=== PATIENT | female | born 1930 | race Caucasian/White ===

== ENCOUNTER → 2017-03-15 | Outpatient (CLI) | payer BC ==
[~2017-03-15] MED LIST: BIOT300T2 PO; CALC-274; CALCCAP7 PO; CLC100X PO; CLINPOW; COEN1CAP17 PO; CRD200 PO; DOCU-94 PO; DXY100 PO; ELQ25 PO; MAGN1TAB28 PO; MAGN200T3 PO; METO50TA16 PO; MULT-506 PO; OMEP40CA41 PO; POLY335019 PO; POLY335040 PO; SERT50TA PO; SIMV20TA2 PO; TRAM-10 PO; reclast IV
[2017-03-15 17:02] LABS: ALT/SGPT 24 U/L (12-78); AST/SGOT 21 U/L (15-37); BLOOD UREA NITROGEN 28 mg/dl (7-18); BUN/CREATININE RATIO 17.3 (10-20); CALCIUM 9.3 mg/dl (8.5-10.1); CARBON DIOXIDE 28 mmol/L (21-32); CHLORIDE 107 mmol/L (98-107); GLUCOSE 109 mg/dl (70-99); SODIUM 141 mmol/L (136-145)
[2017-03-15 17:13] LABS: ALB/GLOB RATIO 1.3 (0.9-2); ALKALINE PHOSPHATASE 86 U/L (45-117)
[2017-03-15 17:20] LABS: HEMATOCRIT 47.4 % (37-47); MEAN CELL VOLUME 90.5 fL (80-100); MEAN CORPUSCULAR HEMOGLOBIN 29.2 pg (25-34); MEAN CORPUSCULAR HGB CONC 32.3 g/dl (32-36); MEAN PLATELET VOLUME 9.5 fL (7.4-10.4); PLATELET COUNT 176 K/uL (130-400); RED BLOOD COUNT 5.24 M/uL (4.2-5.4)
[2017-03-15 17:21] LABS: BASO ABS # 0.28 K/uL (0-0.2); BASOPHIL % 0.4 %; COMPLETE YES; EOSINOPHIL % 0.9 %; LYMPH ABS # 8.12 K/uL (1.2-3.4); LYMPHOCYTE % 11.7 %; NEUTROPHILS % 8.3 %; SMUDGE CELLS PRESENT; VARIANT LYM ABS # 53.72 K/uL; VARIANT LYMPHOCYTE % 77.4 %
[2017-03-16 07:00] LABS: ESTIMATED AVERAGE GLUCOSE 120 mg/dl; HA1C FLAG Normal (Normal)
== END | disposition home or self-care (01) ==
LOC: C.LAB 14:19
PROVIDERS: ATTEND Internal Medicine Geriatric Medicine
DX: M81.0 Age-related osteoporosis without current pathological fracture (principal); M19.90 Unspecified osteoarthritis, unspecified site; C91.10 Chronic lymphocytic leukemia of B-cell type not having achieved remission; E87.5 Hyperkalemia; I10 Essential (primary) hypertension; R73.9 Hyperglycemia, unspecified

== ENCOUNTER → 2017-03-22 | Outpatient (CLI) | payer BC ==
--- NOTE | 2017-03-22 10:29 | DIAGNOSTIC IMAGING REPORT ---
RENAL ULTRASOUND HISTORY: Renal insufficiency ELEVATED SERUM CREAT NINE COMPARISON: September 03, 2010 FINDINGS: Right kidney: Maximum dimension 8.6 cm. Small 1 cm cyst. No evidence for hydronephrosis. Mild cortical scarring. Mild cortical thinning Left kidney: Maximum dimension 8.6 cm. No evidence for hydronephrosis. Several small subcentimeter cysts. Normal corticomedullary differentiation and cortical thickness. Bladder: No bladder wall thickening. The bilateral ureteral jets were identified. IMPRESSION: Mild cortical scarring bilaterally. No evidence for hydronephrosis. Several very small renal cysts. Electronically signed by: Marcial Escamilla M.D. 03/22/2017 10:28 AM Dictated Date/Time: 03/22/2017 10:26 AM
== END | disposition home or self-care (01) ==
LOC: C.ULTRBC 09:49
PROVIDERS: ATTEND Internal Medicine Geriatric Medicine
DX: R79.89 Other specified abnormal findings of blood chemistry (principal); N28.1 Cyst of kidney, acquired

== ENCOUNTER → 2017-03-29 | Outpatient (CLI) | payer BC ==
[2017-03-29 13:51] LABS: BLOOD UREA NITROGEN 20 mg/dl (7-18); BUN/CREATININE RATIO 18.6 (10-20); CARBON DIOXIDE 28 mmol/L (21-32); CHLORIDE 106 mmol/L (98-107); GLUCOSE 119 mg/dl (70-99); POTASSIUM 4.8 mmol/L (3.5-5.1); SODIUM 142 mmol/L (136-145)
[2017-03-29 14:16] LABS: HEMATOCRIT 45.7 % (37-47); MEAN CORPUSCULAR HEMOGLOBIN 29.5 pg (25-34); MEAN CORPUSCULAR HGB CONC 32.4 g/dl (32-36); MEAN PLATELET VOLUME 9.3 fL (7.4-10.4); PLATELET COUNT 154 K/uL (130-400); RED BLOOD COUNT 5.02 M/uL (4.2-5.4); WHITE BLOOD COUNT 61.99 K/uL (4.8-10.8)
[2017-03-29 15:53] LABS: BASO % 0.3 %; BASO ABS # 0.16 K/uL (0-0.2); COMPLETE YES; EOS % 0.6 %; IG% 0.2 %; LYMPH % 87.4 %; LYMPH ABS # 54.19 K/uL (1.2-3.4); MONO % 2.6 %; NEUT % 8.9 %; SMUDGE CELLS PRESENT
== END | disposition home or self-care (01) ==
LOC: C.LAB 12:12
PROVIDERS: ATTEND Internal Medicine Geriatric Medicine
DX: C91.10 Chronic lymphocytic leukemia of B-cell type not having achieved remission (principal)

== ENCOUNTER → 2017-05-04 | Outpatient (CLI) | payer BC ==
[~2017-05-04] MED LIST changes: -CALCCAP7 PO; -CRD200 PO; -DOCU-94 PO; -DXY100 PO; -ELQ25 PO; -MAGN1TAB28 PO; -POLY335019 PO
--- NOTE | 2017-05-04 13:06 | MAMMOGRAPHY REPORT ---
BILATERAL DIGITAL SCREENING MAMMOGRAM WITH CAD: 05/04/2017 CLINICAL HISTORY: Routine screening. Patient has no complaints. TECHNIQUE: Current study was also evaluated with a Computer Aided Detection (CAD) system. Bilateral CC and MLO views were obtained. COMPARISON: Comparison is made to exams dated: 04/29/2016 mammogram, 04/28/2015 mammogram, 04/25/2014 m ammogram, 04/19/2013 mammogram, 04/17/2012 mammogram, and 04/07/2011 mammogram - [facility] nter. BREAST COMPOSITION: There are scattered areas of fibroglandular density in both breasts. FINDINGS: No suspicious masses, calcifications, or areas of architectural distortion are noted in ei ther breast. There has been no significant interval change compared to prior exams. Scattered bilater al benign-appearing calcifications are not significantly changed. A linear scar marker denotes a sca r on the left upper outer breast. IMPRESSION: ACR BI-RADS CATEGORY 2: BENIGN There is no mammographic evidence of malignancy. A 1 year screening mammogram is recommended. The pa tient will receive written notification of the results. Approximately 10% of breast cancers are not detected with mammography. A negative mammographic report should not delay biopsy if a clinically suggestive mass is present. Nupur Jenkins M.D. /:05/04/2017 12:01:11 Market Research Worker: Mila CASILLAS(Marcos)(Avel[place])([place]), [facility] letter sent: Normal 1/2 BI-RADS Code: ACR BI-RADS Category 2: Benign
== END | disposition home or self-care (01) ==
LOC: C.MAMM 11:33
PROVIDERS: ATTEND Internal Medicine Hematology & Oncology
DX: Z12.31 Encounter for screening mammogram for malignant neoplasm of breast (principal)

== ENCOUNTER → 2017-08-30 | Outpatient (CLI) | payer BC ==
[2017-08-30 15:24] LABS: ESTIMATED AVERAGE GLUCOSE 123 mg/dl; HA1C FLAG Normal (Normal)
[2017-08-30 15:57] LABS: HEMATOCRIT 44.2 % (37-47); MEAN CELL VOLUME 88.2 fL (80-100); MEAN CORPUSCULAR HEMOGLOBIN 28.7 pg (25-34); MEAN CORPUSCULAR HGB CONC 32.6 g/dl (32-36); PLATELET COUNT 151 K/uL (130-400); RED BLOOD COUNT 5.01 M/uL (4.2-5.4); WHITE BLOOD COUNT 57.99 K/uL (4.8-10.8)
[2017-08-30 16:00] LABS: BASO % 0.2 %; BASO ABS # 0.12 K/uL (0-0.2); EOS % 0.5 %; IG% 0.2 %; LYMPH % 86.4 %; LYMPH ABS # 50.12 K/uL (1.2-3.4); NEUT % 10.7 %
[2017-08-30 16:01] LABS: COMPLETE YES; SMUDGE CELLS PRESENT
[2017-08-30 16:14] LABS: ALT/SGPT 22 U/L (12-78); AST/SGOT 15 U/L (15-37); BLOOD UREA NITROGEN 24 mg/dl (7-18); BUN/CREATININE RATIO 19.8 (10-20); CALCIUM 8.8 mg/dl (8.5-10.1); CARBON DIOXIDE 27 mmol/L (21-32); CHLORIDE 106 mmol/L (98-107); CHOLESTEROL 131 mg/dl (0-200); GLUCOSE 107 mg/dl (70-99); POTASSIUM 4.6 mmol/L (3.5-5.1); SODIUM 140 mmol/L (136-145)
[2017-08-30 16:25] LABS: ALB/GLOB RATIO 1.3 (0.9-2); ALKALINE PHOSPHATASE 97 U/L (45-117); CHOLESTEROL/HDL RATIO 4.1; HDL CHOLESTEROL 32 mg/dl; LDL CHOLESTEROL CALCULATED 65 mg/dl; TRIGLYCERIDES 170 mg/dl (0-150); VERY LOW DENSITY LIPOPROT CALC 34 mg/dl
== END | disposition home or self-care (01) ==
LOC: C.LAB 12:32
PROVIDERS: ATTEND Internal Medicine Geriatric Medicine
DX: M81.0 Age-related osteoporosis without current pathological fracture (principal); C91.10 Chronic lymphocytic leukemia of B-cell type not having achieved remission; E78.5 Hyperlipidemia, unspecified; R73.9 Hyperglycemia, unspecified; I10 Essential (primary) hypertension

== ENCOUNTER 2017-09-09 17:06 | Inpatient (IN) | payer BC, OTHER ==
[~2017-09-09] VITALS: Ht 165.1 cm; Wt 74.0 kg
[2017-09-09] MEDS ORDERED: OPTIRAY 320 IV PRN (17:45)
[2017-09-09 18:02] LABS: HEMATOCRIT 44.6 % (37-47); MEAN CELL VOLUME 87.3 fL (80-100); MEAN CORPUSCULAR HGB CONC 32.1 g/dl (32-36); MEAN PLATELET VOLUME 9.2 fL (7.4-10.4); PLATELET COUNT 101 K/uL (130-400); RED BLOOD COUNT 5.11 M/uL (4.2-5.4); WHITE BLOOD COUNT 28.84 K/uL (4.8-10.8)
[2017-09-09 18:13] LABS: INR 1.1 (0.9-1.1); PARTIAL THROMBOPLASTIN RATIO 1.3; PROTHROMBIN TIME (PATIENT) 11.5 SECONDS (9.0-12.0)
[2017-09-09 18:14] LABS: URINE APPEARANCE CLEAR (CLEAR); URINE BILIRUBIN NEG (NEG); URINE COLOR YELLOW; URINE NITRITE NEG (NEG); URINE PH 6.5 (4.5-7.5); URINE SPECIFIC GRAVITY 1.023 (1.000-1.030); UROBILINOGEN NEG (NEG); ZZURINE CULT IF INDIC CATH NO
[2017-09-09 18:18] LABS: MANUAL MICROSCOPIC REQUIRED? NO; REVIEW REQ? NO
--- NOTE | 2017-09-09 18:20 | DIAGNOSTIC IMAGING REPORT ---
SINGLE VIEW CHEST CLINICAL HISTORY: Change in mental status. FINDINGS: An AP, portable, upright chest radiograph is compared to study dated 09/04/2010 and correlated with chest CT dated 06/21/2013. The examination is degraded by portable technique and patient rotation. The heart is mildly enlarged and there is atherosclerotic calcification of the thoracic aorta. The pulmonary vasculature is noncongested. Chronic interstitial thickening is similar to previous. No airspace consolidation, large pleural effusion, or pneumothorax is seen. There is a 1.4 cm nodular density at the right lung base. This was not seen on prior examinations. The skeletal structures are osteopenic. Chronic posttraumatic deformity is seen in the right humerus. IMPRESSION: 1. Cardiomegaly with no acute cardiopulmonary abnormality. 2. There is a 1.4 cm nodular density at the right lung base. Although this could represent superimposition of shadows/artifact, this was not seen on prior examinations. Correlation with a chest CT is recommended for further assessment and to exclude underlying pulmonary lesion. Electronically signed by: Destin Lloyd M.D. 09/09/2017 6:19 PM Dictated Date/Time: 09/09/2017 6:17 PM
[2017-09-09 18:22] LABS: ALT/SGPT 18 U/L (12-78); AST/SGOT 13 U/L (15-37); BLOOD UREA NITROGEN 17 mg/dl (7-18); BUN/CREATININE RATIO 16.9 (10-20); CALCIUM 8.8 mg/dl (8.5-10.1); CARBON DIOXIDE 24 mmol/L (21-32); CHLORIDE 105 mmol/L (98-107); GLUCOSE 116 mg/dl (70-99); POTASSIUM 4.1 mmol/L (3.5-5.1); SODIUM 136 mmol/L (136-145)
[2017-09-09 18:29] LABS: ALKALINE PHOSPHATASE 89 U/L (45-117)
[2017-09-09 18:41] LABS: BASO % 0.3 %; BASO ABS # 0.08 K/uL (0-0.2); COMPLETE YES; EOS % 0.1 %; IG% 0.2 %; LYMPH % 77.6 %; LYMPH ABS # 22.39 K/uL (1.2-3.4); MONO % 1.9 %; NEUT % 19.9 %; SMUDGE CELLS PRESENT
[2017-09-09] MEDS ORDERED: DOCU-94 PO (18:45)
[2017-09-09] MEDS ORDERED: MAGN1TAB28 PO (18:45)
[2017-09-09] MEDS ORDERED: POLY335019 PO (18:45)
--- NOTE | 2017-09-09 18:46 | DIAGNOSTIC IMAGING REPORT ---
CT SCAN OF THE BRAIN WITHOUT IV CONTRAST CLINICAL HISTORY: Change in mental status. COMPARISON STUDY: No priors. TECHNIQUE: Unenhanced axial CT scan of the brain is performed from the vertex to the skull base. CT DOSE: 537.48 mGy.cm FINDINGS: Brain parenchyma: There are age-related involutional changes noting moderate subcortical and periventricular microangiopathic change. There is no hemorrhage, mass effect, or evidence of acute territorial ischemia by CT criteria. [place]-white matter is preserved. No extra-axial fluid collection is seen. Ventricles, sulci, cisterns: Prominent secondary to involutional change. Intracranial vasculature: There is atherosclerotic calcification of the cavernous carotid and vertebral arteries. Calvarium: Unremarkable. Sinuses and mastoids: There is complete opacification of the right maxillary antrum. Thickening and sclerosis of the sinus wall suggests crystal. There is complete opacification of several right-sided ethmoid sinuses, also likely chronic. The remaining Visualized paranasal sinuses are clear. The mastoid air cells are well pneumatized. Orbits: The bony orbits are grossly intact. There are bilateral ocular lens implants. IMPRESSION: 1. Senescent changes as above with no hemorrhage, mass effect, or evidence of acute territorial ischemia by CT criteria. 2. Chronic appearing paranasal sinus disease as above. Electronically signed by: Destin Lloyd M.D. 09/09/2017 6:45 PM Dictated Date/Time: 09/09/2017 6:43 PM
[2017-09-09] MEDS ORDERED: CALCCAP7 PO (18:47)
--- NOTE | 2017-09-09 18:53 | DIAGNOSTIC IMAGING REPORT ---
CT SCAN OF THE ABDOMEN AND PELVIS WITH IV CONTRAST CLINICAL HISTORY: Generalized abdominal pain. COMPARISON STUDY: Abdominal CT dated 06/21/2013. TECHNIQUE: Following the IV administration of 116 cc of Optiray 320, CT scan of the abdomen and pelvis is performed from the lung bases to the proximal femora. Images are reviewed in the axial, sagittal, and coronal planes. IV contrast was administered without complication. A dose lowering technique was utilized adhering to the principles of ALARA. CT DOSE: 663.83 mGy.cm FINDINGS: Lung bases: The heart is top normal in size and without pericardial effusion. The coronary arteries are densely calcified. The lung bases are clear noting dependent atelectasis. Liver: The contrast-enhanced liver is normal in size, contour, and attenuation. A 2.2 cm cyst is noted in the right lobe. There is no intrahepatic biliary ductal dilatation. The hepatic veins and portal veins are patent. Possible granulomas are observed. Gallbladder: Unremarkable. Spleen: The spleen is markedly enlarged measuring 16 cm in length. There are calcified splenic granulomas. Pancreas: Atrophic and grossly unremarkable. Adrenal glands: Unremarkable. Kidneys: The contrast enhanced kidneys are atrophic and without hydronephrosis. The kidneys enhance symmetrically. Scattered subcentimeter cortical hypodensities likely represent cysts but are too small for definitive characterization. Abdominal vasculature: The abdominal aorta is normal in course and caliber noting moderate atherosclerotic calcification. Bowel: There is mild colonic diverticulosis without CT evidence of acute diverticulitis. No bowel obstruction is seen. The appendix is well-visualized and normal. Peritoneum: There is no intraperitoneal free air or abdominal ascites. Lymphadenopathy: A mildly enlarged left pelvic sidewall node seen on image #46 measures 1.1 cm in short axis. This is best seen on image #346. No additional pathologically enlarged lymph nodes are seen in the abdomen or pelvis. Pelvic viscera: Evaluation of the pelvis is degraded by streak artifact from a left hip arthroplasty. The bladder is decompressed and not well evaluated. The uterus is surgically absent. No adnexal lesion is seen. Skeletal structures: The skeletal structures are osteopenic. There is moderate lumbosacral spondylosis. There is a mild compression deformity of T12. Grade 1 anterolisthesis is seen at L4-L5. No lytic or blastic lesions are seen. 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 IMPRESSION: 1. There are no acute infectious or inflammatory findings in the abdomen or pelvis. 2. Marked splenomegaly, similar in appearance to the 2013 examination. 3. There is a mildly enlarged left pelvic sidewall length node, which is of indeterminant etiology and significance. 4. Mild colonic diverticulosis without CT evidence of acute diverticulitis. 5. Additional findings as above. Electronically signed by: Destin Lloyd M.D. 09/09/2017 6:52 PM Dictated Date/Time: 09/09/2017 6:45 PM
[2017-09-09] MEDS ORDERED: METRONIDAZOLE 500MG / 100ML NSS IV STA (18:58)
[2017-09-09] MEDS ORDERED: CEFEPIME IV 1,000 MG in DEXTROSE 5% 100ML 100 ML IV SCH (19:00)
[2017-09-09] MEDS ORDERED: POLYETHYLENE (MIRALAX) 17 GM PACK PO PRN (20:30)
[2017-09-09] MEDS ORDERED: DOCUSATE SODIUM 100 MG CAP PO PRN (20:30)
[2017-09-09] MEDS ORDERED: ONDANSETRON INJ 2 MG/ML 2 ML VIAL IV PRN (20:30)
[2017-09-09] MEDS ORDERED: FAMOTIDINE IV INJ 20 MG in DEXTROSE 5% 100ML 100 ML IV SCH (20:30)
[2017-09-09] MEDS ORDERED: TRAMADOL HCL 50 MG TAB PO SCH (21:00)
[2017-09-09] MEDS ORDERED: IV FLUIDS COMPLETED PRN (21:00)
[2017-09-09] MEDS ORDERED: CEFEPIME IV 1,000 MG in SYRINGE 0 ML IV ONE (22:15)
[2017-09-09 22:30] VITALS: Ht 165.1 cm; Wt 74.0 kg
[2017-09-09 22:37] VITALS: BP 141/73; PULSE 94; TEMP 37.1; O2SAT 95
--- NOTE | 2017-09-09 22:56 | History and Physical ---
History & Physical Date & Time of Service: Sep 09, 2017 at 22:56 Chief Complaint: Altered Mental State, Cll B-Cell Primary Care Physician: Lencho French M.D. History of Present Illness Source: patient, family, hospital records The patient is an 87-year-old female who presents emergency department as noted by her family due to altered mental state. The patient's granddaughter at initially spoken with her early in the morning, and noted that there was some confusion and possible slurred speech. The patient's daughter then spoke with her later in the afternoon and the patient told her daughter that she was on the floor, vomiting and seemed confused. Her family who is with her in the emergency department now reports that the patient is still somewhat confused but closer toward her baseline. They note that the hair ringing and curling that the patient is frequently undergoing in the ED occurred the last time she was in the hospital when she had a hip arthroplasty performed. The patient at this time seems somewhat lucid and reports that she had one vomiting episode, and is unclear about the previous occurrences as noted above Past Medical/Surgical History Medical Problems: (1) Benign hypertension Status: Chronic (2) Cancer - Leukemia Status: Chronic (3) Chronic lymphocytic leukemia (CLL), B-cell Status: Chronic (4) Depression Status: Chronic (5) Hysterectomy Status: Resolved (6) Osteoporosis Status: Chronic (7) Tonsillectomy Status: Resolved (8) Total replacement of hip Status: Resolved (9) Ulcerative colitis Status: Chronic Family History noncontributory Social History Smoking Status: Never Smoker Smokeless Tobacco Use: No Alcohol Use: none Drug Use: none Marital Status: Housing status: lives alone Occupational Status: retired Immunizations History of Influenza Vaccine: Yes History of Tetanus Vaccine?: Yes History of Pneumococcal: Yes History of Hepatitis B Vaccine: No Multi-Drug Resistant Organisms History of MDRO: No Allergies Coded Allergies: Naloxone (Verified Allergy, Severe, TREMORS, DYSKINESIA, 09/09/17) Acetaminophen (Verified Allergy, Unknown, `, 09/09/17) Amoxicillin (Verified Allergy, Unknown, `, 09/09/17) Clarithromycin (Verified Allergy, Unknown, `, 09/09/17) Aspirin (Verified Adverse Reaction, Intermediate, hISTORY OF ULCERS, ) Codeine (Verified Adverse Reaction, Intermediate, VOMITING, 09/09/17) Home Medications Scheduled Biotin (Biotin), 5,000 MCG PO DAILY Calcium Carbonate-Vitamin D (Calcium Plus Vitamin D), 1 CAP PO DAILY Coenzyme Q10 (Ubidecarenone) (Co Q 10), 100 MG PO DAILY Magnesium-Zinc (Magnesium/Chelated Zinc), 1 TAB PO DAILY Metoprolol Tartrate (Lopressor) (Lopressor), 50 MG PO BID Multivitamin (Multivitamin), 1 TABLET PO DAILY Omeprazole (Prilosec), 40 MG PO DAILY Sertraline (Zoloft), 100 MG PO DAILY Simvastatin (Zocor), 20 MG PO HS Tramadol (Ultram), 50-100 MG PO HS Scheduled PRN Docusate Sodium (Colace), 1 CAP PO BID PRN for Constipation Polyethylene Glycol 3350 (Miralax), 17 GM PO DAILY PRN for Constipation Review of Systems The patient denies chest pain, palpitations, shortness of breath, cough, lower extremity swelling, vision change, hearing change, sore throat, fevers, chills, sweats, weight change, fatigue, diarrhea or constipation, abdominal pain, pelvic pain, blood in urine or stool, dysuria, urinary frequency or urgency, loss of consciousness, rash, abnormal bruising or bleeding, imbalance, focal or generalized weakness, numbness or tingling in arms or legs, generalized arthralgias or myalgias, back or neck pain, or night sweats. The review of systems is otherwise negative other than for that already noted above, and at least 10 systems have been reviewed. Physical Exam Vital Signs Date Time Temp Pulse Resp B/P (MAP) Pulse Ox O2 Delivery O2 Flow Rate FiO2 09/09/17 22:37 37.1 94 20 141/73 (95) 95 Nasal Cannula 3.0 09/09/17 21:39 91 18 136/69 94 Room Air 09/09/17 18:52 91 20 130/61 96 Room Air 09/09/17 17:29 90 09/09/17 17:19 Room Air 09/09/17 17:13 37.0 87 16 109/58 95 Room Air The patient is awake, well-developed and adequately nourished, alert and oriented 3 for the most part, but intermittently looks to family for answers, normocephalic and atraumatic, lying in bed and in no acute distress. HEENT--PERRL, EOMI, mucous membranes and oropharynx normal. Neck--supple, no JVD or bruits, thyroid normal, trachea midline, no adenopathy. Heart--normal S1 and S2, no extra beats, no murmurs, rubs or gallops. Lungs--clear bilaterally with good air movement, no respiratory distress, no accessory muscle use. Abdomen--normal bowel sounds and soft, nontender and nondistended, no hernias or masses, no organomegaly. Extremities--no cyanosis, clubbing or edema. There are good distal pulses b/l. Dermatologic--normal skin turgor, normal color, warm and dry, no abnormal lymph nodes, no rash. Neurologic--cranial nerves II through XII grossly intact. Rheumatologic--normal range of motion. Psychiatric--normal affect. Diagnostics Laboratory Results Results Past 24 Hours Test 09/09/17 17:40 09/09/17 17:45 09/09/17 18:00 09/09/17 22:40 Range/Units Urine Color YELLOW Urine Appearance CLEAR CLEAR Urine pH 6.5 4.5-7.5 Urine Specific [place] 1.023 1.000-1.030 Urine Protein 1+ NEG Urine Glucose (UA) NEG NEG Urine Ketones NEG NEG Urine Occult Blood 2+ NEG Urine Nitrite NEG NEG Urine Bilirubin NEG NEG Urine Urobilinogen NEG NEG Urine Leukocyte Esterase NEG NEG Urine WBC (Auto) 1-5 0-5 /hpf Urine RBC (Auto) >30 0-4 /hpf Urine Hyaline Casts (Auto) 1-5 0-5 /lpf Urine Epithelial Cells (Auto) 10-20 0-5 /lpf Urine Bacteria (Auto) NEG NEG White Blood Count 28.84 4.8-10.8 K/uL Red Blood Count 5.11 4.2-5.4 M/uL Hemoglobin 14.3 12.0-16.0 g/dL Hematocrit 44.6 37-47 % Mean Corpuscular Volume 87.3 80-100 fL Mean Corpuscular Hemoglobin 28.0 25-34 pg Mean Corpuscular Hemoglobin Concent 32.1 32-36 g/dl Platelet Count 101 130-400 K/uL Mean Platelet Volume 9.2 7.4-10.4 fL Neutrophils (%) (Auto) 19.9 % Lymphocytes (%) (Auto) 77.6 % Monocytes (%) (Auto) 1.9 % Eosinophils (%) (Auto) 0.1 % Basophils (%) (Auto) 0.3 % Neutrophils # (Auto) 5.71 1.4-6.5 K/uL Lymphocytes # (Auto) 22.39 1.2-3.4 K/uL Monocytes # (Auto) 0.55 0.11-0.59 K/uL Eosinophils # (Auto) 0.04 0-0.5 K/uL Basophils # (Auto) 0.08 0-0.2 K/uL RDW Standard Deviation 46.1 36.4-46.3 fL RDW Coefficient of Variation 14.4 11.5-14.5 % Immature Granulocyte % (Auto) 0.2 % Immature Granulocyte # (Auto) 0.07 0.00-0.02 K/uL Smudge Cells PRESENT Prothrombin Time 11.5 9.0-12.0 SECONDS Prothromb Time International Ratio 1.1 0.9-1.1 Activated Partial Thromboplast Time 34.3 21.0-31.0 SECONDS Partial Thromboplastin Ratio 1.3 Sodium Level 136 136-145 mmol/L Potassium Level 4.1 3.5-5.1 mmol/L Chloride Level 105 98-107 mmol/L Carbon Dioxide Level 24 21-32 mmol/L Anion Gap 7.0 3-11 mmol/L Blood Urea Nitrogen 17 7-18 mg/dl Creatinine 1.00 0.60-1.20 mg/dl Est Creatinine Clear Calc Drug Dose 43.7 ml/min Estimated GFR () 59.5 Estimated GFR (Non- 51.3 BUN/Creatinine Ratio 16.9 10-20 Random Glucose 116 70-99 mg/dl Calcium Level 8.8 8.5-10.1 mg/dl Total Bilirubin 0.7 0.2-1 mg/dl Direct Bilirubin 0.2 0-0.2 mg/dl Aspartate Amino Transf (AST/SGOT) 13 15-37 U/L Alanine Aminotransferase (ALT/SGPT) 18 12-78 U/L Alkaline Phosphatase 89 45-117 U/L Total Creatine Kinase 57 26-192 U/L Troponin I < 0.015 0-0.045 ng/ml Total Protein 7.2 6.4-8.2 gm/dl Albumin 3.8 3.4-5.0 gm/dl Bedside Lactic Acid Venous 1.09 0.90-1.70 mmol/L Diagnostic Radiology Patient Name: LIANNA HIGUERA Unit Number: [id number] Dictated: 09/09/171842 Transcribed: 09/09/171842 EV Printed Date/Time: [~ rep prt dt]/[~ rep prt tm] [~ rep ct labl] - [~ rep ct ivnm] [facility] [place] [address] Dictated: 09/09/171842 Transcribed: 09/09/171842 EV Printed Date/Time: [~ rep prt dt]/[~ rep prt tm] [~ rep ct labl] - [~ rep ct ivnm] [~ rep ct add3]] CT SCAN OF THE BRAIN WITHOUT IV CONTRAST CLINICAL HISTORY: Change in mental status. COMPARISON STUDY: No priors. TECHNIQUE: Unenhanced axial CT scan of the brain is performed from the vertex to the skull base. CT DOSE: 537.48 mGy.cm FINDINGS: Brain parenchyma: There are age-related involutional changes noting moderate subcortical and periventricular microangiopathic change. There is no hemorrhage, mass effect, or evidence of acute territorial ischemia by CT criteria. [place]-white matter is preserved. No extra-axial fluid collection is seen. Ventricles, sulci, cisterns: Prominent secondary to involutional change. Intracranial vasculature: There is atherosclerotic calcification of the cavernous carotid and vertebral arteries. Calvarium: Unremarkable. Sinuses and mastoids: There is complete opacification of the right maxillary antrum. Thickening and sclerosis of the sinus wall suggests crystal. There is complete opacification of several right-sided ethmoid sinuses, also likely chronic. The remaining Visualized paranasal sinuses are clear. The mastoid air cells are well pneumatized. Orbits: The bony orbits are grossly intact. There are bilateral ocular lens implants. IMPRESSION: 1. Senescent changes as above with no hemorrhage, mass effect, or evidence of acute territorial ischemia by CT criteria. 2. Chronic appearing paranasal sinus disease as above. Electronically signed by: Destin Lloyd M.D. 09/09/2017 6:45 PM Dictated Date/Time: 09/09/2017 6:43 PM The status of this report is Signed. Draft = Not yet reviewed or approved by Radiologist. Signed = Reviewed and approved by Radiologist. <AttendingPhy></AttendingPhy> <FamilyPhy>Lencho French M.D.</FamilyPhy> < PrimaryPhy>Lencho French M.D.</PrimaryPhy> <UnitNumber>[id number]</UnitNumber > <VisitNumber>[id number]</VisitNumber> <PatientName>ILANNA HIGUERA</ PatientName> <DateOfBirth>1930</DateOfBirth> <Location>[facility]</Location> < ServiceDate>09/09/17</ServiceDate> <MNE>ESINDI</MNE> <OrderingPhy>Chris Workman DO</OrderingPhy> <OrderingPhyMNE>f rep ord dr flowers</OrderingPhyMNE> < DictatingPhyMNE>f rep dict dr flowers</DictatingPhyMNE> <CCListMNE>f rep ct mne</ CCListMNE> <AdmittingPhyMNE>f pt admit dr flowers</AdmittingPhyMNE> <AttendingPhyMNE >f pt attend dr flowers</AttendingPhyMNE> <ConsultingPhyMNE>f pt consult dr flowers</ConsultingPhyMNE> <FamilyPhyMNE>f pt fam dr flowers</FamilyPhyMNE> <OtherPhyMNE>f pt other dr flowers</OtherPhyMNE> < PrimaryPhyMNE>f pt prim care dr flowers</PrimaryPhyMNE> <ReferringPhyMNE>f pt referring dr flowers</ReferringPhyMNE> Patient Name: LIANNA HIGUERA Unit Number: [id number] Dictated: 09/09/171816 Transcribed: 09/09/171816 EV Printed Date/Time: [~ rep prt dt]/[~ rep prt tm] [~ rep ct labl] - [~ rep ct ivnm] [facility] [place] [address] Dictated: 09/09/171816 Transcribed: 09/09/171816 EV Printed Date/Time: [~ rep prt dt]/[~ rep prt tm] [~ rep ct labl] - [~ rep ct ivnm] [~ rep ct add3]] SINGLE VIEW CHEST CLINICAL HISTORY: Change in mental status. FINDINGS: An AP, portable, upright chest radiograph is compared to study dated 09/04/2010 and correlated with chest CT dated 06/21/2013. The examination is degraded by portable technique and patient rotation. The heart is mildly enlarged and there is atherosclerotic calcification of the thoracic aorta. The pulmonary vasculature is noncongested. Chronic interstitial thickening is similar to previous. No airspace consolidation, large pleural effusion, or pneumothorax is seen. There is a 1.4 cm nodular density at the right lung base. This was not seen on prior examinations. The skeletal structures are osteopenic. Chronic posttraumatic deformity is seen in the right humerus. IMPRESSION: 1. Cardiomegaly with no acute cardiopulmonary abnormality. 2. There is a 1.4 cm nodular density at the right lung base. Although this could represent superimposition of shadows/artifact, this was not seen on prior examinations. Correlation with a chest CT is recommended for further assessment and to exclude underlying pulmonary lesion. Electronically signed by: Destin Lloyd M.D. 09/09/2017 6:19 PM Dictated Date/Time: 09/09/2017 6:17 PM The status of this report is Signed. Draft = Not yet reviewed or approved by Radiologist. Signed = Reviewed and approved by Radiologist. <AttendingPhy></AttendingPhy> <FamilyPhy>Lencho French M.D.</FamilyPhy> < PrimaryPhy>Lencho French M.D.</PrimaryPhy> <UnitNumber>[id number]</UnitNumber > <VisitNumber>[id number]</VisitNumber> <PatientName>LIANNA HIGUERA S</ PatientName> <DateOfBirth>1930</DateOfBirth> <Location>[facility]</Location> < ServiceDate>09/09/17</ServiceDate> <MNE>ESINDI</MNE> <OrderingPhy>Chris Workman DO</OrderingPhy> <OrderingPhyMNE>f rep ord dr flowers</OrderingPhyMNE> < DictatingPhyMNE>f rep dict dr flowers</DictatingPhyMNE> <CCListMNE>f rep ct mne</ CCListMNE> <AdmittingPhyMNE>f pt admit dr flowers</AdmittingPhyMNE> <AttendingPhyMNE >f pt attend dr flowers</AttendingPhyMNE> <ConsultingPhyMNE>f pt consult dr flowers</ConsultingPhyMNE> <FamilyPhyMNE>f pt fam dr flowers</FamilyPhyMNE> <OtherPhyMNE>f pt other dr flowers</OtherPhyMNE> < PrimaryPhyMNE>f pt prim care dr flowers</PrimaryPhyMNE> <ReferringPhyMNE>f pt referring dr flowers</ReferringPhyMNE> Patient Name: LIANNA HIGUERA Unit Number: [id number] Dictated: 09/09/171844 Transcribed: 09/09/171844 EV Printed Date/Time: [~ rep prt dt]/[~ rep prt tm] [~ rep ct labl] - [~ rep ct ivnm] [facility] Radiology Department [place], [place] [id number] Dictated: 09/09/171844 Transcribed: 09/09/171844 EV Printed Date/Time: [~ rep prt dt]/[~ rep prt tm] [~ rep ct labl] - [~ rep ct ivnm] [~ rep ct add3]] CT SCAN OF THE ABDOMEN AND PELVIS WITH IV CONTRAST CLINICAL HISTORY: Generalized abdominal pain. COMPARISON STUDY: Abdominal CT dated 06/21/2013. TECHNIQUE: Following the IV administration of 116 cc of Optiray 320, CT scan of the abdomen and pelvis is performed from the lung bases to the proximal femora. Images are reviewed in the axial, sagittal, and coronal planes. IV contrast was administered without complication. A dose lowering technique was utilized adhering to the principles of ALARA. CT DOSE: 663.83 mGy.cm FINDINGS: Lung bases: The heart is top normal in size and without pericardial effusion. The coronary arteries are densely calcified. The lung bases are clear noting dependent atelectasis. Liver: The contrast-enhanced liver is normal in size, contour, and attenuation. A 2.2 cm cyst is noted in the right lobe. There is no intrahepatic biliary ductal dilatation. The hepatic veins and portal veins are patent. Possible granulomas are observed. Gallbladder: Unremarkable. Spleen: The spleen is markedly enlarged measuring 16 cm in length. There are calcified splenic granulomas. Pancreas: Atrophic and grossly unremarkable. Adrenal glands: Unremarkable. Kidneys: The contrast enhanced kidneys are atrophic and without hydronephrosis. The kidneys enhance symmetrically. Scattered subcentimeter cortical hypodensities likely represent cysts but are too small for definitive characterization. Abdominal vasculature: The abdominal aorta is normal in course and caliber noting moderate atherosclerotic calcification. Bowel: There is mild colonic diverticulosis without CT evidence of acute diverticulitis. No bowel obstruction is seen. The appendix is well-visualized and normal. Peritoneum: There is no intraperitoneal free air or abdominal ascites. Lymphadenopathy: A mildly enlarged left pelvic sidewall node seen on image #46 measures 1.1 cm in short axis. This is best seen on image #346. No additional pathologically enlarged lymph nodes are seen in the abdomen or pelvis. Pelvic viscera: Evaluation of the pelvis is degraded by streak artifact from a left hip arthroplasty. The bladder is decompressed and not well evaluated. The uterus is surgically absent. No adnexal lesion is seen. Skeletal structures: The skeletal structures are osteopenic. There is moderate lumbosacral spondylosis. There is a mild compression deformity of T12. Grade 1 anterolisthesis is seen at L4-L5. No lytic or blastic lesions are seen. 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 IMPRESSION: 1. There are no acute infectious or inflammatory findings in the abdomen or pelvis. 2. Marked splenomegaly, similar in appearance to the 2013 examination. 3. There is a mildly enlarged left pelvic sidewall length node, which is of indeterminant etiology and significance. 4. Mild colonic diverticulosis without CT evidence of acute diverticulitis. 5. Additional findings as above. Electronically signed by: Destin Lloyd M.D. 09/09/2017 6:52 PM Dictated Date/Time: 09/09/2017 6:45 PM The status of this report is Signed. Draft = Not yet reviewed or approved by Radiologist. Signed = Reviewed and approved by Radiologist. <AttendingPhy></AttendingPhy> <FamilyPhy>Lencho French M.D.</FamilyPhy> < PrimaryPhy>Lencho French M.D.</PrimaryPhy> <UnitNumber>[id number]</UnitNumber > <VisitNumber>[id number]</VisitNumber> <PatientName>LIANNA HIGUERA</ PatientName> <DateOfBirth>1930</DateOfBirth> <Location>[facility]</Location> < ServiceDate>09/09/17</ServiceDate> <MNE>ESINDI</MNE> <OrderingPhy>Chris Workman Avelino DO</OrderingPhy> <OrderingPhyMNE>f rep ord dr flowers</OrderingPhyMNE> < DictatingPhyMNE>f rep dict dr flowers</DictatingPhyMNE> <CCListMNE>f rep ct lionel</ CCListMNE> <AdmittingPhyMNE>f pt admit dr flowers</AdmittingPhyMNE> <AttendingPhyMNE >f pt attend dr flowers</AttendingPhyMNE> <ConsultingPhyMNE>f pt consult dr flowers</ConsultingPhyMNE> <FamilyPhyMNE>f pt fam dr flowers</FamilyPhyMNE> <OtherPhyMNE>f pt other dr flowers</OtherPhyMNE> < PrimaryPhyMNE>f pt prim care dr flowers</PrimaryPhyMNE> <ReferringPhyMNE>f pt referring dr flowers</ReferringPhyMNE> EKG EKG shows normal sinus rhythm at 86 bpm, left axis deviation, no change compared to 12/21/2011 Impression Assessment and Plan Altered mental status of unclear etiology at this time, but noted to be improving-- The patient will be admitted to telemetry for serial cardiac enzymes, cardiac rhythm monitoring and a 2-D echocardiogram with Dopplers. CT of the head shows no acute findings. CT of abdomen and pelvis shows no acute findings. EKG shows no acute findings. We'll order an MRI the brain combo. Follow urine cultures, and observe on telemetry overnight. Hypertension--continue metoprolol tartrate 50 mg by mouth twice a day with hold parameters. GERD-- Change omeprazole to pantoprazole Hyperlipidemia-- Continue simvastatin 20 mg by mouth bedtime. Depression-- Continue sertraline 100 mg by mouth daily. Arthritis-- continue tramadol at 50 mg by mouth at bedtime Level of Care Telemetry Advanced Directives Existing Advance Directive: No Existing Living Will: No Existing Power of Brand Leader: No Resuscitation Status FULL RESUSCITATION VTE Prophylaxis VTE Risk Assessment Done? Y/N: Yes Risk Level: Moderate Given or contraindicated: SCD's
--- NOTE | 2017-09-09 23:22 | EMERGENCY ROOM VISIT NOTE ---
History Report prepared by Avinashibrufus: Clau Ro Under the Supervision of: Dr. Chris Workman D.O. First contact with patient: 17:27 Chief Complaint: ALTERED MENTAL STATUS Stated Complaint: CONFUSION, AMS Nursing Triage Summary: Patient lives at home alone, EMS states daughter (from [place]) called this AM around 0930 and patient was OK per daughter but EMS states another family memember stated she was confused around 0900 . Unsure last well time. This evening daughter called patient at 1600 and patient was on the floor vomitting and was confused . EMS states there was a bottle of Tegretol on the kitchen table open with 2 pills sitting out, patient only takes 1/2 pill at bedtime. Patient states they were open because she was getting ready to split the pills then she got sick. On arrival patient patient oriented to person and place but not time. History of Present Illness The patient is an 87 year old female who presents to the Emergency Room with complaints of an altered mental status that started prior to arrival. She was brought to the ED via EMS from home. EMS reports the patients daughter, who lives in [place], spoke to the patient this afternoon at 1630, and the patient told her she was "on the floor, vomiting, and seemed confused". The daughter stated the patient was "fine" earlier today, around 0930, but EMS also heard the patients Granddaughter spoke to her this morning as well, and noted some confusion and possible slurred speech. EMS notes there was an open bottle of Tegretol on the patients kitchen table, with 2 tablets sitting on the table. The patient states she takes 1/2 a tablet at bedtime and was getting ready to split the pills before she got sick. She denies any recent headache, change in vision, fevers, chest pain, shortness of breath, diarrhea, pain with urination, and melena. Daughter notes that patient's niece had called her earlier and noted that she was extremely confused. She called about 45 minutes later and the patient was with it. She called again around 4 PM and the patient was once again extremely confused and did not know what was going on. EMS was called. 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 A total of 10 systems reviewed and were otherwise negative. Past Medical & Surgical Medical Problems: (1) Altered mental state (2) Benign hypertension (3) Cancer - Leukemia (4) Chronic lymphocytic leukemia (CLL), B-cell (5) Depression (6) Hysterectomy (7) Osteoporosis (8) Tonsillectomy (9) Total replacement of hip (10) Ulcerative colitis Social History Smoking Status: Never Smoker Alcohol Use: none Drug Use: none Marital Status: Housing Status: lives alone Occupation Status: retired Current/Historical Medications Scheduled Biotin (Biotin), 5,000 MCG PO DAILY Calcium Carbonate-Vitamin D (Calcium Plus Vitamin D), 1 CAP PO DAILY Coenzyme Q10 (Ubidecarenone) (Co Q 10), 100 MG PO DAILY Magnesium-Zinc (Magnesium/Chelated Zinc), 1 TAB PO DAILY Metoprolol Tartrate (Lopressor) (Lopressor), 50 MG PO BID Multivitamin (Multivitamin), 1 TABLET PO DAILY Omeprazole (Prilosec), 40 MG PO DAILY Sertraline (Zoloft), 100 MG PO DAILY Simvastatin (Zocor), 20 MG PO HS Tramadol (Ultram), 50-100 MG PO HS Scheduled PRN Docusate Sodium (Colace), 1 CAP PO BID PRN for Constipation Polyethylene Glycol 3350 (Miralax), 17 GM PO DAILY PRN for Constipation Allergies Coded Allergies: Naloxone (Verified Allergy, Severe, TREMORS, DYSKINESIA, 09/09/17) Acetaminophen (Verified Allergy, Unknown, `, 09/09/17) Amoxicillin (Verified Allergy, Unknown, `, 09/09/17) Clarithromycin (Verified Allergy, Unknown, `, 09/09/17) Aspirin (Verified Adverse Reaction, Intermediate, hISTORY OF ULCERS, ) Codeine (Verified Adverse Reaction, Intermediate, VOMITING, 09/09/17) Physical Exam Vital Signs Date Time Temp Pulse Resp B/P (MAP) Pulse Ox O2 Delivery O2 Flow Rate FiO2 09/09/17 18:52 91 20 130/61 96 Room Air 09/09/17 17:29 90 09/09/17 17:19 Room Air 09/09/17 17:13 37.0 87 16 109/58 95 Room Air Physical Exam GENERAL: Patient is sitting up in bed, slow to respond, no acute distress, non- toxic. EYE EXAM: normal conjunctiva. PERRL and EOM's intact. OROPHARYNX: no exudate, no erythema, lips, buccal mucosa, and tongue normal and mucous membranes are moist NECK: supple, no nuchal rigidity, no adenopathy, non-tender LUNGS: Clear to auscultation. Normal chest wall mechanics HEART: no murmurs, S1 normal and S2 normal ABDOMEN: abdomen soft, non-tender, normo-active bowel sounds, no masses, no rebound or guarding. BACK: Back is symmetrical on inspection and there is no deformity, no midline tenderness, no CVA tenderness. SKIN: no rashes and no bruising UPPER EXTREMITIES: upper extremities are grossly normal. LOWER EXTREMITIES: No pitting edema. NEURO EXAM: Patient is awake, alert and oriented to person, place but not year. Cranial nerves II through XII intact. No weakness of the upper extremities. No weakness of lower extremities. No drift. Medical Decision & Procedures ER Provider Diagnostic Interpretation: Radiology results as stated below per my review and the radiologist's interpretation: CT SCAN OF THE ABDOMEN AND PELVIS WITH IV CONTRAST CLINICAL HISTORY: Generalized abdominal pain. COMPARISON STUDY: Abdominal CT dated 06/21/2013. TECHNIQUE: Following the IV administration of 116 cc of Optiray 320, CT scan of the abdomen and pelvis is performed from the lung bases to the proximal femora. Images are reviewed in the axial, sagittal, and coronal planes. IV contrast was administered without complication. A dose lowering technique was utilized adhering to the principles of ALARA. CT DOSE: 663.83 mGy.cm FINDINGS: Lung bases: The heart is top normal in size and without pericardial effusion. The coronary arteries are densely calcified. The lung bases are clear noting dependent atelectasis. Liver: The contrast-enhanced liver is normal in size, contour, and attenuation. A 2.2 cm cyst is noted in the right lobe. There is no intrahepatic biliary ductal dilatation. The hepatic veins and portal veins are patent. Possible granulomas are observed. Gallbladder: Unremarkable. Spleen: The spleen is markedly enlarged measuring 16 cm in length. There are calcified splenic granulomas. Pancreas: Atrophic and grossly unremarkable. Adrenal glands: Unremarkable. Kidneys: The contrast enhanced kidneys are atrophic and without hydronephrosis. The kidneys enhance symmetrically. Scattered subcentimeter cortical hypodensities likely represent cysts but are too small for definitive characterization. Abdominal vasculature: The abdominal aorta is normal in course and caliber noting moderate atherosclerotic calcification. Bowel: There is mild colonic diverticulosis without CT evidence of acute diverticulitis. No bowel obstruction is seen. The appendix is well-visualized and normal. Peritoneum: There is no intraperitoneal free air or abdominal ascites. Lymphadenopathy: A mildly enlarged left pelvic sidewall node seen on image #46 measures 1.1 cm in short axis. This is best seen on image #346. No additional pathologically enlarged lymph nodes are seen in the abdomen or pelvis. Pelvic viscera: Evaluation of the pelvis is degraded by streak artifact from a left hip arthroplasty. The bladder is decompressed and not well evaluated. The uterus is surgically absent. No adnexal lesion is seen. Skeletal structures: The skeletal structures are osteopenic. There is moderate lumbosacral spondylosis. There is a mild compression deformity of T12. Grade 1 anterolisthesis is seen at L4-L5. No lytic or blastic lesions are seen. 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 IMPRESSION: 1. There are no acute infectious or inflammatory findings in the abdomen or pelvis. 2. Marked splenomegaly, similar in appearance to the 2013 examination. 3. There is a mildly enlarged left pelvic sidewall length node, which is of indeterminant etiology and significance. 4. Mild colonic diverticulosis without CT evidence of acute diverticulitis. 5. Additional findings as above. Electronically signed by: Destin Lloyd M.D. 09/09/2017 6:52 PM SINGLE VIEW CHEST CLINICAL HISTORY: Change in mental status. FINDINGS: An AP, portable, upright chest radiograph is compared to study dated 09/04/2010 and correlated with chest CT dated 06/21/2013. The examination is degraded by portable technique and patient rotation. The heart is mildly enlarged and there is atherosclerotic calcification of the thoracic aorta. The pulmonary vasculature is noncongested. Chronic interstitial thickening is similar to previous. No airspace consolidation, large pleural effusion, or pneumothorax is seen. There is a 1.4 cm nodular density at the right lung base. This was not seen on prior examinations. The skeletal structures are osteopenic. Chronic posttraumatic deformity is seen in the right humerus. IMPRESSION: 1. Cardiomegaly with no acute cardiopulmonary abnormality. 2. There is a 1.4 cm nodular density at the right lung base. Although this could represent superimposition of shadows/artifact, this was not seen on prior examinations. Correlation with a chest CT is recommended for further assessment and to exclude underlying pulmonary lesion. Electronically signed by: Destin Lloyd M.D. 09/09/2017 6:[address] SCAN OF THE BRAIN WITHOUT IV CONTRAST CLINICAL HISTORY: Change in mental status. COMPARISON STUDY: No priors. TECHNIQUE: Unenhanced axial CT scan of the brain is performed from the vertex to the skull base. CT DOSE: 537.48 mGy.cm FINDINGS: Brain parenchyma: There are age-related involutional changes noting moderate subcortical and periventricular microangiopathic change. There is no hemorrhage, mass effect, or evidence of acute territorial ischemia by CT criteria. [place]-white matter is preserved. No extra-axial fluid collection is seen. Ventricles, sulci, cisterns: Prominent secondary to involutional change. Intracranial vasculature: There is atherosclerotic calcification of the cavernous carotid and vertebral arteries. Calvarium: Unremarkable. Sinuses and mastoids: There is complete opacification of the right maxillary antrum. Thickening and sclerosis of the sinus wall suggests crystal. There is complete opacification of several right-sided ethmoid sinuses, also likely chronic. The remaining Visualized paranasal sinuses are clear. The mastoid air cells are well pneumatized. Orbits: The bony orbits are grossly intact. There are bilateral ocular lens implants. IMPRESSION: 1. Senescent changes as above with no hemorrhage, mass effect, or evidence of acute territorial ischemia by CT criteria. 2. Chronic appearing paranasal sinus disease as above. Electronically signed by: Destin Lloyd M.D. 09/09/2017 6:45 PM Laboratory Results 09/09/17 17:45 Red Blood Count 5.11, Mean Corpuscular Volume 87.3, Mean Corpuscular Hemoglobin 28.0, Mean Corpuscular Hemoglobin Concent 32.1, Mean Platelet Volume 9.2, Neutrophils (%) (Auto) 19.9, Lymphocytes (%) (Auto) 77.6, Monocytes (%) (Auto) 1.9, Eosinophils (%) (Auto) 0.1, Basophils (%) (Auto) 0.3, Neutrophils # (Auto) 5.71, Lymphocytes # (Auto) 22.39, Monocytes # (Auto) 0.55, Eosinophils # (Auto) 0.04, Basophils # (Auto) 0.08 09/09/17 17:45 Test 09/09/17 17:40 09/09/17 17:45 09/09/17 18:00 Urine Color YELLOW Urine Appearance CLEAR (CLEAR) Urine pH 6.5 (4.5-7.5) Urine Specific Luther 1.023 (1.000-1.030) Urine Protein 1+ (NEG) Urine Glucose (UA) NEG (NEG) Urine Ketones NEG (NEG) Urine Occult Blood 2+ (NEG) Urine Nitrite NEG (NEG) Urine Bilirubin NEG (NEG) Urine Urobilinogen NEG (NEG) Urine Leukocyte Esterase NEG (NEG) Urine WBC (Auto) 1-5 /hpf (0-5) Urine RBC (Auto) >30 /hpf (0-4) Urine Hyaline Casts (Auto) 1-5 /lpf (0-5) Urine Epithelial Cells (Auto) 10-20 /lpf (0-5) Urine Bacteria (Auto) NEG (NEG) White Blood Count 28.84 K/uL (4.8-10.8) Red Blood Count 5.11 M/uL (4.2-5.4) Hemoglobin 14.3 g/dL (12.0-16.0) Hematocrit 44.6 % (37-47) Mean Corpuscular Volume 87.3 fL (80-100) Mean Corpuscular Hemoglobin 28.0 pg (25-34) Mean Corpuscular Hemoglobin Concent 32.1 g/dl (32-36) Platelet Count 101 K/uL (130-400) Mean Platelet Volume 9.2 fL (7.4-10.4) Neutrophils (%) (Auto) 19.9 % Lymphocytes (%) (Auto) 77.6 % Monocytes (%) (Auto) 1.9 % Eosinophils (%) (Auto) 0.1 % Basophils (%) (Auto) 0.3 % Neutrophils # (Auto) 5.71 K/uL (1.4-6.5) Lymphocytes # (Auto) 22.39 K/uL (1.2-3.4) Monocytes # (Auto) 0.55 K/uL (0.11-0.59) Eosinophils # (Auto) 0.04 K/uL (0-0.5) Basophils # (Auto) 0.08 K/uL (0-0.2) RDW Standard Deviation 46.1 fL (36.4-46.3) RDW Coefficient of Variation 14.4 % (11.5-14.5) Immature Granulocyte % (Auto) 0.2 % Immature Granulocyte # (Auto) 0.07 K/uL (0.00-0.02) Smudge Cells PRESENT Prothrombin Time 11.5 SECONDS (9.0-12.0) Prothromb Time International Ratio 1.1 (0.9-1.1) Activated Partial Thromboplast Time 34.3 SECONDS (21.0-31.0) Partial Thromboplastin Ratio 1.3 Anion Gap 7.0 mmol/L (3-11) Est Creatinine Clear Calc Drug Dose 43.7 ml/min Estimated GFR () 59.5 Estimated GFR (Non- 51.3 BUN/Creatinine Ratio 16.9 (10-20) Calcium Level 8.8 mg/dl (8.5-10.1) Total Bilirubin 0.7 mg/dl (0.2-1) Direct Bilirubin 0.2 mg/dl (0-0.2) Aspartate Amino Transf (AST/SGOT) 13 U/L (15-37) Alanine Aminotransferase (ALT/SGPT) 18 U/L (12-78) Alkaline Phosphatase 89 U/L (45-117) Troponin I < 0.015 ng/ml (0-0.045) Total Protein 7.2 gm/dl (6.4-8.2) Albumin 3.8 gm/dl (3.4-5.0) Bedside Lactic Acid Venous 1.09 mmol/L (0.90-1.70) Laboratory results per my review. Medications Administered Medications (Trade) Dose Ordered Sig/Lionel Route Start Time Stop Time Status Last Admin Dose Admin Metronidazole (Flagyl / Nss) 500 mg NOW STAT IV 09/09/17 18:58 09/09/17 19:00 DC 09/09/17 19:10 500 MG ECG Indication: altered mental status Rate (beats per minute): 86 Rhythm: sinus rhythm Findings: left axis deviation, no ectopy ED Course ED COURSE: Vital signs were reviewed and showed the patient is hypotensive. The patients medical record was reviewed The above diagnostic studies were performed and reviewed. ED treatments and interventions as stated above. 1732: The patient was evaluated in room C4. A complete history and physical examination was performed. 1858: Flagyl 500 mg IV. 1899: Cefepime HCl 1000 mg/Dextrose 111 ml @ 200 mls/hr IV. 1944: I discussed the patients case with Dr. Jolly [facility] Hospitalist. The patient will be further evaluated. 1999: Upon reevaluation, the patient is resting comfortably. I discussed my findings with the patient and she understands and agrees with the treatment plan. Based on the patients age, coexisting illnesses, exam and lab findings the decision to treat as an inpatient was made. The patient remained stable while under my care. The patient will be evaluated for further management. Medical Decision Differential diagnoses includes but is not limited to toxic, metabolic, infectious, traumatic, cardiac, neurologic, hematologic, psychiatric and inflammatory etiologies. Patient is an 87-year-old female who presents to ER for altered mental status. Upon arrival she is not oriented to the year is otherwise oriented to person place and events. No real complaints. Leukocytosis of 28,000 which is improved from her baseline in the 50s. CBC along with bilirubin, LFTs and troponin were negative. INR was normal. UA was negative. Chest x-ray unremarkable. CT head and abdomen were negative. Discussed with internal medicine as patient has had waxing and waning confusion. Patient was admitted for further workup. There is no signs of stroke on my initial exam. Medication Reconcilliation Current Medication List: was personally reviewed by me Blood Pressure Screening Patient's blood pressure: Normal blood pressure Blood pressure disposition: Did not require urgent referral Consults Time Called: 1939 Consulting Physician: Dr. Jolly [facility] Hospitalist Returned Call: 1944 I discussed the patients case with Dr. Jolly [facility] Hospitalist. The patient will be further evaluated. Impression Primary Impression: Altered mental status Additional Impressions: Chronic lymphocytic leukemia (CLL), B-cell Leukocytosis Vomiting Scribe Attestation The scribe's documentation has been prepared under my direction and personally reviewed by me in its entirety. I confirm that the note above accurately reflects all work, treatment, procedures, and medical decision making performed by me. Departure Information Dispostion Being Evaluated By Hospitalist Referrals Lencho French M.D. (PCP) Patient Instructions My [facility] Problem Qualifiers Primary Impression: Altered mental status Altered mental status type: unspecified Qualified Codes: R41.82 - Altered mental status, unspecified Additional Impressions: Leukocytosis Leukocytosis type: unspecified Qualified Codes: D72.829 - Elevated white blood cell count, unspecified Vomiting Vomiting type: unspecified Vomiting Intractability: unspecified Nausea presence: unspecified Qualified Codes: R11.10 - Vomiting, unspecified
[2017-09-09] MEDS: METOPROLOL TARTRATE 50 MG TAB PO SCH (23:36)
[2017-09-09] MEDS: SIMVASTATIN 20 MG TAB PO SCH (23:36)
[2017-09-09] MEDS: FAMOTIDINE IV INJ 20 MG in SYRINGE 3 ML IV SCH (23:38)
[2017-09-09 23:43] VITALS: BP 155/74; PULSE 100; TEMP 36.5; O2SAT 97
[2017-09-10] VITALS (9 sets, daily range): BP systolic 113–156; BP diastolic 66–87; PULSE 74–100; TEMP 36.6–38.6; O2SAT 92–96
[2017-09-10] MEDS ORDERED: IBUPROFEN 200 MG TAB PO STA ×2 (03:42→23:18)
[2017-09-10 04:40] LABS: MEAN CELL VOLUME 86.3 fL (80-100); MEAN CORPUSCULAR HEMOGLOBIN 28.4 pg (25-34); MEAN CORPUSCULAR HGB CONC 32.9 g/dl (32-36); RED BLOOD COUNT 4.75 M/uL (4.2-5.4); WHITE BLOOD COUNT 28.61 K/uL (4.8-10.8)
[2017-09-10 04:58] LABS: BLOOD UREA NITROGEN 15 mg/dl (7-18); BUN/CREATININE RATIO 16.2 (10-20); CALCIUM 8.4 mg/dl (8.5-10.1); CARBON DIOXIDE 21 mmol/L (21-32); CHLORIDE 104 mmol/L (98-107); CREATININE 0.94 mg/dl (0.60-1.20); GLUCOSE 130 mg/dl (70-99); SODIUM 135 mmol/L (136-145)
[2017-09-10 05:03] LABS: CKMB/CK RATIO 1.2 (0-3.0)
[2017-09-10 06:23] LABS: BASO % 0.2 %; BASO ABS # 0.05 K/uL (0-0.2); COMPLETE YES; IG% 0.1 %; LYMPH % 79.8 %; LYMPH ABS # 22.82 K/uL (1.2-3.4); MEAN PLATELET VOLUME 8.9 fL (7.4-10.4); MONO % 3.2 %; NEUT % 16.7 %; PLATELET COUNT 89 K/uL (130-400); PLT ESTIMATE DECREASED
[2017-09-10] MEDS: METOPROLOL TARTRATE 50 MG TAB PO SCH ×2 (07:59→21:42)
[2017-09-10] MEDS: PANTOprazole SOD 40 MG TAB PO SCH (08:00)
[2017-09-10] MEDS: MULTIVITAMIN TAB PO SCH (08:00)
--- NOTE | 2017-09-10 08:04 | DIAGNOSTIC IMAGING REPORT ---
CHEST ONE VIEW PORTABLE CLINICAL HISTORY: Fever, vomiting. COMPARISON STUDY: 09/09/2017 FINDINGS: The heart is enlarged. There is mild interstitial prominence without evidence of overt failure. There is soft tissue prominence the left infrahilar region. A mass cannot be excluded. CT scanning as was previously recommended for a right lung base abnormality should be considered. There are no pleural effusions. IMPRESSION: 1. Cardiomegaly 2. Interstitial prominence but no evidence of overt failure 3. Soft tissue prominence of the left infrahilar region. CT scanning should be considered in follow-up to exclude an underlying mass Electronically signed by: Miguel Brush M.D. 09/10/2017 8:03 AM Dictated Date/Time: 09/10/2017 7:58 AM
[2017-09-10] MEDS ORDERED: MAGNESIUM ZINC PO SCH (09:00)
[2017-09-10] MEDS ORDERED: NON-FORMULARY MEDICATION (Coenzyme Q10 (Ubidecarenone) (Co Q 10) 100 MG) PO SCH (09:00)
[2017-09-10] MEDS ORDERED: SERTRALINE HCL 100 MG TAB PO SCH (09:00)
[2017-09-10 09:32] LABS: BENZODIAZEPINE, URINE NEG (NEG); COCAINE,URINE NEG (NEG); PHENCYCLIDINE, URINE NEG (NEG)
[2017-09-10] MEDS ORDERED: METOPROLOL TARTRATE 50 MG TAB PO STA (11:08)
[2017-09-10] MEDS ORDERED: LORAZEPAM 2 MG/ML 1 ML VIAL IV STA ×2 (11:20→12:42)
[2017-09-10] MEDS ORDERED: LORAZEPAM 2 MG/ML 1 ML VIAL ONE ×2 (11:23→12:47)
[2017-09-10] MEDS ORDERED: NURSING VERBAL MED ORDER ONE ×4 (12:00→23:15)
[2017-09-10] MEDS ORDERED: PIPERACILL/TAZOBAC IV 3.375 GM in DEXTROSE 5% 100ML IV ONE (13:00)
[2017-09-10] MEDS ORDERED: VANCOMYCIN CONSULT ACTIVE PRN (13:00)
--- NOTE | 2017-09-10 13:14 | Family Medicine Progress Note ---
Progress Note Date of Service Sep 10, 2017. Subjective Pt evaluation today including: conversation w/ patient, physical exam, chart review, lab review, review of studies Pain: No pain reported this morning Voiding: no voiding problems, no incontinence Patient denies having any acute complaints this morning. She is alert and oriented but when talking to her she is having continuous head movements shaking her head back and forth, followed by repetitive upward gaze. She denies any fevers, chills, shortness of breath, chest pain, dysuria, headache, numbness , or tingling. Constitutional: No fever, No chills, No sweats Respiratory: No cough, No wheezing Cardiovascular: No chest pain, No orthopnea Abdomen: No pain, No nausea, No vomiting, No diarrhea, No constipation Female : No dysuria Neurologic: No memory loss, No weakness Psychiatric: No substance abuse Medications Current Inpatient Medications Medications (Trade) Dose Ordered Sig/Lionel Route Start Time Stop Time Status Last Admin Dose Admin Ioversol (Optiray 320) 100 ml UD PRN IV 09/09/17 17:45 09/13/17 17:44 Docusate Sodium (coLACE CAP) 100 mg BID PRN PO 09/09/17 20:30 10/09/17 20:29 Metoprolol Tartrate (Lopressor Tab) 50 mg BID PO 09/09/17 21:00 10/09/17 20:59 09/10/17 07:59 50 MG Multivitamins (Multivitamin Tab) 1 tab DAILY PO 09/10/17 09:00 10/10/17 08:59 09/10/17 08:00 1 TAB Simvastatin (Zocor Tab) 20 mg HS PO 09/09/17 21:00 10/09/17 20:59 09/09/17 23:36 20 MG Pantoprazole Sodium (Protonix Tab) 40 mg QAM PO 09/10/17 09:00 10/10/17 08:59 09/10/17 08:00 40 MG Polyethylene (Miralax Powder Packet) 17 gm DAILY PRN PO 09/09/17 20:30 10/09/17 20:29 Ondansetron HCl (Zofran Inj) 4 mg Q6H PRN IV 09/09/17 20:30 10/09/17 20:29 Miscellaneous (Iv Fluids Completed) 1 ea PRN PRN N/A 09/09/17 21:00 09/09/18 20:59 Famotidine 20 mg/ Syringe 5 ml @ 2.5 mls/min Q12H IV 09/09/17 23:00 10/09/17 22:59 09/09/17 23:38 2.5 MLS/MIN Objective Vital Signs Date Time Temp Pulse Resp B/P (MAP) Pulse Ox O2 Delivery O2 Flow Rate FiO2 09/10/17 12:03 Room Air 09/10/17 11:52 36.6 74 18 120/69 (86) 94 Room Air 09/10/17 08:00 94 Room Air 09/10/17 07:32 36.8 80 18 113/66 (82) 92 Room Air 09/10/17 05:07 37.9 09/10/17 04:00 Nasal Cannula 3.0 09/10/17 03:52 38.6 89 20 154/81 (105) 96 Nasal Cannula 2.0 09/09/17 23:59 Nasal Cannula 3.0 09/09/17 23:43 36.5 100 22 155/74 (101) 97 Nasal Cannula 2.0 09/09/17 22:37 37.1 94 20 141/73 (95) 95 Nasal Cannula 3.0 09/09/17 22:30 Room Air 09/09/17 21:39 91 18 136/69 94 Room Air 09/09/17 18:52 91 20 130/61 96 Room Air 09/09/17 17:29 90 09/09/17 17:19 Room Air 09/09/17 17:13 37.0 87 16 109/58 95 Room Air Physical Exam General Appearance: WD/WN, no apparent distress Eyes: normal inspection, sclerae normal, + pertinent finding (Patient is having persistent superior gaze, with eyes rolling to the back of her head) ENT: pharynx normal Neck: supple, thyroid normal, trachea midline Respiratory/Chest: chest non-tender, lungs clear, normal breath sounds, no respiratory distress, no accessory muscle use Cardiovascular: no gallop, no murmur, + irregularly irregular Abdomen: normal bowel sounds, non tender, soft Neurologic/Psychiatric: alert, oriented x 3, + pertinent finding (Patient having difficulty maintaining eye contact and having continuous movements of her head and arms. Continuously moving head side to side.) Laboratory Results Results Past 24 Hours Test 09/09/17 17:40 09/09/17 17:45 09/09/17 18:00 09/09/17 22:40 Range/Units Urine Color YELLOW Urine Appearance CLEAR CLEAR Urine pH 6.5 4.5-7.5 Urine Specific [place] 1.023 1.000-1.030 Urine Protein 1+ NEG Urine Glucose (UA) NEG NEG Urine Ketones NEG NEG Urine Occult Blood 2+ NEG Urine Nitrite NEG NEG Urine Bilirubin NEG NEG Urine Urobilinogen NEG NEG Urine Leukocyte Esterase NEG NEG Urine WBC (Auto) 1-5 0-5 /hpf Urine RBC (Auto) >30 0-4 /hpf Urine Hyaline Casts (Auto) 1-5 0-5 /lpf Urine Epithelial Cells (Auto) 10-20 0-5 /lpf Urine Bacteria (Auto) NEG NEG White Blood Count 28.84 4.8-10.8 K/uL Red Blood Count 5.11 4.2-5.4 M/uL Hemoglobin 14.3 12.0-16.0 g/dL Hematocrit 44.6 37-47 % Mean Corpuscular Volume 87.3 80-100 fL Mean Corpuscular Hemoglobin 28.0 25-34 pg Mean Corpuscular Hemoglobin Concent 32.1 32-36 g/dl Platelet Count 101 130-400 K/uL Mean Platelet Volume 9.2 7.4-10.4 fL Neutrophils (%) (Auto) 19.9 % Lymphocytes (%) (Auto) 77.6 % Monocytes (%) (Auto) 1.9 % Eosinophils (%) (Auto) 0.1 % Basophils (%) (Auto) 0.3 % Neutrophils # (Auto) 5.71 1.4-6.5 K/uL Lymphocytes # (Auto) 22.39 1.2-3.4 K/uL Monocytes # (Auto) 0.55 0.11-0.59 K/uL Eosinophils # (Auto) 0.04 0-0.5 K/uL Basophils # (Auto) 0.08 0-0.2 K/uL RDW Standard Deviation 46.1 36.4-46.3 fL RDW Coefficient of Variation 14.4 11.5-14.5 % Immature Granulocyte % (Auto) 0.2 % Immature Granulocyte # (Auto) 0.07 0.00-0.02 K/uL Smudge Cells PRESENT Prothrombin Time 11.5 9.0-12.0 SECONDS Prothromb Time International Ratio 1.1 0.9-1.1 Activated Partial Thromboplast Time 34.3 21.0-31.0 SECONDS Partial Thromboplastin Ratio 1.3 Sodium Level 136 136-145 mmol/L Potassium Level 4.1 3.5-5.1 mmol/L Chloride Level 105 98-107 mmol/L Carbon Dioxide Level 24 21-32 mmol/L Anion Gap 7.0 3-11 mmol/L Blood Urea Nitrogen 17 7-18 mg/dl Creatinine 1.00 0.60-1.20 mg/dl Est Creatinine Clear Calc Drug Dose 43.7 ml/min Estimated GFR () 59.5 Estimated GFR (Non- 51.3 BUN/Creatinine Ratio 16.9 10-20 Random Glucose 116 70-99 mg/dl Calcium Level 8.8 8.5-10.1 mg/dl Total Bilirubin 0.7 0.2-1 mg/dl Direct Bilirubin 0.2 0-0.2 mg/dl Aspartate Amino Transf (AST/SGOT) 13 15-37 U/L Alanine Aminotransferase (ALT/SGPT) 18 12-78 U/L Alkaline Phosphatase 89 45-117 U/L Total Creatine Kinase 57 72 26-192 U/L Troponin I < 0.015 0-0.045 ng/ml Total Protein 7.2 6.4-8.2 gm/dl Albumin 3.8 3.4-5.0 gm/dl Bedside Lactic Acid Venous 1.09 0.90-1.70 mmol/L Test 09/10/17 04:00 09/10/17 08:40 09/10/17 11:16 Range/Units White Blood Count 28.61 4.8-10.8 K/uL Red Blood Count 4.75 4.2-5.4 M/uL Hemoglobin 13.5 12.0-16.0 g/dL Hematocrit 41.0 37-47 % Mean Corpuscular Volume 86.3 80-100 fL Mean Corpuscular Hemoglobin 28.4 25-34 pg Mean Corpuscular Hemoglobin Concent 32.9 32-36 g/dl Platelet Count 89 130-400 K/uL Mean Platelet Volume 8.9 7.4-10.4 fL Neutrophils (%) (Auto) 16.7 % Lymphocytes (%) (Auto) 79.8 % Monocytes (%) (Auto) 3.2 % Eosinophils (%) (Auto) 0.0 % Basophils (%) (Auto) 0.2 % Neutrophils # (Auto) 4.79 1.4-6.5 K/uL Lymphocytes # (Auto) 22.82 1.2-3.4 K/uL Monocytes # (Auto) 0.91 0.11-0.59 K/uL Eosinophils # (Auto) 0.01 0-0.5 K/uL Basophils # (Auto) 0.05 0-0.2 K/uL RDW Standard Deviation 45.3 36.4-46.3 fL RDW Coefficient of Variation 14.5 11.5-14.5 % Immature Granulocyte % (Auto) 0.1 % Immature Granulocyte # (Auto) 0.03 0.00-0.02 K/uL Platelet Estimate DECREASED Sodium Level 135 136-145 mmol/L Potassium Level 4.0 3.5-5.1 mmol/L Chloride Level 104 98-107 mmol/L Carbon Dioxide Level 21 21-32 mmol/L Anion Gap 10.0 3-11 mmol/L Blood Urea Nitrogen 15 7-18 mg/dl Creatinine 0.94 0.60-1.20 mg/dl Est Creatinine Clear Calc Drug Dose 45.1 ml/min Estimated GFR () 64.1 Estimated GFR (Non- 55.3 BUN/Creatinine Ratio 16.2 10-20 Random Glucose 130 70-99 mg/dl Calcium Level 8.4 8.5-10.1 mg/dl Magnesium Level 2.0 1.8-2.4 mg/dl Total Creatine Kinase 110 170 26-192 U/L Creatine Kinase MB 1.3 1.7 0.5-3.6 ng/ml Creatine Kinase MB Ratio 1.2 1.0 0-3.0 Troponin I < 0.015 < 0.015 0-0.045 ng/ml Urine Opiates Screen NEG NEG Urine Methadone, Qualitative NEG NEG Urine Barbiturates NEG NEG Urine Phencyclidine (PCP) Level NEG NEG Ur Amphetamine/Methamphetamine NEG NEG MDMA (Ecstasy) Screen NEG NEG Urine Benzodiazepines Screen NEG NEG Urine Cocaine Metabolite NEG NEG Urine Marijuana (THC) NEG NEG Thyroid Stimulating Hormone (TSH) 1.490 0.300-4.500 uIu/ml Free Thyroxine 1.09 0.80-1.60 ng/dl Microbiology Results 09/10/17 Blood Culture, Received Pending 09/10/17 Blood Culture, Received Pending Assessment and Plan Patient is an 87 year old female that presents with Altered mental status 1) Altered mental status - CT head shows no acute intracranial abnormalities - CT Abdomen shows no acute abnormalities (Marked splenomegaly, similar in appearance to the 2013 examination. Mildly enlarged left pelvic sidewall length node. Mild colonic diverticulosis without CT evidence of acute diverticulitis) - MRI head ordered - Fevers overnight but no source of infection at this time --> Blood cultures pending, UA appears normal, Chest X-ray shows no acute finding - Suspect possible Serotonin syndrome considering use of Zoloft and Tramadol -- > Further suspected due to concerning head and eye movements - Holding Tramadol and Zoloft - Serial cardiac enzymes - Troponin < 0.015 - TSH and Free T4 wnl - ruling out Thyroid Storm - Echo pending - Urine tox screen - Consider neurology consult tomorrow if no improvement 2) Fever - Possible related to questionable serotonin syndrome diagnosis - Blood Cultures Pending - UA 2+ blood but otherwise normal - CXR no acute finding - Vancomycin and Zosyn started for empiric coverage - Received 1 dose of Cefepime in the ED 3) Leukocytosis - WBC of 28.84 on admission - Most likely related to underlying CLL - Empiric antibiotic coverage 3) Atrial Flutter - Metoprolol 50mg BID - Additional dose of Metoprolol ordered but converted at 11am to NSR - Telemetry 4) GERD - Protonix 40mg QAM 5) Hyperlipidemia - Simvastatin 20mg qHS 6) Depression - Holding Sertraline 7) Arthritis - Holding Tramadol 8) DVT - SCDs 9) Code Status - Full Resuscitation Resident Physician Supervision Note: I was present with Dr. Lynn during the history and exam. I discussed the case with the resident and agree with the findings and plan as documented in the note. A 87-year-old female with mental status change - neuroimaging has been unremarkable, blood cultures negative, and fever as noted but now resolved. She is on empiric antibiotic coverage. Serotonin syndrome was discussed as a possibility - would need to define just how much tramadol she had taken - will continue to hold both sertraline and tramadol for time being. Documented By: Mitchel Gutierrez
[2017-09-10] MEDS ORDERED: VANCOMYCIN INJ 1,750 MG in SODIUM CHLORIDE 0.9% 500ML 500 ML IV ONE (13:15)
--- NOTE | 2017-09-10 13:22 | DIAGNOSTIC IMAGING REPORT ---
MRI OF THE BRAIN WITHOUT AND WITH IV CONTRAST CLINICAL HISTORY: altered mental status COMPARISON STUDY: Noncontrast head CT dated 09/09/2017 TECHNIQUE: MRI of the brain was performed from the vertex to the skull base utilizing various T1 and T2 weighted sequences. Following the IV administration of 7.4 mL of Gadavist contrast, additional enhanced images were obtained. FINDINGS: The study is compromised secondary to moderate patient motion artifact Sagittal T1, axial diffusion, proton density and T2 weighted axial, coronal FLAIR, and pre and post axial T1-weighted images were acquired. These were supplemented with post gadolinium coronal T1 weighted images. No intra or extra-axial mass lesions are visualized. Axial diffusion-weighted images reveal no evidence of acute or subacute infarction. There is no evidence of ventricular dilatation. Proton density T2-weighted and FLAIR images reveal scattered foci of increased T2 signal within the white matter, likely on a small vessel basis. There are no abnormal flow voids. Postcontrast images are markedly limited due to motion artifact. No pathologically enhancing masses are visualized. Inflammatory changes are present with complete opacification of the right maxillary and ethmoid sinuses. There is apparent expansion of the right maxillary sinus. There is mild bony wall thickening of intrasinus favoring a chronic inflammatory process IMPRESSION: 1. Significantly limited study from a technical standpoint secondary to patient motion 2. No evidence of acute or subacute infarction 3. No intracranial masses identified 4. Opacified right maxillary and ethmoid sinuses.] Right maxillary sinus wall thickening and bony expansion. The findings are likely chronic inflammatory basis Electronically signed by: Miguel Brush M.D. 09/10/2017 1:20 PM Dictated Date/Time: 09/10/2017 1:16 PM
[2017-09-10] MEDS ORDERED: PIPERACILL/TAZOBAC CONSULT ACTIVE PRN (13:30)
[2017-09-10] MEDS: FAMOTIDINE IV INJ 20 MG in SYRINGE 3 ML IV SCH ×2 (14:26→21:44)
--- NOTE | 2017-09-10 15:42 | Pharmacy Progress Note ---
Pharmacy Abx Initial Consult Date of Service Sep 10, 2017. Pharmacy Dosing Scope Date of Consult: 09/10/17 Consultation requested by: Dr. Lynn Pharmacy is consulted to initiate Vancomycin and Zosyn IV dosing therapy, order appropriate labs and adjust drug dose/frequency. Subjective The patient is a 87 year old female admitted on Sep 09, 2017 at 20:33. Objective Height (Feet): 5 Height (Inches): 5.00 Weight (Kilograms): 74.200 Vital Signs (Past 12Hrs) Vital Signs Past 12 Hours Date Time Temp Pulse Resp B/P (MAP) Pulse Ox O2 Delivery O2 Flow Rate FiO2 09/10/17 14:37 87 12 131/78 (95) 94 Room Air 09/10/17 12:03 Room Air 09/10/17 11:52 36.6 74 18 120/69 (86) 94 Room Air 09/10/17 08:00 94 Room Air 09/10/17 07:32 36.8 80 18 113/66 (82) 92 Room Air 09/10/17 05:07 37.9 09/10/17 04:00 Nasal Cannula 3.0 09/10/17 03:52 38.6 89 20 154/81 (105) 96 Nasal Cannula 2.0 Lab Results (24Hrs) Laboratory Tests (24 Hours) Test 09/10/17 04:00 09/10/17 11:16 White Blood Count 28.61 K/uL (4.8-10.8) H Red Blood Count 4.75 M/uL (4.2-5.4) Hemoglobin 13.5 g/dL (12.0-16.0) Hematocrit 41.0 % (37-47) Mean Corpuscular Volume 86.3 fL (80-100) Mean Corpuscular Hemoglobin 28.4 pg (25-34) Mean Corpuscular Hemoglobin Concent 32.9 g/dl (32-36) Platelet Count 89 K/uL (130-400) L Mean Platelet Volume 8.9 fL (7.4-10.4) Neutrophils (%) (Auto) 16.7 % Lymphocytes (%) (Auto) 79.8 % Monocytes (%) (Auto) 3.2 % Eosinophils (%) (Auto) 0.0 % Basophils (%) (Auto) 0.2 % Neutrophils # (Auto) 4.79 K/uL (1.4-6.5) Lymphocytes # (Auto) 22.82 K/uL (1.2-3.4) H Monocytes # (Auto) 0.91 K/uL (0.11-0.59) H Eosinophils # (Auto) 0.01 K/uL (0-0.5) Basophils # (Auto) 0.05 K/uL (0-0.2) Total Creatine Kinase 170 U/L (26-192) Micro Results Date/Time Source Procedure Growth Status 09/10/17 04:24 Blood Blood Culture Pending Received 09/10/17 04:00 Blood Blood Culture Pending Received Risk Factors for Resistance * Immunocompromised - CLL B-cell Assessment & Plan Assessment 87 year old female presenting with mental status changes and fever of unknown origin. 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 Renal function looks good and will empirically begin IV Vancomycin and IV Zosyn ordered for a 48 hours course only. Plan IV Vancomycin and IV Zosyn for treatment of FUO and altered mental status in an immunocompromised patient. Vancomycin IV * Loading dose: 1750 mg (23.6 mg/kg) * Maintenance dose: 1000 mg IV (13.5 mg/kg) every 18 hours * Goal trough level for FUO: 13 to 20 mcg/mL * Levels will be deferred depending on if treatment course will be extended beyond the 48-hour window. Piperacillin/tazobactam * 3.375 g bolus administered over 30 minutes, then 3.375 g IV extended infusion every 8 hours for CrCl greater than 20 mL/min. * Pharmacy will continue to follow and will adjust dose/frequency as necessary. Thank you.
[2017-09-10] MEDS ORDERED: SODIUM CHLORIDE 0.9% 1000ML 1,000 ML IV SCH ×2 (17:00→17:30)
[2017-09-10] MEDS: SIMVASTATIN 20 MG TAB PO SCH (21:43)
[2017-09-10] MEDS: PIPERACILL/TAZOBAC IV 3.375 GM in DEXTROSE 5% 100ML 100 ML IV SCH (21:44)
[2017-09-11] VITALS (11 sets, daily range): BP systolic 91–118; BP diastolic 53–78; PULSE 124–148; TEMP 36.3–37.3; O2SAT 96–98
[2017-09-11] MEDS ORDERED: METOPROLOL TARTRATE 1 MG/ML VIAL IV STA (01:06)
[2017-09-11 01:33] LABS: HEMATOCRIT 40.5 % (37-47); MEAN CELL VOLUME 86.5 fL (80-100); MEAN CORPUSCULAR HEMOGLOBIN 28.2 pg (25-34); RED BLOOD COUNT 4.68 M/uL (4.2-5.4)
[2017-09-11 02:03] LABS: BUN/CREATININE RATIO 15.5 (10-20); CALCIUM 8.2 mg/dl (8.5-10.1); CREATININE 1.15 mg/dl (0.60-1.20); MAGNESIUM 2.1 mg/dl (1.8-2.4); POTASSIUM 3.3 mmol/L (3.5-5.1)
[2017-09-11 02:05] LABS: MEAN CORPUSCULAR HGB CONC 32.6 g/dl (32-36); MEAN PLATELET VOLUME 8.9 fL (7.4-10.4); PLATELET COUNT 85 K/uL (130-400)
[2017-09-11] MEDS ORDERED: NURSING VERBAL MED ORDER ONE ×4 (02:15→06:00)
[2017-09-11] MEDS: POTASSIUM CHLR 10MEQ / WTR IV SCH ×3 (02:25→04:37)
[2017-09-11] MEDS: NSS + 20MEQ KCL 1000ML 1,000 ML IV SCH ×3 (03:29→21:44)
[2017-09-11 03:58] LABS: BASO % 0.1 %; BASO ABS # 0.03 K/uL (0-0.2); COMPLETE YES; EOS % 0.2 %; IG% 0.2 %; LYMPH % 75.9 %; LYMPH ABS # 19.28 K/uL (1.2-3.4); MONO % 1.9 %; NEUT % 21.7 %; SMUDGE CELLS PRESENT
[2017-09-11] MEDS ORDERED: DIGOXIN IV 250 MCG in SYRINGE 9 ML IV STA (04:18)
[2017-09-11] MEDS: PIPERACILL/TAZOBAC IV 3.375 GM in DEXTROSE 5% 100ML 100 ML IV SCH ×2 (04:36→11:51)
[2017-09-11] MEDS ORDERED: SODIUM CHLORIDE 0.9% 500ML 500 ML IV STA (05:53)
[2017-09-11] MEDS: MULTIVITAMIN TAB PO SCH (08:59)
[2017-09-11] MEDS: PANTOprazole SOD 40 MG TAB PO SCH (08:59)
[2017-09-11] MEDS: METOPROLOL TARTRATE 50 MG TAB PO SCH ×2 (08:59→19:57)
[2017-09-11] MEDS ORDERED: VANCOMYCIN INJ 1,000 MG in SODIUM CHLORIDE 0.9% 250ML 250 ML IV SCH (10:00)
[2017-09-11] MEDS ORDERED: ENOXAPARIN 1 MG/KG SQ SCH (10:00)
[2017-09-11] MEDS ORDERED: AMIODARONE IV BOLUS / DRIP IV STA (10:54)
[2017-09-11] MEDS ORDERED: AMIODARONE / D5W 100 ML IV ONE (11:15)
[2017-09-11] MEDS ORDERED: AMIODARONE / D5W 200 ML IV SCH (11:24)
[2017-09-11] MEDS: FAMOTIDINE IV INJ 20 MG in SYRINGE 3 ML IV SCH ×2 (11:26→21:46)
[2017-09-11] MEDS: ENOXAPARIN 80 MG/0.8 ML SYR SQ SCH ×2 (11:27→21:44)
--- NOTE | 2017-09-11 11:44 | CARDIOLOGY CONSULTATION ---
DATE OF CONSULTATION: 09/11/2017 REASON FOR CONSULTATION: New onset atrial flutter and atrial fibrillation. REQUESTING PHYSICIAN: Dr. Deejay Lynn. VOIP TECHNICIAN: Glynn Darby DO, [facility] [address] [facility] Dear Dr. Lynn: I was supposed to see Alisa today in consultation with regards to her asymptomatic atrial fibrillation and atrial flutter with a rapid ventricular response. She was admitted for confusion noted by her family. When her family spoke to her the morning of the admission, they noted, she was confused. She had some possible slurred speech. Later in the afternoon, she was on the floor, vomiting and seemed confused and was brought to the Emergency Room. When she was admitted, she was in sinus rhythm. There was concern that she may have an infection as she was having fevers and chills. At home, there was also concern she may have serotonin syndrome. It sounds like her mental status continues to improve, although today, she knows she is in the hospital. She knows it is September. She did not know the year in order. She knows the president. She denies any chest pain, chest pressure, chest heaviness. She denies any palpitations or fluttering. She is in atrial fibrillation now with the heart rate in the 140s without any symptoms whatsoever. She denies any lightheadedness, dizziness, presyncope, or syncope. She denies any lower extremity edema, symptoms of claudication. She does have a flight of stairs at home and was able to climb those stairs without any difficulty usually. She denies any palpitations at home. She denies any presyncope or syncope. She did have a fall this July. It sounds like she slid on the grass. There was no loss of consciousness. It sounds like it was clearly a mechanical fall. She denies any bleeding, bruising, dark stools or black stools. She does have arthritic discomfort. The rest of review of systems otherwise negative. PAST MEDICAL HISTORY: 1. New onset atrial flutter and atrial fibrillation. 2. Altered mental status of unclear etiology. 3. GERD. 4. Hyperlipidemia. 5. Depression. 6. Osteoarthritis. 7. CLL with a stable white count, followed by Oncology. 8. Depression. 9. Osteoporosis. 10. History of hip replacement. SOCIAL HISTORY: She is a lifetime nonsmoker. She is . She lives alone with help from her family. ALLERGIES: TO NALOXONE, ACETAMINOPHEN, AMOXICILLIN, CLARITHROMYCIN, ASPIRIN, AND CODEINE. OUTPATIENT MEDICATIONS: Reviewed in detail. FAMILY HISTORY: Noncontributory. PHYSICAL EXAMINATION: GENERAL: She is awake, alert, and oriented to place and to the month. She does not know the year in order. She knows the president. VITAL SIGNS: Her heart rate is 129, her blood pressure 94/59, her respirations are 22, and her sats 96% on room air. HEENT: Her carotid upstrokes felt normal, although it is difficult to assess given her tachycardia. There were no carotid bruits. Her jugular venous pressure was normal. LUNGS: Clear to auscultation bilaterally. No rales, rhonchi, or wheezing. HEART: Irregular rate and rhythm. No appreciable murmurs, rubs, or gallops. ABDOMEN: Soft, nontender, nondistended. Positive bowel sounds. EXTREMITIES: No clubbing, cyanosis, or edema. PSYCHIATRIC: Her affect appeared appropriate. Her EKGs were reviewed. Initial EKG, sinus rhythm, left axis deviation, poor R-wave progression. No acute changes. Telemetry was reviewed as well as her EKGs suggesting both atrial flutter and atrial fibrillation with a rapid ventricular response. LABORATORY STUDIES: White count of 25.4, her platelet count is 85,000. Sodium 137, potassium 3.3, BUN 18, creatinine 1.15. Her troponins are negative. Her TSH and free T4 are normal. Her AST was low at 13. Her ALT is normal. Her Lyme titers are pending. IMAGING STUDIES: Chest x-ray, cardiomegaly. No overt heart failure. Head CT, no acute bleed. MRI with no acute evidence of stroke. IMPRESSION: 1. Change in mental status of unclear etiology. 2. Recent tick bite, awaiting Lyme titers. 3. Asymptomatic atrial flutter and atrial fibrillation with a rapid ventricular response. 4. Chronic lymphocytic leukemia. 5. Possible infectious etiology. 6. Thrombocytopenia. Her heart rates are fast. She is asymptomatic. She is already on beta blockers and there is no room to increase her AV leonidas blockers given the fact that she is borderline hypotensive. Options include due to the use of digoxin, although she may not convert or amiodarone which will help slow her heart rate and hopefully, allow her to convert back to sinus rhythm. We will start a bolus of amiodarone drip according to normal protocol. She has been placed on full-dose Lovenox. We will have to closely follow her platelet count, especially in light of her CLL and the potential risk for bleeding. She did have a fall in July, but does not fall on a regular basis. Clinically, she is not in heart failure. There is no evidence of an acute coronary syndrome. Her thyroid studies were normal. Once her heart rate slows or she converts back to sinus rhythm, at that point, I will consider an echocardiogram. There is a discussion from a consult in 2009 that she had a dilated right heart with RV dysfunction and this should be reassessed. Thank you for allowing us to participate in her care.
[2017-09-11 12:02] LABS: LYME DISEASE AB IGG NEG (NEG)
[2017-09-11 12:03] LABS: LYME DISEASE AB IGM EQUIVOCAL (NEG)
--- NOTE | 2017-09-11 13:47 | Family Medicine Progress Note ---
Progress Note Date of Service Sep 11, 2017. Subjective Pt evaluation today including: conversation w/ patient, physical exam, chart review, lab review, review of studies Pain: No pain reported this morning Voiding: no voiding problems, no incontinence Patient is resting comfortably in bed this morning in no acute distress. She states that her heart rate has felt elevated as she has been in aflutter overnight. She appears much more alert and oriented today and is no longer having many of the physical symptoms she was having previously including eye or head movements. She denies any chest pain or shortness of breath today. Constitutional: + fatigue, No fever, No chills, No sweats Eyes: No eye pain, No diplopia Respiratory: No cough, No sputum, No wheezing, No shortness of breath Cardiovascular: No chest pain, No palpitations Abdomen: No pain, No nausea, No vomiting Female : No dysuria Neurologic: No weakness, No vertigo, No balance problems Skin: + problem reported (tick bite over left back) Medications Current Inpatient Medications Medications (Trade) Dose Ordered Sig/Lionel Route Start Time Stop Time Status Last Admin Dose Admin Ioversol (Optiray 320) 100 ml UD PRN IV 09/09/17 17:45 09/13/17 17:44 Docusate Sodium (coLACE CAP) 100 mg BID PRN PO 09/09/17 20:30 10/09/17 20:29 Metoprolol Tartrate (Lopressor Tab) 50 mg BID PO 09/09/17 21:00 10/09/17 20:59 09/11/17 08:59 50 MG Multivitamins (Multivitamin Tab) 1 tab DAILY PO 09/10/17 09:00 10/10/17 08:59 09/11/17 08:59 1 TAB Simvastatin (Zocor Tab) 20 mg HS PO 09/09/17 21:00 10/09/17 20:59 09/10/17 21:43 20 MG Pantoprazole Sodium (Protonix Tab) 40 mg QAM PO 09/10/17 09:00 10/10/17 08:59 09/11/17 08:59 40 MG Polyethylene (Miralax Powder Packet) 17 gm DAILY PRN PO 09/09/17 20:30 10/09/17 20:29 Ondansetron HCl (Zofran Inj) 4 mg Q6H PRN IV 09/09/17 20:30 12/3/17 20:29 Miscellaneous (Iv Fluids Completed) 1 ea PRN PRN N/A 09/09/17 21:00 09/09/18 20:59 Famotidine 20 mg/ Syringe 5 ml @ 2.5 mls/min Q12H IV 09/09/17 23:00 10/09/17 22:59 09/11/17 11:26 2.5 MLS/MIN Vancomycin HCl 1000 mg/Sodium Chloride 270 ml @ 125 mls/hr Q18H IV 09/11/17 10:00 09/12/17 14:49 09/11/17 09:00 125 MLS/HR Piperacillin Sod/ Tazobactam Sod 3.375 gm/Dextrose 115 ml @ 28.75 mls/ hr Q8@0400,1200,2000 IV 09/10/17 20:00 09/12/17 13:59 09/11/17 11:51 28.75 MLS/HR Vancomycin HCl (Consult) 1 ea UD PRN N/A 09/10/17 13:00 10/10/17 12:59 Piperacillin Sod/ Tazobactam Sod (Consult) 1 ea UD PRN N/A 09/10/17 13:30 10/10/17 13:29 Potassium Chloride/Sodium Chloride 1,000 ml @ 100 mls/hr Q10H IV 09/11/17 02:30 10/11/17 02:29 09/11/17 11:52 100 MLS/HR Enoxaparin Sodium (Lovenox Inj) 80 mg Q12@1000,2200 SQ 09/11/17 11:00 10/11/17 10:59 09/11/17 11:27 80 MG Amiodarone HCL/ Dextrose 200 ml @ 33.3 mls/hr Q6H1M IV 09/11/17 11:24 09/11/17 17:24 09/11/17 11:32 33.3 MLS/HR Amiodarone HCL/ Dextrose 200 ml @ 16.7 mls/hr [id number] IV 09/11/17 17:24 10/11/17 17:23 Objective Vital Signs Date Time Temp Pulse Resp B/P (MAP) Pulse Ox O2 Delivery O2 Flow Rate FiO2 09/11/17 12:45 Room Air 09/11/17 11:21 36.3 144 18 102/56 (71) 96 Room Air 09/11/17 10:00 129 94/59 (71) 09/11/17 08:00 Room Air 09/11/17 04:36 140 09/11/17 04:00 Room Air 09/11/17 03:46 118/78 (91) 09/11/17 03:45 36.3 125 22 91/59 (70) 96 Room Air 09/11/17 02:40 124 98/53 (68) 09/11/17 02:10 136 93/60 (71) 09/11/17 02:05 135 102/63 (76) 09/11/17 01:45 135 110/74 (86) 09/11/17 01:28 141 122/80 09/11/17 00:41 37.3 09/10/17 23:59 Room Air 09/10/17 23:50 38.0 98 20 114/66 (82) 92 Room Air 09/10/17 20:00 Room Air 09/10/17 19:07 37.0 100 25 156/87 (110) 93 Room Air 09/10/17 16:00 Room Air 09/10/17 15:49 36.6 92 26 124/76 (92) 94 Room Air 09/10/17 14:37 87 12 131/78 (95) 94 Room Air Physical Exam General Appearance: WD/WN, no apparent distress Eyes: normal inspection, sclerae normal Neck: supple, trachea midline Respiratory/Chest: chest non-tender, lungs clear, normal breath sounds Cardiovascular: no edema, no gallop, no murmur, + irregularly irregular Abdomen: normal bowel sounds, non tender, soft Extremities: normal range of motion, no pedal edema, no calf tenderness Neurologic/Psychiatric: infrastructure manager II-XII nml as tested, alert, normal mood/affect, oriented x 3 Skin: + pertinent finding (Erythematous circular rash with central scab over the left flank region of the back) Laboratory Results Results Past 24 Hours Test 09/11/17 01:18 09/11/17 10:14 Range/Units White Blood Count 25.40 4.8-10.8 K/uL Red Blood Count 4.68 4.2-5.4 M/uL Hemoglobin 13.2 12.0-16.0 g/dL Hematocrit 40.5 37-47 % Mean Corpuscular Volume 86.5 80-100 fL Mean Corpuscular Hemoglobin 28.2 25-34 pg Mean Corpuscular Hemoglobin Concent 32.6 32-36 g/dl Platelet Count 85 130-400 K/uL Mean Platelet Volume 8.9 7.4-10.4 fL Neutrophils (%) (Auto) 21.7 % Lymphocytes (%) (Auto) 75.9 % Monocytes (%) (Auto) 1.9 % Eosinophils (%) (Auto) 0.2 % Basophils (%) (Auto) 0.1 % Neutrophils # (Auto) 5.50 1.4-6.5 K/uL Lymphocytes # (Auto) 19.28 1.2-3.4 K/uL Monocytes # (Auto) 0.48 0.11-0.59 K/uL Eosinophils # (Auto) 0.06 0-0.5 K/uL Basophils # (Auto) 0.03 0-0.2 K/uL RDW Standard Deviation 46.5 36.4-46.3 fL RDW Coefficient of Variation 14.9 11.5-14.5 % Immature Granulocyte % (Auto) 0.2 % Immature Granulocyte # (Auto) 0.05 0.00-0.02 K/uL Smudge Cells PRESENT Sodium Level 137 136-145 mmol/L Potassium Level 3.3 3.5-5.1 mmol/L Chloride Level 107 98-107 mmol/L Carbon Dioxide Level 21 21-32 mmol/L Anion Gap 9.0 3-11 mmol/L Blood Urea Nitrogen 18 7-18 mg/dl Creatinine 1.15 0.60-1.20 mg/dl Est Creatinine Clear Calc Drug Dose 36.1 ml/min Estimated GFR () 50.2 Estimated GFR (Non- 43.4 BUN/Creatinine Ratio 15.5 10-20 Random Glucose 126 70-99 mg/dl Calcium Level 8.2 8.5-10.1 mg/dl Magnesium Level 2.1 1.8-2.4 mg/dl Lyme Disease IgG Antibody NEG NEG Lyme Disease IgM Antibody EQUIVOCAL NEG Assessment and Plan Patient is an 87 year old female that presents with Altered mental status 1) Altered mental status - Patient appears significantly improved this morning and no longer having significant jerky movements - Patient states that she was bit by a tick 2 weeks ago and was able to pull out the tick after prolonged attachment (> 24 hours?) - Ordered Lyme IgM, IgG, with reflex testing - Currently treating with broad spectrum IV antibiotics due to fevers --> Overnight spiked fever of 38 degrees - Fevers overnight but no source of infection at this time --> Blood cultures pending but no preliminary growth, UA appears normal, Chest X-ray shows no acute finding - CT head shows no acute intracranial abnormalities - CT Abdomen shows no acute abnormalities (Marked splenomegaly, similar in appearance to the 2013 examination. Mildly enlarged left pelvic sidewall length node. Mild colonic diverticulosis without CT evidence of acute diverticulitis) - Suspect possible Serotonin syndrome considering use of Zoloft and Tramadol -- > Further suspected due to concerning head and eye movements - Holding Tramadol and Zoloft - Serial cardiac enzymes - Troponin < 0.015 - TSH and Free T4 wnl - ruling out Thyroid Storm - Urine tox screen negative 2) Fever - Fever of 38 degrees overnight once again - Empiric Broad Spectrum Antibiotic coverage (Vancomycin + Zosyn) - Possible related to questionable serotonin syndrome diagnosis - Blood Cultures Pending - Lyme Serology pending - UA 2+ blood but otherwise normal - CXR no acute finding - Received 1 dose of Cefepime in the ED 3) Leukocytosis - WBC of 28.84 on admission - Most likely related to underlying CLL - Empiric antibiotic coverage 4) Atrial Flutter - Spontaneously reverted back to Atrial flutter overnight - Given 2.5mg Metoprolol followed by Digoxin - Seen by Cardiology after above treatment with no response and started on Amiodarone drip due to maximal beta louise therapy - Metoprolol 50mg BID - Telemetry - Lovenox 1mg/kg BID dosing --> MONITOR for bleeding and low platelet due to underlying CLL in addition to anticoagulation 5) GERD - Protonix 40mg QAM 6) Hyperlipidemia - Simvastatin 20mg qHS 7) Depression - Holding Sertraline 8) Arthritis - Holding Tramadol 9) DVT - SCDs 10) Code Status - Full Resuscitation Resident Physician Supervision Note: I was present with Dr. Lynn during the history and exam. Upon examination today, she is markedly improved in terms of her mental status. She is alert and conversational. She does relay a history of a tick bite approximately 2 weeks ago. In fact, upon examination of the left lower flank, there is a small area of erythema consistent with that of a tick bite. Accordingly, screening Lyme test is positive for IgM, and negative for IgG, which could be consistent with acute Lyme. Western blot confirmation is pending. Also of note, patient is now in atrial flutter; cardiology has kindly seen the patient this afternoon and started amiodarone. In terms of her rate, she is asymptomatic - she denies sensing her heart rate, chest pain, or shortness of breath. With her blood cultures being negative, agree with switching her to intravenous Rocephin pending Western blot confirmation of the positive Lyme IgM. Infectious disease has also been consulted to see the patient tomorrow. If confirmation his negative, could consider testing for other tickborne sections. I discussed the case with the resident and agree with the findings and plan as documented in the note. Documented By: Mitchel Gutierrez
[2017-09-11] MEDS ORDERED: CEFTRIAXONE SOD INJ 2,000 MG in DEXTROSE 5% ADD-VANTAGE 50ML 50 ML IV SCH (16:00)
[2017-09-11] MEDS: AMIODARONE / D5W 200 ML IV SCH (17:50)
[2017-09-11] MEDS: SIMVASTATIN 20 MG TAB PO SCH (19:58)
[2017-09-12] VITALS (8 sets, daily range): BP systolic 104–162; BP diastolic 69–92; PULSE 67–87; TEMP 36.4–37.6; O2SAT 93–98
[2017-09-12] MEDS: AMIODARONE / D5W 200 ML IV SCH ×2 (05:26→17:24)
[2017-09-12 06:40] LABS: HEMATOCRIT 35.7 % (37-47); MEAN CELL VOLUME 86.9 fL (80-100); MEAN CORPUSCULAR HEMOGLOBIN 27.7 pg (25-34); MEAN CORPUSCULAR HGB CONC 31.9 g/dl (32-36); RED BLOOD COUNT 4.11 M/uL (4.2-5.4); WHITE BLOOD COUNT 28.16 K/uL (4.8-10.8)
[2017-09-12 06:45] LABS: MEAN PLATELET VOLUME 9.4 fL (7.4-10.4); PLATELET COUNT 94 K/uL (130-400)
[2017-09-12 07:14] LABS: BUN/CREATININE RATIO 13.7 (10-20); CALCIUM 7.6 mg/dl (8.5-10.1); CREATININE 1.02 mg/dl (0.60-1.20)
[2017-09-12 07:57] LABS: BASO % 0.1 %; BASO ABS # 0.04 K/uL (0-0.2); ECHINOCYTES 1+; EOS % 0.7 %; IG% 0.1 %; LYMPH % 87.3 %; LYMPH ABS # 24.57 K/uL (1.2-3.4); MONO % 1.9 %; NEUT % 9.9 %; SMUDGE CELLS PRESENT
--- NOTE | 2017-09-12 08:00 | Family Medicine Progress Note ---
Progress Note Date of Service Sep 12, 2017. Subjective Pt evaluation today including: conversation w/ patient, physical exam, chart review, lab review, conversation w/ field sales consultant, review of inpatient medication list PO Intake: good Voiding: no voiding problems Patient did not have any more fevers or chills overnight She says she is no longer feeling confused and is orientated to person, place and time She denies any new joint pain or rashes She did have a few semi-loose stools overnight Constitutional: No fever, No chills, No sweats Respiratory: No cough, No sputum, No wheezing, No shortness of breath Cardiovascular: No chest pain, No orthopnea, No edema, No claudication Abdomen: + diarrhea, No pain, No nausea, No vomiting Musculoskeletal: + joint pain, No muscle pain, No swelling, No calf pain Neurologic: No weakness, No numbness/tingling Medications Current Inpatient Medications Medications (Trade) Dose Ordered Sig/Lionel Route Start Time Stop Time Status Last Admin Dose Admin Ioversol (Optiray 320) 100 ml UD PRN IV 09/09/17 17:45 09/13/17 17:44 Docusate Sodium (coLACE CAP) 100 mg BID PRN PO 09/09/17 20:30 10/09/17 20:29 Metoprolol Tartrate (Lopressor Tab) 50 mg BID PO 09/09/17 21:00 10/09/17 20:59 09/12/17 08:37 50 MG Multivitamins (Multivitamin Tab) 1 tab DAILY PO 09/10/17 09:00 10/10/17 08:59 09/12/17 08:36 1 TAB Simvastatin (Zocor Tab) 20 mg HS PO 09/09/17 21:00 10/09/17 20:59 09/11/17 19:58 20 MG Pantoprazole Sodium (Protonix Tab) 40 mg QAM PO 09/10/17 09:00 10/10/17 08:59 09/12/17 08:36 40 MG Polyethylene (Miralax Powder Packet) 17 gm DAILY PRN PO 09/09/17 20:30 10/09/17 20:29 Ondansetron HCl (Zofran Inj) 4 mg Q6H PRN IV 09/09/17 20:30 10/09/17 20:29 Miscellaneous (Iv Fluids Completed) 1 ea PRN PRN N/A 09/09/17 21:00 09/09/18 20:59 Famotidine 20 mg/ Syringe 5 ml @ 2.5 mls/min Q12H IV 09/09/17 23:00 10/09/17 22:59 09/12/17 12:19 2.5 MLS/MIN Potassium Chloride/Sodium Chloride 1,000 ml @ 100 mls/hr Q10H IV 09/11/17 02:30 10/11/17 02:29 09/12/17 08:34 100 MLS/HR Enoxaparin Sodium (Lovenox Inj) 80 mg Q12@1000,2200 SQ 09/11/17 11:00 10/11/17 10:59 09/12/17 12:19 80 MG Amiodarone HCL/ Dextrose 200 ml @ 16.7 mls/hr [id number] IV 09/11/17 17:24 09/13/17 10:30 09/12/17 05:26 16.7 MLS/HR Amiodarone HCl (Cordarone Tab) 200 mg BID PO 09/12/17 11:00 10/12/17 10:59 09/12/17 12:18 200 MG Miscellaneous (Stop Order) 1 ea TODAY@1030 N/A 09/13/17 10:30 09/13/17 11:00 Doxycycline Hyclate (Vibramycin Cap) 100 mg BID PO 09/12/17 12:00 09/22/17 11:59 09/12/17 12:18 100 MG Lactobacillus Acidophilus (Lactinex Granules Pack) 1 gm TIDM PO 09/12/17 16:45 10/12/17 16:44 Objective Vital Signs Date Time Temp Pulse Resp B/P (MAP) Pulse Ox O2 Delivery O2 Flow Rate FiO2 09/12/17 16:25 Room Air 09/12/17 15:27 36.5 70 18 123/75 (91) 97 Room Air 09/12/17 12:32 Room Air 09/12/17 11:45 67 97 09/12/17 11:29 36.5 67 18 116/76 (89) 98 Room Air 09/12/17 08:00 36.6 79 18 148/86 (106) 94 Room Air 09/12/17 08:00 Room Air 09/12/17 04:48 37.0 78 16 135/78 (97) 97 09/12/17 04:00 Room Air 09/12/17 00:23 37.6 84 18 131/92 (105) 95 Room Air 09/11/17 23:59 Room Air 09/11/17 20:00 Room Air 09/11/17 19:54 37.0 148 24 115/78 (90) 98 Room Air Physical Exam General Appearance: WD/WN, no apparent distress Neck: no JVD, no carotid bruits Respiratory/Chest: lungs clear, no respiratory distress, no accessory muscle use Cardiovascular: regular rate, rhythm, no edema, no murmur Abdomen: normal bowel sounds, non tender, soft Extremities: non-tender, no pedal edema, no calf tenderness, + pertinent finding (insect bite on left upper buttock) Neurologic/Psychiatric: alert, normal mood/affect, oriented x 3 Laboratory Results Results Past 24 Hours Test 09/12/17 06:09 Range/Units White Blood Count 28.16 4.8-10.8 K/uL Red Blood Count 4.11 4.2-5.4 M/uL Hemoglobin 11.4 12.0-16.0 g/dL Hematocrit 35.7 37-47 % Mean Corpuscular Volume 86.9 80-100 fL Mean Corpuscular Hemoglobin 27.7 25-34 pg Mean Corpuscular Hemoglobin Concent 31.9 32-36 g/dl Platelet Count 94 130-400 K/uL Mean Platelet Volume 9.4 7.4-10.4 fL Neutrophils (%) (Auto) 9.9 % Lymphocytes (%) (Auto) 87.3 % Monocytes (%) (Auto) 1.9 % Eosinophils (%) (Auto) 0.7 % Basophils (%) (Auto) 0.1 % Neutrophils # (Auto) 2.79 1.4-6.5 K/uL Lymphocytes # (Auto) 24.57 1.2-3.4 K/uL Monocytes # (Auto) 0.54 0.11-0.59 K/uL Eosinophils # (Auto) 0.20 0-0.5 K/uL Basophils # (Auto) 0.04 0-0.2 K/uL RDW Standard Deviation 48.1 36.4-46.3 fL RDW Coefficient of Variation 15.2 11.5-14.5 % Immature Granulocyte % (Auto) 0.1 % Immature Granulocyte # (Auto) 0.02 0.00-0.02 K/uL Smudge Cells PRESENT Echinocytes 1+ Peripheral Blood Smear Path Consult Sodium Level 142 136-145 mmol/L Potassium Level 4.0 3.5-5.1 mmol/L Chloride Level 113 98-107 mmol/L Carbon Dioxide Level 21 21-32 mmol/L Anion Gap 8.0 3-11 mmol/L Blood Urea Nitrogen 14 7-18 mg/dl Creatinine 1.02 0.60-1.20 mg/dl Est Creatinine Clear Calc Drug Dose 41.0 ml/min Estimated GFR () 58.1 Estimated GFR (Non- 50.1 BUN/Creatinine Ratio 13.7 10-20 Random Glucose 98 70-99 mg/dl Calcium Level 7.6 8.5-10.1 mg/dl Magnesium Level 2.0 1.8-2.4 mg/dl Total Bilirubin 0.3 0.2-1 mg/dl Direct Bilirubin 0.1 0-0.2 mg/dl Aspartate Amino Transf (AST/SGOT) 34 15-37 U/L Alanine Aminotransferase (ALT/SGPT) 23 12-78 U/L Alkaline Phosphatase 58 45-117 U/L Total Protein 5.7 6.4-8.2 gm/dl Albumin 2.8 3.4-5.0 gm/dl Microbiology Results 09/11/17 C.difficile Toxin B Gene (PCR) - Final, Complete No C. difficile toxin B gene detected Assessment and Plan Assessment: Patient is an 87 year old female that presented with altered mental status. Was put on ceftriaxone for possible lyme disease and patient has improved clinically and has not had any further fevers Plan: Lyme disease lyme IgM positive with bands pending IV ceftriaxone switched to doxycycline PO for 14 days lft's normal therefore unlikely to be anaplasma but will treat anyways peripheral smear without any findings of anaplasmosis or erlichiosis= CLL follows with Dr. Rehman as outpatient Atrial flutter was started on amiodarone drip and converted NSR on metoprolol 50mg bid Dr. Darby on board and switching over to amiodarone PO from IV monitor on tele Diarrhea probiotic ordered recent antibiotic use in hospital low threshold for cdiff toxin, continue to monitor GERD Protonix 40mg QAM Hyperlipidemia Simvastatin 20mg qHS Depression Holding Sertraline Arthritis Holding Tramadol DVT SCDs Dispo Pt/OT recommend inpatient rehab vs 24 hour care patient lives alone in [place] Code Status Full Resuscitation Continued [facility] stay due to: home environment unsafe for pt Discharge planning: uncertain History Resident Physician Supervision Note: I was present with Dr. Reyna during the history and exam. I discussed the case with the resident and agree with the findings and plan as documented in the note. Any exceptions or clarifications are listed here. 87 y/o female h/o HTN, IBD presents with acute mental status changes in the setting of recent tick bite and a-flutter. Presently, she reports considerable improvement in her confusion (AAOx3) as well as her fatigue and SOB. She is resting comfortably in bed. She presents me with a tick in an envelope that appears to be a dog tick which she reports recent exposure to (though she lives in an endemic region, so there's still risk). On examination, S1/S2 nl RRR no MCG, CNII-XII grossly intact. CTAB. Presumptive Lyme disease - transitioned to PO doxy for 3 wks course but will f/ u western blot for confirmation Atrial flutter - NSR - continue metoprolol. Convert to PO amiodarone per cardiology recommendations CLL - follow w/ Dr. Rehman Diarrhea in the setting of IBD - probiotic. Monitor closely for worsening GERD - continue PPI HLD - continue statin therapy PT/OT
[2017-09-12] MEDS: NSS + 20MEQ KCL 1000ML 1,000 ML IV SCH ×2 (08:34→17:53)
[2017-09-12] MEDS: MULTIVITAMIN TAB PO SCH (08:36)
[2017-09-12] MEDS: PANTOprazole SOD 40 MG TAB PO SCH (08:36)
[2017-09-12] MEDS: METOPROLOL TARTRATE 50 MG TAB PO SCH ×2 (08:37→20:02)
--- NOTE | 2017-09-12 09:16 | Cardiology Follow-Up ---
Subjective General Date of Service: Sep 12, 2017. Pt evaluation today including: conversation w/ patient, chart review, lab review, review of studies History of Present Illness The patient is a 87 year old female confusion and asymptomatic atrial flutter and atrial fib Allergies Coded Allergies: Naloxone (Verified Allergy, Severe, TREMORS, DYSKINESIA, 09/09/17) Acetaminophen (Verified Allergy, Unknown, `, 09/09/17) Amoxicillin (Verified Allergy, Unknown, `, 09/09/17) Clarithromycin (Verified Allergy, Unknown, `, 09/09/17) Aspirin (Verified Adverse Reaction, Intermediate, hISTORY OF ULCERS, ) Codeine (Verified Adverse Reaction, Intermediate, VOMITING, 09/09/17) Social History Smoking Status: Never Smoker Hx Alcohol Use - Type And Amou: No Hx Substance Use - Type And Am: No Problem List Medical Problems: (1) Altered mental status Status: Acute (2) Chronic lymphocytic leukemia (CLL), B-cell Status: Chronic (3) Leukocytosis Status: Acute (4) Vomiting Status: Acute Review of Systems Respiratory: No cough, No shortness of breath, No dyspnea at rest Cardiac: No chest pain, No edema, No palpitations Additional ROS Details: still mildly confused Physical Exam Vital Signs Last Vital Signs Documentation Date Time Temp Pulse Resp B/P (MAP) Pulse Ox O2 Delivery O2 Flow Rate FiO2 09/12/17 08:00 36.6 79 18 148/86 (106) 94 Room Air 09/10/17 04:00 3.0 Physical Exam Constitutional: General Apperance: heathly-appearing Level of Distress: NAD Lungs: Respiratory effort: no dyspnea Auscultation: breath sounds normal, no wheezing, no rales/crackles, no rhonchi Cardiovascular: Heart Auscultation: RRR, no murmurs, no rubs, no gallops Abdomen: Bowel Sounds: normal Inspection & Palpation: soft, non-distended, no tenderness, guarding & rebound Extremities: no edema Additional Comments: AAO x 2 not sure of year Assessment and Plan Assessment and Plan IMPRESSION: 1. Change in mental status possibly Lyme. 2. Recent tick bite, IgM Lyme titer equivocal. 3. Asymptomatic atrial flutter and atrial fibrillation with a rapid ventricular response--converted with amio back to NSR, No pauses 4. Chronic lymphocytic leukemia.. 5. Thrombocytopenia. Overlap IV amio with PO amio for 24 hours. No AC for now unless recurrent episodes; IF AC will need to watch for bleeding with PLT count May all be related to Lyme and may be able to just switch her to BB Echo now that she is in NSR Laboratory Results Last 24 Hours Test 09/11/17 10:14 09/12/17 06:09 Lyme Disease IgG Antibody NEG Lyme Disease IgM Antibody EQUIVOCAL White Blood Count 28.16 K/uL Red Blood Count 4.11 M/uL Hemoglobin 11.4 g/dL Hematocrit 35.7 % Mean Corpuscular Volume 86.9 fL Mean Corpuscular Hemoglobin 27.7 pg Mean Corpuscular Hemoglobin Concent 31.9 g/dl Platelet Count 94 K/uL Mean Platelet Volume 9.4 fL Neutrophils (%) (Auto) 9.9 % Lymphocytes (%) (Auto) 87.3 % Monocytes (%) (Auto) 1.9 % Eosinophils (%) (Auto) 0.7 % Basophils (%) (Auto) 0.1 % Neutrophils # (Auto) 2.79 K/uL Lymphocytes # (Auto) 24.57 K/uL Monocytes # (Auto) 0.54 K/uL Eosinophils # (Auto) 0.20 K/uL Basophils # (Auto) 0.04 K/uL RDW Standard Deviation 48.1 fL RDW Coefficient of Variation 15.2 % Immature Granulocyte % (Auto) 0.1 % Immature Granulocyte # (Auto) 0.02 K/uL Smudge Cells PRESENT Echinocytes 1+ Sodium Level 142 mmol/L Potassium Level 4.0 mmol/L Chloride Level 113 mmol/L Carbon Dioxide Level 21 mmol/L Anion Gap 8.0 mmol/L Blood Urea Nitrogen 14 mg/dl Creatinine 1.02 mg/dl Est Creatinine Clear Calc Drug Dose 41.0 ml/min Estimated GFR () 58.1 Estimated GFR (Non- 50.1 BUN/Creatinine Ratio 13.7 Random Glucose 98 mg/dl Calcium Level 7.6 mg/dl Magnesium Level 2.0 mg/dl Total Bilirubin 0.3 mg/dl Direct Bilirubin 0.1 mg/dl Aspartate Amino Transf (AST/SGOT) 34 U/L Alanine Aminotransferase (ALT/SGPT) 23 U/L Alkaline Phosphatase 58 U/L Total Protein 5.7 gm/dl Albumin 2.8 gm/dl
--- NOTE | 2017-09-12 10:25 | Progress Note ---
Progress Note Date of Service Sep 12, 2017. Progress Note ID Consult Dictated #[id number] A/P: 1. Lyme Disease 2. Leukocytosis - likely secondary to underlying malignancy (improved from 08/30 ) 3. Splenic Granuloma -Can change to po doxy 100mg po bid x 14 days, no indication for LP -Can have followup ct as outpt -Blood cultures negative, fevers improved, doubt anaplasma as LFTS nml but doxy will treat -Ok for d/c when otherwise medically stable -Thank you
--- NOTE | 2017-09-12 11:14 | INFECT. DISEASE CONSULTATION ---
DATE OF CONSULTATION: 09/12/2017 HISTORY OF PRESENT ILLNESS: This is an 87-year-old female who was admitted after she had change in mental status. There was some concern for slurred speech. She did undergo an MRI of the head, which was non-ideal secondary to patient's movement; however, was negative for any acute disease. She did report during this admission that she recently removed a tick from the left hip a few weeks ago. Because of this a long titer was done. She had an equivocal IgM and western blot is pending. She was placed on Rocephin. Infectious disease was consulted for additional management. On the 3rd, she did have a fever of 38.6. On the 4th, her T-max was 38. On the 5th, she was afebrile this morning. She did have a temperature of 37.6. She does have a significantly elevated white blood cell count of 28,000. She has had normal LFTs, a normal UA, a normal UDS. Her blood cultures from the 4th so far is negative. Overall, she states she is feeling better. Her only complaint is of some loose bowels with antibiotic. 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 She denies any abdominal pain. She currently denies any fevers or chills. She denies any headache or nuchal rigidity. She denies any chest pain. She was found to be in AFib and is also being followed by cardiology and has been placed on amiodarone. Her remaining review of systems is unremarkable. PAST MEDICAL HISTORY: Significant for hypertension, leukemia, depression, hysterectomy, osteoporosis, tonsillectomy, a hip replacement on the left side and history of ulcerative colitis. FAMILY HISTORY: Noncontributory. SOCIAL HISTORY: Negative for tobacco use, alcohol use or drug use. ALLERGIES: INCLUDE NALOXONE, ACETAMINOPHEN, AMOXICILLIN, CLARITHROMYCIN, ASPIRIN, AND CODEINE. CURRENT MEDICATIONS: Include amiodarone, Rocephin, Lovenox, multivitamins, Protonix, famotidine, Lopressor, Zocor, Colace, MiraLax, and Zofran. PHYSICAL EXAMINATION: VITAL SIGNS: She is afebrile with a T-max of 37.6 at midnight, pulse 79, respiratory rate 18, blood pressure 148/86, oxygen saturation is 94%-97% on room air. GENERAL: She is awake, alert and oriented x3. She is in no acute distress. HEENT: Mucous membranes are moist. Extraocular muscles are intact. HEART: Regular. LUNGS: Clear bilaterally. ABDOMEN: Soft, nontender, and nondistended. There is no lower extremity edema. SKIN: Without rash. There is a small pimple-like area on the left hip. She states that tick was removed, but I do not see any evidence of erythematous rash and central clearing. LABORATORY STUDIES: CBC today reveals a white blood cell count of 28.1, hemoglobin 11.4, platelets are 94. Chemistry panel reveals a sodium of 142, potassium 4.0, chloride 113, bicarbonate 21, BUN 14, creatinine 1.0. LFTs are within normal limits. Urinalysis is negative. Urine drug screen was negative. She had equivocal IgM antibody. Western blot is pending. Blood cultures from the are no growth to date x2 sets. Her last CBC obtained on August 30. At that time, she did have a white blood cell count of 57.9. Chest x-ray was unremarkable. She did have a CT of the abdomen and pelvis as part of her initial workup, which showed hepatic cyst, enlarged spleen with splenic granulomas. There is no evidence of hydronephrosis, diverticulosis without diverticulitis was noted and lymphadenopathy was noted as well. ASSESSMENT AND PLAN: Equivocal IgM for Lyme. At this time, she could be transitioned to oral doxycycline to complete a 14-day course. Her Western blot is pending and likely will be for some time. I do not see any evidence to suggest an anaplasmosis ehrlichiosis as she is now afebrile with normal LFTs. I suspect her elevated white blood cell count is not infectious and is actually significantly improved from an outpatient blood work done in late August. Her blood cultures remain negative. I do not see any indication for lumbar puncture at this time. My recommendation would be transition to doxycycline for 14 days. She would be cleared for discharge and otherwise medically stable. Thank you for this consultation.
--- NOTE | 2017-09-12 12:10 | ECHOCARDIOGRAM REPORT ---
*NOTICE TO RECEIVING CONSTITUTION PARTY AGENCY This information is strictly Confidential and protected under [place] law. [place] law prohibits you from making any further disclosure of this information unless further disclosure is expressly permitted by the written consent of the person to whom it pertains or is authorized by law. A general authorization for the release of medical or other information is not sufficient for this purpose. Hospital accepts no responsibility if the information is made available to any other person, INCLUDING THE PATIENT. Interpretation Summary * Name: LIANNA HIGUERA Study Date: 09/12/2017 11:26 AM BP: 148/86 mmHg * Patient Location: C.2T\S\S234\S\1 HR: 68 * : 1930 (M/d/yyyy) Gender: Female Height: 65 in * Age: 87 yrs Ethnicity: [place] Weight: 166 lb * Ordering Physician: Glynn Darby * Referring Physician: Self, Referred * Performed By: Mila Piña [facility] * * Reason For Study: A-FLUTTER * BSA: 1.8 m2 * -- Conclusions -- * Left ventricular systolic function is normal. * The left atrium is moderately dilated. * The right atrium is mild to moderately dilated. * Mild to moderate aortic regurgitation. * There is moderate mitral regurgitation. * Right ventricular systolic pressure is elevated at 40-50mmHg. * Compared to study from 09/06/2010, the pulmonary pressures are lower in there has been some very mild progression of the valvular regurgitation. Procedure Details * A complete two-dimensional transthoracic echocardiogram was performed (2D, M-mode, Doppler and color flow Doppler). Left Ventricle * The left ventricle is grossly normal size. * There is normal left ventricular wall thickness. * Left ventricular systolic function is normal. * Ejection Fraction = 55-60%. * The left ventricular wall motion is normal. Right Ventricle * The right ventricle is normal in size and function. Atria * The left atrium is moderately dilated. * The right atrium is mild to moderately dilated. Mitral Valve * The mitral valve anatomy is normal. * There is moderate mitral regurgitation. Tricuspid Valve * The tricuspid valve anatomy is normal. * There is mild tricuspid regurgitation. * Right ventricular systolic pressure is elevated at 40-50mmHg. Aortic Valve * The aortic valve is normal in structure and function. * The aortic valve is trileaflet. * No hemodynamically significant valvular aortic stenosis. * Mild to moderate aortic regurgitation. Great Vessels * The aortic root is normal size. Pericardium/Pleural * There is no pericardial effusion. Great Vessels * Normal inferior vena cava diameter and respiratory variation suggests normal central venous pressure. MMode 2D Measurements and Calculations IVSd 1.1 cm IVSs 1.4 cm LVIDd 4.4 cm LVIDs 3.2 cm LVPWd 1.1 cm LVPWs 1.2 cm IVS/LVPW 1.0 FS 26.7 % EDV(Teich) 88.2 ml ESV(Teich) 41.9 ml EF(Teich) 52.5 % EDV(cubed) 85.8 ml ESV(cubed) 33.7 ml EF(cubed) 60.7 % % IVS thick 28.6 % % LVPW thick 7.4 % LV mass(C)d 172.8 grams LV mass(C)dI 94.5 grams/m\S\2 LV mass(C)s 140.2 grams LV mass(C)sI 76.7 grams/m\S\2 SV(Teich) 46.2 ml SI(Teich) 25.3 ml/m\S\2 SV(cubed) 52.1 ml SI(cubed) 28.5 ml/m\S\2 Ao root diam 2.7 cm Ao root area 5.5 cm\S\2 ACS 1.6 cm LA dimension 4.7 cm LA/Ao 1.8 LVOT diam 1.9 cm LVOT area 2.9 cm\S\2 Doppler Measurements and Calculations MV E max addie 81.4 cm/sec MV A max addie 34.5 cm/sec MV E/A 2.4 MV P1/2t max addie 111.3 cm/sec MV P1/2t 86.8 msec MVA(P1/2t) 2.5 cm\S\2 MV dec slope 375.6 cm/sec\S\2 MV dec time 0.26 sec Ao V2 max 124.8 cm/sec Ao max PG 6.2 mmHg Ao max PG (full) 3.1 mmHg JAE(V,A) 2.1 cm\S\2 JAE(V,D) 2.1 cm\S\2 AI max addie 422.6 cm/sec AI max PG 71.4 mmHg AI dec slope 219.5 cm/sec\S\2 AI P1/2t 564.0 msec LV V1 max PG 3.2 mmHg LV V1 max 89.0 cm/sec MR max addie 487.9 cm/sec MR max PG 95.4 mmHg PA V2 max 78.5 cm/sec PA max PG 2.5 mmHg TR max addie 277.4 cm/sec
[2017-09-12] MEDS: DOXYCYCLINE HYCLATE 100 MG CAP PO SCH ×2 (12:18→20:01)
[2017-09-12] MEDS: AMIODARONE 200 MG TAB PO SCH ×2 (12:18→20:02)
[2017-09-12] MEDS: ENOXAPARIN 80 MG/0.8 ML SYR SQ SCH ×2 (12:19→21:30)
[2017-09-12] MEDS: FAMOTIDINE IV INJ 20 MG in SYRINGE 3 ML IV SCH (12:19)
[2017-09-12 14:25] LABS: COMPLETE YES
[2017-09-12] MEDS: LACTOBACILLUS ACIDOPHILUS 1 GM PACK PO SCH (18:58)
[2017-09-12] MEDS: SIMVASTATIN 20 MG TAB PO SCH (20:02)
[2017-09-12] MEDS: FAMOTIDINE 20 MG TAB PO SCH (21:30)
--- NOTE | 2017-09-12 22:13 | DIAGNOSTIC IMAGING REPORT ---
CHEST ONE VIEW PORTABLE CLINICAL HISTORY: increased shortness of breath and crackles ?pulmonary edema soft tissue COMPARISON STUDY: 09/10/2017 FINDINGS: Interval increase in prominence of the pulmonary vasculature and bronchovascular markings throughout both hemithoraces. Diaphragms smooth. Costophrenic angles are sharp. IMPRESSION: Developing pulmonary edema The above report was generated using voice recognition software. It may contain grammatical, syntax or spelling errors. Electronically signed by: Marcial Escamilla M.D. 09/12/2017 10:11 PM Dictated Date/Time: 09/12/2017 10:10 PM
[2017-09-13] VITALS (7 sets, daily range): BP systolic 120–149; BP diastolic 67–88; PULSE 124–139; TEMP 36.7–37; O2SAT 92–98
[2017-09-13] MEDS ORDERED: METOPROLOL TARTRATE 1 MG/ML VIAL IV STA (04:08)
[2017-09-13] MEDS ORDERED: METOPROLOL TARTRATE 1 MG/ML VIAL ONE (04:32)
[2017-09-13] MEDS: AMIODARONE / D5W 200 ML IV SCH ×3 (05:44→19:57)
[2017-09-13] MEDS: AMIODARONE 200 MG TAB PO SCH ×2 (07:41→19:59)
[2017-09-13] MEDS: LACTOBACILLUS ACIDOPHILUS 1 GM PACK PO SCH ×3 (07:41→17:11)
[2017-09-13] MEDS: FAMOTIDINE 20 MG TAB PO SCH ×2 (07:41→19:58)
[2017-09-13] MEDS: PANTOprazole SOD 40 MG TAB PO SCH (07:41)
[2017-09-13] MEDS: MULTIVITAMIN TAB PO SCH (07:42)
[2017-09-13] MEDS: DOXYCYCLINE HYCLATE 100 MG CAP PO SCH ×2 (07:42→19:59)
[2017-09-13] MEDS: METOPROLOL TARTRATE 50 MG TAB PO SCH ×2 (07:42→19:58)
--- NOTE | 2017-09-13 09:14 | Cardiology Follow-Up ---
Subjective General Date of Service: Sep 13, 2017. Pt evaluation today including: conversation w/ patient, chart review, lab review, review of studies History of Present Illness The patient is a 87 year old female Allergies Coded Allergies: Naloxone (Verified Allergy, Severe, TREMORS, DYSKINESIA, 09/09/17) Acetaminophen (Verified Allergy, Unknown, `, 09/09/17) Amoxicillin (Verified Allergy, Unknown, `, 09/09/17) Clarithromycin (Verified Allergy, Unknown, `, 09/09/17) Aspirin (Verified Adverse Reaction, Intermediate, hISTORY OF ULCERS, ) Codeine (Verified Adverse Reaction, Intermediate, VOMITING, 09/09/17) Social History Smoking Status: Never Smoker Hx Alcohol Use - Type And Amou: No Hx Substance Use - Type And Am: No Problem List Medical Problems: (1) Altered mental status Status: Acute (2) Chronic lymphocytic leukemia (CLL), B-cell Status: Chronic (3) Leukocytosis Status: Acute (4) Vomiting Status: Acute Review of Systems Respiratory: No cough, No shortness of breath, No dyspnea at rest Cardiac: No chest pain, No edema Additional ROS Details: Vomited overnight. Looks worse this am. Color more pale. Physical Exam Vital Signs Last Vital Signs Documentation Date Time Temp Pulse Resp B/P (MAP) Pulse Ox O2 Delivery O2 Flow Rate FiO2 09/13/17 08:10 36.8 129 20 139/67 (91) 98 09/13/17 08:00 Room Air 09/10/17 04:00 3.0 Physical Exam Constitutional: General Apperance: heathly-appearing Level of Distress: NAD Lungs: Respiratory effort: no dyspnea Auscultation: breath sounds normal, no wheezing, no rales/crackles, no rhonchi Cardiovascular: Heart Auscultation: RRR, no murmurs, no rubs, no gallops Abdomen: Bowel Sounds: normal Inspection & Palpation: soft, non-distended, no tenderness, guarding & rebound Extremities: no edema Assessment and Plan Assessment and Plan IMPRESSION: 1. Change in mental status possibly Lyme. 2. Recent tick bite, IgM Lyme titer equivocal. 3. Asymptomatic atrial flutter and atrial fibrillation with a rapid ventricular response--converted with amio back to NSR, No pauses 4. Chronic lymphocytic leukemia.. 5. Thrombocytopenia. 6. Moderate MR 7. Mild to moderate AR 8. Normal LV function Mild to moderate Pulm Htn Rebolus with amio and keep drip at 1 mg/min; continue Po Hgb down 2gms from yesterday with her on lovenox--hold lovenox and recheck hgb in 6 hours Probably having asymptomatic aflutter at home- if still difficult to control flutter ablation but would need to be anticoagulated Moderate MR and mild to moderate AR
[2017-09-13] MEDS ORDERED: DEXTROSE 5% IV ONE (09:30)
[2017-09-13] MEDS ORDERED: AMIODARONE IV ONE (09:30)
[2017-09-13] MEDS ORDERED: [UNRECOGNIZED DRUG - REMARK] SCH (10:30)
--- NOTE | 2017-09-13 11:51 | Family Medicine Progress Note ---
Progress Note Date of Service Sep 13, 2017. Subjective Pt evaluation today including: conversation w/ patient, physical exam, chart review, lab review, conversation w/ benefits sales consultant, review of inpatient medication list PO Intake: good Voiding: no voiding problems Patient went back into aflutter overnight She feels very tired She denies any chest pain, palpitations, pre syncope, shortness of breath or dizziness Constitutional: No fever, No chills, No sweats Respiratory: No cough, No sputum, No wheezing, No shortness of breath, No dyspnea on exertion Cardiovascular: No chest pain, No edema, No claudication, No palpitations Abdomen: No pain, No nausea, No vomiting, No diarrhea, No constipation Musculoskeletal: + joint pain (chronic) Medications Current Inpatient Medications Medications (Trade) Dose Ordered Sig/Lionel Route Start Time Stop Time Status Last Admin Dose Admin Ioversol (Optiray 320) 100 ml UD PRN IV 09/09/17 17:45 09/13/17 17:44 Docusate Sodium (coLACE CAP) 100 mg BID PRN PO 09/09/17 20:30 10/09/17 20:29 Metoprolol Tartrate (Lopressor Tab) 50 mg BID PO 09/09/17 21:00 10/09/17 20:59 09/13/17 07:42 50 MG Multivitamins (Multivitamin Tab) 1 tab DAILY PO 09/10/17 09:00 10/10/17 08:59 09/13/17 07:42 1 TAB Simvastatin (Zocor Tab) 20 mg HS PO 09/09/17 21:00 10/09/17 20:59 09/12/17 20:02 20 MG Pantoprazole Sodium (Protonix Tab) 40 mg QAM PO 09/10/17 09:00 10/10/17 08:59 09/13/17 07:41 40 MG Polyethylene (Miralax Powder Packet) 17 gm DAILY PRN PO 09/09/17 20:30 10/09/17 20:29 Ondansetron HCl (Zofran Inj) 4 mg Q6H PRN IV 09/09/17 20:30 10/09/17 20:29 09/13/17 09:22 4 MG Miscellaneous (Iv Fluids Completed) 1 ea PRN PRN N/A 09/09/17 21:00 11/3/18 20:59 Amiodarone HCL/ Dextrose 200 ml @ 33.3 mls/hr Q6H1M IV 09/11/17 17:24 10/13/17 17:23 09/13/17 05:44 16.7 MLS/HR Amiodarone HCl (Cordarone Tab) 200 mg BID PO 09/12/17 11:00 10/12/17 10:59 09/13/17 07:41 200 MG Doxycycline Hyclate (Vibramycin Cap) 100 mg BID PO 09/12/17 12:00 09/22/17 11:59 09/13/17 07:42 100 MG Lactobacillus Acidophilus (Lactinex Granules Pack) 1 gm TIDM PO 09/12/17 16:45 10/12/17 16:44 09/13/17 07:41 1 GM Famotidine (Pepcid Tab) 20 mg BID PO 09/12/17 21:00 10/12/17 20:59 09/13/17 07:41 20 MG Objective Vital Signs General Appearance: WD/WN, no apparent distress Neck: no JVD, no carotid bruits Respiratory/Chest: lungs clear, no respiratory distress, no accessory muscle use Cardiovascular: abnormal rate, regular rhythm, no edema, no murmur Abdomen: normal bowel sounds, non tender, soft Extremities: non-tender, no pedal edema, no calf tenderness, + pertinent finding (insect bite on left upper buttock) Neurologic/Psychiatric: alert, normal mood/affect, oriented x 3 Assessment and Plan Assessment: Patient is an 87 year old female that presented with altered mental status. Was put on ceftriaxone for possible lyme disease and patient has improved clinically and has not had any further fevers. She was switched to Po doxy yesterday and was planned to be transitioned to PO amiodarone but she went back into aflutter yesterday evening and therefore will remain on the amiodarone drip at the moment. Plan: Lyme disease lyme IgM positive with bands pending IV ceftriaxone switched to doxycycline PO for 14 days lft's normal therefore unlikely to be anaplasma but will treat anyways peripheral smear without any findings of anaplasmosis or erlichiosis CLL follows with Dr. Rehman as outpatient Atrial flutter was started on amiodarone drip and converted NSR but reconverted to aflutter overnight on metoprolol 50mg bid Dr. Darby on board and plan to keep on IV amiodarone and PO at the moment monitor on tele echo showed LA moderate dilation and RA moderate dilation w/moderate mitral regurg CXR with developing pulm edema Anemia hold lovenox and order FOBT recheck hgb in 6 hours likely anemia of chronic disease with normal MCV Diarrhea probiotic ordered recent antibiotic use in hospital low threshold for cdiff toxin, continue to monitor GERD Protonix 40mg QAM Hyperlipidemia Simvastatin 20mg qHS Depression Restart Sertraline Arthritis Holding Tramadol DVT SCDs Dispo Pt/OT recommend inpatient rehab vs 24 hour care patient lives alone [place] Code Status Full Resuscitation Continued [facility] stay due to: home environment unsafe for pt Assessment/Plan Resident Physician Supervision Note: I was present with Dr. Reyna during the history and exam. I discussed the case with the resident and agree with the findings and plan as documented in the note. Any exceptions or clarifications are listed here. 87 y/o female h/o HTN, IBD presents with acute mental status changes in the setting of recent tick bite and a-flutter. Return of flutter this morning after transition to PO amiodarone yesterday. Presently, feeling fatigued and with difficulty in focus but reports no fever, chills, n/v, headache, n/t/w. On examination, S1/S2 nl w/ IRR tachycardia on auscultation w/o MCG, CNII-XII grossly intact. CTAB. Atrial flutter - NSR - continue metoprolol. Restart IV amiodarone, continue amiodarone. Cardiology recommendations appreciated Presumptive Lyme disease - transitioned to PO doxy for 3 wks course but will f/ u western blot for confirmation CLL - follow w/ Dr. Rehman Diarrhea in the setting of IBD - probiotic. Monitor closely for worsening GERD - continue PPI HLD - continue statin therapy PT/OT
[2017-09-13] MEDS ORDERED: SERTRALINE HCL 100 MG TAB PO ONE (13:00)
[2017-09-13] MEDS: SIMVASTATIN 20 MG TAB PO SCH (19:59)
[2017-09-14] VITALS (8 sets, daily range): BP systolic 113–141; BP diastolic 60–79; PULSE 68–127; TEMP 36.5–37.3; O2SAT 92–96
[2017-09-14] MEDS: AMIODARONE / D5W 200 ML IV SCH ×4 (01:37→20:01)
[2017-09-14 07:04] LABS: CALCIUM 8.6 mg/dl (8.5-10.1); CREATININE 0.83 mg/dl (0.60-1.20); POTASSIUM 3.5 mmol/L (3.5-5.1)
[2017-09-14 07:11] LABS: HEMATOCRIT 40.4 % (37-47); MEAN CELL VOLUME 86.3 fL (80-100); MEAN CORPUSCULAR HEMOGLOBIN 27.8 pg (25-34); MEAN CORPUSCULAR HGB CONC 32.2 g/dl (32-36); MEAN PLATELET VOLUME 9.5 fL (7.4-10.4); PLATELET COUNT 126 K/uL (130-400); RED BLOOD COUNT 4.68 M/uL (4.2-5.4); WHITE BLOOD COUNT 36.78 K/uL (4.8-10.8)
[2017-09-14] MEDS: LACTOBACILLUS ACIDOPHILUS 1 GM PACK PO SCH ×3 (08:00→16:50)
[2017-09-14] MEDS: SERTRALINE HCL 100 MG TAB PO SCH (08:01)
[2017-09-14] MEDS: MULTIVITAMIN TAB PO SCH (08:01)
[2017-09-14] MEDS: METOPROLOL TARTRATE 50 MG TAB PO SCH ×2 (08:01→20:05)
[2017-09-14] MEDS: FAMOTIDINE 20 MG TAB PO SCH ×2 (08:01→20:05)
[2017-09-14] MEDS: AMIODARONE 200 MG TAB PO SCH ×2 (08:01→20:06)
[2017-09-14] MEDS: PANTOprazole SOD 40 MG TAB PO SCH (08:01)
[2017-09-14] MEDS: DOXYCYCLINE HYCLATE 100 MG CAP PO SCH ×2 (08:02→20:06)
--- NOTE | 2017-09-14 09:35 | Cardiology Follow-Up ---
Subjective General Date of Service: Sep 14, 2017. Pt evaluation today including: conversation w/ patient, chart review, lab review, review of studies History of Present Illness The patient is a 87 year old female Allergies Coded Allergies: Naloxone (Verified Allergy, Severe, TREMORS, DYSKINESIA, 09/09/17) Acetaminophen (Verified Allergy, Unknown, `, 09/09/17) Amoxicillin (Verified Allergy, Unknown, `, 09/09/17) Clarithromycin (Verified Allergy, Unknown, `, 09/09/17) Aspirin (Verified Adverse Reaction, Intermediate, hISTORY OF ULCERS, ) Codeine (Verified Adverse Reaction, Intermediate, VOMITING, 09/09/17) Social History Smoking Status: Never Smoker Hx Alcohol Use - Type And Amou: No Hx Substance Use - Type And Am: No Problem List Medical Problems: (1) Altered mental status Status: Acute (2) Chronic lymphocytic leukemia (CLL), B-cell Status: Chronic (3) Leukocytosis Status: Acute (4) Vomiting Status: Acute Review of Systems Respiratory: No cough, No shortness of breath, No dyspnea at rest Cardiac: No chest pain, No edema, No palpitations Additional ROS Details: No Nausea this am, feels less confused Physical Exam Vital Signs Last Vital Signs Documentation Date Time Temp Pulse Resp B/P (MAP) Pulse Ox O2 Delivery O2 Flow Rate FiO2 09/14/17 08:26 36.8 92 18 138/63 (88) 96 09/14/17 08:00 Room Air 09/10/17 04:00 3.0 Physical Exam Constitutional: General Apperance: heathly-appearing Level of Distress: NAD Lungs: Respiratory effort: no dyspnea Auscultation: breath sounds normal, no wheezing, no rales/crackles, no rhonchi Cardiovascular: Heart Auscultation: RRR, no murmurs, no rubs, no gallops Abdomen: Bowel Sounds: normal Inspection & Palpation: soft, non-distended, no tenderness, guarding & rebound Extremities: no edema Assessment and Plan Assessment and Plan IMPRESSION: 1. Change in mental status possibly Lyme. 2. Recent tick bite, IgM Lyme titer equivocal. 3. Asymptomatic atrial flutter and atrial fibrillation with a rapid ventricular response--converted with amio back to NSR, No pauses 4. Chronic lymphocytic leukemia.. 5. Thrombocytopenia. 6. Moderate MR 7. Mild to moderate AR 8. Normal LV function 9. Mild to moderate Pulm Htn Probably having asymptomatic aflutter at home- ?? Nausea related to PO amio Difficult to control flutter even with amio drip and PO BB and not converting this time-- will ask Dr Wick to see RE: ablation Will need to be anticoagulated if we proceed with ablation for at least a month Laboratory Results Last 24 Hours Test 09/13/17 16:47 09/14/17 06:16 Hemoglobin 12.4 g/dL 13.0 g/dL Hematocrit 37.0 % 40.4 % White Blood Count 36.78 K/uL Red Blood Count 4.68 M/uL Mean Corpuscular Volume 86.3 fL Mean Corpuscular Hemoglobin 27.8 pg Mean Corpuscular Hemoglobin Concent 32.2 g/dl RDW Standard Deviation 49.1 fL RDW Coefficient of Variation 15.5 % Platelet Count 126 K/uL Mean Platelet Volume 9.5 fL Sodium Level 142 mmol/L Potassium Level 3.5 mmol/L Chloride Level 110 mmol/L Carbon Dioxide Level 23 mmol/L Anion Gap 9.0 mmol/L Blood Urea Nitrogen 9 mg/dl Creatinine 0.83 mg/dl Est Creatinine Clear Calc Drug Dose 50.4 ml/min Estimated GFR () 74.5 Estimated GFR (Non- 64.3 BUN/Creatinine Ratio 11.0 Random Glucose 115 mg/dl Calcium Level 8.6 mg/dl
--- NOTE | 2017-09-14 14:21 | Cardiology Consultation ---
Cardiology Consultation Date of Consultation: Sep 14, 2017. Requesting Physician: Mehnaz Reason for Consultation: Atrial flutter History of Present Illness The patient is an 87-year-old woman without a known history of cardiac disease who was admitted to [facility] for confusion and gastrointestinal symptoms. It seems that the patient's family had spoken with her over the phone and felt that she was confused. She was later found on the floor in her residence and according to the patient had had some vomiting as well. An evaluation at [facility] suggested active Lyme disease in the patient did endorse removing a tick from her left posterior thigh recently. During her admission she developed a rapid heart rate and was felt to have atrial flutter. She was started on therapy with amiodarone and briefly converted to a sinus rhythm before returning to atrial flutter last evening. Patient is unaware of any arrhythmia. She does not endorse any history of rapid heartbeats or palpitations. She has been ambulatory around the room and denies dizziness or lightheadedness. She does not endorse dyspnea or shortness of breath. She has no symptoms of chest discomfort. At home she claims to be independent in her residence. She denies symptoms with at ascending stairs or routine activity. She has not report exertional dyspnea or chest discomfort. She has not suffered a syncopal episode. 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 She has not report a rash at the site of her presumed tick bite. She has not noticed any lower extremity edema. She denies any orthopnea or paroxysmal nocturnal dyspnea All Other Systems: Reviewed and Negative Allergies Coded Allergies: Naloxone (Verified Allergy, Severe, TREMORS, DYSKINESIA, 09/09/17) Acetaminophen (Verified Allergy, Unknown, `, 09/09/17) Amoxicillin (Verified Allergy, Unknown, `, 09/09/17) Clarithromycin (Verified Allergy, Unknown, `, 09/09/17) Aspirin (Verified Adverse Reaction, Intermediate, hISTORY OF ULCERS, ) Codeine (Verified Adverse Reaction, Intermediate, VOMITING, 09/09/17) Medications Current Inpatient Medications Medications (Trade) Dose Ordered Sig/Lionel Route Start Time Stop Time Status Last Admin Dose Admin Docusate Sodium (coLACE CAP) 100 mg BID PRN PO 09/09/17 20:30 10/09/17 20:29 Metoprolol Tartrate (Lopressor Tab) 50 mg BID PO 09/09/17 21:00 10/09/17 20:59 09/14/17 08:01 50 MG Multivitamins (Multivitamin Tab) 1 tab DAILY PO 09/10/17 09:00 10/10/17 08:59 09/14/17 08:01 1 TAB Simvastatin (Zocor Tab) 20 mg HS PO 09/09/17 21:00 10/09/17 20:59 09/13/17 19:59 20 MG Pantoprazole Sodium (Protonix Tab) 40 mg QAM PO 09/10/17 09:00 10/10/17 08:59 09/14/17 08:01 40 MG Polyethylene (Miralax Powder Packet) 17 gm DAILY PRN PO 09/09/17 20:30 10/09/17 20:29 Ondansetron HCl (Zofran Inj) 4 mg Q6H PRN IV 09/09/17 20:30 10/09/17 20:29 09/13/17 09:22 4 MG Miscellaneous (Iv Fluids Completed) 1 ea PRN PRN N/A 09/09/17 21:00 09/09/18 20:59 Amiodarone HCL/ Dextrose 200 ml @ 33.3 mls/hr Q6H1M IV 09/11/17 17:24 10/13/17 17:23 09/14/17 13:33 33.3 MLS/HR Amiodarone HCl (Cordarone Tab) 200 mg BID PO 09/12/17 11:00 10/12/17 10:59 09/14/17 08:01 200 MG Doxycycline Hyclate (Vibramycin Cap) 100 mg BID PO 09/12/17 12:00 09/22/17 11:59 09/14/17 08:02 100 MG Lactobacillus Acidophilus (Lactinex Granules Pack) 1 gm TIDM PO 09/12/17 16:45 10/12/17 16:44 09/14/17 12:09 1 GM Famotidine (Pepcid Tab) 20 mg BID PO 09/12/17 21:00 10/12/17 20:59 09/14/17 08:01 20 MG Sertraline HCl (Zoloft Tab) 100 mg QAM PO 09/14/17 09:00 10/14/17 08:59 09/14/17 08:01 100 MG Physical Exam Vital Signs Past 12 Hours Date Time Temp Pulse Resp B/P (MAP) Pulse Ox O2 Delivery O2 Flow Rate FiO2 09/14/17 12:00 92 Room Air 09/14/17 11:59 36.9 88 16 141/60 (87) 94 09/14/17 08:26 36.8 92 18 138/63 (88) 96 09/14/17 08:00 92 Room Air 09/14/17 04:32 36.5 115 17 113/79 (90) 94 Room Air 09/14/17 04:00 Room Air Constitutional: General Apperance: heathly-appearing Level of Distress: NAD Lungs: Respiratory effort: no dyspnea Auscultation: breath sounds normal, no wheezing, no rales/crackles, no rhonchi Cardiovascular: Heart Auscultation: no murmurs, no rubs, no gallops, tachycardia Abdomen: Bowel Sounds: normal Inspection & Palpation: soft, non-distended, no tenderness, guarding & rebound Extremities: no edema The patient knew that it was September but incorrectly felt that it was 2011. She refused to name the current president. Data Laboratory Results: Last 24 Hours Test 09/13/17 16:47 09/14/17 06:16 Hemoglobin 12.4 g/dL 13.0 g/dL Hematocrit 37.0 % 40.4 % White Blood Count 36.78 K/uL Red Blood Count 4.68 M/uL Mean Corpuscular Volume 86.3 fL Mean Corpuscular Hemoglobin 27.8 pg Mean Corpuscular Hemoglobin Concent 32.2 g/dl RDW Standard Deviation 49.1 fL RDW Coefficient of Variation 15.5 % Platelet Count 126 K/uL Mean Platelet Volume 9.5 fL Sodium Level 142 mmol/L Potassium Level 3.5 mmol/L Chloride Level 110 mmol/L Carbon Dioxide Level 23 mmol/L Anion Gap 9.0 mmol/L Blood Urea Nitrogen 9 mg/dl Creatinine 0.83 mg/dl Est Creatinine Clear Calc Drug Dose 50.4 ml/min Estimated GFR () 74.5 Estimated GFR (Non- 64.3 BUN/Creatinine Ratio 11.0 Random Glucose 115 mg/dl Calcium Level 8.6 mg/dl Imaging: I reviewed the reports of her head CT, brain MRI and chest x-ray. EKG: I reviewed the source images of her recent EKGs. Some clearly demonstrated atrial flutter, others are more consistent with atrial fibrillation. Telemetry reviewed: Currently in tachycardia Echocardiogram demonstrated preserved LV systolic function with left atrial dilation. There was mitral and aortic regurgitation and some mildly elevated pulmonary systolic pressures. Assessment & Plan 1. Tachycardia: Patient's presenting rhythm was sinus but she did develop atrial flutter. The EKG demonstrating atrial flutter is not characteristic of a typical right atrial flutter. However, she has not had any heart surgery and this is still likely isthmus dependent right atrial flutter. There are other EKGs which are more consistent with atrial fibrillation. In either event, her heart rate has been difficult to control. She has been started on amiodarone and beta blockade with little effect on her heart rate. She did have a brief period of sinus rhythm and there is a reasonable chance that she will again convert to sinus rhythm. While she has no symptoms, the absence of adequate rate control would predispose her to development of a tachycardia induced cardiomyopathy over time. At this point would seem reasonable to explore options for rhythm control or even elimination of atrial flutter. In patients with atrial flutter and fibrillation elimination of atrial flutter generally leads to recurrent episodes of atrial fibrillation. However, in that setting rate control may be easier to achieve. I discussed options for treatment with the patient today. She is reluctant to undergo an invasive procedure given her absence of symptoms and advanced age. However, I think if this represents an atrial flutter and can be reliably ablated his may obviate the need for long- term anticoagulation and rate control. She is also entertaining the possibility of a cardioversion if she maintains this rhythm. In that setting we could continue her on amiodarone and systemic anticoagulation. I agreed to provide her with some literature and discuss the options with her daughter who has some medical expertise. I will re-engage the patient later today to determine if procedure can be scheduled for tomorrow. 2. Valvular heart disease: No current symptoms. Preserved LV systolic function. Can be monitored over time.
--- NOTE | 2017-09-14 15:14 | Family Medicine Progress Note ---
Progress Note Date of Service Sep 14, 2017. Subjective Pt evaluation today including: conversation w/ patient, physical exam, chart review, lab review, conversation w/ client relationship consultant, review of inpatient medication list Pain: none PO Intake: good Voiding: no voiding problems Patient is no longer feeling tired She remains in atrial flutter this morning with a rate in the 120's She denies any palpitations, light headedness, pre syncope or chest pain Constitutional: No fever, No chills, No sweats Respiratory: No cough, No sputum, No shortness of breath Cardiovascular: No chest pain, No edema, No claudication, No palpitations Abdomen: No pain, No nausea, No vomiting Female : No dysuria Heme: No abnormal bleeding/bruising Endo: No fatigue Medications Current Inpatient Medications Medications (Trade) Dose Ordered Sig/Lionel Route Start Time Stop Time Status Last Admin Dose Admin Docusate Sodium (coLACE CAP) 100 mg BID PRN PO 09/09/17 20:30 10/09/17 20:29 Metoprolol Tartrate (Lopressor Tab) 50 mg BID PO 09/09/17 21:00 10/09/17 20:59 09/14/17 08:01 50 MG Multivitamins (Multivitamin Tab) 1 tab DAILY PO 09/10/17 09:00 10/10/17 08:59 09/14/17 08:01 1 TAB Simvastatin (Zocor Tab) 20 mg HS PO 09/09/17 21:00 10/09/17 20:59 09/13/17 19:59 20 MG Pantoprazole Sodium (Protonix Tab) 40 mg QAM PO 09/10/17 09:00 10/10/17 08:59 09/14/17 08:01 40 MG Polyethylene (Miralax Powder Packet) 17 gm DAILY PRN PO 09/09/17 20:30 10/09/17 20:29 Ondansetron HCl (Zofran Inj) 4 mg Q6H PRN IV 09/09/17 20:30 10/09/17 20:29 09/13/17 09:22 4 MG Miscellaneous (Iv Fluids Completed) 1 ea PRN PRN N/A 09/09/17 21:00 09/09/18 20:59 Amiodarone HCL/ Dextrose 200 ml @ 33.3 mls/hr Q6H1M IV 09/11/17 17:24 10/13/17 17:23 09/14/17 13:33 33.3 MLS/HR Amiodarone HCl (Cordarone Tab) 200 mg BID PO 09/12/17 11:00 10/12/17 10:59 09/14/17 08:01 200 MG Doxycycline Hyclate (Vibramycin Cap) 100 mg BID PO 09/12/17 12:00 09/22/17 11:59 09/14/17 08:02 100 MG Lactobacillus Acidophilus (Lactinex Granules Pack) 1 gm TIDM PO 09/12/17 16:45 10/12/17 16:44 09/14/17 12:09 1 GM Famotidine (Pepcid Tab) 20 mg BID PO 09/12/17 21:00 10/12/17 20:59 09/14/17 08:01 20 MG Sertraline HCl (Zoloft Tab) 100 mg QAM PO 09/14/17 09:00 10/14/17 08:59 09/14/17 08:01 100 MG Objective Vital Signs Date Time Temp Pulse Resp B/P (MAP) Pulse Ox O2 Delivery O2 Flow Rate FiO2 09/14/17 12:00 92 Room Air 09/14/17 11:59 36.9 88 16 141/60 (87) 94 09/14/17 08:26 36.8 92 18 138/63 (88) 96 09/14/17 08:00 92 Room Air 09/14/17 04:32 36.5 115 17 113/79 (90) 94 Room Air 09/14/17 04:00 Room Air 09/13/17 23:59 Room Air 09/13/17 23:15 37.0 124 20 141/88 (105) 95 Room Air 09/13/17 20:00 Room Air 09/13/17 19:49 36.8 134 18 132/87 (102) 95 Room Air 09/13/17 15:39 37.0 131 22 130/84 (99) 97 Room Air 09/13/17 15:30 Room Air Physical Exam Notes: General Appearance: WD/WN, no apparent distress Neck: no JVD, no carotid bruits Respiratory/Chest: lungs clear, no respiratory distress, no accessory muscle use Cardiovascular: abnormal rate, regular rhythm, no edema, no murmur Abdomen: normal bowel sounds, non tender, soft Extremities: non-tender, no pedal edema, no calf tenderness, + pertinent finding (insect bite on left upper buttock) Neurologic/Psychiatric: alert, normal mood/affect, oriented x 3 Laboratory Results Results Past 24 Hours Test 09/13/17 16:47 09/14/17 06:16 Range/Units Hemoglobin 12.4 13.0 12.0-16.0 g/dL Hematocrit 37.0 40.4 37-47 % White Blood Count 36.78 4.8-10.8 K/uL Red Blood Count 4.68 4.2-5.4 M/uL Mean Corpuscular Volume 86.3 80-100 fL Mean Corpuscular Hemoglobin 27.8 25-34 pg Mean Corpuscular Hemoglobin Concent 32.2 32-36 g/dl RDW Standard Deviation 49.1 36.4-46.3 fL RDW Coefficient of Variation 15.5 11.5-14.5 % Platelet Count 126 130-400 K/uL Mean Platelet Volume 9.5 7.4-10.4 fL Sodium Level 142 136-145 mmol/L Potassium Level 3.5 3.5-5.1 mmol/L Chloride Level 110 98-107 mmol/L Carbon Dioxide Level 23 21-32 mmol/L Anion Gap 9.0 3-11 mmol/L Blood Urea Nitrogen 9 7-18 mg/dl Creatinine 0.83 0.60-1.20 mg/dl Est Creatinine Clear Calc Drug Dose 50.4 ml/min Estimated GFR () 74.5 Estimated GFR (Non- 64.3 BUN/Creatinine Ratio 11.0 10-20 Random Glucose 115 70-99 mg/dl Calcium Level 8.6 8.5-10.1 mg/dl Assessment and Plan Assessment: Patient is an 87 year old female that presented with altered mental status. Was put on ceftriaxone for possible lyme disease and patient has improved clinically and has not had any further fevers. She was switched to Po doxy and was planned to be transitioned to PO amiodarone but she went back into aflutter yesterday evening and therefore will remained on the amiodarone drip. She has continued to be in atrial flutter and Dr. Wick was consulted to discuss atrial ablation vs cardioversion. The patient is still unsure as to whether or not she wants to undergo these procedures. She will be talking to her daughter and getting back to Dr. Wick. Plan: Lyme disease lyme IgM positive with bands pending IV ceftriaxone switched to doxycycline PO for 14 days lft's normal therefore unlikely to be anaplasma but will treat anyways peripheral smear without any findings of anaplasmosis or erlichiosis CLL follows with Dr. Rehman as outpatient had an elevation of wcc to 36 spoke to oncology and was advised that in CLL wcc can vary greatly day to day advised to continue monitoring for further increased in WCC Atrial flutter was started on amiodarone drip and converted NSR but reconverted to aflutter overnight on metoprolol 50mg bid Dr. Darby on board and plan to keep on IV amiodarone and PO at the moment monitor on tele echo showed LA moderate dilation and RA moderate dilation w/moderate mitral regurg CXR with developing pulm edema Anemia stable continue to hold lovenox in prep for possible ablation tomorow Diarrhea (resolved) probiotic ordered recent antibiotic use in hospital low threshold for cdiff toxin, continue to monitor GERD Protonix 40mg QAM Hyperlipidemia Simvastatin 20mg qHS Depression Restart Sertraline Arthritis Holding Tramadol DVT SCDs Dispo Pt/OT plan for [facility] either tomorrow or Tuesday patient lives alone in [place] Code Status Full Resuscitation Continued [facility] stay due to: multiple IV medications needed Assessment/Plan Resident Physician Supervision Note: I was present with Dr. Reyna during the history and exam. I discussed the case with the resident and agree with the findings and plan as documented in the note. Any exceptions or clarifications are listed here. 87 y/o female h/o HTN, IBD presents with acute mental status changes in the setting of recent tick bite and a-flutter. Pt appears more comfortable today with less agitation and fatigue. Reports no JUÁREZ, fever, chills, n/v. On examination, S1/S2 nl w/ IRR tachycardia on auscultation w/o MCG, CNII-XII grossly intact. CTAB. Atrial flutter - rate controlled - continue metoprolol, IV amiodarone, PO amiodarone. Cardiology recommendations appreciated - rec'd ablation while inpatient Presumptive Lyme disease - transitioned to PO doxy for 3 wks course but will f/ u western blot for confirmation CLL - follow w/ [facility] as outpatient Diarrhea in the setting of IBD - Improved. Probiotic. Monitor closely for worsening GERD - continue PPI HLD - continue statin therapy PT/OT
[2017-09-14] MEDS ORDERED: ENOXAPARIN 80 MG/0.8 ML SYR SQ ONE (15:15)
[2017-09-14] MEDS: SIMVASTATIN 20 MG TAB PO SCH (20:06)
[2017-09-15] VITALS (9 sets, daily range): BP systolic 106–157; BP diastolic 50–79; PULSE 63–76; TEMP 36.3–36.9; O2SAT 93–96
[2017-09-15] MEDS: AMIODARONE / D5W 200 ML IV SCH ×2 (02:18→10:05)
[2017-09-15 06:41] LABS: HEMATOCRIT 36.8 % (37-47); MEAN CELL VOLUME 86.2 fL (80-100); MEAN CORPUSCULAR HEMOGLOBIN 27.4 pg (25-34); MEAN CORPUSCULAR HGB CONC 31.8 g/dl (32-36); MEAN PLATELET VOLUME 9.5 fL (7.4-10.4); PLATELET COUNT 162 K/uL (130-400); RED BLOOD COUNT 4.27 M/uL (4.2-5.4); WHITE BLOOD COUNT 45.66 K/uL (4.8-10.8)
[2017-09-15 06:49] LABS: BUN/CREATININE RATIO 14.3 (10-20); CALCIUM 8.6 mg/dl (8.5-10.1); CREATININE 0.81 mg/dl (0.60-1.20); POTASSIUM 3.3 mmol/L (3.5-5.1)
[2017-09-15] MEDS ORDERED: POTASSIUM CHLORIDE 20 MEQ TABCR PO STA ×2 (08:48→17:18)
[2017-09-15] MEDS: AMIODARONE 200 MG TAB PO SCH ×2 (10:03→20:51)
[2017-09-15] MEDS: MULTIVITAMIN TAB PO SCH (10:03)
[2017-09-15] MEDS: DOXYCYCLINE HYCLATE 100 MG CAP PO SCH ×2 (10:03→20:50)
[2017-09-15] MEDS: FAMOTIDINE 20 MG TAB PO SCH ×2 (10:03→20:50)
[2017-09-15] MEDS: SERTRALINE HCL 100 MG TAB PO SCH (10:03)
[2017-09-15] MEDS: PANTOprazole SOD 40 MG TAB PO SCH (10:03)
[2017-09-15] MEDS: METOPROLOL TARTRATE 50 MG TAB PO SCH ×2 (10:04→20:52)
[2017-09-15] MEDS: LACTOBACILLUS ACIDOPHILUS 1 GM PACK PO SCH ×3 (10:04→17:02)
--- NOTE | 2017-09-15 10:14 | Cardiology Follow-Up ---
Subjective General Date of Service: Sep 15, 2017. Pt evaluation today including: conversation w/ patient, chart review, lab review, review of studies, conversation w/ edi consultant History of Present Illness The patient is a 87 year old female Allergies Coded Allergies: Naloxone (Verified Allergy, Severe, TREMORS, DYSKINESIA, 09/09/17) Acetaminophen (Verified Allergy, Unknown, `, 09/09/17) Amoxicillin (Verified Allergy, Unknown, `, 09/09/17) Clarithromycin (Verified Allergy, Unknown, `, 09/09/17) Aspirin (Verified Adverse Reaction, Intermediate, hISTORY OF ULCERS, ) Codeine (Verified Adverse Reaction, Intermediate, VOMITING, 09/09/17) Social History Smoking Status: Never Smoker Hx Alcohol Use - Type And Amou: No Hx Substance Use - Type And Am: No Problem List Medical Problems: (1) Altered mental status Status: Acute (2) Chronic lymphocytic leukemia (CLL), B-cell Status: Chronic (3) Leukocytosis Status: Acute (4) Vomiting Status: Acute Review of Systems Respiratory: No shortness of breath, No dyspnea at rest Cardiac: No chest pain, No edema, No palpitations Physical Exam Vital Signs Last Vital Signs Documentation Date Time Temp Pulse Resp B/P (MAP) Pulse Ox O2 Delivery O2 Flow Rate FiO2 09/15/17 08:27 36.5 68 16 106/50 (68) 96 Room Air 09/10/17 04:00 3.0 Physical Exam Constitutional: General Apperance: heathly-appearing Level of Distress: NAD Lungs: Respiratory effort: no dyspnea Auscultation: breath sounds normal, no wheezing, no rales/crackles, no rhonchi Cardiovascular: Heart Auscultation: RRR, no murmurs, no rubs, no gallops Abdomen: Bowel Sounds: normal Inspection & Palpation: soft, non-distended, no tenderness, guarding & rebound Extremities: no edema Assessment and Plan Assessment and Plan IMPRESSION: 1. Change in mental status possibly Lyme. 2. Recent tick bite, IgM Lyme titer equivocal. 3. Asymptomatic atrial flutter and atrial fibrillation with a rapid ventricular response--converted with amio back to NSR, No pauses 4. Chronic lymphocytic leukemia.. 5. Thrombocytopenia. 6. Moderate MR 7. Mild to moderate AR 8. Normal LV function 9. Mild to moderate Pulm Htn Back in NSR with amio drip D/c amio drip Amio 200mg BID x 1 month then 200mg daily Apixaban 5 mg PO BID Metoprolol 50mg BID will arrange follow up in office in two weeks Laboratory Results Last 24 Hours Test 09/15/17 05:47 White Blood Count 45.66 K/uL Red Blood Count 4.27 M/uL Hemoglobin 11.7 g/dL Hematocrit 36.8 % Mean Corpuscular Volume 86.2 fL Mean Corpuscular Hemoglobin 27.4 pg Mean Corpuscular Hemoglobin Concent 31.8 g/dl RDW Standard Deviation 48.8 fL RDW Coefficient of Variation 15.5 % Platelet Count 162 K/uL Mean Platelet Volume 9.5 fL Sodium Level 142 mmol/L Potassium Level 3.3 mmol/L Chloride Level 110 mmol/L Carbon Dioxide Level 25 mmol/L Anion Gap 7.0 mmol/L Blood Urea Nitrogen 12 mg/dl Creatinine 0.81 mg/dl Est Creatinine Clear Calc Drug Dose 51.6 ml/min Estimated GFR () 76.8 Estimated GFR (Non- 66.2 BUN/Creatinine Ratio 14.3 Random Glucose 108 mg/dl Calcium Level 8.6 mg/dl
[2017-09-15 10:18] LABS: 18KDIGG BAND NONREACTIVE (NONREACTIVE); 23KDIGG BAND NONREACTIVE (NONREACTIVE); 23KDIGM BAND NONREACTIVE (NONREACTIVE); 28KDIGG BAND NONREACTIVE (NONREACTIVE); 30KDIGG BAND NONREACTIVE (NONREACTIVE); 39KDIGG BAND NONREACTIVE (NONREACTIVE); 39KDIGM BAND NONREACTIVE (NONREACTIVE); 41KDIGG BAND NONREACTIVE (NONREACTIVE); 41KDIGM BAND NONREACTIVE (NONREACTIVE); 45KDIGG BAND NONREACTIVE (NONREACTIVE); 58KDIGG BAND NONREACTIVE (NONREACTIVE); 66KDIGG BAND NONREACTIVE (NONREACTIVE); 93KDIGG BAND NONREACTIVE (NONREACTIVE)
[2017-09-15] MEDS: APIXABAN 2.5 MG TAB PO SCH ×2 (10:59→20:51)
--- NOTE | 2017-09-15 12:58 | Family Medicine Progress Note ---
Progress Note Date of Service Sep 15, 2017. Subjective Pt evaluation today including: conversation w/ patient, physical exam, chart review, lab review, conversation w/ bank consultant, review of inpatient medication list Pain: none PO Intake: good Voiding: no voiding problems Patient has been feeling well overnight She converted to NSR overnight and has been transitioned to PO amiodarone We are still awaiting insurance authorization for [email or web address] Constitutional: No fever, No chills, No sweats Respiratory: No cough, No sputum, No shortness of breath Cardiovascular: No chest pain, No edema, No palpitations Abdomen: No pain, No vomiting, No diarrhea Musculoskeletal: + joint pain (chronic) Skin: No rash, No itch Medications Current Inpatient Medications Medications (Trade) Dose Ordered Sig/Lionel Route Start Time Stop Time Status Last Admin Dose Admin Docusate Sodium (coLACE CAP) 100 mg BID PRN PO 09/09/17 20:30 10/09/17 20:29 Metoprolol Tartrate (Lopressor Tab) 50 mg BID PO 09/09/17 21:00 10/09/17 20:59 09/15/17 10:04 50 MG Multivitamins (Multivitamin Tab) 1 tab DAILY PO 09/10/17 09:00 10/10/17 08:59 09/15/17 10:03 1 TAB Simvastatin (Zocor Tab) 20 mg HS PO 09/09/17 21:00 10/09/17 20:59 09/14/17 20:06 20 MG Pantoprazole Sodium (Protonix Tab) 40 mg QAM PO 09/10/17 09:00 10/10/17 08:59 09/15/17 10:03 40 MG Polyethylene (Miralax Powder Packet) 17 gm DAILY PRN PO 09/09/17 20:30 10/09/17 20:29 Ondansetron HCl (Zofran Inj) 4 mg Q6H PRN IV 09/09/17 20:30 10/09/17 20:29 09/13/17 09:22 4 MG Miscellaneous (Iv Fluids Completed) 1 ea PRN PRN N/A 09/09/17 21:00 09/09/18 20:59 Amiodarone HCl (Cordarone Tab) 200 mg BID PO 09/12/17 11:00 10/12/17 10:59 09/15/17 10:03 200 MG Doxycycline Hyclate (Vibramycin Cap) 100 mg BID PO 09/12/17 12:00 09/22/17 11:59 09/15/17 10:03 100 MG Lactobacillus Acidophilus (Lactinex Granules Pack) 1 gm TIDM PO 09/12/17 16:45 10/12/17 16:44 09/15/17 10:04 1 GM Famotidine (Pepcid Tab) 20 mg BID PO 09/12/17 21:00 10/12/17 20:59 09/15/17 10:03 20 MG Sertraline HCl (Zoloft Tab) 100 mg QAM PO 09/14/17 09:00 10/14/17 08:59 09/15/17 10:03 100 MG Apixaban (Eliquis Tab) 5 mg BID PO 09/15/17 10:15 10/15/17 10:14 09/15/17 10:59 5 MG Objective Vital Signs Date Time Temp Pulse Resp B/P (MAP) Pulse Ox O2 Delivery O2 Flow Rate FiO2 09/15/17 16:07 36.4 64 14 127/77 (94) 95 09/15/17 16:00 93 Room Air 09/15/17 12:00 93 Room Air 09/15/17 11:41 36.3 76 16 157/79 (105) 95 Room Air 09/15/17 11:05 Room Air 09/15/17 08:27 36.5 68 16 106/50 (68) 96 Room Air 09/15/17 08:00 93 Room Air 09/15/17 04:00 Room Air 09/15/17 03:40 36.6 63 18 130/67 (88) 96 Room Air 09/14/17 23:59 Room Air 09/14/17 23:27 37.3 68 18 129/79 (96) 95 Room Air 09/14/17 22:40 36.6 68 16 128/78 (95) 95 Room Air 09/14/17 20:00 Room Air Physical Exam Notes: General Appearance: WD/WN, no apparent distress Neck: no JVD, no carotid bruits, no lymphadenopathy Respiratory/Chest: lungs clear, no respiratory distress, no accessory muscle use Cardiovascular: regular, regular rhythm, no edema, no murmur Abdomen: normal bowel sounds, non tender, soft Extremities: non-tender, no pedal edema, no calf tenderness, + pertinent finding (insect bite on left upper buttock) Neurologic/Psychiatric: alert, normal mood/affect, oriented x 3 Laboratory Results Results Past 24 Hours Test 09/15/17 05:47 Range/Units White Blood Count 45.66 4.8-10.8 K/uL Red Blood Count 4.27 4.2-5.4 M/uL Hemoglobin 11.7 12.0-16.0 g/dL Hematocrit 36.8 37-47 % Mean Corpuscular Volume 86.2 80-100 fL Mean Corpuscular Hemoglobin 27.4 25-34 pg Mean Corpuscular Hemoglobin Concent 31.8 32-36 g/dl RDW Standard Deviation 48.8 36.4-46.3 fL RDW Coefficient of Variation 15.5 11.5-14.5 % Platelet Count 162 130-400 K/uL Mean Platelet Volume 9.5 7.4-10.4 fL Sodium Level 142 136-145 mmol/L Potassium Level 3.3 3.5-5.1 mmol/L Chloride Level 110 98-107 mmol/L Carbon Dioxide Level 25 21-32 mmol/L Anion Gap 7.0 3-11 mmol/L Blood Urea Nitrogen 12 7-18 mg/dl Creatinine 0.81 0.60-1.20 mg/dl Est Creatinine Clear Calc Drug Dose 51.6 ml/min Estimated GFR () 76.8 Estimated GFR (Non- 66.2 BUN/Creatinine Ratio 14.3 10-20 Random Glucose 108 70-99 mg/dl Calcium Level 8.6 8.5-10.1 mg/dl Assessment and Plan Assessment: Patient is an 87 year old female that presented with altered mental status. Was put on ceftriaxone for possible lyme disease and patient has improved clinically and has not had any further fevers. Patient on PO doxy. Plan was for patient to go for cardioversion today with Dr. Wick however she spontaneously converted to NSR. She is planning to be discharged to [facility] for further rehab. Her insurance company has not got back to us yet. 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 had an elevation of wcc to 46 spoke to oncology and was advised that in CLL wcc can vary greatly day to day patient informed me that she has had a weight count of 61 before she denies any b symptoms such as weight loss, night sweats or chills advised to continue monitoring for further increased in WCC Atrial flutter was started on amiodarone drip and converted NSR last night, on PO amiodarone on metoprolol 50mg bid monitor on tele echo showed LA moderate dilation and RA moderate dilation w/moderate mitral regurg eliquis started for anticoagulation Diarrhea (resolved) probiotic ordered recent antibiotic use in hospital low threshold for cdiff toxin, continue to monitor GERD Protonix 40mg QAM Hyperlipidemia Simvastatin 20mg qHS Depression Restart Sertraline Arthritis Holding Tramadol DVT SCDs Dispo Pt/OT plan for [facility] tomorrow, still awaiting authorization from insurance patient lives alone in [place] Code Status Full Resuscitation Continued [facility] stay due to: home environment unsafe for pt Discharge planning: rehab hospital Assessment/Plan Resident Physician Supervision Note: I was present with Dr. Reyna during the history and exam. I discussed the case with the resident and agree with the findings and plan as documented in the note. Any exceptions or clarifications are listed here. 87 y/o female h/o HTN, IBD presents with acute mental status changes in the setting of recent tick bite and a-flutter. Pt resting comfortably and reports feeling at baseline. Reports no JUÁREZ, fever, chills, n/v. S1/S2 nl RRR no MCG, CNII-XII grossly intact. CTAB. Atrial flutter - NSR - continue metoprolol and amiodarone. Presumptive Lyme disease - transitioned to PO doxy for 3 wks course but will f/ u western blot for confirmation CLL - follow w/ Balaban as outpatient Diarrhea in the setting of IBD - Improved. Probiotic. Monitor closely for worsening GERD - continue PPI HLD - continue statin therapy Deconditioning - for placement at [facility] when insurance approves.
[2017-09-15] MEDS: SIMVASTATIN 20 MG TAB PO SCH (20:51)
[2017-09-16] VITALS (8 sets, daily range): BP systolic 98–165; BP diastolic 57–77; PULSE 61–76; TEMP 36.5–37; O2SAT 93–99
[2017-09-16 07:13] LABS: HEMATOCRIT 38.2 % (37-47); MEAN CELL VOLUME 87.6 fL (80-100); MEAN CORPUSCULAR HEMOGLOBIN 27.5 pg (25-34); MEAN CORPUSCULAR HGB CONC 31.4 g/dl (32-36); PLATELET COUNT 215 K/uL (130-400); RED BLOOD COUNT 4.36 M/uL (4.2-5.4); WHITE BLOOD COUNT 50.28 K/uL (4.8-10.8)
[2017-09-16 07:28] LABS: BUN/CREATININE RATIO 12.7 (10-20); CALCIUM 8.6 mg/dl (8.5-10.1); CREATININE 0.95 mg/dl (0.60-1.20); POTASSIUM 4.4 mmol/L (3.5-5.1)
[2017-09-16] MEDS: LACTOBACILLUS ACIDOPHILUS 1 GM PACK PO SCH ×3 (07:33→17:30)
[2017-09-16] MEDS: AMIODARONE 200 MG TAB PO SCH ×2 (07:33→20:17)
[2017-09-16] MEDS: METOPROLOL TARTRATE 50 MG TAB PO SCH ×2 (07:33→20:16)
[2017-09-16] MEDS: MULTIVITAMIN TAB PO SCH (07:33)
[2017-09-16] MEDS: DOXYCYCLINE HYCLATE 100 MG CAP PO SCH ×2 (07:34→20:15)
[2017-09-16] MEDS: PANTOprazole SOD 40 MG TAB PO SCH (07:34)
[2017-09-16] MEDS: SERTRALINE HCL 100 MG TAB PO SCH (07:34)
[2017-09-16] MEDS: FAMOTIDINE 20 MG TAB PO SCH ×2 (07:34→20:17)
[2017-09-16] MEDS: APIXABAN 2.5 MG TAB PO SCH ×2 (07:34→20:16)
[2017-09-16] MEDS ORDERED: ELQ25 PO (17:09)
[2017-09-16] MEDS ORDERED: DXY100 PO (17:09)
[2017-09-16] MEDS ORDERED: CRD200 PO (17:09)
--- NOTE | 2017-09-16 17:17 | Discharge Instructions ---
Discharge Instructions Date of Service Sep 16, 2017. Admission Reason for Admission: Altered Mental State, Cll B-Cell Discharge Discharge Diagnosis / Problem: Atrial flutter Discharge Goals Goal(s): Increase independence, Improve disease control, Therapeutic intervention Activity Recommendations Activity Limitations: per Instructions/Follow-up section . Instructions / Follow-Up Instructions / Follow-Up You were admitted to the hospital due to altered mental status You were also found to have an abnormal heart rhythm therefore we started you on IV amiodarone to help control this abnormal rhythm. You will be discharged with oral amiodarone. Please take this as prescribed. Due to your high risk for stroke with your abnormal heart rhythm we will be sending you home with a blood thinner called Kivun Hadash. You were also found to have a fever while in the hospital and we treated you with antibiotics. Your final lyme disease returned as negative but we would like you to finish 8 more days of antibiotics in case there was another tick borne disease that caused you to have a fever. You have been in the hospital for a week therefore our physical therapist suggest that you go to [facility] for a few days in order to participate in rehab. If you have any further fevers, chills, palpitations or chest pain then please come back to the emergency department Please get blood work done at your oncologists office next week and phone there office to confirm an appointment you will be having with them on the 04 of October Current Hospital Diet Patient's current hospital diet: Regular Diet Discharge Diet Recommended Diet: Regular Diet Pending Studies Studies pending at discharge: no Laboratory Results Hemoglobin A1c Test 08/30/17 13:00 Range/Units Estimated Average Glucose 123 mg/dl Hemoglobin A1c 5.9 H 4.5-5.6 % Lipid Panel Test 08/30/17 13:00 Range/Units Triglycerides Level 170 H 0-150 mg/dl Cholesterol Level 131 0-200 mg/dl HDL Cholesterol 32 mg/dl Cholesterol/HDL Ratio 4.1 LDL Cholesterol, Calculated 65 mg/dl Medical Emergencies . Who to Call and When: Medical Emergencies: If at any time you feel your situation is an emergency, please call 911 immediately. . Non-Emergent Contact Non-Emergency issues call your: Primary Care Provider . . "Provider Documentation" section prepared by Lucho Reyna. . VTE Core Measure Inpt VTE Proph given/why not?: Other Anticoagulation, SCD's
--- NOTE | 2017-09-16 17:22 | Family Medicine Progress Note ---
Progress Note Date of Service Sep 16, 2017. Subjective Pt evaluation today including: conversation w/ patient, physical exam, chart review, lab review, conversation w/ loans consultant, review of inpatient medication list Pain: none PO Intake: good Voiding: no voiding problems patient has remained asymptomatic overnight she is eager to go to [facility] for rehab Constitutional: No fever, No chills, No sweats Respiratory: No cough, No sputum, No shortness of breath Cardiovascular: No chest pain, No edema, No palpitations Abdomen: No pain, No nausea, No vomiting, No diarrhea, No constipation Medications Current Inpatient Medications Medications (Trade) Dose Ordered Sig/Lionel Route Start Time Stop Time Status Last Admin Dose Admin Docusate Sodium (coLACE CAP) 100 mg BID PRN PO 09/09/17 20:30 10/09/17 20:29 Metoprolol Tartrate (Lopressor Tab) 50 mg BID PO 09/09/17 21:00 10/09/17 20:59 09/16/17 07:33 50 MG Multivitamins (Multivitamin Tab) 1 tab DAILY PO 09/10/17 09:00 10/10/17 08:59 09/16/17 07:33 1 TAB Simvastatin (Zocor Tab) 20 mg HS PO 09/09/17 21:00 10/09/17 20:59 09/15/17 20:51 20 MG Pantoprazole Sodium (Protonix Tab) 40 mg QAM PO 09/10/17 09:00 10/10/17 08:59 09/16/17 07:34 40 MG Polyethylene (Miralax Powder Packet) 17 gm DAILY PRN PO 09/09/17 20:30 10/09/17 20:29 Ondansetron HCl (Zofran Inj) 4 mg Q6H PRN IV 09/09/17 20:30 10/09/17 20:29 09/13/17 09:22 4 MG Miscellaneous (Iv Fluids Completed) 1 ea PRN PRN N/A 09/09/17 21:00 09/09/18 20:59 Amiodarone HCl (Cordarone Tab) 200 mg BID PO 09/12/17 11:00 10/12/17 10:59 09/16/17 07:33 200 MG Doxycycline Hyclate (Vibramycin Cap) 100 mg BID PO 09/12/17 12:00 09/22/17 11:59 09/16/17 07:34 100 MG Lactobacillus Acidophilus (Lactinex Granules Pack) 1 gm TIDM PO 09/12/17 16:45 10/12/17 16:44 09/16/17 11:34 1 GM Famotidine (Pepcid Tab) 20 mg BID PO 09/12/17 21:00 10/12/17 20:59 09/16/17 07:34 20 MG Sertraline HCl (Zoloft Tab) 100 mg QAM PO 09/14/17 09:00 10/14/17 08:59 09/16/17 07:34 100 MG Apixaban (Eliquis Tab) 5 mg BID PO 09/15/17 10:15 10/15/17 10:14 09/16/17 07:34 5 MG Objective Vital Signs Date Time Temp Pulse Resp B/P (MAP) Pulse Ox O2 Delivery O2 Flow Rate FiO2 09/16/17 16:13 36.9 63 16 98/65 (76) 99 09/16/17 16:00 99 Room Air 3.0 09/16/17 12:52 37.0 69 16 120/57 (78) 99 09/16/17 12:00 93 Room Air 09/16/17 08:00 93 Room Air 09/16/17 07:58 36.6 68 18 165/77 (106) 97 Room Air 09/16/17 04:00 Room Air 09/16/17 04:00 36.5 61 18 151/74 (99) 96 Room Air 09/15/17 23:59 Room Air 09/15/17 23:15 36.9 68 18 148/74 (98) 96 Room Air 09/15/17 20:00 36.7 68 20 142/73 (96) 93 Room Air 09/15/17 19:54 Room Air Physical Exam General Appearance: WD/WN, no apparent distress Neck: supple, no JVD, no carotid bruits Respiratory/Chest: lungs clear, normal breath sounds, no respiratory distress, no accessory muscle use Cardiovascular: regular rate, rhythm, no JVD, no murmur Abdomen: normal bowel sounds, non tender, soft Extremities: non-tender, normal inspection, no calf tenderness Neurologic/Psychiatric: alert, normal mood/affect, oriented x 3 Laboratory Results Results Past 24 Hours Test 09/16/17 01:36 09/16/17 06:17 Range/Units Stool Occult Blood NEGATIVE NEGATIVE White Blood Count 50.28 4.8-10.8 K/uL Red Blood Count 4.36 4.2-5.4 M/uL Hemoglobin 12.0 12.0-16.0 g/dL Hematocrit 38.2 37-47 % Mean Corpuscular Volume 87.6 80-100 fL Mean Corpuscular Hemoglobin 27.5 25-34 pg Mean Corpuscular Hemoglobin Concent 31.4 32-36 g/dl Platelet Count 215 130-400 K/uL Sodium Level 142 136-145 mmol/L Potassium Level 4.4 3.5-5.1 mmol/L Chloride Level 112 98-107 mmol/L Carbon Dioxide Level 25 21-32 mmol/L Anion Gap 5.0 3-11 mmol/L Blood Urea Nitrogen 12 7-18 mg/dl Creatinine 0.95 0.60-1.20 mg/dl Est Creatinine Clear Calc Drug Dose 43.6 ml/min Estimated GFR () 63.3 Estimated GFR (Non- 54.6 BUN/Creatinine Ratio 12.7 10-20 Random Glucose 96 70-99 mg/dl Calcium Level 8.6 8.5-10.1 mg/dl Assessment and Plan Assessment: Patient is an 87 year old female that presented with altered mental status. Was put on ceftriaxone for possible lyme disease and patient has improved clinically and has not had any further fevers. Patient on PO doxy. Patient was also found to be in atrial flutter. She was put on IV amiodarone and has converted to NSR. She has been transitioned to PO amiodarone. She has had approved authorization to go to [facility]. Her son will be driving her there in the morning. Plan: Lyme disease lyme IgM positive with negative bands IV ceftriaxone switched to doxycycline PO for 14 days lft's normal therefore unlikely to be anaplasma but will treat anyways peripheral smear without any findings of anaplasmosis or erlichiosis CLL follows with Dr. Rehman as outpatient had an elevation of wcc to 50 spoke to oncology and was advised that in CLL wcc can vary greatly day to day patient informed me that she has had a weight count of 61 before she denies any b symptoms such as weight loss, night sweats or chills advised to continue monitoring for further increased in WCC will follow with Radna Jason on the --> patient to get blood work next week Atrial flutter was started on amiodarone drip and converted NSR, on PO amiodarone on metoprolol 50mg bid monitor on tele echo showed LA moderate dilation and RA moderate dilation w/moderate mitral regurg eliquis started for anticoagulation Diarrhea (resolved) probiotic ordered recent antibiotic use in hospital low threshold for cdiff toxin, continue to monitor GERD Protonix 40mg QAM Hyperlipidemia Simvastatin 20mg qHS Depression Restart Sertraline Arthritis Holding Tramadol DVT SCDs Dispo Pt/OT plan for [facility] tomorrow, authorization approved by insurance patient lives alone in [place] Code Status Full Resuscitation Continued [facility] stay due to: other Discharge planning: rehab hospital Assessment/Plan Resident Physician Supervision Note: I was present with Dr. Reyna during the history and exam. I discussed the case with the resident and agree with the findings and plan as documented in the note. Any exceptions or clarifications are listed here. 87 y/o female h/o HTN, IBD presents with acute mental status changes in the setting of recent tick bite and a-flutter. Pt resting comfortably and reports feeling at baseline. Reports no JUÁREZ, fever, chills, n/v. S1/S2 nl RRR no MCG, CNII-XII grossly intact. CTAB. Atrial flutter - NSR - continue metoprolol and amiodarone. Presumptive tick borne disease w/ neg Western for Lyme - will complete course of doxycycline 3 wks CLL - follow w/ Balaban as outpatient Diarrhea in the setting of IBD - Improved. Probiotic. Monitor closely for worsening GERD - continue PPI HLD - continue statin therapy Deconditioning - for placement at [facility] when insurance approves.
[2017-09-16] MEDS: SIMVASTATIN 20 MG TAB PO SCH (20:17)
[2017-09-17 00:18] VITALS: BP 138/75; PULSE 81; TEMP 36.3; O2SAT 95
[2017-09-17 07:39] VITALS: BP 149/74; PULSE 67; TEMP 36.5; O2SAT 95
[2017-09-17 08:00] VITALS: O2SAT 95
[2017-09-17] MEDS: APIXABAN 2.5 MG TAB PO SCH (08:29)
[2017-09-17] MEDS: DOXYCYCLINE HYCLATE 100 MG CAP PO SCH (08:29)
[2017-09-17] MEDS: FAMOTIDINE 20 MG TAB PO SCH (08:29)
[2017-09-17] MEDS: LACTOBACILLUS ACIDOPHILUS 1 GM PACK PO SCH ×2 (08:29→12:35)
[2017-09-17] MEDS: SERTRALINE HCL 100 MG TAB PO SCH (08:30)
[2017-09-17] MEDS: MULTIVITAMIN TAB PO SCH (08:30)
[2017-09-17] MEDS: AMIODARONE 200 MG TAB PO SCH (08:30)
[2017-09-17] MEDS: PANTOprazole SOD 40 MG TAB PO SCH (08:30)
[2017-09-17] MEDS: METOPROLOL TARTRATE 50 MG TAB PO SCH (08:31)
[2017-09-17] MEDS ORDERED: DXY100 PO (09:56)
--- NOTE | 2017-09-17 10:01 | Discharge Summary ---
Discharge Summary Date of Service Sep 17, 2017. (Marcial Katz M.D.) Discharge Summary Admission Date: Sep 13, 2017 at 11:52 Discharge Date: Sep 17, 2017 Discharge Disposition: Acute care facility ([facility]) Principal Diagnosis: Lyme Disease Problems/Secondary Diagnoses: (1) Chronic lymphocytic leukemia (CLL), B-cell Status: Chronic Immunizations: Have You Had Influenza Vaccine: Yes History of Tetanus Vaccine?: Yes History of Pneumococcal: Yes History of Hepatitis B Vaccine: No Procedures: MRI OF THE BRAIN WITHOUT AND WITH IV CONTRAST CLINICAL HISTORY: altered mental status COMPARISON STUDY: Noncontrast head CT dated 09/09/2017 TECHNIQUE: MRI of the brain was performed from the vertex to the skull base utilizing various T1 and T2 weighted sequences. Following the IV administration of 7.4 mL of Gadavist contrast, additional enhanced images were obtained. FINDINGS: The study is compromised secondary to moderate patient motion artifact Sagittal T1, axial diffusion, proton density and T2 weighted axial, coronal FLAIR, and pre and post axial T1-weighted images were acquired. These were supplemented with post gadolinium coronal T1 weighted images. No intra or extra-axial mass lesions are visualized. Axial diffusion-weighted images reveal no evidence of acute or subacute infarction. There is no evidence of ventricular dilatation. Proton density T2-weighted and FLAIR images reveal scattered foci of increased T2 signal within the white matter, likely on a small vessel basis. There are no abnormal flow voids. Postcontrast images are markedly limited due to motion artifact. No pathologically enhancing masses are visualized. Inflammatory changes are present with complete opacification of the right maxillary and ethmoid sinuses. There is apparent expansion of the right maxillary sinus. There is mild bony wall thickening of intrasinus favoring a chronic inflammatory process IMPRESSION: 1. Significantly limited study from a technical standpoint secondary to patient motion 2. No evidence of acute or subacute infarction 3. No intracranial masses identified 4. Opacified right maxillary and ethmoid sinuses.] Right maxillary sinus wall thickening and bony expansion. The findings are likely chronic inflammatory basis CT SCAN OF THE ABDOMEN AND PELVIS WITH IV CONTRAST CLINICAL HISTORY: Generalized abdominal pain. COMPARISON STUDY: Abdominal CT dated 06/21/2013. TECHNIQUE: Following the IV administration of 116 cc of Optiray 320, CT scan of the abdomen and pelvis is performed from the lung bases to the proximal femora. Images are reviewed in the axial, sagittal, and coronal planes. IV contrast was administered without complication. A dose lowering technique was utilized adhering to the principles of ALARA. CT DOSE: 663.83 mGy.cm FINDINGS: Lung bases: The heart is top normal in size and without pericardial effusion. The coronary arteries are densely calcified. The lung bases are clear noting dependent atelectasis. Liver: The contrast-enhanced liver is normal in size, contour, and attenuation. A 2.2 cm cyst is noted in the right lobe. There is no intrahepatic biliary ductal dilatation. The hepatic veins and portal veins are patent. Possible granulomas are observed. Gallbladder: Unremarkable. Spleen: The spleen is markedly enlarged measuring 16 cm in length. There are calcified splenic granulomas. Pancreas: Atrophic and grossly unremarkable. Adrenal glands: Unremarkable. Kidneys: The contrast enhanced kidneys are atrophic and without hydronephrosis. The kidneys enhance symmetrically. Scattered subcentimeter cortical hypodensities likely represent cysts but are too small for definitive characterization. Abdominal vasculature: The abdominal aorta is normal in course and caliber noting moderate atherosclerotic calcification. Bowel: There is mild colonic diverticulosis without CT evidence of acute diverticulitis. No bowel obstruction is seen. The appendix is well-visualized and normal. Peritoneum: There is no intraperitoneal free air or abdominal ascites. Lymphadenopathy: A mildly enlarged left pelvic sidewall node seen on image #46 measures 1.1 cm in short axis. This is best seen on image #346. No additional pathologically enlarged lymph nodes are seen in the abdomen or pelvis. Pelvic viscera: Evaluation of the pelvis is degraded by streak artifact from a left hip arthroplasty. The bladder is decompressed and not well evaluated. The uterus is surgically absent. No adnexal lesion is seen. Skeletal structures: The skeletal structures are osteopenic. There is moderate lumbosacral spondylosis. There is a mild compression deformity of T12. Grade 1 anterolisthesis is seen at L4-L5. No lytic or blastic lesions are seen. 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 IMPRESSION: 1. There are no acute infectious or inflammatory findings in the abdomen or pelvis. 2. Marked splenomegaly, similar in appearance to the 2013 examination. 3. There is a mildly enlarged left pelvic sidewall length node, which is of indeterminant etiology and significance. 4. Mild colonic diverticulosis without CT evidence of acute diverticulitis. 5. Additional findings as above. CHEST ONE VIEW PORTABLE CLINICAL HISTORY: increased shortness of breath and crackles ?pulmonary edema soft tissue COMPARISON STUDY: 09/10/2017 FINDINGS: Interval increase in prominence of the pulmonary vasculature and bronchovascular markings throughout both hemithoraces. Diaphragms smooth. Costophrenic angles are sharp. IMPRESSION: Developing pulmonary edema (Marcial Katz M.D.) Medication Reconciliation New Medications: Amiodarone HCl (Amiodarone HCl) 200 Mg Tab 200 MG PO BID for 30 Days, #60 TAB Apixaban (Eliquis) 2.5 Mg Tab 5 MG PO BID for 30 Days, #120 TAB Doxycycline Hyclate (Doxycycline Hyclate) 100 Mg Cap 100 MG PO BID for 16 Days, #32 CAP Continued Medications: Biotin (Biotin) 300 Mcg Tab 5000 MCG PO DAILY Calcium Carbonate-Vitamin D (Calcium Plus Vitamin D) 1 Cap Cap 1 CAP PO DAILY Coenzyme Q10 (Ubidecarenone) (Co Q 10) 100 Mg Cap 100 MG PO DAILY Docusate Sodium (Colace) 100 Mg Cap 1 CAP PO BID PRN for Constipation, CAP Magnesium-Zinc (Magnesium/Chelated Zinc) 1 Tab Tab 1 TAB PO DAILY Metoprolol Tartrate (Lopressor) (Lopressor) 50 Mg Tab 50 MG PO BID Multivitamin (Multivitamin) Tab 1 TABLET PO DAILY Omeprazole (Prilosec) 40 Mg Cap 40 MG PO DAILY, CAP Polyethylene Glycol 3350 (Miralax) 1 Pow Pow 17 GM PO DAILY PRN for Constipation Sertraline (Zoloft) 50 Mg Tab 100 MG PO DAILY Simvastatin (Zocor) 20 Mg Tab 20 MG PO HS Tramadol (Ultram) 50 Mg Tab 50-100 MG PO HS FOR ARTHRITIS PAIN Discharge Exam The patient was seen and examined at bedside. No acute overnight events. Patient is resting comfortably in bed. Denies having any pain. Eating and urinating well. Pt understands that her son should come to take her to [facility]. Plan of care was described to the patient and all questions were answered. Review of Systems: Constitutional: No fever, No chills Respiratory: No cough, No sputum, No wheezing, No shortness of breath, No dyspnea on exertion Cardiovascular: No chest pain Abdomen: No pain, No nausea, No vomiting, No diarrhea Musculoskeletal: No joint pain Genitourinary - Female: No dysuria, No urinary frequency Physical Exam: General Appearance: WD/WN, no apparent distress Respiratory/Chest: chest non-tender, lungs clear, normal breath sounds, no respiratory distress, no accessory muscle use Cardiovascular: regular rate, rhythm, no edema, no gallop, no JVD, no murmur , normal peripheral pulses Abdomen / GI: normal bowel sounds, non tender, soft, no organomegaly, no pulsatile mass, normal rectal exam Extremities: normal inspection, no calf tenderness, no pedal edema Neurologic/Psychiatric: no motor/sensory deficits, alert, normal mood/affect , normal reflexes, oriented x 3 Skin: no rash (Marcial Katz M.D.) Hospital Course 87 year old female that presented with altered mental status. Was put on ceftriaxone for possible lyme disease and patient has improved clinically and has not had any further fevers. Patient had equivocal Lyme titers (IgM positive with negative bands) and was put on Doxycycline. LFTs were normal as was the peripheral smear ergo low suspicion for Anaplasmosis. Patient was discharged on 100mg BID of Doxycycline 16 days to complete a 21 day course. Patient was also found to be in atrial flutter. She was put on IV amiodarone and has converted to NSR. She has been transitioned to PO amiodarone and discharged on Amiodarone and Eliquis for Anticoagulation. She was discharged to [facility] in good condition. We recommend re-checking her Lyme Titers in 3-4 weeks. Patient should have regular follow up of her CLL. Patient has an appointment with Randa Jason on the . While in the hospital the patient's regular medications for GERD, HLD and Depression were continued. Total Time Spent: Greater than 30 minutes (55min) This includes examination of the patient, discharge planning, medication reconciliation, and communication with other providers. (Marcial Katz M.D.) Discharge Instructions Please refer to the electronic Patient Visit Report (Discharge Instructions) for additional information. (Marcial Katz M.D.) Additional Copies To Lencho French M.D.; [facility] Resident Involvement: Resident Care Provided Care Provided: Adult [facility] (Marcial Katz M.D.) Assessment/Plan Resident Physician Supervision Note: I was present with Dr. Reyna during the history and exam. I discussed the case with the resident and agree with the findings and plan as documented in the note. Any exceptions or clarifications are listed here. 87 y/o female h/o HTN, IBD presents with acute mental status changes in the setting of recent tick bite and a-flutter. Pt resting comfortably and reports feeling at baseline. Reports no JUÁREZ, fever, chills, n/v. S1/S2 nl RRR no MCG, CNII-XII grossly intact. CTAB. Atrial flutter - NSR - continue metoprolol and amiodarone. Follow up with cardiology Presumptive tick borne disease w/ neg [facility] for Lyme in early phase - will complete course of doxycycline 3 wks, repeat Lyme in 4 wks CLL - follow w/ [facility] as outpatient Diarrhea in the setting of IBD - Improved. Probiotic. GERD - continue PPI HLD - continue statin therapy (Rio Cm MD)
[2017-09-17 10:53] VITALS: BP 149/74; PULSE 67; TEMP 36.5; O2SAT 95
== END 2017-09-17 12:55 | DRG 868 ==
LOC: EDBD 17:06 → C.EDC 17:08 → C.2T 20:33 → ENRESERV 20:47 → OBSVTOIN 09-13 11:52 → CANRESERV 09-16 17:22 → ENRESERV 09-16 17:22 → C.4E 09-16 19:13
PROVIDERS: ADMIT Hospitalist; ATTEND Family Medicine
DX: A69.20 Lyme disease, unspecified (principal); C91.10 Chronic lymphocytic leukemia of B-cell type not having achieved remission; K51.90 Ulcerative colitis, unspecified, without complications; I48.92 Unspecified atrial flutter; I10 Essential (primary) hypertension; M81.0 Age-related osteoporosis without current pathological fracture; F32.9 Major depressive disorder, single episode, unspecified; Z96.649 Presence of unspecified artificial hip joint; K21.9 Gastro-esophageal reflux disease without esophagitis; E78.5 Hyperlipidemia, unspecified; M19.90 Unspecified osteoarthritis, unspecified site; I48.91 Unspecified atrial fibrillation

== ENCOUNTER → 2017-10-17 | Outpatient (CLI) | payer BC ==
[~2017-10-17] MED LIST changes: -CALC-274; +CALCCAP7 PO; -CLC100X PO; -CLINPOW; +CRD200 PO; +DOCU-94 PO; +DXY100 PO; +ELQ25 PO; +MAGN1TAB28 PO; -MAGN200T3 PO; +POLY335019 PO; -POLY335040 PO; -reclast IV
--- NOTE | 2017-10-17 12:07 | DIAGNOSTIC IMAGING REPORT ---
ULTRASOUND EXAM AAA SCREEN CLINICAL HISTORY: R93.8 Abnormal finding on [id number] COMPARISON STUDY: CT scan dated 09/09/2017 FINDINGS: There is no evidence of abdominal aortic aneurysmal dilatation. The proximal aorta measures 21 x 19 mm, the mid aorta 16 x 13 mm, and the distal aorta 14 x 14 mm. The right iliac measures 10 mm. The left iliac measures 11 mm. IMPRESSION: No evidence of abdominal aortic aneurysm. Electronically signed by: Miguel Brush M.D. 10/17/2017 12:06 PM Dictated Date/Time: 10/17/2017 12:05 PM
== END | disposition home or self-care (01) ==
LOC: C.ULTR 11:34
PROVIDERS: ATTEND Physician Assistant Medical
DX: R93.8 Abnormal findings on diagnostic imaging of other specified body structures (principal)

== ENCOUNTER 2017-11-24 10:46 | Inpatient (IN) | payer BC, OTHER ==
[~2017-11-24] VITALS: Ht 162.6 cm; Wt 72.1 kg
--- NOTE | 2017-11-24 11:54 | DIAGNOSTIC IMAGING REPORT ---
CHEST ONE VIEW PORTABLE CLINICAL HISTORY: Atypical chest pain COMPARISON STUDY: 09/12/2017 FINDINGS: The heart is borderline enlarged. There is radiographic evidence of congestive failure with interstitial edema. There are more focal airspace opacities within the right upper lobe. While likely representing asymmetric edema, a superimposed pneumonia could appear similar.[ IMPRESSION: 1. Radiographic evidence of worsening congestive failure and interstitial pulmonary edema 2. New right upper lobe airspace opacities likely representing focal edema although a superimposed pneumonia could appear similar Electronically signed by: Miguel Brush M.D. 11/24/2017 11:53 AM Dictated Date/Time: 11/24/2017 11:52 AM
[2017-11-24] MEDS ORDERED: SODIUM CHLORIDE 0.9% 1000ML 1,000 ML IV STA (12:00)
[2017-11-24] MEDS ORDERED: METOPROLOL TARTRATE 1 MG/ML VIAL IV STA ×2 (12:00→12:56)
[2017-11-24] MEDS ORDERED: FUROSEMIDE 40 MG/4 ML VIAL IV STA (12:03)
--- NOTE | 2017-11-24 12:04 | EMERGENCY ROOM VISIT NOTE ---
History Report prepared by Yousuf: Karly Brian Under the Supervision of: Dr. Petra Chicas M.D. First contact with patient: 11:52 Chief Complaint: CARDIAC ASSESSMENT Stated Complaint: SOB Nursing Triage Summary: Pt arrives via ALS litter from home for eval of "feeling shaky and trembly". Per medic, pt has not "felt well" for a month. Pt states she has not "felt well" since Nov. Pt denies cold/cough. SOB with exertion. Medic gave albuterol neb en route. Pt has redness noted to b/l medial thighs, [facility] Pt reports hx of CLL, Lymes, a.fib. History of Present Illness The patient is a 87 year old female who presents to the Emergency Room with complaints of shakiness beginning 1 week ago. The patient states that her heart has been beating fast, and that she feels nauseous and tremulous. Pt admits to some SOB. The patient denies having a fever. She states that she has a history of atrial fibrillation. The patient states that she has also been treated for Lyme Disease before. Source of History: patient Onset: 1 week ago Position: other (global) Quality: other (shakiness) Associated Symptoms: + nausea, No fevers Note: additional symptoms: heart beating fast, feels tremulous Review of Systems See HPI for pertinent positives & negatives. A total of 10 systems reviewed and were otherwise negative. 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 Social History Smoking Status: Never Smoker Alcohol Use: none Drug Use: none Marital Status: Housing Status: lives alone Occupation Status: retired Current/Historical Medications Scheduled Biotin (Biotin), 5,000 MCG PO DAILY Calcium Carbonate-Vitamin D (Calcium Plus Vitamin D), 1 CAP PO DAILY Coenzyme Q10 (Ubidecarenone) (Co Q 10), 100 MG PO DAILY Magnesium-Zinc (Magnesium/Chelated Zinc), 1 TAB PO DAILY Metoprolol Tartrate (Lopressor) (Lopressor), 50 MG PO BID Multivitamin (Multivitamin), 1 TABLET PO DAILY Omeprazole (Prilosec), 40 MG PO DAILY Sertraline (Zoloft), 100 MG PO DAILY Simvastatin (Zocor), 20 MG PO HS Tramadol (Ultram), 50-100 MG PO HS Scheduled PRN Docusate Sodium (Colace), 1 CAP PO BID PRN for Constipation Polyethylene Glycol 3350 (Miralax), 17 GM PO DAILY PRN for Constipation Allergies Coded Allergies: Naloxone (Verified Allergy, Severe, TREMORS, DYSKINESIA, 11/24/17) Apixaban (Unverified Allergy, Mild, RASH, 11/24/17) Acetaminophen (Verified Allergy, Unknown, `, 11/24/17) Amoxicillin (Verified Allergy, Unknown, `, 11/24/17) Clarithromycin (Verified Allergy, Unknown, `, 11/24/17) Aspirin (Verified Adverse Reaction, Intermediate, hISTORY OF ULCERS, ) Codeine (Verified Adverse Reaction, Intermediate, VOMITING, 11/24/17) Physical Exam Vital Signs Date Time Temp Pulse Resp B/P (MAP) Pulse Ox O2 Delivery O2 Flow Rate FiO2 11/24/17 14:34 108 18 132/100 94 Nasal Cannula 2.0 11/24/17 14:10 94 Nasal Cannula 2.0 11/24/17 14:05 127 18 146/108 96 Room Air 2.0 11/24/17 13:15 128 11/24/17 13:11 128 159/97 11/24/17 12:30 138 142/109 11/24/17 12:16 136 18 137/91 96 Nasal Cannula 2.0 11/24/17 12:16 136 137/91 11/24/17 11:42 141 18 151/108 96 Nasal Cannula 2.0 11/24/17 10:58 150 11/24/17 10:55 92 Room Air 11/24/17 10:55 36.4 148 18 144/115 92 Room Air Physical Exam Vital signs reviewed. General: Elderly, somewhat ill-appearing female, in no significant distress. HEENT: No scleral icterus, PERRLA, neck supple. Atraumatic. Cardiovascular: Tachycardic and irregular rhythm, no extra sounds. Pulmonary: Crackles to bases bilaterally. Minimal peripheral edema. Abdomen: Soft, nontender, nondistended, positive bowel sounds. Musculoskeletal: Atraumatic, no peripheral edema. Neurologic: Patient awake alert and oriented x 3, full strength in all 4 extremities. Cranial nerves 2 through 12 grossly intact. Skin: Warm, dry, mild erythema to bilateral medical knees, no lymphangitic streaking. Medical Decision & Procedures ER Provider Diagnostic Interpretation: Radiology results as stated below per my review and radiologist interpretation: CHEST ONE VIEW PORTABLE CLINICAL HISTORY: Atypical chest pain COMPARISON STUDY: 09/12/2017 FINDINGS: The heart is borderline enlarged. There is radiographic evidence of congestive failure with interstitial edema. There are more focal airspace opacities within the right upper lobe. While likely representing asymmetric edema, a superimposed pneumonia could appear similar.[ IMPRESSION: 1. Radiographic evidence of worsening congestive failure and interstitial pulmonary edema 2. New right upper lobe airspace opacities likely representing focal edema although a superimposed pneumonia could appear similar Electronically signed by: Miguel Brush M.D. 11/24/2017 11:53 AM Dictated Date/Time: 11/24/2017 11:52 AM Laboratory Results Test 11/24/17 11:00 11/24/17 11:10 11/24/17 11:32 Prothrombin Time 13.9 SECONDS (9.0-12.0) Prothromb Time International Ratio 1.3 (0.9-1.1) Activated Partial Thromboplast Time 28.3 SECONDS (21.0-31.0) Partial Thromboplastin Ratio 1.1 Total Bilirubin 1.9 mg/dl (0.2-1) Aspartate Amino Transf (AST/SGOT) 63 U/L (15-37) Alanine Aminotransferase (ALT/SGPT) 64 U/L (12-78) Alkaline Phosphatase 86 U/L (45-117) Total Creatine Kinase 74 U/L (26-192) Creatine Kinase MB 2.2 ng/ml (0.5-3.6) Creatine Kinase MB Ratio 3.0 (0-3.0) Total Protein 7.0 gm/dl (6.4-8.2) Albumin 3.6 gm/dl (3.4-5.0) Globulin 3.4 gm/dl (2.5-4.0) Albumin/Globulin Ratio 1.1 (0.9-2) Bedside Troponin I < 0.030 ng/ml (0-0.045) Laboratory results per my review. Medications Administered Medications (Trade) Dose Ordered Sig/Lionel Route Start Time Stop Time Status Last Admin Dose Admin Metoprolol Tartrate (Lopressor Iv) 5 mg NOW STAT IV 11/24/17 12:00 11/24/17 12:02 DC 11/24/17 12:16 5 MG Furosemide (Lasix Inj) 40 mg NOW STAT IV 11/24/17 12:03 11/24/17 12:04 DC 11/24/17 12:16 40 MG Metoprolol Tartrate (Lopressor Iv) 5 mg NOW STAT IV 11/24/17 12:56 11/24/17 12:57 DC 11/24/17 13:11 5 MG Diltiazem HCl (Cardizem Inj) 10 mg NOW STAT IV 11/24/17 13:49 11/24/17 13:50 DC 11/24/17 14:04 10 MG ECG Indication: palpitations Rate (beats per minute): 139 Rhythm: atrial fibrillation (with RVR) Findings: other (poor baseline quality for interpretation ) Change: Patient's Electrocardiogram interpreted by mt ED Course 1159: Past medical records reviewed. The patient was evaluated in room A3. A complete history and physical examination was performed. 1200: Lopressor Iv 5 mg IV. 1203: Ordered Lasix Inj 40 mg IV. 1213: Ordered Lopressor Iv 5 mg. 1305: Ordered Lopressor Iv 5 mg. 1349: Ordered Diltiazem HCl 10 mg IV 1407: I reviewed the patient's case with Dr. Seals. He will evaluate the patient for further management. 1410: Upon reevaluation, the patient is resting comfortably. I discussed laboratory and radiographic results with her. She verbalized agreement of the treatment plan. The patient will be evaluated for further management and care. Medical Decision Differential diagnosis: Etiologies such as premature contractions, electrolyte abnormality, cardiac dysrhythmia, thyroid dysfunction, pulmonary embolism, infection, gastrointestinal, as well as others were entertained. This pt was evaluated and appeared to be in no distress. Pt was placed on the associate material handler and is found to be in a rapid a fib. She was ordered IV NSS BUT THIS WAS CANCELLED. Pt was given IV Lasix for CHF changes on CXR. Pt was given metoprolol 5 mg IV x 2 without effect. She was then given 10 mg IV cardizem. Lab work reveals an elevated WBC c/w her CLL. Cardiac enzymes are normal. Case was d/w the hospitalist service for further management. Medication Reconcilliation Current Medication List: was personally reviewed by me Blood Pressure Screening Patient's blood pressure: Elevated blood pressure will be monitored by hospitalist Consults Time Called: 1400 Consulting Physician: Dr. Seals- [facility] Returned Call: 1407 I reviewed the patient's case with Dr. Seals. He will evaluate the patient for further management. Impression Primary Impression: Atrial fibrillation with rapid ventricular response Scribe Attestation The scribe's documentation has been prepared under my direction and personally reviewed by me in its entirety. I confirm that the note above accurately reflects all work, treatment, procedures, and medical decision making performed by me. Departure Information Dispostion Being Evaluated By Hospitalist Referrals Lencho French M.D. (PCP) Patient Instructions My [facility]
[2017-11-24] MEDS ORDERED: METOPROLOL TARTRATE 1 MG/ML VIAL ONE ×2 (12:13→13:05)
[2017-11-24] MEDS ORDERED: APIX1TAB3 PO (12:16)
[2017-11-24 12:45] LABS: INR 1.3 (0.9-1.1); PTT PATIENT 28.3 SECONDS (21.0-31.0)
[2017-11-24 12:56] LABS: ALBUMIN 3.6 gm/dl (3.4-5.0); CALCIUM 8.6 mg/dl (8.5-10.1); CREATININE 1.04 mg/dl (0.60-1.20); POTASSIUM 3.5 mmol/L (3.5-5.1)
[2017-11-24 13:01] LABS: CKMB 2.2 ng/ml (0.5-3.6)
[2017-11-24 13:22] LABS: HEMATOCRIT 41.5 % (37-47); HEMOGLOBIN 13.2 g/dL (12.0-16.0); MEAN CELL VOLUME 89.1 fL (80-100); MEAN CORPUSCULAR HEMOGLOBIN 28.3 pg (25-34); MEAN CORPUSCULAR HGB CONC 31.8 g/dl (32-36); MEAN PLATELET VOLUME 10.2 fL (7.4-10.4); PLATELET COUNT 198 K/uL (130-400); RED CELL DISTRIBUTION WIDTH CV 16.2 % (11.5-14.5); RED CELL DISTRIBUTION WIDTH SD 51.6 fL (36.4-46.3); WHITE BLOOD COUNT 60.64 K/uL (4.8-10.8)
[2017-11-24] MEDS ORDERED: DILTIAZEM HCL 5 MG/ML 5 ML VIAL IV STA (13:49)
[2017-11-24 14:10] VITALS: O2SAT 94; Ht 162.6 cm; Wt 72.1 kg
[2017-11-24] MEDS ORDERED: DILTIAZEM BOLUS / DRIP IV STA (14:38)
[2017-11-24] MEDS ORDERED: ONDANSETRON INJ 2 MG/ML 2 ML VIAL IV PRN (14:45)
[2017-11-24] MEDS: DILTIAZEM HCL INJ 125 MG in DEXTROSE 5% 100ML IV PRN (15:05)
--- NOTE | 2017-11-24 15:23 | History and Physical ---
History & Physical Date & Time of Service: Nov 24, 2017 at 14:56 Chief Complaint: SOB Primary Care Physician: Lencho French M.D. History of Present Illness Source: patient, hospital records 87 yo female who presents with palpitations, dyspnea on exertion, found to be in atrial fibrillation with RVR. The patient has a recent history of being hospitalized in September 2017 for suspected tick born illness. Her Lyme was equivocal initially but subsequent titers for IgG and IgM were negative. None the less, she was treated initially with Rocephin and then completed 16 more days of Doxycycline for a 21 day course. During her admission, she was found to be in atrial flutter, this was new onset. Amiodarone IV was started and she converted to NSR. She was changed to Amiodarone 200mg BID and started on Eliquis for stroke prevention. She was seen by Dr. Wick during that admission. She was eventually discharged to [facility] and then to home. She says that she has felt normal for maybe 1 or 2 weeks total since her discharge two months ago. She constantly gets palpitations and she notices dyspnea on exertion. She developed a rash on the medial aspect of her legs after starting Eliquis so she took two weeks total and then stopped on her own. Her last visit to her PCP on 10/12 she reported feeling well, did not complain of palpitations or dyspnea on exertion. Her symptoms of palpitations and dyspnea became more and more frequent and she talked with her son who recommended that she get checked out at the hospital. She denies fever/chills, cough. She has a normal appetite, no nausea, no constipation, no diarrhea. She denies chest pain or pressure. In the ED, she presented with atrial flutter with RVR, rates 120-130's. She was given Lopressor 5mg IV x 2 with no improvement in rates and Cardizem 10mg IV ordered. CXR showed acute heart failure and she required 2L nasal canula. Lasix 40mg IV given x 1, no diuresis yet. Past Medical/Surgical History Atrial flutter Possible Lyme disease Chronic diastolic heart failure Medical Problems: (1) Benign hypertension Status: Chronic (2) Cancer - Leukemia Status: Chronic (3) Chronic lymphocytic leukemia (CLL), B-cell Status: Chronic (4) Depression Status: Chronic (5) Hysterectomy Status: Resolved (6) Osteoporosis Status: Chronic (7) Tonsillectomy Status: Resolved (8) Total replacement of hip Status: Resolved (9) Ulcerative colitis Status: Chronic Family History CAD in mother and father Social History Smoking Status: Never Smoker Drug Use: none Marital Status: Housing status: lives alone Occupational Status: retired Immunizations History of Influenza Vaccine: Yes History of Tetanus Vaccine?: Yes History of Pneumococcal: Yes History of Hepatitis B Vaccine: No Multi-Drug Resistant Organisms History of MDRO: No Allergies Coded Allergies: Naloxone (Verified Allergy, Severe, TREMORS, DYSKINESIA, 11/24/17) Acetaminophen (Verified Allergy, Unknown, `, 11/24/17) Amoxicillin (Verified Allergy, Unknown, `, 11/24/17) Clarithromycin (Verified Allergy, Unknown, `, 11/24/17) Aspirin (Verified Adverse Reaction, Intermediate, hISTORY OF ULCERS, ) Codeine (Verified Adverse Reaction, Intermediate, VOMITING, 11/24/17) Home Medications Scheduled Biotin (Biotin), 5,000 MCG PO DAILY Calcium Carbonate-Vitamin D (Calcium Plus Vitamin D), 1 CAP PO DAILY Coenzyme Q10 (Ubidecarenone) (Co Q 10), 100 MG PO DAILY Magnesium-Zinc (Magnesium/Chelated Zinc), 1 TAB PO DAILY Metoprolol Tartrate (Lopressor) (Lopressor), 50 MG PO BID Multivitamin (Multivitamin), 1 TABLET PO DAILY Omeprazole (Prilosec), 40 MG PO DAILY Sertraline (Zoloft), 100 MG PO DAILY Simvastatin (Zocor), 20 MG PO HS Tramadol (Ultram), 50-100 MG PO HS Scheduled PRN Docusate Sodium (Colace), 1 CAP PO BID PRN for Constipation Polyethylene Glycol 3350 (Miralax), 17 GM PO DAILY PRN for Constipation Review of Systems Constitutional: No fever, No chills, No sweats, No weight loss, No weakness, No fatigue, No problem reported Eyes: No worsening of vision, No eye pain, No redness, No discharge, No diplopia, No problem reported ENT: No hearing loss, No unusual epistaxis, No nasal symptoms, No sore throat, No tinnitus, No dental problems, No trouble swallowing, No problem reported Respiratory: + shortness of breath, + dyspnea on exertion, No cough, No sputum , No wheezing, No dyspnea at rest, No hemoptysis, No problem reported Cardiovascular: + orthopnea, + palpitations, No chest pain, No PND, No edema, No claudication, No problem reported Abdomen: No pain, No nausea, No vomiting, No diarrhea, No constipation, No GI bleeding, No problem reported Musculoskeletal: No joint pain, No muscle pain, No swelling, No calf pain, No problem reported Genitourinary - Female: No dysuria, No urinary frequency, No urinary urgency, No urinary incontinence, No urinary retention, No hematuria Neurologic: No memory loss, No paralysis, No weakness, No numbness/tingling, No vertigo, No balance problems, No problem reported Psychiatric: No depression symptoms, No anhedonism, No anxiety, No insomnia, No substance abuse, No problem reported Endocrine: No fatigue, No excessive thirst, No excessive urination, No problem reported Hematologic / Lymphatic: No abnormal bleeding/bruising, No clotting problems, No swollen lymph nodes, No night sweats, No problem reported Integumentary: No rash, No itch, No new/changing skin lesions, No color change , No bleeding, No problem reported Allergic / Immunologic: No environmental allergies, No seasonal allergies, No pet sensitivities, No food allergies, No hives, No frequent infections, No poor healing, No prolonged convalescence, No problem reported Physical Exam Vital Signs Date Time Temp Pulse Resp B/P (MAP) Pulse Ox O2 Delivery O2 Flow Rate FiO2 11/24/17 14:05 127 18 146/108 96 Room Air 2.0 11/24/17 13:15 128 11/24/17 13:11 128 159/97 11/24/17 12:30 138 142/109 11/24/17 12:16 136 18 137/91 96 Nasal Cannula 2.0 11/24/17 12:16 136 137/91 11/24/17 11:42 141 18 151/108 96 Nasal Cannula 2.0 11/24/17 10:58 150 11/24/17 10:55 92 Room Air 11/24/17 10:55 36.4 148 18 144/115 92 Room Air General Appearance: WD/WN, no apparent distress Head: normocephalic, atraumatic Eyes: normal inspection, EOMI, sclerae normal ENT: normal ENT inspection, hearing grossly normal, pharynx normal Neck: supple, no adenopathy, no JVD, trachea midline Respiratory/Chest: chest non-tender, lungs clear, normal breath sounds, no respiratory distress, no accessory muscle use Cardiovascular: no edema, no gallop, no JVD, no murmur, normal peripheral pulses, + tachycardia, + irregularly irregular Abdomen/GI: normal bowel sounds, non tender, soft, no organomegaly Back: normal inspection, no CVA tenderness, no muscle spasm, normal range of motion Extremities/Musculoskelatal: normal inspection, no calf tenderness, normal capillary refill, no pedal edema, normal range of motion, pelvis stable Neurologic/Psych: site technician II-XII nml as tested, no motor/sensory deficits, alert, normal mood/affect, normal reflexes, oriented x 3 Skin: normal color, warm/dry, no rash Diagnostics Laboratory Results Results Past 24 Hours Test 11/24/17 11:00 11/24/17 11:10 11/24/17 11:32 Range/Units Prothrombin Time 13.9 9.0-12.0 SECONDS Prothromb Time International Ratio 1.3 0.9-1.1 Activated Partial Thromboplast Time 28.3 21.0-31.0 SECONDS Partial Thromboplastin Ratio 1.1 White Blood Count 60.64 4.8-10.8 K/uL Red Blood Count 4.66 4.2-5.4 M/uL Hemoglobin 13.2 12.0-16.0 g/dL Hematocrit 41.5 37-47 % Mean Corpuscular Volume 89.1 80-100 fL Mean Corpuscular Hemoglobin 28.3 25-34 pg Mean Corpuscular Hemoglobin Concent 31.8 32-36 g/dl RDW Standard Deviation 51.6 36.4-46.3 fL RDW Coefficient of Variation 16.2 11.5-14.5 % Platelet Count 198 130-400 K/uL Mean Platelet Volume 10.2 7.4-10.4 fL Sodium Level 139 136-145 mmol/L Potassium Level 3.5 3.5-5.1 mmol/L Chloride Level 109 98-107 mmol/L Carbon Dioxide Level 20 21-32 mmol/L Anion Gap 10.0 3-11 mmol/L Blood Urea Nitrogen 19 7-18 mg/dl Creatinine 1.04 0.60-1.20 mg/dl Est Creatinine Clear Calc Drug Dose 39.7 ml/min Estimated GFR () 56.7 Estimated GFR (Non- 49.0 BUN/Creatinine Ratio 17.9 10-20 Random Glucose 168 70-99 mg/dl Calcium Level 8.6 8.5-10.1 mg/dl Total Bilirubin 1.9 0.2-1 mg/dl Aspartate Amino Transf (AST/SGOT) 63 15-37 U/L Alanine Aminotransferase (ALT/SGPT) 64 12-78 U/L Alkaline Phosphatase 86 45-117 U/L Total Creatine Kinase 74 26-192 U/L Creatine Kinase MB 2.2 0.5-3.6 ng/ml Creatine Kinase MB Ratio 3.0 0-3.0 Total Protein 7.0 6.4-8.2 gm/dl Albumin 3.6 3.4-5.0 gm/dl Globulin 3.4 2.5-4.0 gm/dl Albumin/Globulin Ratio 1.1 0.9-2 Bedside Troponin I < 0.030 0-0.045 ng/ml Diagnostic Radiology CXR: pulmonary edema bilaterally EKG atrial fibrillation, rate 138 Impression Assessment and Plan 87 yo female with recent history of atrial flutter and RVR, presents today with atrial fibrillation with RVR and acute diastolic heart failure - Atrial fibrillation with RVR: would classify as paroxysmal, but based on her describing frequent palpitations and dyspnea, may be more permanent HR still elevated despite Lopressor will order Diltiazem 10mg bolus with drip at 5mg/hr and titrate HR < 100 patient no longer taking Eliquis due to reported rash, will anticoagulate with Lovenox 1.5mg/kg daily need to determine alternate PO anticoagulation consult Dr. Wick who saw her on previous admission - Acute diastolic heart failure: due to RVR and poor preload received Lasix 40mg IV once in the ED will give an additional dose tomorrow AM 1500cc fluid restriction last admission her EF was preserved, will hold on repeating echo at this time unless cardiology requests it - Acute hypoxic respiratory failure: due to pulmonary edema and CHF should resolve with diuresis - CLL: follows with Dr. Rehman - DVT prophylaxis: Lovenox Level of Care Telemetry Resuscitation Status FULL RESUSCITATION VTE Prophylaxis VTE Risk Assessment Done? Y/N: Yes Risk Level: Low Given or contraindicated: Enoxaparin (Lovenox)SQ Additional Copies To Lencho French M.D.
[2017-11-24 15:45] VITALS: BP 145/112; PULSE 123; TEMP 36.8; O2SAT 98
[2017-11-24 16:00] VITALS: O2SAT 98
[2017-11-24] MEDS ORDERED: ENOXAPARIN 120 MG/0.8 ML SYR SQ SCH (16:15)
--- NOTE | 2017-11-24 17:24 | Cardiology Consultation ---
Cardiology Consultation Date of Consultation: Nov 24, 2017. Requesting Physician: Arnel Reason for Consultation: Atrial fibrillation Pt evaluation today including: conversation w/ patient, physical exam, chart review, lab review, review of studies, review of inpatient medication list, conversation w/ attending History of Present Illness Patient is an 87-year-old woman with a history of atrial flutter and fibrillation who was originally admitted in September of 2017. At that time she was noted to have an arrhythmia and rapid ventricular response. She was treated at that time with amiodarone and anticoagulation and sent home. It seems she discontinued her medication at some point by her request. Over the past few weeks the patient has felt poorly. He states that in general she has not felt well and did noticed some sense of palpitation in her abdomen. She has some difficulty characterizing her symptoms, but she definitely recalls a sense of intermittent palpitations in the epigastric area. She did not have overt dizziness or lightheadedness. She did not report symptoms of chest discomfort or pain. She did not report significant breathing difficulty but on further questioning was somewhat dyspneic recently. She has not had any swelling in her lower extremities. She did not report orthopnea or paroxysmal nocturnal dyspnea but sleeps poorly overall. Since admission he claims feeling better. She was not aware of significant breathing trouble but knows that her breathing is improved. She seems less aware palpitations currently. Past Medical/Surgical History Atrial fibrillation and flutter Hypertension Gastroesophageal reflux disease Hyperlipidemia CLL Chronic renal insufficiency Past surgical history Breast biopsy Hip surgery Tonsillectomy Total abdominal hysterectomy Family History Noncontributory given her advanced age Social History Smoking Status: Never Smoker History of Alcohol Use: No Currently lives independently Review of Systems She reported not feeling well on amiodarone but cannot be more specific regarding symptoms. She also reports a rash around her in her knees. She cannot recall this is improving since stopping Eliquis several weeks ago. She denies having the flu recently or having any fevers or chills. All Other Systems: Reviewed and Negative Allergies Coded Allergies: Naloxone (Verified Allergy, Severe, TREMORS, DYSKINESIA, 11/24/17) Apixaban (Unverified Allergy, Mild, RASH, 11/24/17) Acetaminophen (Verified Allergy, Unknown, `, 11/24/17) Amoxicillin (Verified Allergy, Unknown, `, 11/24/17) Clarithromycin (Verified Allergy, Unknown, `, 11/24/17) Aspirin (Verified Adverse Reaction, Intermediate, hISTORY OF ULCERS, ) Codeine (Verified Adverse Reaction, Intermediate, VOMITING, 11/24/17) Medications Current Inpatient Medications Medications (Trade) Dose Ordered Sig/Lionel Route Start Time Stop Time Status Last Admin Dose Admin Ondansetron HCl (Zofran Inj) 4 mg Q6H PRN IV 11/24/17 14:45 12/24/17 14:44 Sertraline HCl (Zoloft Tab) 100 mg DAILY PO 11/25/17 09:00 12/25/17 08:59 Simvastatin (Zocor Tab) 20 mg HS PO 11/24/17 21:00 12/24/17 20:59 Pantoprazole Sodium (Protonix Tab) 40 mg QAM PO 11/25/17 09:00 12/25/17 08:59 Diltiazem HCl 125 mg/Dextrose 125 ml @ 0 mls/hr Q0M PRN IV 11/24/17 15:00 12/24/17 14:59 11/24/17 15:05 5 MLS/HR Enoxaparin Sodium (Lovenox Inj) 120 mg DAILY@1600 SQ 11/24/17 16:15 12/24/17 16:14 11/24/17 16:55 120 MG Furosemide 40 mg/ Syringe 4 ml @ 4 mls/min QAM IV 11/25/17 09:00 12/25/17 08:59 Physical Exam Vital Signs Past 12 Hours Date Time Temp Pulse Resp B/P (MAP) Pulse Ox O2 Delivery O2 Flow Rate FiO2 11/24/17 16:00 98 Nasal Cannula 2.0 11/24/17 15:45 36.8 123 18 145/112 (123) 98 Nasal Cannula 2.0 11/24/17 14:34 108 18 132/100 94 Nasal Cannula 2.0 11/24/17 14:10 94 Nasal Cannula 2.0 11/24/17 14:05 127 18 146/108 96 Room Air 2.0 11/24/17 13:15 128 11/24/17 13:11 128 159/97 11/24/17 12:30 138 142/109 11/24/17 12:16 136 18 137/91 96 Nasal Cannula 2.0 11/24/17 12:16 136 137/91 11/24/17 11:42 141 18 151/108 96 Nasal Cannula 2.0 11/24/17 10:58 150 11/24/17 10:55 92 Room Air 11/24/17 10:55 36.4 148 18 144/115 92 Room Air She is alert and oriented x3. Mood affect appear normal. She answered all questions appropriately. HEENT: Sclerae are anicteric. Pupils are equal and reactive to light and accommodation. Extraocular movements were intact. Neuro: Cranial nerves intact Neck: Examination of the submandibular region did not reveal any significant lymphadenopathy. Carotids are palpable bilaterally and free of bruits on auscultation. There was no evidence of jugular venous distention. The thyroid was not enlarged. Lungs: Lungs are clear to auscultation bilaterally. There are no rales wheezes or rhonchi. She has normal respiratory effort without use of accessory muscles. There is normal pulmonary excursion. Cardiac: The rhythm was irregular. S1 and S2 were normal. There are no murmurs on examination. The PMI was not markedly displaced on palpation. Abdomen: The abdomen was soft and nontender. Extremities: Patient has bilateral radial pulses that are equal in intensity. There is no evidence cyanosis or clubbing. There was no evidence of significant peripheral edema bilaterally. Skin: She has some mild, nonblanching erythema on the inner aspect of both knees. Not tender. Data Laboratory Results: Last 24 Hours Test 11/24/17 11:00 11/24/17 11:10 11/24/17 11:32 Prothrombin Time 13.9 SECONDS Prothromb Time International Ratio 1.3 Activated Partial Thromboplast Time 28.3 SECONDS Partial Thromboplastin Ratio 1.1 White Blood Count 60.64 K/uL Red Blood Count 4.66 M/uL Hemoglobin 13.2 g/dL Hematocrit 41.5 % Mean Corpuscular Volume 89.1 fL Mean Corpuscular Hemoglobin 28.3 pg Mean Corpuscular Hemoglobin Concent 31.8 g/dl RDW Standard Deviation 51.6 fL RDW Coefficient of Variation 16.2 % Platelet Count 198 K/uL Mean Platelet Volume 10.2 fL Sodium Level 139 mmol/L Potassium Level 3.5 mmol/L Chloride Level 109 mmol/L Carbon Dioxide Level 20 mmol/L Anion Gap 10.0 mmol/L Blood Urea Nitrogen 19 mg/dl Creatinine 1.04 mg/dl Est Creatinine Clear Calc Drug Dose 39.7 ml/min Estimated GFR () 56.7 Estimated GFR (Non- 49.0 BUN/Creatinine Ratio 17.9 Random Glucose 168 mg/dl Calcium Level 8.6 mg/dl Total Bilirubin 1.9 mg/dl Aspartate Amino Transf (AST/SGOT) 63 U/L Alanine Aminotransferase (ALT/SGPT) 64 U/L Alkaline Phosphatase 86 U/L Total Creatine Kinase 74 U/L Creatine Kinase MB 2.2 ng/ml Creatine Kinase MB Ratio 3.0 Total Protein 7.0 gm/dl Albumin 3.6 gm/dl Globulin 3.4 gm/dl Albumin/Globulin Ratio 1.1 Bedside Troponin I < 0.030 ng/ml Imaging: Chest x-ray demonstrated pulmonary edema EKG: Atrial fibrillation with rapid ventricular response. Nonspecific ST and T -wave changes Telemetry reviewed: Atrial fibrillation with rapid ventricular response Echocardiogram performed 09/12/2017: Preserved LV systolic function. Moderate left atrial dilation. Mild to moderate right atrial dilation. Mild to moderate aortic regurgitation. Moderate mitral regurgitation. Mild pulmonary hypertension Assessment & Plan 1. Atrial fibrillation with rapid ventricular response: I think this is the best characterization of her current rhythm. In the past she appeared to have more regular atrial arrhythmia suggestive of atrial flutter. The EKG appearance was not consistent with typical isthmus dependent right atrial flutter previously. Three likely she has returned to this rhythm a few weeks ago. Unclear whether she cycles between normal sinus rhythm in atrial fibrillation. Unfortunately she stopped her amiodarone which likely resulted in this return to atrial fibrillation. Her symptoms are likely related to return to the arrhythmia. She did seem to have an element of pulmonary vascular congestion as well. During her last hospitalization we had some difficulty controlling her rates. I think however for the time being will continue diltiazem infusion. Ideally we will be able to affect adequate rate control and she could be discharged with rate control and anticoagulation. She did have some left atrial enlargement her echocardiogram at the last admission. This was suggest a keeping her in sinus rhythm long-term will be difficult. Also, since she stopped her anticoagulation a few weeks ago we must be cautious with respect to use of antiarrhythmics at this could cause conversion. It is unclear whether she would consent to using amiodarone again. With her mild renal dysfunction use of sotalol or dofetilide would be difficult. Dronedarone might be an option if needed. In the past we did discuss the option of catheter based therapy but I am less enthusiastic given her presentation in atrial fibrillation. 2. Anticoagulation: She is unlikely to consent to Re starting Eliquis. Her she has an element of renal dysfunction which would require reduced dosing of Xarelto. As such she would seem reasonable consider dabigatran as an alternative. I discussed this with her and hopefully she will have some input on to ongoing anticoagulation. 3. Valvular heart disease: Patient does have an element of both mitral and aortic regurgitation. Neither of these is severe. At this point no additional evaluation or therapy is required.
[2017-11-24 20:01] VITALS: BP 142/91; PULSE 119; TEMP 36.9; O2SAT 95
[2017-11-24] MEDS: SIMVASTATIN 20 MG TAB PO SCH (20:21)
[2017-11-24] MEDS ORDERED: APIXABAN 2.5 MG TAB PO SCH (21:00)
[2017-11-24 23:37] VITALS: BP 132/79; PULSE 115; TEMP 36.5; O2SAT 94
[2017-11-25] MEDS: DILTIAZEM HCL INJ 125 MG in DEXTROSE 5% 100ML IV PRN ×3 (03:12→19:16)
[2017-11-25 03:54] VITALS: BP 113/65; PULSE 121; TEMP 36.5; O2SAT 94
[2017-11-25] MEDS: SERTRALINE HCL 50 MG TAB PO SCH (07:22)
[2017-11-25] MEDS: PANTOprazole SOD 40 MG TAB PO SCH (07:22)
[2017-11-25 08:00] VITALS: BP 150/79; PULSE 118; TEMP 36.9; O2SAT 93
[2017-11-25] MEDS: FUROSEMIDE INJ 40 MG in SYRINGE 0 ML IV SCH (09:07)
[2017-11-25 09:14] LABS: HEMATOCRIT 39.8 % (37-47); HEMOGLOBIN 12.9 g/dL (12.0-16.0); MEAN CELL VOLUME 88.1 fL (80-100); MEAN CORPUSCULAR HEMOGLOBIN 28.5 pg (25-34); MEAN CORPUSCULAR HGB CONC 32.4 g/dl (32-36); MEAN PLATELET VOLUME 9.7 fL (7.4-10.4); PLATELET COUNT 160 K/uL (130-400); RED CELL DISTRIBUTION WIDTH CV 16.2 % (11.5-14.5); RED CELL DISTRIBUTION WIDTH SD 51.3 fL (36.4-46.3); WHITE BLOOD COUNT 54.59 K/uL (4.8-10.8)
--- NOTE | 2017-11-25 09:19 | Cardiology Follow-Up ---
Subjective General Date of Service: Nov 25, 2017. Pt evaluation today including: conversation w/ patient, chart review, lab review, review of studies, conversation w/ cycle consultant History of Present Illness The patient is a 87 year old female Allergies Coded Allergies: Naloxone (Verified Allergy, Severe, TREMORS, DYSKINESIA, 11/24/17) Apixaban (Unverified Allergy, Mild, RASH, 11/24/17) Acetaminophen (Verified Allergy, Unknown, `, 11/24/17) Amoxicillin (Verified Allergy, Unknown, `, 11/24/17) Clarithromycin (Verified Allergy, Unknown, `, 11/24/17) Aspirin (Verified Adverse Reaction, Intermediate, hISTORY OF ULCERS, ) Codeine (Verified Adverse Reaction, Intermediate, VOMITING, 11/24/17) Social History Smoking Status: Never Smoker Hx Tobacco Use In Past Year?: No Hx Alcohol Use - Type And Amou: No Hx Substance Use - Type And Am: No Problem List Medical Problems: (1) Altered mental status Status: Acute (2) Atrial fibrillation with rapid ventricular response Status: Acute (3) Leukocytosis Status: Acute (4) Vomiting Status: Acute Review of Systems Respiratory: No cough, No shortness of breath, No dyspnea at rest Cardiac: No chest pain, No edema, No palpitations Additional ROS Details: Rash on right knee Physical Exam Vital Signs Last Vital Signs Documentation Date Time Temp Pulse Resp B/P (MAP) Pulse Ox O2 Delivery O2 Flow Rate FiO2 11/25/17 08:00 Nasal Cannula 2.0 11/25/17 08:00 36.9 118 18 150/79 (102) 93 Physical Exam Constitutional: General Apperance: heathly-appearing Level of Distress: NAD Lungs: Respiratory effort: no dyspnea Auscultation: breath sounds normal, no wheezing, no rales/crackles, no rhonchi Cardiovascular: Heart Auscultation: no murmurs, tachycardia, irregular rate rhythm Abdomen: Bowel Sounds: normal Inspection & Palpation: soft, non-distended, no tenderness, guarding & rebound Extremities: no edema Additional Comments: AAO x3 Assessment and Plan Assessment and Plan IMPRESSION: 1. Afib with RVR--symptomatic at higher heart rates but not this morning at 120 BPM Rate control Add BB metoprolol 25 Q6 to IV cardizem; more than enough BP room Needs AC but concern over compliance; on lovenox currently; Apixaban is acceptable 5mg BID; real worries with coumadin compliance D/W DR Humphreys and plan to discuss compliance with family 2. Acute diastolic CHF secondary to #1--avoid over diuresis 3. Oriented today; ?? cause for non compliance 4. Chronic lymphocytic leukemia.. 5. Thrombocytopenia. 6. Moderate MR 7. Mild to moderate AR 8. Normal LV function 9. Mild to moderate Pulm Htn Laboratory Results Last 24 Hours Test 11/24/17 11:00 11/24/17 11:10 11/24/17 11:32 11/25/17 08:07 Prothrombin Time 13.9 SECONDS Prothromb Time International Ratio 1.3 Activated Partial Thromboplast Time 28.3 SECONDS Partial Thromboplastin Ratio 1.1 White Blood Count 60.64 K/uL Red Blood Count 4.66 M/uL Hemoglobin 13.2 g/dL Hematocrit 41.5 % Mean Corpuscular Volume 89.1 fL Mean Corpuscular Hemoglobin 28.3 pg Mean Corpuscular Hemoglobin Concent 31.8 g/dl RDW Standard Deviation 51.6 fL RDW Coefficient of Variation 16.2 % Platelet Count 198 K/uL Mean Platelet Volume 10.2 fL Sodium Level 139 mmol/L Potassium Level 3.5 mmol/L Chloride Level 109 mmol/L Carbon Dioxide Level 20 mmol/L Anion Gap 10.0 mmol/L Blood Urea Nitrogen 19 mg/dl Creatinine 1.04 mg/dl Est Creatinine Clear Calc Drug Dose 39.7 ml/min Estimated GFR () 56.7 Estimated GFR (Non- 49.0 BUN/Creatinine Ratio 17.9 Random Glucose 168 mg/dl Calcium Level 8.6 mg/dl Total Bilirubin 1.9 mg/dl Aspartate Amino Transf (AST/SGOT) 63 U/L Alanine Aminotransferase (ALT/SGPT) 64 U/L Alkaline Phosphatase 86 U/L Total Creatine Kinase 74 U/L Creatine Kinase MB 2.2 ng/ml Creatine Kinase MB Ratio 3.0 Total Protein 7.0 gm/dl Albumin 3.6 gm/dl Globulin 3.4 gm/dl Albumin/Globulin Ratio 1.1 Bedside Troponin I < 0.030 ng/ml
[2017-11-25 09:20] LABS: CALCIUM 8.7 mg/dl (8.5-10.1); CREATININE 0.79 mg/dl (0.60-1.20); POTASSIUM 3.1 mmol/L (3.5-5.1)
--- NOTE | 2017-11-25 09:50 | Clinical Documentation Query ---
CLINICAL DOCUMENTATION QUERY Dr. NAPOLES, In your clinical opinion is this patient being managed for: ( x) possible Chronic kidney disease, stage 2-3 ( ) Not Agree ( ) Other explanation of clinical findings (Please Explain) ( ) Unable to determine (Please Define) ( ) Need to Discuss The medical record reflects the following clinical findings, treatment, and risk factors. Clinical Indicators: 87 yo female presenting with acute diastolic CHF. Cardiology consult noted pt with chronic renal insufficiency. Review of historical GFR showed range of 43-68 over the past 6 months Treatment:monitor PRP's, treat comorbid conditions Risk Factors: age, CLL, HTN, A fib, chronic diastolic CHF Please clarify and document your clinical opinion in the progress notes and discharge summary. Terms such as "probable", "suspected", "likely", "questionable", "possible", or "still to be ruled out" are acceptable. IF IN AGREEMENT, YOU MUST DOCUMENT ABOVE DIAGNOSTIC STATEMENT IN DAILY PROGRESS NOTES AND DISCHARGE SUMMARY. This document is not part of the patient's record. Thank You, Oliva Concepcion, RN [phone]
--- NOTE | 2017-11-25 10:18 | Progress Note ---
Subjective Date of Service: Nov 25, 2017. Subjective Pt evaluation today including: conversation w/ patient, physical exam, chart review, lab review, review of studies, conversation w/ analysis consultant, review of inpatient medication list Pleasant, conversational, feeling better, however, report some palpitations, the heart rate overnight still around 110 to 125, Is on oxygen now, and report does not need oxygen at home, When asking why stop adequate, she showed me some erythema in right medial thigh, no bluish, she did report her veins in lower extremity is getting bigger Problem List Medical Problems: (1) Altered mental status Status: Acute (2) Atrial fibrillation with rapid ventricular response Status: Acute (3) Leukocytosis Status: Acute (4) Vomiting Status: Acute Review of Systems Constitutional: + weakness, + fatigue, No fever, No chills, No sweats, No weight loss, No problem reported Eyes: No worsening of vision, No eye pain, No redness, No discharge, No diplopia ENT: No hearing loss, No unusual epistaxis, No nasal symptoms, No sore throat, No tinnitus, No dental problems, No trouble swallowing Respiratory: + shortness of breath, No cough, No sputum, No wheezing, No dyspnea on exertion, No dyspnea at rest, No hemoptysis Cardiac: No chest pain, No orthopnea, No PND, No edema, No claudication, No palpitations Abdomen: No pain, No nausea, No vomiting, No diarrhea, No constipation Musculoskeletal: No joint pain, No muscle pain, No swelling, No calf pain Female : No dysuria, No urinary frequency, No hematuria, No incontinence, No abnormal vaginal bleeding, No vaginal discharge Neurologic: No memory loss, No paralysis, No weakness, No numbness/tingling, No vertigo, No balance problems Psychiatric: No depression symptoms, No anhedonism, No anxiety, No insomnia, No substance abuse Heme: No abnormal bleeding/bruising, No clotting problems, No swollen lymph nodes, No night sweats Endo: No fatigue, No excessive thirst, No excessive urination Skin: No rash, No itch, No new/changing skin lesions, No color change, No bleeding Objective Vital Signs Date Time Temp Pulse Resp B/P (MAP) Pulse Ox O2 Delivery O2 Flow Rate FiO2 11/25/17 08:00 Nasal Cannula 2.0 11/25/17 08:00 36.9 118 18 150/79 (102) 93 Nasal Cannula 2.0 11/25/17 04:00 Nasal Cannula 2.0 11/25/17 03:54 36.5 121 18 113/65 (81) 94 11/25/17 00:01 Nasal Cannula 2.0 11/24/17 23:37 36.5 115 17 132/79 (96) 94 Room Air 11/24/17 20:01 36.9 119 20 142/91 (108) 95 Nasal Cannula 2.0 11/24/17 20:00 Nasal Cannula 2.0 11/24/17 16:00 98 Nasal Cannula 2.0 11/24/17 15:45 36.8 123 18 145/112 (123) 98 Nasal Cannula 2.0 11/24/17 14:34 108 18 132/100 94 Nasal Cannula 2.0 11/24/17 14:10 94 Nasal Cannula 2.0 11/24/17 14:05 127 18 146/108 96 Room Air 2.0 11/24/17 13:15 128 11/24/17 13:11 128 159/97 11/24/17 12:30 138 142/109 11/24/17 12:16 136 18 137/91 96 Nasal Cannula 2.0 11/24/17 12:16 136 137/91 11/24/17 11:42 141 18 151/108 96 Nasal Cannula 2.0 11/24/17 10:58 150 11/24/17 10:55 92 Room Air 11/24/17 10:55 36.4 148 18 144/115 92 Room Air Physical Exam General Appearance: WD/WN, no apparent distress, + thin, + pertinent finding ( frail, but conversational awake and alert and orientated 3) Eyes: normal inspection, PERRL, EOMI, sclerae normal ENT: normal ENT inspection, hearing grossly normal, pharynx normal Neck: supple, no adenopathy, thyroid normal, no JVD, no carotid bruits, trachea midline Respiratory/Chest: chest non-tender, normal breath sounds, no respiratory distress, no accessory muscle use, + decreased breath sounds Cardiovascular: regular rate, rhythm, no edema, no gallop, no JVD, no murmur, + irregularly irregular Abdomen: normal bowel sounds, non tender, soft, no organomegaly, no pulsatile mass Extremities: normal range of motion, non-tender, normal inspection, no pedal edema, no calf tenderness, normal capillary refill, pelvis stable, + pertinent finding (minimal erythema in right medial thigh, no bluish, no open wound) Neurologic/Psychiatric: trial judge II-XII nml as tested, no motor/sensory deficits, alert, normal mood/affect, oriented x 3 Skin: normal color, warm/dry, no rash Lymphatic: no adenopathy Laboratory Results Last 24 Hours Test 11/24/17 11:00 11/24/17 11:10 11/24/17 11:32 11/25/17 08:07 Prothrombin Time 13.9 SECONDS Prothromb Time International Ratio 1.3 Activated Partial Thromboplast Time 28.3 SECONDS Partial Thromboplastin Ratio 1.1 White Blood Count 60.64 K/uL 54.59 K/uL Red Blood Count 4.66 M/uL 4.52 M/uL Hemoglobin 13.2 g/dL 12.9 g/dL Hematocrit 41.5 % 39.8 % Mean Corpuscular Volume 89.1 fL 88.1 fL Mean Corpuscular Hemoglobin 28.3 pg 28.5 pg Mean Corpuscular Hemoglobin Concent 31.8 g/dl 32.4 g/dl RDW Standard Deviation 51.6 fL 51.3 fL RDW Coefficient of Variation 16.2 % 16.2 % Platelet Count 198 K/uL 160 K/uL Mean Platelet Volume 10.2 fL 9.7 fL Sodium Level 139 mmol/L 139 mmol/L Potassium Level 3.5 mmol/L 3.1 mmol/L Chloride Level 109 mmol/L 106 mmol/L Carbon Dioxide Level 20 mmol/L 26 mmol/L Anion Gap 10.0 mmol/L 7.0 mmol/L Blood Urea Nitrogen 19 mg/dl 18 mg/dl Creatinine 1.04 mg/dl 0.79 mg/dl Est Creatinine Clear Calc Drug Dose 39.7 ml/min 51.2 ml/min Estimated GFR () 56.7 79.1 Estimated GFR (Non- 49.0 68.3 BUN/Creatinine Ratio 17.9 22.8 Random Glucose 168 mg/dl 116 mg/dl Calcium Level 8.6 mg/dl 8.7 mg/dl Total Bilirubin 1.9 mg/dl Aspartate Amino Transf (AST/SGOT) 63 U/L Alanine Aminotransferase (ALT/SGPT) 64 U/L Alkaline Phosphatase 86 U/L Total Creatine Kinase 74 U/L Creatine Kinase MB 2.2 ng/ml Creatine Kinase MB Ratio 3.0 Total Protein 7.0 gm/dl Albumin 3.6 gm/dl Globulin 3.4 gm/dl Albumin/Globulin Ratio 1.1 Bedside Troponin I < 0.030 ng/ml Neutrophils % (Manual) 23.9 % Lymphocytes % (Manual) 70.9 % Monocytes % (Manual) 4.3 % Eosinophils % (Manual) 0.9 % Neutrophils # (Manual) 13.05 K/uL Total Absolute Neutrophils 13.05 K/uL Lymphocytes # (Manual) 38.70 K/uL Total Absolute Lymphocytes 38.70 K/uL Monocytes # (Manual) 2.35 K/uL Eosinophils # (Manual) 0.49 K/uL Smudge Cells PRESENT Ovalocytes 1+ Acanthocytes 1+ Magnesium Level 2.0 mg/dl Test 11/25/17 09:34 Assessment and Plan 87 yo female with recent history of atrial flutter and RVR, admitted on 2017 with atrial fibrillation with RVR and acute diastolic heart failure Atrial fibrillation with RVR: Likely because of medicine noncompliant, still not controlled Cardizem drip 15mg mg/h, agreed with cardiology to add a beta louise Was on Eliquis , but she discontinued by herself, like I mentioned in the above , because of erythema in lower extremity and lower extremity vein getting bigger, is on anticoagulate with Lovenox 1.5mg/kg daily now Discussed with lens maker patient is to benefit to be on blood thinner for stroke prevention, when talking about risk and benefits patient, she is awake and alert and orientated, I feel is competent to make decision, she said "of cause I don't want STROKE", because of her medicine noncompliant and possible sometimes forget about medicine, I called to patient's son Dago at [phone], no answer was dyspnea for him to call me back, will start adequate if he also agreed to take the risks of the side effects from the blood thinner Acute diastolic heart failure: due to RVR and poor preload, received Lasix 40mg IV once in the ED, continue 1500cc fluid restriction, echo in last admission LVEF was normal Acute hypoxic respiratory failure: due to pulmonary edema and CHF, improved with diuretic, she does not need oxygen at home usually, can taper [place] O2 off, we'll continue follow-up in and out, renal functions, CLL: follows with Dr. Rehman DVT prophylaxis: Lovenox Discussed with cardiology Continued [facility] stay due to: multiple IV medications needed Discharge planning: home
[2017-11-25] MEDS: METOPROLOL TARTRATE 25 MG TAB PO SCH ×3 (10:31→18:30)
[2017-11-25 10:56] VITALS: BP 115/71; PULSE 102; TEMP 36.7; O2SAT 94
[2017-11-25 15:08] VITALS: BP 103/63; PULSE 109; TEMP 36.8; O2SAT 94
[2017-11-25 19:27] VITALS: BP 124/74; PULSE 76; TEMP 36.6; O2SAT 95
[2017-11-25] MEDS: SIMVASTATIN 20 MG TAB PO SCH (21:27)
[2017-11-25] MEDS: APIXABAN 2.5 MG TAB PO SCH (21:27)
[2017-11-25 23:35] VITALS: BP 132/81; PULSE 106; TEMP 36.7; O2SAT 94
[2017-11-26] VITALS (7 sets, daily range): BP systolic 99–125; BP diastolic 62–86; PULSE 77–111; TEMP 36.4–36.8; O2SAT 92–96
[2017-11-26] MEDS: METOPROLOL TARTRATE 25 MG TAB PO SCH ×5 (00:05→23:08)
[2017-11-26] MEDS: DILTIAZEM HCL INJ 125 MG in DEXTROSE 5% 100ML IV PRN ×2 (03:51→13:39)
[2017-11-26 07:33] LABS: HEMATOCRIT 38.8 % (37-47); HEMOGLOBIN 12.4 g/dL (12.0-16.0); MEAN CELL VOLUME 88.6 fL (80-100); MEAN CORPUSCULAR HEMOGLOBIN 28.3 pg (25-34); MEAN PLATELET VOLUME 9.2 fL (7.4-10.4); PLATELET COUNT 159 K/uL (130-400); RED CELL DISTRIBUTION WIDTH CV 16.2 % (11.5-14.5); RED CELL DISTRIBUTION WIDTH SD 51.4 fL (36.4-46.3); WHITE BLOOD COUNT 55.49 K/uL (4.8-10.8)
[2017-11-26 07:47] LABS: CALCIUM 8.2 mg/dl (8.5-10.1); CREATININE 0.97 mg/dl (0.60-1.20); PHOSPHORUS 2.4 mg/dl (2.5-4.9); POTASSIUM 2.7 mmol/L (3.5-5.1)
[2017-11-26] MEDS: APIXABAN 2.5 MG TAB PO SCH ×2 (08:43→20:33)
[2017-11-26] MEDS: SERTRALINE HCL 50 MG TAB PO SCH (08:43)
[2017-11-26] MEDS: PANTOprazole SOD 40 MG TAB PO SCH (08:43)
[2017-11-26] MEDS: FUROSEMIDE INJ 40 MG in SYRINGE 0 ML IV SCH (08:44)
[2017-11-26] MEDS ORDERED: POTASSIUM PHOS 3 MMOL/1 ML INFUSION IV STA (09:10)
[2017-11-26] MEDS ORDERED: POTASSIUM CHLORIDE 10 MEQ TABCR PO STA (09:10)
[2017-11-26] MEDS ORDERED: POTASSIUM CHLR 20 MEQ / WTR 20 MEQ in PREMIXED WATER 100 ML IV STA (09:10)
[2017-11-26] MEDS ORDERED: MAGNESIUM SULFATE 1GM / D5W 1 GM in PREMIXED IN D5W 100 ML IV STA (09:25)
[2017-11-26] MEDS ORDERED: POTASSIUM PHOSPHATE INJ 15 MMOL in SODIUM CHLORIDE 0.9% 250ML 250 ML IV ONE (09:30)
[2017-11-26] MEDS ORDERED: POTASSIUM CHLR 10MEQ / WTR IV SCH (10:00)
--- NOTE | 2017-11-26 11:04 | CARDIOLOGY PROGRESS NOTE ---
DATE: 11/26/2017 TIME: 10:41 a.m. SUBJECTIVE: Ms. Schulz states that she has some mild dyspnea with exertion if she does not have supplemental oxygen on. She does not typically wear oxygen at home. She denies orthopnea, shortness of breath at rest, chest pain, syncope, near syncope, palpitations or edema. She denies bleeding such as melena, hematochezia or hematuria. OBJECTIVE: VITAL SIGNS: Temperature 36.8 degrees, heart rate currently in the 80s on telemetry, respiratory rate 18, blood pressure 121/86 mmHg, and oxygen saturation is 96% on 2 liters per nasal cannula. I's and O's negative 321 mL yesterday. Weight is 72.5 kg. GENERAL: No acute distress. She is alert. NECK: Mild JVD. CARDIAC EXAM: No ventricular heave, irregularly irregular, normal S1 and S2. There were no audible murmurs, rubs or gallops. LUNGS: Clear to auscultation bilaterally without wheezes, rales or rhonchi. ABDOMEN: Soft, nontender, and nondistended. Normoactive bowel sounds. EXTREMITIES: No cyanosis. Trace bilateral pitting edema. PSYCHIATRIC: Affect appears appropriate. MEDICATIONS: Include Eliquis 5 mg p.o. b.i.d., diltiazem drip at 15 mg per hour, Lasix 40 mg IV daily, magnesium oxide 400 mg p.o. b.i.d., magnesium sulfate 1 gram IV x1, metoprolol tartrate 25 mg p.o. q. 6 hours, Protonix 40 mg daily, potassium chloride 20 mEq x1 p.o. followed by a potassium chloride 10 mEq IV q. 1 hour x2, and simvastatin 20 mg at bedtime. Telemetry personally reviewed. Heart rate appears to be reasonably well controlled while in atrial fibrillation on current regimen. LABORATORY DATA: White blood cell count is 55.49, hemoglobin 12.4, and platelets 139. Sodium 141, potassium 2.7, BUN 18, creatinine 0.97, magnesium is 1.7, and phosphorus 2.4. ASSESSMENT AND PLAN: 1. Atrial fibrillation with rapid ventricular response: She apparently was noncompliant with anticoagulation and amiodarone therapy. Rate control strategy has since been recommended by her primary industrial relations director, Dr. Darby. Continue beta louise at current dose for now at 25 mg p.o. q. 6 hours. We will add diltiazem 30 mg p.o. q. 6 hours with hopes of weaning her diltiazem drip. She is currently adequately controlled on IV diltiazem and oral metoprolol. Continue anticoagulation for stroke risk reduction. 2. Acute diastolic congestive heart failure: Likely secondary to her atrial fibrillation. She is mildly hypervolemic on exam. Can continue current diuretic. No evidence of azotemia on today's labs. Monitor electrolytes carefully. She does have mild dyspnea with exertion without supplemental oxygen. Strict I's and O's and daily weights recommended. Low sodium diet. 3. Mitral and aortic regurgitation: Non-severe. These can be followed by Dr. Darby, her primary industrial relations director, as an outpatient. 4. Hypokalemia and hypomagnesemia: Electrolytes are being repleted by primary hospitalist service, Dr. Humphreys. Monitor closely while diuresing. 5. Disposition: Cardiology will continue to follow. Plan of care has been discussed with nursing staff regarding the diltiazem drip and oral diltiazem.
[2017-11-26] MEDS: DILTIAZEM HCL 30 MG TAB PO SCH ×3 (11:12→23:08)
[2017-11-26] MEDS ORDERED: NURSING VERBAL MED ORDER ONE (11:30)
[2017-11-26] MEDS ORDERED: POTASSIUM CHLORIDE 10 MEQ TABCR PO ONE (11:45)
[2017-11-26] MEDS ORDERED: POTASSIUM CHLR 10MEQ / WTR IV ONE (12:00)
--- NOTE | 2017-11-26 12:20 | Progress Note ---
Subjective Date of Service: Nov 26, 2017. Subjective Pt evaluation today including: conversation w/ patient, conversation w/ family , physical exam, chart review, lab review, review of studies, conversation w/ crop consultant, review of inpatient medication list feeling okay, generally feeling better, heart rate is better controlled, pleasant and awake and alert and orientated, and conversational Problem List Medical Problems: (1) Altered mental status Status: Acute (2) Atrial fibrillation with rapid ventricular response Status: Acute (3) Leukocytosis Status: Acute (4) Vomiting Status: Acute Review of Systems Constitutional: + weakness, No fever, No chills, No sweats, No weight loss, No fatigue, No problem reported Eyes: No worsening of vision, No eye pain, No redness, No discharge, No diplopia ENT: No hearing loss, No unusual epistaxis, No nasal symptoms, No sore throat, No tinnitus, No dental problems, No trouble swallowing Respiratory: No cough, No sputum, No wheezing, No shortness of breath, No dyspnea on exertion, No dyspnea at rest, No hemoptysis Cardiac: No chest pain, No orthopnea, No PND, No edema, No claudication, No palpitations Abdomen: No pain, No nausea, No vomiting, No diarrhea, No constipation Musculoskeletal: No joint pain, No muscle pain, No swelling, No calf pain Female : No dysuria, No urinary frequency, No hematuria, No incontinence, No abnormal vaginal bleeding, No vaginal discharge Neurologic: No memory loss, No paralysis, No weakness, No numbness/tingling, No vertigo, No balance problems Psychiatric: No depression symptoms, No anhedonism, No anxiety, No insomnia, No substance abuse Heme: No abnormal bleeding/bruising, No clotting problems, No swollen lymph nodes, No night sweats Endo: No fatigue, No excessive thirst, No excessive urination Skin: No rash, No itch, No new/changing skin lesions, No color change, No bleeding Objective Vital Signs Date Time Temp Pulse Resp B/P (MAP) Pulse Ox O2 Delivery O2 Flow Rate FiO2 11/26/17 08:41 36.8 111 18 121/86 (98) 96 Nasal Cannula 2.0 11/26/17 04:15 36.8 87 18 125/83 (97) 94 Nasal Cannula 1.0 11/26/17 04:00 Nasal Cannula 2.0 11/25/17 23:59 Nasal Cannula 2.0 11/25/17 23:35 36.7 106 20 132/81 (98) 94 Nasal Cannula 1.0 11/25/17 20:00 Nasal Cannula 2.0 11/25/17 19:27 36.6 76 18 124/74 (91) 95 Nasal Cannula 1.0 11/25/17 16:00 Nasal Cannula 2.0 11/25/17 15:08 36.8 109 18 103/63 (76) 94 Nasal Cannula 1.0 11/25/17 12:12 Nasal Cannula 2.0 Physical Exam General Appearance: WD/WN, no apparent distress, + thin Eyes: normal inspection, PERRL, EOMI, sclerae normal ENT: normal ENT inspection, hearing grossly normal, pharynx normal Neck: supple, no adenopathy, thyroid normal, no JVD, no carotid bruits, trachea midline Respiratory/Chest: chest non-tender, normal breath sounds, no respiratory distress, no accessory muscle use, + decreased breath sounds, + pertinent finding (no wheezing or crackles) Cardiovascular: no edema, no gallop, no JVD, no murmur, + irregularly irregular (around 106 in heart rate) Abdomen: normal bowel sounds, non tender, soft, no organomegaly, no pulsatile mass Extremities: normal range of motion, non-tender, normal inspection, no pedal edema, no calf tenderness, normal capillary refill, pelvis stable Neurologic/Psychiatric: felt carbonizer II-XII nml as tested, no motor/sensory deficits, alert, normal mood/affect, oriented x 3 Skin: normal color, warm/dry, no rash Lymphatic: no adenopathy Laboratory Results Last 24 Hours Test 11/26/17 06:50 White Blood Count 55.49 K/uL Red Blood Count 4.38 M/uL Hemoglobin 12.4 g/dL Hematocrit 38.8 % Mean Corpuscular Volume 88.6 fL Mean Corpuscular Hemoglobin 28.3 pg Mean Corpuscular Hemoglobin Concent 32.0 g/dl Platelet Count 159 K/uL Mean Platelet Volume 9.2 fL RDW Standard Deviation 51.4 fL RDW Coefficient of Variation 16.2 % Neutrophils % (Manual) 7.5 % Lymphocytes % (Manual) 90.9 % Monocytes % (Manual) 0.8 % Eosinophils % (Manual) 0.8 % Neutrophils # (Manual) 4.16 K/uL Total Absolute Neutrophils 4.16 K/uL Lymphocytes # (Manual) 50.44 K/uL Total Absolute Lymphocytes 50.44 K/uL Monocytes # (Manual) 0.44 K/uL Eosinophils # (Manual) 0.44 K/uL Smudge Cells PRESENT Sodium Level 141 mmol/L Potassium Level 2.7 mmol/L Chloride Level 105 mmol/L Carbon Dioxide Level 28 mmol/L Anion Gap 8.0 mmol/L Blood Urea Nitrogen 18 mg/dl Creatinine 0.97 mg/dl Est Creatinine Clear Calc Drug Dose 41.4 ml/min Estimated GFR () 61.7 Estimated GFR (Non- 53.3 BUN/Creatinine Ratio 18.1 Random Glucose 109 mg/dl Calcium Level 8.2 mg/dl Phosphorus Level 2.4 mg/dl Magnesium Level 1.7 mg/dl Thyroid Stimulating Hormone (TSH) 2.620 uIu/ml Assessment and Plan 87 yo female with recent history of atrial flutter and RVR, admitted on 2017 with atrial fibrillation with RVR and acute diastolic heart failure Atrial fibrillation with RVR: Likely because of medicine noncompliant, not controlled Cardizem drip 15mg mg/h yesterday , studio associate is adjusting beta louise and Cardizem, Was on Eliquis for stroke prevention , but discontinued by herself, was on anticoagulate with Lovenox 1.5mg/kg daily , she was changed to eliquis 5 mg by mouth twice a day per recommendation of cardiology, I called to patient 's son, Dago at [phone], he understand the risk and benefit, and agree no changes Acute diastolic heart failure: due to RVR and poor preload, received Lasix 40mg IV once in the ED, continue 1500cc fluid restriction, echo in last admission LVEF was normal , continue oral Lasix Acute hypoxic respiratory failure: due to pulmonary edema and CHF, improved with diuretic, she does not need oxygen at home usually, can taper [place] O2 off, we'll continue follow-up in and out, renal functions, Will follow-up lytes and replace according CLL: follows with Dr. Rehman DVT prophylaxis: Lovenox Discussed with cardiology [place] out of bed PT OT after heart rate better controlled, discharge planning will be in 1-2 days Continued [facility] stay due to: multiple IV medications needed Discharge planning: home
[2017-11-26] MEDS: SIMVASTATIN 20 MG TAB PO SCH (20:33)
[2017-11-26] MEDS: MAGNESIUM OXIDE 400 MG TAB PO SCH (20:33)
[2017-11-27] VITALS (7 sets, daily range): BP systolic 110–128; BP diastolic 61–80; PULSE 85–97; TEMP 36.5–36.9; O2SAT 92–96
[2017-11-27] MEDS: METOPROLOL TARTRATE 25 MG TAB PO SCH ×3 (06:16→20:30)
[2017-11-27] MEDS: DILTIAZEM HCL 30 MG TAB PO SCH (06:17)
--- NOTE | 2017-11-27 07:14 | CARDIOLOGY PROGRESS NOTE ---
DATE: 11/27/2017 TIME: 6:43 a.m. SUBJECTIVE: She is no longer on supplemental oxygen. She is lying completely flat and denies orthopnea. She denies shortness of breath, dyspnea with exertion, chest pain, syncope, near syncope, or palpitations. She has noted some intermittent lightheadedness when changing positions quickly. She is currently off of diltiazem drip and her heart rate is in the 90s on oral medications. OBJECTIVE: VITAL SIGNS: Temperature 36.5 degrees, heart rate 96 beats per minute, respiration rate 18, blood pressure 110/77 mmHg, and oxygen saturation is 95% on room air. Weight is pending. I's and O's from yesterday -610 mL. GENERAL: In no acute distress. She is alert. NECK: No JVD. CARDIAC EXAM: No ventricular heave, irregularly irregular. Normal S1 and S2. No murmurs, rubs, or gallops auscultated. LUNGS: Clear to auscultation bilaterally without wheezing, rales, or rhonchi. ABDOMEN: Soft, nontender, nondistended. Normoactive bowel sounds. EXTREMITIES: No cyanosis or edema. PSYCHIATRIC: Affect appears appropriate. MEDICATIONS: Include Apixaban 5 mg p.o. b.i.d., diltiazem 60 mg p.o. q. 6 hours, Lasix 20 mg daily, magnesium oxide 400 mg p.o. b.i.d., metoprolol 25 mg p.o. q. 6 hours, Protonix 40 mg daily, and simvastatin 20 mg at bedtime. LABORATORY DATA: Currently pending. TSH 2.62. IMAGING STUDIES: Telemetry personally reviewed. Remains in atrial fibrillation, but heart rate overall has improved. ASSESSMENT AND PLAN: 1. Atrial fibrillation with rapid ventricular response: She was noncompliant with the amiodarone and anticoagulation from prior hospitalization. Rate control strategy has since been recommended by her primary human machine interface engineer, Dr. Darby. Her heart rate is better controlled. We will change diltiazem 60 mg p.o. q.6 hours to 120 mg p.o. twice daily. We will also change metoprolol from 25 mg q.6 hours to 75 mg twice daily. Diltiazem drip currently on hold, but can be restarted if necessary. Continue anticoagulation for stroke risk reduction. 2. Acute diastolic congestive heart failure: Likely secondary to her atrial fibrillation with rapid ventricular response. She appears euvolemic today. Labs are pending. We will discontinue intravenous Lasix and start Lasix 20 mg p.o. daily. She may or may not need regularly scheduled Lasix. This will have to be followed over time. 3. Hypokalemia and hypomagnesemia: Labs are currently pending and had been addressed by Dr. Humphreys of the hospitalist service. 4. Mitral and aortic regurgitation: Not severe. They can be followed by her primary human machine interface engineer, Dr. Darby, as an outpatient. 5. Disposition: Dr. Darby will resume her cardiology care tomorrow when he returns to the hospital.
[2017-11-27] MEDS ORDERED: NURSING VERBAL MED ORDER ONE (07:30)
[2017-11-27 08:02] LABS: CALCIUM 8.7 mg/dl (8.5-10.1); CREATININE 0.88 mg/dl (0.60-1.20); POTASSIUM 3.5 mmol/L (3.5-5.1)
[2017-11-27] MEDS: APIXABAN 2.5 MG TAB PO SCH ×2 (08:03→20:31)
[2017-11-27] MEDS: PANTOprazole SOD 40 MG TAB PO SCH (08:03)
[2017-11-27] MEDS: SERTRALINE HCL 50 MG TAB PO SCH (08:03)
[2017-11-27] MEDS: MAGNESIUM OXIDE 400 MG TAB PO SCH ×2 (08:03→20:30)
[2017-11-27] MEDS: FUROSEMIDE 20 MG TAB PO SCH (08:04)
[2017-11-27] MEDS: DILTIAZEM HCL 120 MG EXT REL CAP PO SCH ×2 (08:04→20:31)
--- NOTE | 2017-11-27 11:33 | Progress Note ---
Subjective Date of Service: Nov 27, 2017. Subjective Pt evaluation today including: conversation w/ patient, conversation w/ family , physical exam, chart review, lab review, review of studies, conversation w/ party plan sales consultant, review of inpatient medication list Generally doing okay, heart rate is better controlled, no complaining, denied dizziness palpitation or the lower extremity swelling, Problem List Medical Problems: (1) Altered mental status Status: Acute (2) Atrial fibrillation with rapid ventricular response Status: Acute (3) Leukocytosis Status: Acute (4) Vomiting Status: Acute Review of Systems Constitutional: + weakness, + fatigue, No fever, No chills, No sweats, No weight loss, No problem reported Eyes: No worsening of vision, No eye pain, No redness, No discharge, No diplopia ENT: No hearing loss, No unusual epistaxis, No nasal symptoms, No sore throat, No tinnitus, No dental problems, No trouble swallowing Respiratory: No cough, No sputum, No wheezing, No shortness of breath, No dyspnea on exertion, No dyspnea at rest, No hemoptysis Cardiac: No chest pain, No orthopnea, No PND, No edema, No claudication, No palpitations Abdomen: No pain, No nausea, No vomiting, No diarrhea, No constipation Musculoskeletal: No joint pain, No muscle pain, No swelling, No calf pain Female : No dysuria, No urinary frequency, No hematuria, No incontinence, No abnormal vaginal bleeding, No vaginal discharge Neurologic: No memory loss, No paralysis, No weakness, No numbness/tingling, No vertigo, No balance problems Psychiatric: No depression symptoms, No anhedonism, No anxiety, No insomnia, No substance abuse Heme: No abnormal bleeding/bruising, No clotting problems, No swollen lymph nodes, No night sweats Endo: No fatigue, No excessive thirst, No excessive urination Skin: No rash, No itch, No new/changing skin lesions, No color change, No bleeding Objective Vital Signs Date Time Temp Pulse Resp B/P (MAP) Pulse Ox O2 Delivery O2 Flow Rate FiO2 11/27/17 08:47 36.9 95 16 128/80 (96) 92 Room Air 11/27/17 08:00 Room Air 11/27/17 04:00 Room Air 11/27/17 03:48 36.5 96 18 110/77 (88) 95 Room Air 11/26/17 23:59 36.7 91 16 113/74 (87) 93 Room Air 11/26/17 23:59 Room Air 11/26/17 20:00 Room Air 11/26/17 19:18 36.8 98 16 121/74 (90) 93 Room Air 11/26/17 16:00 Room Air 11/26/17 15:32 36.4 85 18 105/67 (80) 92 Room Air 11/26/17 15:09 78 95 11/26/17 12:33 36.7 77 16 99/62 (74) 94 Nasal Cannula 1.0 11/26/17 12:00 Nasal Cannula 1.0 Physical Exam General Appearance: WD/WN, no apparent distress, + pertinent finding (frail and conversational) Eyes: normal inspection, PERRL, EOMI, sclerae normal ENT: normal ENT inspection, hearing grossly normal, pharynx normal Neck: supple, no adenopathy, thyroid normal, no JVD, no carotid bruits, trachea midline Respiratory/Chest: chest non-tender, normal breath sounds, no respiratory distress, no accessory muscle use, + decreased breath sounds, + rales Cardiovascular: no edema, no gallop, no JVD, no murmur, + irregularly irregular Abdomen: normal bowel sounds, non tender, soft, no organomegaly, no pulsatile mass Extremities: normal range of motion, non-tender, normal inspection, no pedal edema, no calf tenderness, normal capillary refill, pelvis stable 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, no motor/sensory deficits, alert, normal mood/affect, oriented x 3 Skin: normal color, warm/dry, no rash Lymphatic: no adenopathy Laboratory Results Last 24 Hours Test 11/27/17 06:44 Sodium Level 142 mmol/L Potassium Level 3.5 mmol/L Chloride Level 106 mmol/L Carbon Dioxide Level 27 mmol/L Anion Gap 10.0 mmol/L Blood Urea Nitrogen 21 mg/dl Creatinine 0.88 mg/dl Est Creatinine Clear Calc Drug Dose 45.6 ml/min Estimated GFR () 69.4 Estimated GFR (Non- 59.9 BUN/Creatinine Ratio 24.0 Random Glucose 112 mg/dl Calcium Level 8.7 mg/dl Phosphorus Level 3.0 mg/dl Magnesium Level 2.2 mg/dl Assessment and Plan 87 yo female with recent history of atrial flutter and RVR, admitted on 2017 with atrial fibrillation with RVR and acute diastolic heart failure Atrial fibrillation with RVR: Likely because of medicine noncompliant, Was in Cardizem kennel staff member is adjusting beta louise and Cardizem, will change diltiazem 60 mg p.o. q.6 hours to 120 mg p.o. twice daily, will change metoprolol from 25 mg q.6 hours to 75 mg twice daily, Diltiazem drip currently on hold, but can be restarted if necessary. Was on Eliquis for stroke prevention , but discontinued by herself, after admission she was on anticoagulate with Lovenox 1.5mg/kg daily , she was changed to eliquis 5 mg by mouth twice a day per recommendation of cardiology after my detail discussion with her about the risk and benefit I called to patient's son, Dago at [phone], he understand the risk and benefit, and agree no changes Acute diastolic heart failure: due to RVR and poor preload, received Lasix 40mg IV once in the ED, continue 1500cc fluid restriction, echo in last admission LVEF was normal , continue oral Lasix 20 mg p.o. daily. Per Facility Environmental Technician , she may or may not need regularly scheduled Lasix. It watch potassium, magnesium and phosphate level Acute hypoxic respiratory failure: due to pulmonary edema and CHF, improved with diuretic, she does not need oxygen at home usually, can taper NC O2 off, we'll continue follow-up in and out, renal functions, CLL: follows with Dr. Rehman DVT prophylaxis: Lovenox Discussed with cardiology taper off NC O2, OOB, PT OT discharge planning may be tomorrow Continued [facility] stay due to: home environment unsafe for pt Discharge planning: home
[2017-11-27] MEDS: SIMVASTATIN 20 MG TAB PO SCH (20:30)
[2017-11-28 04:40] VITALS: BP 121/78; PULSE 88; TEMP 36.7; O2SAT 94
[2017-11-28 07:14] LABS: CALCIUM 8.8 mg/dl (8.5-10.1); CREATININE 1.14 mg/dl (0.60-1.20); PHOSPHORUS 2.7 mg/dl (2.5-4.9)
[2017-11-28 07:33] VITALS: BP 120/81; PULSE 96; TEMP 36.7; O2SAT 94
[2017-11-28] MEDS: DILTIAZEM HCL 120 MG EXT REL CAP PO SCH ×2 (08:03→20:43)
[2017-11-28] MEDS: PANTOprazole SOD 40 MG TAB PO SCH (08:03)
[2017-11-28] MEDS: APIXABAN 2.5 MG TAB PO SCH ×2 (08:03→20:43)
[2017-11-28] MEDS: FUROSEMIDE 20 MG TAB PO SCH (08:04)
[2017-11-28] MEDS: MAGNESIUM OXIDE 400 MG TAB PO SCH ×2 (08:04→20:42)
[2017-11-28] MEDS: METOPROLOL TARTRATE 25 MG TAB PO SCH (08:04)
[2017-11-28] MEDS: POTASSIUM CHLORIDE 10 MEQ TABCR PO SCH (08:05)
[2017-11-28] MEDS: SERTRALINE HCL 50 MG TAB PO SCH (08:05)
--- NOTE | 2017-11-28 09:02 | Cardiology Follow-Up ---
Subjective General Date of Service: Nov 28, 2017. Pt evaluation today including: conversation w/ patient, chart review, lab review, review of studies History of Present Illness The patient is a 87 year old female Allergies Coded Allergies: Naloxone (Verified Allergy, Severe, TREMORS, DYSKINESIA, 11/24/17) Apixaban (Unverified Allergy, Mild, RASH, 11/24/17) Acetaminophen (Verified Allergy, Unknown, `, 11/24/17) Amoxicillin (Verified Allergy, Unknown, `, 11/24/17) Clarithromycin (Verified Allergy, Unknown, `, 11/24/17) Aspirin (Verified Adverse Reaction, Intermediate, hISTORY OF ULCERS, ) Codeine (Verified Adverse Reaction, Intermediate, VOMITING, 11/24/17) Social History Smoking Status: Never Smoker Hx Tobacco Use In Past Year?: No Hx Alcohol Use - Type And Amou: No Hx Substance Use - Type And Am: No Problem List Medical Problems: (1) Altered mental status Status: Acute (2) Atrial fibrillation with rapid ventricular response Status: Acute (3) Leukocytosis Status: Acute (4) Vomiting Status: Acute Review of Systems Respiratory: + dyspnea on exertion (mild), No cough, No dyspnea at rest Cardiac: No chest pain, No edema, No palpitations (mildly vibration in just that comes and goes) Physical Exam Vital Signs Last Vital Signs Documentation Date Time Temp Pulse Resp B/P (MAP) Pulse Ox O2 Delivery O2 Flow Rate FiO2 11/28/17 08:00 Room Air 11/28/17 07:33 36.7 96 18 120/81 (94) 94 11/26/17 12:33 1.0 Physical Exam Constitutional: General Apperance: heathly-appearing Level of Distress: NAD Lungs: Respiratory effort: no dyspnea Auscultation: breath sounds normal, no wheezing, no rales/crackles, no rhonchi Cardiovascular: Heart Auscultation: no murmurs, irregular rate rhythm Abdomen: Bowel Sounds: normal Inspection & Palpation: soft, non-distended, no tenderness, guarding & rebound Extremities: no edema Assessment and Plan Assessment and Plan IMPRESSION: 1. Afib with RVR--symptomatic at higher heart rates Rate control strategy Increase metoprolol to 100mg BID with Cardizem CD 120mg BID Apixaban 5mg BID Follow up 10 days in the office 2. Acute diastolic CHF --lasix 20mg daily 3. Oriented today 4. Chronic lymphocytic leukemia.. 5. Thrombocytopenia. 6. Moderate MR 7. Mild to moderate AR 8. Normal LV function 9. Mild to moderate Pulm Htn Laboratory Results Last 24 Hours Test 11/28/17 06:12 Sodium Level 140 mmol/L Potassium Level 4.0 mmol/L Chloride Level 106 mmol/L Carbon Dioxide Level 31 mmol/L Anion Gap 3.0 mmol/L Blood Urea Nitrogen 24 mg/dl Creatinine 1.14 mg/dl Est Creatinine Clear Calc Drug Dose 35.2 ml/min Estimated GFR () 50.8 Estimated GFR (Non- 43.8 BUN/Creatinine Ratio 21.4 Random Glucose 104 mg/dl Calcium Level 8.8 mg/dl Phosphorus Level 2.7 mg/dl Magnesium Level 2.1 mg/dl
[2017-11-28] MEDS ORDERED: METOPROLOL TARTRATE 25 MG TAB PO ONE (10:15)
[2017-11-28 11:26] VITALS: BP 103/65; PULSE 79; TEMP 36.6; O2SAT 96
--- NOTE | 2017-11-28 15:37 | Hospitalist Progress Note ---
Hospitalist Progress Note Date of Service Nov 28, 2017. Subjective Pt evaluation today including: conversation w/ patient, physical exam, chart review, lab review, review of inpatient medication list Voiding: no voiding problems Ms. Schulz is able to ambulate around PCU deering once but then becomes dyspneic. She also feels that she is still having palpitations. No chest pain. Her heart rate on telemetry is better controlled in the 80s and 90s. ROS Constitutional: no chills, aches, sweats or fever Respiratory: no sob,cough, sputum, or wheezing Cardiac: see HPI GI: no abdominal pain, nausea, vomiting, diarrhea or constipation : no dysuria or hesitancy Extremities: no joint pain or weakness Skin: bilateral knees, no pruritis All other systems reviewed and negative Medications Medications Administered Medications (Trade) Dose Ordered Sig/Lionel Route Start Time Stop Time Status Last Admin Dose Admin Metoprolol Tartrate (Lopressor Iv) 5 mg NOW STAT IV 11/24/17 12:00 11/24/17 12:02 DC 11/24/17 12:16 5 MG Furosemide (Lasix Inj) 40 mg NOW STAT IV 11/24/17 12:03 11/24/17 12:04 DC 11/24/17 12:16 40 MG Metoprolol Tartrate (Lopressor Iv) 5 mg NOW STAT IV 11/24/17 12:56 11/24/17 12:57 DC 11/24/17 13:11 5 MG Diltiazem HCl (Cardizem Inj) 10 mg NOW STAT IV 11/24/17 13:49 11/24/17 13:50 DC 11/24/17 14:04 10 MG Sertraline HCl (Zoloft Tab) 100 mg DAILY PO 11/25/17 09:00 12/25/17 08:59 11/28/17 08:05 100 MG Simvastatin (Zocor Tab) 20 mg HS PO 11/24/17 21:00 12/24/17 20:59 11/27/17 20:30 20 MG Pantoprazole Sodium (Protonix Tab) 40 mg QAM PO 11/25/17 09:00 12/25/17 08:59 11/28/17 08:03 40 MG Diltiazem HCl 125 mg/Dextrose 125 ml @ 0 mls/hr Q0M PRN IV 11/24/17 15:00 12/24/17 14:59 Future Hold 11/26/17 13:39 10 MLS/HR Enoxaparin Sodium (Lovenox Inj) 120 mg DAILY@1600 SQ 11/24/17 16:15 11/25/17 15:42 DC 11/24/17 16:55 120 MG Furosemide 40 mg/ Syringe 4 ml @ 4 mls/min QAM IV 11/25/17 09:00 11/27/17 06:41 DC 11/26/17 08:44 4 MLS/MIN Metoprolol Tartrate (Lopressor Tab) 25 mg Q6 PO 11/25/17 09:30 11/27/17 06:41 DC 11/27/17 06:16 25 MG Apixaban (Eliquis Tab) 5 mg BID PO 11/25/17 21:00 12/25/17 20:59 11/28/17 08:03 5 MG Magnesium Oxide (Mag-Ox Tab) 400 mg BID PO 11/26/17 21:00 12/26/17 20:59 11/28/17 08:04 400 MG Magnesium Sulfate 1 gm/Prmx 100 ml @ 100 mls/hr NOW STAT IV 11/26/17 09:25 11/26/17 10:24 DC 11/26/17 09:46 100 MLS/HR Potassium Chloride (Klor-Con M10) 20 meq NOW STAT PO 11/26/17 09:10 11/26/17 09:25 DC 11/26/17 10:00 20 MEQ Potassium Phosphate 15 mmol/ Sodium Chloride 255 ml @ 102 mls/hr ONE ONCE IV 11/26/17 09:30 11/26/17 11:59 DC 11/26/17 11:07 102 MLS/HR Diltiazem HCl (Cardizem Tab) 30 mg Q6 PO 11/26/17 10:45 11/26/17 21:48 DC 11/26/17 17:44 30 MG Potassium Chloride (Klor-Con M10) 10 meq NOW ONCE PO 11/26/17 11:45 11/26/17 11:46 DC 11/26/17 12:02 10 MEQ Potassium Chloride 10 meq/ Prmx 100 ml @ 100 mls/hr ONE ONCE IV 11/26/17 12:00 11/26/17 12:59 DC 11/26/17 13:53 100 MLS/HR Diltiazem HCl (Cardizem Tab) 60 mg Q6 PO 11/27/17 00:00 11/27/17 06:41 DC 11/27/17 06:17 60 MG Metoprolol Tartrate (Lopressor Tab) 75 mg BID PO 11/27/17 09:00 11/28/17 10:15 DC 11/28/17 08:04 75 MG Furosemide (Lasix Tab) 20 mg QAM PO 11/27/17 09:00 12/27/17 08:59 11/28/17 08:04 20 MG Diltiazem HCl (TIAzac CAP) 120 mg BID PO 11/27/17 09:00 12/27/17 08:59 11/28/17 08:03 120 MG Potassium Chloride (Klor-Con M10) 10 meq DAILY PO 11/28/17 09:00 12/28/17 08:59 11/28/17 08:05 10 MEQ Metoprolol Tartrate (Lopressor Tab) 25 mg NOW ONCE PO 11/28/17 10:15 11/28/17 10:29 DC 11/28/17 11:07 25 MG Objective Vital Signs Date Time Temp Pulse Resp B/P (MAP) Pulse Ox O2 Delivery O2 Flow Rate FiO2 11/28/17 12:07 Room Air 11/28/17 11:26 36.6 79 20 103/65 (78) 96 Room Air 11/28/17 08:00 Room Air 11/28/17 07:33 36.7 96 18 120/81 (94) 94 11/28/17 04:40 36.7 88 16 121/78 (92) 94 Room Air 11/28/17 04:00 Room Air 11/27/17 23:59 36.9 97 18 111/61 (78) 93 Room Air 11/27/17 23:59 Room Air 11/27/17 20:00 Room Air 11/27/17 19:25 36.5 86 18 122/80 (94) 94 Room Air 11/27/17 16:00 Room Air Physical Exam Notes: General: no distress Eyes: normal inspection, PERLL Respiratory: chest non tender, clear to auscultation, normal breath sounds, no respiratory distress, no accessory muscle use Cardiac: irregular rate and rhythm, no rub or gallop, no murmur, no edema, no jvd GI/: active bowel sounds, no abd pain or tenderness, soft, non distended Extremities: normal range of motion, normal strength, non tender Neuro/Psych: alert and oriented x 3, normal mood and affect Skin: normal color, dry, erythematous rash bilateral medial knees Laboratory Results Last 24 Hours Test 11/28/17 06:12 Sodium Level 140 mmol/L Potassium Level 4.0 mmol/L Chloride Level 106 mmol/L Carbon Dioxide Level 31 mmol/L Anion Gap 3.0 mmol/L Blood Urea Nitrogen 24 mg/dl Creatinine 1.14 mg/dl Est Creatinine Clear Calc Drug Dose 35.2 ml/min Estimated GFR () 50.8 Estimated GFR (Non- 43.8 BUN/Creatinine Ratio 21.4 Random Glucose 104 mg/dl Calcium Level 8.8 mg/dl Phosphorus Level 2.7 mg/dl Magnesium Level 2.1 mg/dl Assessment and Plan Ms. Schulz is an 87 yo female with recent history of atrial flutter and RVR, admitted on 11/24/2017 with atrial fibrillation with RVR and acute diastolic heart failure Atrial fibrillation with RVR: - continue was on cardizem po and increased metoprolol to 100 mg bid per cardiology recommendation - restarted Eliquis - patient had discontinued this at home after developing bilateral itchy rash on inner knee - cardiology consulted Acute diastolic heart failure - due to RVR and poor preload, received Lasix 40mg IV once in the ED, continue 1500cc fluid restriction, echo in last admission LVEF was normal , continue oral Lasix 20 mg p.o. daily. - Per Medication Reconciliation Technician , she may or may not need regularly scheduled Lasix. CLL: follows with Dr. Rehman DVT prophylaxis: Lovenox Dispo - likely can dc tomorrow.
[2017-11-28 16:05] VITALS: BP 118/70; PULSE 91; TEMP 37; O2SAT 93
[2017-11-28 19:14] VITALS: BP 112/73; PULSE 87; TEMP 36.7; O2SAT 95
[2017-11-28] MEDS: METOPROLOL TARTRATE 100 MG TAB PO SCH (20:42)
[2017-11-28] MEDS: SIMVASTATIN 20 MG TAB PO SCH (20:42)
[2017-11-28 23:40] VITALS: BP 126/82; PULSE 92; TEMP 36.7; O2SAT 94
[2017-11-29 03:45] VITALS: BP 141/81; PULSE 93; TEMP 36.3; O2SAT 94
[2017-11-29 08:27] VITALS: BP 128/75; PULSE 96; TEMP 36.4; O2SAT 92
[2017-11-29] MEDS: SERTRALINE HCL 50 MG TAB PO SCH (09:44)
[2017-11-29] MEDS: DILTIAZEM HCL 120 MG EXT REL CAP PO SCH (09:45)
[2017-11-29] MEDS: APIXABAN 2.5 MG TAB PO SCH (09:45)
[2017-11-29] MEDS: POTASSIUM CHLORIDE 10 MEQ TABCR PO SCH (09:45)
[2017-11-29] MEDS: FUROSEMIDE 20 MG TAB PO SCH (09:45)
[2017-11-29] MEDS: METOPROLOL TARTRATE 100 MG TAB PO SCH (09:45)
[2017-11-29] MEDS: MAGNESIUM OXIDE 400 MG TAB PO SCH (09:45)
[2017-11-29] MEDS: PANTOprazole SOD 40 MG TAB PO SCH (09:46)
[2017-11-29] MEDS ORDERED: TZCSR120 PO (10:39)
[2017-11-29] MEDS ORDERED: APIX1TAB3 PO (10:39)
[2017-11-29] MEDS ORDERED: LPR100 PO (10:39)
[2017-11-29] MEDS ORDERED: LSX20 PO (10:40)
--- NOTE | 2017-11-29 10:46 | Discharge Instructions ---
Discharge Instructions Date of Service Nov 29, 2017. Admission Reason for Admission: Acute Diastolic Heart Failure, A Fib W/ Rvr Discharge Discharge Diagnosis / Problem: Atrial fibrillation with RVR, acute diastolic HF Discharge Goals Goal(s): Improve function, Improve disease control Activity Recommendations Activity Limitations: resume your previous activity . Instructions / Follow-Up Instructions / Follow-Up Medications: - LOPRESSOR: 100mg twice a day for heart rate control - DILTIAZEM: 120mg twice a day for heart rate control - LASIX: 20mg daily for volume control with heart failure - ELIQUIS: 5mg twice a day for stroke prevention Atrial fibrillation with rapid heart rate: rates now controlled on Lopressor and Diltiazem you NEED to take the Eliquis for stroke prevention please follow up closely with Dr. Darby in 2 weeks, call for appointment Acute diastolic heart failure resolved with Lasix, will continue on Lasix 20mg daily, follow low sodium diet Recent Lyme disease: repeat titers are positive for recent infection please follow up with Dr. Pro in 2 weeks, call for appointment FOLLOW UP - Dr. French in one week, call for appointment - Dr. Darby in 2 weeks, - Dr. Pro, infectious disease, in 2 weeks, Current Hospital Diet Patient's current hospital diet: AHA Diet (Heart Healthy) Discharge Diet Recommended Diet: AHA Diet (Heart Healthy) Pending Studies Studies pending at discharge: no Laboratory Results Hemoglobin A1c Test 08/30/17 13:00 Range/Units Estimated Average Glucose 123 mg/dl Hemoglobin A1c 5.9 H 4.5-5.6 % Lipid Panel Test 08/30/17 13:00 Range/Units Triglycerides Level 170 H 0-150 mg/dl Cholesterol Level 131 0-200 mg/dl HDL Cholesterol 32 mg/dl Cholesterol/HDL Ratio 4.1 LDL Cholesterol, Calculated 65 mg/dl Medical Emergencies . Who to Call and When: Medical Emergencies: If at any time you feel your situation is an emergency, please call 911 immediately. . Non-Emergent Contact Non-Emergency issues call your: Primary Care Provider, Counter Attendant Call Non-Emergent contact if: you have any medication questions . . "Provider Documentation" section prepared by Morris Seals. . VTE Core Measure Inpt VTE Proph given/why not?: Enoxaparin (Lovenox)SQ [place] Drug Monitoring Program Search Results: no issues identified
[2017-11-29 11:06] VITALS: BP 128/75; PULSE 96; TEMP 36.4; O2SAT 92
--- NOTE | 2017-11-30 07:35 | Discharge Summary ---
Discharge Summary Date of Service Nov 29, 2017. Discharge Summary Admission Date: Nov 24, 2017 at 14:38 Discharge Date: Nov 29, 2017 Discharge Disposition: Home Principal Diagnosis: Atrial fibrillation with RVR Problems/Secondary Diagnoses: Acute diastolic heart failure Recent Lyme disease, + Lyme titers CLL Immunizations: Have You Had Influenza Vaccine: Yes History of Tetanus Vaccine?: Yes History of Pneumococcal: Yes History of Hepatitis B Vaccine: No Procedures: none Consultations: Cardiology Medication Reconciliation New Medications: Apixaban (Eliquis) 5 Mg Tab 5 MG PO BID for 30 Days, #60 TAB 2 Refills Diltiazem HCl (Taztia Xt) 120 Mg Capcr 120 MG PO BID, #60 CAP 3 Refills Furosemide (Furosemide) 20 Mg Tab 20 MG PO QAM, #30 TAB 2 Refills Metoprolol Tartrate (Metoprolol Tartrate) 100 Mg Tab 100 MG PO BID, #60 TAB 3 Refills Continued Medications: Biotin (Biotin) 300 Mcg Tab 5000 MCG PO DAILY Calcium Carbonate-Vitamin D (Calcium Plus Vitamin D) 1 Cap Cap 1 CAP PO DAILY Coenzyme Q10 (Ubidecarenone) (Co Q 10) 100 Mg Cap 100 MG PO DAILY Docusate Sodium (Colace) 100 Mg Cap 1 CAP PO BID PRN for Constipation, CAP Magnesium-Zinc (Magnesium/Chelated Zinc) 1 Tab Tab 1 TAB PO DAILY Multivitamin (Multivitamin) Tab 1 TABLET PO DAILY Omeprazole (Prilosec) 40 Mg Cap 40 MG PO DAILY, CAP Polyethylene Glycol 3350 (Miralax) 1 Pow Pow 17 GM PO DAILY PRN for Constipation Sertraline (Zoloft) 50 Mg Tab 100 MG PO DAILY Simvastatin (Zocor) 20 Mg Tab 20 MG PO HS Tramadol (Ultram) 50 Mg Tab 50-100 MG PO HS FOR ARTHRITIS PAIN Discontinued Medications: Metoprolol Tartrate (Lopressor) (Lopressor) 50 Mg Tab 50 MG PO BID Discharge Exam Patient feeling well, ambulated several laps in the morning, no palpitations, no chest pain or pressure, very mild dyspnea at the end of her walk. Discussed plans for discharge, she agreed with all that we discussed. Planned to follow up with PCP and cardiology. Review of Systems: Constitutional: No fever, No chills, No sweats, No weight loss, No weakness , No fatigue, No problem reported Eyes: No worsening of vision, No eye pain, No redness, No discharge, No diplopia, No problem reported ENT: No hearing loss, No unusual epistaxis, No nasal symptoms, No sore throat, No tinnitus, No dental problems, No trouble swallowing, No problem reported Respiratory: No cough, No sputum, No wheezing, No shortness of breath, No dyspnea on exertion, No dyspnea at rest, No hemoptysis, No problem reported Cardiovascular: No chest pain, No orthopnea, No PND, No edema, No claudication, No palpitations, No problem reported Abdomen: No pain, No nausea, No vomiting, No diarrhea, No constipation, No GI bleeding, No problem reported Musculoskeletal: No joint pain, No muscle pain, No swelling, No calf pain, No problem reported Genitourinary - Female: No dysuria, No urinary frequency, No urinary urgency , No urinary incontinence, No urinary retention, No hematuria Neurologic: No memory loss, No paralysis, No weakness, No numbness/tingling , No vertigo, No balance problems, No problem reported Psychiatric: No depression symptoms, No anhedonism, No anxiety, No insomnia , No substance abuse, No problem reported Endocrine: No fatigue, No excessive thirst, No excessive urination, No problem reported Hematologic / Lymphatic: No abnormal bleeding/bruising, No clotting problems , No swollen lymph nodes, No night sweats, No problem reported Integumentary: No rash, No itch, No new/changing skin lesions, No color change, No bleeding, No problem reported Physical Exam: General Appearance: WD/WN, no apparent distress Eyes: normal inspection, EOMI, sclerae normal ENT: normal ENT inspection, hearing grossly normal, pharynx normal Neck: supple, no adenopathy, no JVD, trachea midline Respiratory/Chest: chest non-tender, lungs clear, normal breath sounds, no respiratory distress, no accessory muscle use Cardiovascular: no edema, no gallop, no JVD, no murmur, normal peripheral pulses, + irregularly irregular Abdomen / GI: normal bowel sounds, non tender, soft, no organomegaly Extremities: normal inspection, no calf tenderness, normal capillary refill , no pedal edema, normal range of motion, pelvis stable 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 Walker is an 87 yo female with recent history of atrial flutter and RVR, admitted on 11/24/2017 with atrial fibrillation with RVR and acute diastolic heart failure Atrial fibrillation with RVR: rates now controlled, even with exertion - will d/c on Diltiazem 120mg BID and Lopressor 100mg BID - restarted Eliquis - patient had discontinued this at home after developing bilateral itchy rash on inner knee she is fine with continuing the Eliquis at this time, she knows that she should not stop on her own - cardiology consulted, should follow up with Dr. Darby Acute diastolic heart failure, resolved quickly, was due to RVR - received Lasix 40mg IV once in the ED, echo in last admission LVEF was normal , continue Lasix 20mg PO daily Recent Lyme disease: IgG and IgM titers now positive, they were negative initially - already completed 21 days of Doxycycline in October - will discuss results with Dr. French, she does not want to follow up with ID unless Dr. French refers her CLL: follows with Dr. Rehman d/c to home with PCP and cardiology follow up Total Time Spent: Greater than 30 minutes This includes examination of the patient, discharge planning, medication reconciliation, and communication with other providers. Discharge Instructions Please refer to the electronic Patient Visit Report (Discharge Instructions) for additional information. Follow-Up Dr. French in one week Dr. Darby in 2-3 weeks Additional Copies To Glynn Darby, DO; Lencho French M.D.
== END 2017-11-29 13:24 | disposition home or self-care (01) | DRG 291 ==
LOC: EDBD 10:46 → C.EDA 10:47 → C.2T 14:38 → EDBEDREQ 14:45 → ENRESERV 14:53
PROVIDERS: ADMIT Internal Medicine; ATTEND Internal Medicine
DX: I13.0 Hypertensive heart and chronic kidney disease with heart failure and stage 1 through stage 4 chronic kidney disease, or unspecified chronic kidney disease (principal); I50.31 Acute diastolic (congestive) heart failure; J96.01 Acute respiratory failure with hypoxia; I48.92 Unspecified atrial flutter; A69.20 Lyme disease, unspecified; I48.91 Unspecified atrial fibrillation; Z82.49 Family history of ischemic heart disease and other diseases of the circulatory system; K21.9 Gastro-esophageal reflux disease without esophagitis; E78.5 Hyperlipidemia, unspecified; N18.3 Chronic kidney disease, stage 3 (moderate); Z79.82 Long term (current) use of aspirin

== ENCOUNTER → 2017-12-19 | Outpatient (CLI) | payer BC, OTHER ==
[~2017-12-19] MED LIST changes: +APIX1TAB3 PO; -CRD200 PO; -DXY100 PO; -ELQ25 PO; +LPR100 PO; +LSX20 PO; -METO50TA16 PO; +TZCSR120 PO
[2017-12-19 14:52] LABS: HEMATOCRIT 44.2 % (37-47); HEMOGLOBIN 14.5 g/dL (12.0-16.0); MEAN CORPUSCULAR HEMOGLOBIN 28.9 pg (25-34); MEAN CORPUSCULAR HGB CONC 32.8 g/dl (32-36); MEAN PLATELET VOLUME 9.9 fL (7.4-10.4); PLATELET COUNT 175 K/uL (130-400); RED CELL DISTRIBUTION WIDTH CV 14.8 % (11.5-14.5); RED CELL DISTRIBUTION WIDTH SD 47.4 fL (36.4-46.3); WHITE BLOOD COUNT 48.74 K/uL (4.8-10.8)
[2017-12-19 15:03] LABS: BLOOD UREA NITROGEN 19 mg/dl (7-18); CARBON DIOXIDE 25 mmol/L (21-32); CREATININE 1.13 mg/dl (0.60-1.20); GLUCOSE 107 mg/dl (70-99); POTASSIUM 4.1 mmol/L (3.5-5.1); SODIUM 141 mmol/L (136-145)
== END | disposition home or self-care (01) ==
LOC: C.LAB 12:21
PROVIDERS: ATTEND Physician Assistant Medical
DX: C91.10 Chronic lymphocytic leukemia of B-cell type not having achieved remission (principal)

== ENCOUNTER → 2018-03-22 | Outpatient (CLI) | payer BC ==
[2018-03-22 17:42] LABS: ALKALINE PHOSPHATASE 91 U/L (45-117); ALT/SGPT 22 U/L (12-78); AST/SGOT 21 U/L (15-37); BLOOD UREA NITROGEN 22 mg/dl (7-18); CALCIUM 8.9 mg/dl (8.5-10.1); CARBON DIOXIDE 26 mmol/L (21-32); CREATININE 1.08 mg/dl (0.60-1.20); GLUCOSE 100 mg/dl (70-99); POTASSIUM 4.6 mmol/L (3.5-5.1); SODIUM 138 mmol/L (136-145); TOTAL PROTEIN 7.3 gm/dl (6.4-8.2)
[2018-03-22 19:34] LABS: HEMATOCRIT 45.1 % (37-47); HEMOGLOBIN 14.7 g/dL (12.0-16.0); MEAN CELL VOLUME 83.4 fL (80-100); MEAN CORPUSCULAR HEMOGLOBIN 27.2 pg (25-34); MEAN CORPUSCULAR HGB CONC 32.6 g/dl (32-36); MEAN PLATELET VOLUME 9.9 fL (7.4-10.4); PLATELET COUNT 185 K/uL (130-400); RED CELL DISTRIBUTION WIDTH SD 48.4 fL (36.4-46.3)
== END | disposition home or self-care (01) ==
LOC: C.LAB 16:07
PROVIDERS: ATTEND Internal Medicine Geriatric Medicine
DX: M81.0 Age-related osteoporosis without current pathological fracture (principal); E78.5 Hyperlipidemia, unspecified; R73.9 Hyperglycemia, unspecified; I12.9 Hypertensive chronic kidney disease with stage 1 through stage 4 chronic kidney disease, or unspecified chronic kidney disease; N18.3 Chronic kidney disease, stage 3 (moderate); I48.91 Unspecified atrial fibrillation; F32.9 Major depressive disorder, single episode, unspecified

== ENCOUNTER 2019-04-09 19:12 | Inpatient (IN) ==
[2019-04-09] MEDS ORDERED: SODIUM CHLORIDE 0.9% 500 ML IV ONE ×2 (19:51→22:13)
[2019-04-09 19:54] LABS: INR 1.1 (0.9-1.1); Partial Thromboplastin Ratio 1.2; Partial Thromboplastin Time 32.9 Seconds (21.0-31.0); Prothrombin Time 11.2 Seconds (9.0-12.0)
[2019-04-09 20:09] LABS: Hematocrit (blood only) 46.6 % (37-47); Hemoglobin 15.7 g/dL (12.0-16.0); Mean Corpuscular Hgb Conc 33.7 g/dL (32-36); Mean Platelet Volume 9.2 fL (7.4-10.4); Platelet Count 164 K/uL (130-400); RDW Coefficient of Variation 15.3 % (11.5-14.5); RDW Standard Deviation 47.7 fL (36.4-46.3); Red Blood Count 5.42 M/uL (4.2-5.4); White Blood Count 52.55 K/uL (4.8-10.8)
[2019-04-09 20:10] LABS: Albumin Level 4.3 gm/dl (3.4-5.0); BUN Creatinine Ratio 17.4 (10-20); Calcium 9.5 mg/dl (8.5-10.1); Creatinine Clr Calc Pharmacy 43.2 ml/min; Est GFR (African American) 62.9; Est GFR (Non-African American) 54.2
[2019-04-09 20:13] LABS: Albumin Globulin Ratio 1.4 (0.9-2); Bilirubin,Total 1.4 mg/dl (0.2-1); Globulin 3.1 gm/dl (2.5-4.0); Total Protein 7.4 gm/dl (6.4-8.2)
[2019-04-09 20:30] LABS: Phosphorus 3.2 mg/dl (2.5-4.9); Troponin I 0.03 ng/ml (0-0.045)
--- NOTE | 2019-04-09 20:55 | CT Scan Report ---
HEAD CT NONCONTRAST CT DOSE: 614.27 mGy.cm HISTORY: syncope, fall, on Eliquis TECHNIQUE: Multiaxial CT images of the head were performed without the use of intravenous contrast. A utomated exposure control was utilized for this study. A dose lowering technique was utilized adheri ng to the principles of ALARA. Comparison: Head CT 10/12/2018. Findings: Complete opacification and expansion of the right maxillary sinus and right anterior ethmoi d air cells. This remains unchanged and could represent a polyp/mass. The calvarium and skull base ar e intact. There is no mass, hematoma, midline shift, acute infarct. White matter hypodensity is nonsp ecific but suggestive of microvascular ischemic change. The ventricles and sulci demonstrate mild age -related involutional changes. Impression: No significant change compared to the prior study. No acute intracranial abnormality. 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 Direct visualization recommended for further evaluation. Electronically signed by: Kamran Rehman M.D. 04/09/2019 8:54 PM
[2019-04-09 20:56] LABS: Ovalocytes 1+; Smudge Cells Present
[2019-04-09 20:58] LABS: ALC (manual) 41.72 K/uL (1.2-3.4); Blast # (manual) 0.21 K/uL (0-0); Blast Cells % (manual) 0.4 %; Eosinophils # (manual) 0.21 K/uL (0-0.5); Eosinophils % (manual) 0.4 %; Lymphocytes # (manual) 41.72 K/uL (1.2-3.4); Lymphocytes % (manual) 79.4 %; Monocytes # (manual) 1.05 K/uL (0.11-0.59); Neutrophils % (manual) 17.8 %
--- NOTE | 2019-04-09 22:40 | XRay Report ---
XR chest 1V portable HISTORY: syncope COMPARISON: Chest 10/12/2018. FINDINGS: The lungs are clear. Cardiac silhouette is normal in size. No pleural effusions. No pneumot horax. Old posttraumatic changes within the right shoulder. This remains unchanged. IMPRESSION: No significant change compared to the prior study. No acute process. Electronically signed by: Kamran Rehman M.D. 04/09/2019 10:38 PM
[2019-04-09 23:27] LABS: Appearance Urine Cloudy (Clear); Bacteria Urine Automated 2+ (Negative); Bilirubin Urine Negative (Negative); Blood Urine 3+ (Negative); Color Urine Yellow; Glucose Urine UA Negative (Negative); Ketones Urine 2+ (Negative); Leukocyte Esterase Urine 3+ (Negative); Nitrite Urine Positive (Negative); Protein Urine 1+ (Negative); Specific Gravity Urine 1.017 (1.000-1.030); Urobilinogen Urine Negative (Negative); WBC Urine Automated >30 /hpf (0-5)
[2019-04-09] MEDS ORDERED: cefTRIAXone SODIUM 1,000 MG/50 ML BAG IV STA (23:49)
--- NOTE | 2019-04-10 02:12 | History & Physical Report ---
Date of Service April 10, 2019 Assessment & Plan (1) Altered mental state: 88 yo F PMH CLL, Aflutter, HTN, Depression admitted 04/10/19 with acute confusional state/?syncope with UTI. Altered Mental State/UTI -Likely AMS related to UTI. Possibility of being related to med mismanagement as described in HPI, however UTI seems more likely -Ideally admitted to med/surg with tele but made aware no tele beds available. -Daily EKGs to ensure no med mismanagement -Rocephin for UTI, cultures pending -Gentle IVF NSS at 80 -Recheck CK in AM Atrial flutter -Continue with amiodarone 200 daily, apixaban CLL -Numbers appear at baseline WBC (40-70). Follows with heme onc. HTN -Cont with metoprolol 100 BID OA -Patient takes tramadol 50 BID prn Depression -Cont Sertraline 100 daily CKDIII -noted in outpatient chart -Appears at baseline/normal Code: DNR/DNI DVTP: apixaban 5 BID Dispo: med surg, daily EKGs. PT/OT ordered. Consider rehab/assess home living situation (2) UTI (urinary tract infection): (3) Atrial flutter: (4) Chronic kidney disease, stage III (moderate): (5) Chronic lymphocytic leukemia (CLL), B-cell: (6) Depression: (7) Hypertension: History of Present Illness Chief Complaint: Confusion, syncope, UTI Primary Care Provider: Henrry Hinojosa MD Patient is a pleasant 88yo F PMH Aflutter, CKDIII, CLL, depression, HTN, HLD, OA who presents via EMS after being found by son on the floor at her home, confused. Pt lives alone, and son is not present to corroborate story at this time. 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 She states she usually uses a walker but tried going to the bathroom without it as it wasn't that far and she needed to build up strength, and states she just "sandra went limp" and woke up to her son finding her. She denies lightheadedness, chest pain, vertigo, tripping, hitting head, etc surrounding the fall. She denies UTI symptoms. She is unsure of how long she was there before being found by family, stating she thinks it was 24 hours. Her daughter calls her daily, and when she did not pickle pumper on several tries, got in touch with son in [place] who came to check on her. Patient notes that a few days ago she had been organizing her pi lls in her weekly organizer but they all spilled. She states she did not take any and was going to have her pharmacist help organize them. Per report, son was worried she was either taking things that were incorrect or possibly not taking some meds due to this mishap. She also notes she hasn't been eating or drinking well lately. In the ER, labs were significant for WBC of 52 (baseline 40-70 in setting of CLL), normal BMP, CK of 483, and UA showing ketones, blood, nitrites, and leuk esterase. Head CT and CXR negative. She was started on rocephin and given IVF. Patient was resting on assessment, but was disoriented to time, thinking she had already been in the hospital for 2 days. She was otherwise oriented but her thoughts were very tangential. Allergies Allergy/AdvReac Type Severity Reaction Status Date / Time naloxone Allergy Severe TREMORS, Verified 04/09/19 23:58 DYSKINESIA acetaminophen Allergy Unknown ` Verified 04/09/19 23:58 amoxicillin Allergy Unknown ` Verified 04/09/19 23:58 clarithromycin Allergy Unknown ` Verified 04/09/19 23:58 alprazolam [From Xanax] Allergy Unknown Verified 04/10/19 02:23 doxycycline Allergy Unknown Verified 04/10/19 02:22 NSAIDS (Non-Steroidal Allergy Unknown Verified 04/10/19 02:23 Anti-Inflamma aspirin AdvReac Intermediate hISTORY OF Verified 04/09/19 23:58 ULCERS codeine AdvReac Intermediate VOMITING Verified 04/09/19 23:58 Home Medications Home Medications Medication Instructions Recorded Confirmed Type Eliquis 5 mg PO BID 10/12/18 04/10/19 History Magnesium-Chelated Zinc 1 tab PO QDL 10/12/18 04/10/19 History biotin 300 mcg PO QAM 10/12/18 04/10/19 History calcium carbonate-vitamin D3 1 tab PO QAM 10/12/18 04/10/19 History [Calcium 500 + D (D3)] coenzyme Q10 [CoQ-10] 100 mg PO QDL 10/12/18 04/10/19 History metoprolol tartrate 100 mg PO BID 10/12/18 04/10/19 History multivitamin 1 tab PO QDL 10/12/18 04/10/19 History omeprazole 40 mg PO QAM PRN 10/12/18 04/10/19 History polyethylene glycol 3350 [Miralax] 17 g PO DAILY PRN 10/12/18 04/10/19 History sertraline [Zoloft] 100 mg PO QAM 10/12/18 04/10/19 History tramadol 50 mg PO BID PRN 10/12/18 04/10/19 History amiodarone 200 mg PO DAILY 04/10/19 04/10/19 History Past Med/Surg History Medical History Acute diastolic (congestive) heart failure Chronic lymphocytic leukemia (CLL), B-cell (Chronic ~11/1999) A-fib Atrial flutter CKD (chronic kidney disease) HTN (hypertension) History of hysterectomy Surgical History History of hip replacement History of shoulder surgery History of tonsillectomy Social History Preferred Language: Kyrgyz Communication Ability: Effective Special Events Driver Required: No Beliefs That Will Affect Care: None Current Living Situation: Alone Other Information That Helps Us Care for You: No Feels Safe at Home: Yes Safety Concerns: Feels Safe At This Time Smoking Status: Never smoker Second Hand Exposure: No Hx Alcohol Use: No Hx Substance Use: No Review of Systems Review of Systems: All systems reviewed & are unremarkable except as noted in HPI & below Constitutional: + chills, + weakness, + anorexia and + daytime sleepiness; no fever Respiratory: no cough and no dyspnea Cardiovascular: + syncope; no chest pain, no dyspnea and no lightheadedness Gastrointestinal: no abdominal pain, no nausea and no vomiting Genitourinary: + urinary urgency; no dysuria, no urinary frequency and no flank pain Musculoskeletal: + joint pain Integumentary: + unusual bruising Neurologic: + unsteadiness, + falls, + generalized weakness, + syncope and + confusion; no dizziness Physical Exam Constitutional: WD/WN, vitals as above + frail appearing, cooperative and comfortable; no acute distress Eyes: PERRL, conjunctivae normal, anicteric sclerae ENMT: external ear and nose normal, oropharynx normal Nose: + dry nasal mu cous membranes Neck: normal visual inspection Respiratory: normal respiratory effort, lungs clear to auscultation Cardiovascular: RRR, no murmur, no edema Gastrointestinal (Abdomen): normal bowel sounds, soft, nontender, no hepatosplenomegaly Percussion/Palpation: + abdomen tender (suprapubic tenderness) Musculoskeletal: no cyanosis or clubbing, extremities motor strength 5/5 Skin: Bruising on arms and legs, varying degrees of healing Neurologic: PERRL, EOMI, accommodation nl, no face palsy, no dysarthria Psychiatric: Orientation: alert, oriented to person, oriented to place, oriented to time and cooperative Thought Process: + tangential thought proce ss and + looseness of associations; + thought process not goal directed Results & Data Vital Signs (Past 12 Hours) Vital Signs Temp Pulse Pulse Resp BP BP BP 04/10/19 01:12 101 H 20 144/70 H 04/10/19 00:01 100 H 22 152/64 H 04/09/19 23:15 04/09/19 23:13 96 H 22 186/91 H 04/09/19 22:00 100 H 18 133/70 04/09/19 20:42 96 H 18 150/101 H 04/09/19 19:18 36.6 C 77 18 170/102 H Pulse Ox 04/10/19 01:12 92 04/10/19 00:01 94 04/09/19 23:15 98 04/09/19 23:13 98 04/09/19 22:00 93 04/09/19 20:42 96 04/09/19 19:18 94 Laboratory Results 04/09/19 04/09/19 04/09/19 Range/Units 23:10 19:00 19:00 WBC (4.8-10.8) K/uL RBC (4.2-5.4) M/uL Hgb (12.0-16.0) g/dL Hct (37-47) % MCV (80-100) fL MCH (25-34) pg MCHC (32-36) g/dL RDW Std Deviation (36.4-46.3) fL RDW Coeff of Tiffany (11.5-14.5) % Plt Count (130-400) K/uL MPV (7.4-10.4) fL Neutrophils % (Manual) % Lymphocytes % (Manual) % Monocytes % (Manual) % Eosinophils % (Manual) % Blast Cells % (Manual) % Neutrophils # (Manual) (1.4-6.5) K/uL Total Absolute Neuts (1.4-6.5) K/uL Lymphocytes # (Manual) (1.2-3.4) K/uL Total Abs Lymphocytes (1.2-3.4) K/uL Monocytes # (Manual) (0.11-0.59) K/uL Eosinophils # (Manual) (0-0.5) K/uL Blast Cells # (Man) (0-0) K/uL Smudge Cells Blood Smear Review Ovalocytes PT (9.0-12.0) Seconds INR (0.9-1.1) APTT (21.0-31.0) Seconds PTT Ratio Sodium (136-145) mmol/L Potassium (3.5-5.1) mmol/L Chloride (98-107) mmol/L Carbon Dioxide (21-32) mmol/L Anion Gap (3-11) BUN (7-18) mg/dl Creatinine (0.6-1.2) mg/dl Est Cr Clr Drug Dosing ml/min Est GFR ( Amer) Est GFR (Non-Af Amer) BUN/Creatinine Ratio (10-20) Glucose (70-99) mg/dl Calcium (8.5-10.1) mg/dl Phosphorus 3.2 (2.5-4.9) mg/dl Magnesium 2.0 (1.8-2.4) mg/dl Total Bilirubin (0.2-1) mg/dl AST (15-37) U/L ALT (12-78) U/L Alkaline Phosphatase (45-117) U/L Total Creatine Kinase 483 H (26-192) U/L Troponin I 0.030 (0-0.045) ng/ml Total Protein (6.4-8.2) gm/dl Albumin (3.4-5.0) gm/dl Globulin (2.5-4.0) gm/dl Albumin/Globulin Ratio (0.9-2) TSH 2.410 (0.300-4.500) uIu/ml Urine Color Yellow Urine Appearance Cloudy A (Clear) Urine pH 5.0 (4.5-7.5) Ur Specific [place] 1.017 (1.000-1.030) Urine Protein 1+ H (Negative) Urine Glucose (UA) Negative (Negative) Urine Ketones 2+ H (Negative) Urine Blood 3+ H (Negative) Urine Nitrite Positive A (Negative) Urine Bilirubin Negative (Negative) Urine Urobilinogen Negative (Negative) Ur Leukocyte Esterase 3+ H (Negative) Urine WBC (Auto) >30 H (0-5) /hpf Urine RBC (Auto) 10-30 H (0-4) /hpf U Hyaline Cast (Auto) 1-5 (0-5) /lpf U Epithel Cells (Auto) 10-20 H (0-5) /lpf Urine Bacteria (Auto) 2+ H (Negative) Urine Yeast Not Reportable 04/09/19 04/09/19 04/09/19 Range/Units 19:00 19:00 19:00 WBC 52.55 H* (4.8-10.8) K/uL RBC 5.42 H (4.2-5.4) M/uL Hgb 15.7 (12.0-16.0) g/dL Hct 46.6 (37-47) % MCV 86.0 (80-100) fL MCH 29.0 (25-34) pg MCHC 33.7 (32-36) g/dL RDW Std Deviation 47.7 H (36.4-46.3) fL RDW Coeff of Tiffany 15.3 H (11.5-14.5) % Plt Count 164 (130-400) K/uL MPV 9.2 (7.4-10.4) fL Neutrophils % (Manual) 17.8 % Lymphocytes % (Manual) 79.4 % Monocytes % (Manual) 2.0 % Eosinophils % (Manual) 0.4 % Blast Cells % (Manual) 0.4 % Neutrophils # (Manual) 9.35 H (1.4-6.5) K/uL Total Absolute Neuts 9.35 H (1.4-6.5) K/uL Lymphocytes # (Manual) 41.72 H (1.2-3.4) K/uL Total Abs Lymphocytes 41.72 H (1.2-3.4) K/uL Monocytes # (Manual) 1.05 H (0.11-0.59) K/uL Eosinophils # (Manual) 0.21 (0-0.5) K/uL Blast Cells # (Man) 0.21 H (0-0) K/uL Smudge Cells Present Blood Smear Review Pending Ovalocytes 1+ PT 11.2 (9.0-12.0) Seconds INR 1.1 (0.9-1.1) APTT 32.9 H (21.0-31.0) Seconds PTT Ratio 1.2 Sodium 137 (136-145) mmol/L Potassium 4.0 (3.5-5.1) mmol/L Chloride 101 (98-107) mmol/L Carbon Dioxide 25 (21-32) mmol/L Anion Gap 11.0 (3-11) BUN 16 (7-18) mg/dl Creatinine 0.95 (0.6-1.2) mg/dl Est Cr Clr Drug Dosing 43.2 ml/min Est GFR ( Amer) 62.9 Est GFR (Non-Af Amer) 54.2 BUN/Creatinine Ratio 17.4 (10-20) Glucose 100 H (70-99) mg/dl Calcium 9.5 (8.5-10.1) mg/dl Phosphorus (2.5-4.9) mg/dl Magnesium (1.8-2.4) mg/dl Total Bilirubin 1.4 H (0.2-1) mg/dl AST 45 H (15-37) U/L ALT 35 (12-78) U/L Alkaline Phosphatase 116 (45-117) U/L Total Creatine Kinase (26-192) U/L Troponin I (0-0.045) ng/ml Total Protein 7.4 (6.4-8.2) gm/dl Albumin 4.3 (3.4-5.0) gm/dl Globulin 3.1 (2.5-4.0) gm/dl Albumin/Globulin Ratio 1.4 (0.9-2) TSH (0.300-4.500) uIu/ml Urine Color Urine Appearance (Clear) Urine pH (4.5-7.5) Ur Specific [place] (1.000-1.030) Urine Protein (Negative) Urine Glucose (UA) (Negative) Urine Ketones (Negative) Urine Blood (Negative) Urine Nitrite (Negative) Urine Bilirubin (Negative) Urine Urobilinogen (Negative) Ur Leukocyte Esterase (Negative) Urine WBC (Auto) (0-5) /hpf Urine RBC (Auto) (0-4) /hpf U Hyaline Cast (Auto) (0-5) /lpf U Epithel Cells (Auto) (0-5) /lpf Urine Bacteria (Auto) (Negative) Urine Yeast Diagnostic Findings HEAD CT NONCONTRAST CT DOSE: 614.27 mGy.cm HISTORY: syncope, fall, on Eliquis TECHNIQUE: Multiaxial CT images of the head were performed without the use of intravenous contrast. Automated exposure control was utilized for this study. A dose lowering technique was utilized adhering to the principles of ALARA. Comparison: Head CT 10/12/2018. Findings: Complete opacification and expansion of the right maxillary sinus and right anterior ethmoid air cells. This remains unchanged and could represent a polyp/mass. The calvarium and skull base are intact. There is no mass, hematoma, midline shift, acute infarct. White matter hypodensity is nonspecific but suggestive of microvascular ischemic change. The ventricles and sulci demonstrate mild age-related involutional changes. Impression: No significant change compared to the prior study. No acute intracranial abnormality. 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 Direct visualization recommended for further evaluation. Electronically signed by: Kamran Rehman M.D. 04/09/2019 8:54 PM Medications Administered Current Inpatient Medications Amiodarone HCl (Cordarone) 200 mg PO DAILY DIANA Stop: 05/10/19 08:59 Apixaban (Eliquis) 5 mg PO BID DIANA Stop: 05/10/19 08:59 Metoprolol Tartrate (Lopressor) 100 mg PO BID DIANA Stop: 05/10/19 08:59 Multivitamins (Multivitamin Tab) 1 tab PO QDL DIANA Stop: 05/10/19 11:29 Sertraline HCl (Zoloft) 100 mg PO QAM DIANA Stop: 05/10/19 08:59 Tramadol HCl (Ultram) 50 mg PO BID PRN PRN Reason: Pain Stop: 05/10/19 01:55 Code Status & VTE Plan Code Status DNR Supervising Physician Co-Signing Physician Notes Patient seen and examined, chart reviewed, case discussed with Dr. Hernández and I agree with her assessment and plan as above. Briefly, patient is an 88yo female presenting with increased confusion, fall at home with prolonged down time, details unknown On exam she is afebrile, tachycardic at 101, NAD, frail elderly female Skin - scattered bruising, large bruise on posterior right arm HEENT - NC/AT, PERRL, dry mucus membranes Heart = +S1/S2, regular with ectopy Lungs - CTA Abd - +BS, soft, NT/ND Ext - no edema Neuro - nonfocal 88 yo female presenting with AMS, increased confusion. Most likely secondary to UTI -Ceftriaxone -Gentle IVF -Remainder of plan as above Resident Activity Tracking Resident Involvement: Resident Care Provided Care Provided: Adult Hospital Medicine
[2019-04-10] MEDS ORDERED: ONDANSETRON INJ 2 MG/ML 2 ML VIAL IV PRN (03:00)
[2019-04-10] MEDS ORDERED: POLYETHYLENE (MIRALAX) 17 GM PACK PO PRN (03:00)
[2019-04-10] MEDS ORDERED: SODIUM CHLORIDE 0.9% 1000ML 1,000 ML IV SCH (03:00)
[2019-04-10] MEDS ORDERED: ALUMINUM/MAGNESIUM SUSP 30 ML UDC PO PRN (03:00)
[2019-04-10] MEDS ORDERED: MAGNESIUM HYDROXIDE SUSP 30 ML UDC PO PRN (03:00)
--- NOTE | 2019-04-10 03:31 | Emergency Department Note ---
Entered by [employer]kys Sales acting as a scribe for History of Present Illness General Chief complaint: Syncope Time Seen by Provider: 04/09/19 19:50 Source: patient Limitations: no limitations History of Present Illness Onset (ago): day(s) (last night) Location: head Severity: similar to prior episodes Pain Consistency: + other (episode) Quality: + other (syncope) Associated symptoms: + denies other symptoms (congestion and dysuria) and + other ("spells of feeling cold" for the past week); no shortness of breath The patient is an 88 year old female who presents to the ED complaining of a syncopal episode that occurred last night. Her granddaughter, at bedside, reports that they found the patient on the ground in her bathroom. She states that she believes the patient was on the ground for almost 24 hours. The patient states that she felt cold and diaphoretic prior to the syncope. The patient complains of "spells of feeling cold" for the past week. She denies any cough, congestion, SOB, and dysuria. The patient reports that this is similar to her previous 2 episodes of syncope. She notes that she takes Eliquis. The patient reports a history of A-fib. Home Medications Home Medications Medication Instructions Recorded Confirmed Type Eliquis 5 mg PO BID 10/12/18 04/10/19 History Magnesium-Chelated Zinc 1 tab PO QDL 10/12/18 04/10/19 History biotin 300 mcg PO QAM 10/12/18 04/10/19 History calcium carbonate-vitamin D3 1 tab PO QAM 10/12/18 04/10/19 History [Calcium 500 + D (D3)] coenzyme Q10 [CoQ-10] 100 mg PO QDL 10/12/18 04/10/19 History metoprolol tartrate 100 mg PO BID 10/12/18 04/10/19 History multivitamin 1 tab PO QDL 10/12/18 04/10/19 History omeprazole 40 mg PO QAM PRN 10/12/18 04/10/19 History polyethylene glycol 3350 [Miralax] 17 g PO DAILY PRN 10/12/18 04/10/19 History sertraline [Zoloft] 100 mg PO QAM 10/12/18 04/10/19 History tramadol 50 mg PO BID PRN 10/12/18 04/10/19 History amiodarone 200 mg PO DAILY 04/10/19 04/10/19 History Allergies Allergy/AdvReac Type Severity Reaction Status Date / Time naloxone Allergy Severe TREMORS, Verified 04/09/19 23:58 DYSKINESIA acetaminophen Allergy Unknown ` Verified 04/09/19 23:58 amoxicillin Allergy Unknown ` Verified 04/09/19 23:58 clarithromycin Allergy Unknown ` Verified 04/09/19 23:58 alprazolam [From Xanax] Allergy Unknown Verified 04/10/19 02:23 doxycycline Allergy Unknown Verified 04/10/19 02:22 NSAIDS (Non-Steroidal Allergy Unknown Verified 04/10/19 02:23 Anti-Inflamma aspirin AdvReac Intermediate hISTORY OF Verified 04/09/19 23:58 ULCERS codeine AdvReac Intermediate VOMITING Verified 04/09/19 23:58 Past Med/Surg History Medical History Acute diastolic (congestive) heart failure Chronic lymphocytic leukemia (CLL), B-cell (Chronic ~11/1999) A-fib Atrial flutter CKD (chronic kidney disease) HTN (hypertension) History of hysterectomy Surgical History History of hip replacement History of shoulder surgery History of tonsillectomy Social History Preferred Language: Setswana Communication Ability: Effective 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 and A total of 10 systems reviewed and were otherwise negative Physical Exam Vital Signs Vital Signs - 24 hr 04/10/19 00:01 04/10/19 01:12 Pulse Rate [Right Finger] 100 H 101 H Respiratory Rate 22 20 Blood Pressure [Left Arm] 152/64 H 144/70 H Blood Pressure Mean [Left Arm] 93 94 Blood Pressure Position [Left Arm] Lying Lying Pulse Oximetry 94 92 Oxygen Delivery Method Room Air Room Air GENERAL: Awake, alert, fatigued-appearing, in no distress HENT: Normocephalic, atraumatic. Oropharynx with dry mucous membranes and otherwise unremarkable. EYES: Normal conjunctiva. Sclera non-icteric. NECK: Supple. No nuchal rigidity. FROM. No JVD. RESPIRATORY: CTAB. CARDIAC: Regular rate, normal rhythm. Extremities warm and well perfused. Pulses equal. ABDOMEN: Soft, non-distended. No tenderness to palpation. No rebound or guardin g. No masses. RECTAL: Deferred. MUSCULOSKELETAL: Chest examination reveals no tenderness. The back is symmetrical on inspection without obvious abnormality. There is no CVA tenderness to palpation. No joint edema. LOWER EXTREMITIES: Calves are equal size bilaterally and non-tender. No edema. No discoloration. NEURO: Normal sensorium. No sensory or motor deficits noted. 5/5 strength and SILT x4 extremities. Intact finger to nose. SKIN: No rash or jaundice noted. Course 195: The patient was evaluated in room B04B. A complete history and physical exam was performed. 2358: I spoke with Dr. Yanet Pedraza, [facility] hospitalist, about the patient�s case. She will further evaluate the patient. Consultations Consultation #1: I spoke with Dr. Yanet Pedraza, [facility] hospitalist, about the patient�s case. She will further evaluate the patient. Time: 23:58 Administered Medications Amiodarone HCl (Cordarone) 200 mg PO DAILY [facility] Stop: 05/10/19 08:59 Last Admin: 04/10/19 08:58 Dose: 200 mg Documented by: [id number] Apixaban (Eliquis) 5 mg PO BID [facility] Stop: 05/10/19 08:59 Last Admin: 04/10/19 21:45 Dose: 5 mg Documented by: [id number] Admin: 04/10/19 08:58 Dose: 5 mg Documented by: [id number] Ceftriaxone Sodium 1,000 mg/ (Dextrose) 60 mls @ 100 mls/hr IV DAILY [facility]; Protocol Stop: 04/15/19 08:59 Last Infusion: 04/10/19 09:35 Dose: 0 mls/hr Documented by: [id number] Admin: 04/10/19 08:59 Dose: 100 mls/hr Documented by: [id number] Metoprolol Tartrate (Lopressor) 100 mg PO BID [facility] Stop: 05/10/19 08:59 Last Admin: 04/10/19 21:45 Dose: 100 mg Documented by: [id number] Admin: 04/10/19 08:58 Dose: 100 mg Documented by: [id number] Multivitamins (Multivitamin Tab) 1 tab PO QDL [facility] Stop: 05/10/19 11:29 Last Admin: 04/10/19 12:54 Dose: 1 tab Documented by: [id number] Sertraline HCl (Zoloft) 100 mg PO QAM [facility] Stop: 05/10/19 08:59 Last Admin: 04/10/19 08:59 Dose: 100 mg Documented by: [id number] Tramadol HCl (Ultram) 50 mg PO BID PRN PRN Reason: Pain Stop: 05/10/19 01:55 Last Admin: 04/10/19 21:44 Dose: 50 mg Documented by: [id number] Discontinued Medications Sodium Chloride (Nss) 500 mls @ 999 mls/hr IV .Q31M ONE Stop: 04/09/19 20:21 Last Infusion: 04/09/19 21:16 Dose: 0 mls/hr Documented by: [id number] Admin: 04/09/19 20:28 Dose: 999 mls/hr Documented by: [id number] Sodium Chloride (Nss) 500 mls @ 999 mls/hr IV .Q31M ONE Stop: 04/09/19 22:43 Last Infusion: 04/09/19 23:13 Dose: 0 mls/hr Documented by: [id number] Admin: 04/09/19 22:18 Dose: 999 mls/hr Documented by: [id number] Ceftriaxone Sodium (Rocephin) 1,000 mg in 50 mls @ 100 mls/hr IV NOW STA Stop: 04/10/19 00:18 Last Infusion: 04/10/19 00:35 Dose: 0 mls/hr Documented by: [id number] Admin: 04/10/19 00:01 Dose: 100 mls/hr Documented by: [id number] Sodium Chloride (Nss 1000ml) 1,000 mls @ 80 mls/hr IV .[id number] [facility] Stop: 05/10/19 02:59 Last Infusion: 04/10/19 15:07 Dose: 0 mls/hr Documented by: [id number] Admin: 04/10/19 03:46 Dose: 80 mls/hr Documented by: [id number] Medical Decision Making Differential Diagnosis Etiologies such as vasovagal event, infection, anemia, hypoglycemia, hypovolemia, electrolyte abnormalities, dysrhythmias, cardiac ischemia, cardiac tamponade, valvular heart disease, structural heart disease, seizure, vascular stenosis/dissection, pulmonary embolism, intracerebral event, toxicological process, neurologic event, as well as others were entertained. Medical Records Attestation: I reviewed the patient's medical records. Home Medications Current Medication List: was personally reviewed by me Laboratory Data Attestation: I reviewed the patient's lab results. Result diagrams: 04/10/19 06:12 04/10/19 07:22 Lab Results 04/09/19 04/09/19 04/09/19 Range/Units 19:00 19:00 19:00 WBC 52.55 H* (4.8-10.8) K/uL RBC 5.42 H (4.2-5.4) M/uL Hgb 15.7 (12.0-16.0) g/dL Hct 46.6 (37-47) % MCV 86.0 (80-100) fL MCH 29.0 (25-34) pg MCHC 33.7 (32-36) g/dL RDW Std Deviation 47.7 H (36.4-46.3) fL RDW Coeff of Tiffany 15.3 H (11.5-14.5) % Plt Count 164 (130-400) K/uL MPV 9.2 (7.4-10.4) fL Neutrophils % (Manual) 17.8 % Lymphocytes % (Manual) 79.4 % Monocytes % (Manual) 2.0 % Eosinophils % (Manual) 0.4 % Blast Cells % (Manual) 0.4 % Neutrophils # (Manual) 9.35 H (1.4-6.5) K/uL Total Absolute Neuts 9.35 H (1.4-6.5) K/uL Lymphocytes # (Manual) 41.72 H (1.2-3.4) K/uL Total Abs Lymphocytes 41.72 H (1.2-3.4) K/uL Monocytes # (Manual) 1.05 H (0.11-0.59) K/uL Eosinophils # (Manual) 0.21 (0-0.5) K/uL Blast Cells # (Man) 0.21 H (0-0) K/uL Smudge Cells Present Blood Smear Review Ovalocytes 1+ PT 11.2 (9.0-12.0) Seconds INR 1.1 (0.9-1.1) APTT 32.9 H (21.0-31.0) Seconds PTT Ratio 1.2 Sodium 137 (136-145) mmol/L Potassium 4.0 (3.5-5.1) mmol/L Chloride 101 (98-107) mmol/L Carbon Dioxide 25 (21-32) mmol/L Anion Gap 11.0 (3-11) BUN 16 (7-18) mg/dl Creatinine 0.95 (0.6-1.2) mg/dl Est Cr Clr Drug Dosing 43.2 ml/min Est GFR ( Amer) 62.9 Est GFR (Non-Af Amer) 54.2 BUN/Creatinine Ratio 17.4 (10-20) Glucose 100 H (70-99) mg/dl Calcium 9.5 (8.5-10.1) mg/dl Phosphorus (2.5-4.9) mg/dl Magnesium (1.8-2.4) mg/dl Total Bilirubin 1.4 H (0.2-1) mg/dl AST 45 H (15-37) U/L ALT 35 (12-78) U/L Alkaline Phosphatase 116 (45-117) U/L Total Creatine Kinase (26-192) U/L Troponin I (0-0.045) ng/ml Total Protein 7.4 (6.4-8.2) gm/dl Albumin 4.3 (3.4-5.0) gm/dl Globulin 3.1 (2.5-4.0) gm/dl Albumin/Globulin Ratio 1.4 (0.9-2) TSH (0.300-4.500) uIu/ml Urine Color Urine Appearance (Clear) Urine pH (4.5-7.5) Ur Specific [place] (1.000-1.030) Urine Protein (Negative) Urine Glucose (UA) (Negative) Urine Ketones (Negative) Urine Blood (Negative) Urine Nitrite (Negative) Urine Bilirubin (Negative) Urine Urobilinogen (Negative) Ur Leukocyte Esterase (Negative) Urine WBC (Auto) (0-5) /hpf Urine RBC (Auto) (0-4) /hpf U Hyaline Cast (Auto) (0-5) /lpf U Epithel Cells (Auto) (0-5) /lpf Urine Bacteria (Auto) (Negative) Urine Yeast 04/09/19 04/09/19 04/09/19 Range/Units 19:00 19:00 23:10 WBC (4.8-10.8) K/uL RBC (4.2-5.4) M/uL Hgb (12.0-16.0) g/dL Hct (37-47) % MCV (80-100) fL MCH (25-34) pg MCHC (32-36) g/dL RDW Std Deviation (36.4-46.3) fL RDW Coeff of Tiffany (11.5-14.5) % Plt Count (130-400) K/uL MPV (7.4-10.4) fL Neutrophils % (Manual) % Lymphocytes % (Manual) % Monocytes % (Manual) % Eosinophils % (Manual) % Blast Cells % (Manual) % Neutrophils # (Manual) (1.4-6.5) K/uL Total Absolute Neuts (1.4-6.5) K/uL Lymphocytes # (Manual) (1.2-3.4) K/uL Total Abs Lymphocytes (1.2-3.4) K/uL Monocytes # (Manual) (0.11-0.59) K/uL Eosinophils # (Manual) (0-0.5) K/uL Blast Cells # (Man) (0-0) K/uL Smudge Cells Blood Smear Review Ovalocytes PT (9.0-12.0) Seconds INR (0.9-1.1) APTT (21.0-31.0) Seconds PTT Ratio Sodium (136-145) mmol/L Potassium (3.5-5.1) mmol/L Chloride (98-107) mmol/L Carbon Dioxide (21-32) mmol/L Anion Gap (3-11) BUN (7-18) mg/dl Creatinine (0.6-1.2) mg/dl Est Cr Clr Drug Dosing ml/min Est GFR ( Amer) Est GFR (Non-Af Amer) BUN/Creatinine Ratio (10-20) Glucose (70-99) mg/dl Calcium (8.5-10.1) mg/dl Phosphorus 3.2 (2.5-4.9) mg/dl Magnesium 2.0 (1.8-2.4) mg/dl Total Bilirubin (0.2-1) mg/dl AST (15-37) U/L ALT (12-78) U/L Alkaline Phosphatase (45-117) U/L Total Creatine Kinase 483 H (26-192) U/L Troponin I 0.030 (0-0.045) ng/ml Total Protein (6.4-8.2) gm/dl Albumin (3.4-5.0) gm/dl Globulin (2.5-4.0) gm/dl Albumin/Globulin Ratio (0.9-2) TSH 2.410 (0.300-4.500) uIu/ml Urine Color Yellow Urine Appearance Cloudy A (Clear) Urine pH 5.0 (4.5-7.5) Ur Specific [place] 1.017 (1.000-1.030) Urine Protein 1+ H (Negative) Urine Glucose (UA) Negative (Negative) Urine Ketones 2+ H (Negative) Urine Blood 3+ H (Negative) Urine Nitrite Positive A (Negative) Urine Bilirubin Negative (Negative) Urine Urobilinogen Negative (Negative) Ur Leukocyte Esterase 3+ H (Negative) Urine WBC (Auto) >30 H (0-5) /hpf Urine RBC (Auto) 10-30 H (0-4) /hpf U Hyaline Cast (Auto) 1-5 (0-5) /lpf U Epithel Cells (Auto) 10-20 H (0-5) /lpf Urine Bacteria (Auto) 2+ H (Negative) Urine Yeast Not Reportable Imaging Data Radiologist's Impression: Radiology results as stated below per my review and the radiologist's interpretation: HEAD CT NONCONTRAST CT DOSE: 614.27 mGy.cm HISTORY: syncope, fall, on Eliquis TECHNIQUE: Multiaxial CT images of the head were performed without the use of intravenous contrast. Automated exposure control was utilized for this study. A dose lowering technique was utilized adhering to the principles of ALARA. Comparison: Head CT 10/12/2018. Findings: Complete opacification and expansion of the right maxillary sinus and right anterior ethmoid air cells. This remains unchanged and could represent a polyp/mass. The calvarium and skull base are intact. There is no mass, hematoma, midline shift, acute infarct. White matter hypodensity is nonspecific but suggestive of microvascular ischemic change. The ventricles and sulci demonstr ate mild age-related involutional changes. Impression: No significant change compared to the prior study. No acute intracranial abnormality. 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 Direct visualization recommended for further evaluation. Electronically signed by: Kamran Rehman M.D. 04/09/2019 8:54 PM ECG Data Attestation: I personally reviewed and interpreted this ECG as follows: Indication: syncope Rate (beats per minute): 96 Rhythm: sinus rhythm Findings: + other (left anterior fascicular block, LVH, non specfic ST and T wave abnormalities, no overt ischemia) Blood Pressure Blood Pressure Findings: Elevated blood pressure Blood Pressure Disposition: further management by hospitalist [facility] Narrative The patient is a pleasant 88 y/o woman with a pmhx of afib, CKD, HTN, CLL who presents to the emergency department with syncopal episode with possibility of prolonged down time of >20 hours per HPI. On arrival the patient is fatigued appearing but in NAD, AFVSS. Patient appears clinically dry. Head is atraumatic. She is neuro intact. EKG without evidence of acute ischemia. CXR negative. CT head negative for acute process. WBC 52K within prior range of values in the setting of patient's CLL. H/H and platelets wnl. Chemistry without acidosis. Total bilirubin 1.4 and AST 45, nonspecific. CPK 483. Troponin 0.03 wnl. UA c/w UTI with Nitrite positive and LE 3+ with 2+bacteria. Given syncope in the UTI in this elderly patient with CLL, reasonable to admit the patient for further management. Case was discussed with Dr. Pedraza, [facility] [place], who will evaluate the patient for admission. Impression & Plan UTI (urinary tract infection), Syncope Discharge Plan Visit Data *Final* Discharge Date/Time: 04/10/19 02:36 Chief Complaint: Syncope ED Provider: Chacorta Mitchell Discharge Problem: UTI (urinary tract infection), Syncope Patient Disposition: Admitted As Inpatient Discharge Instructions Interventions: ED Discharge Assessment Last Done: 04/10/19 02:36 The scribe's documentation has been prepared under my direction and personally reviewed by me in its entirety. I confirm that the note above accurately reflects all work, treatment, procedures, and medical decision making performed by me.
[2019-04-10 07:19] LABS: BUN Creatinine Ratio 17.6 (10-20); Calcium 8.2 mg/dl (8.5-10.1); Creatinine Clr Calc Pharmacy 38.4 ml/min; Est GFR (African American) 59.1
[2019-04-10 07:48] LABS: Hematocrit (blood only) 39.8 % (37-47); Hemoglobin 13.2 g/dL (12.0-16.0); Mean Corpuscular Hgb Conc 33.2 g/dL (32-36); Mean Corpuscular Volume 85.4 fL (80-100); Mean Platelet Volume 9.1 fL (7.4-10.4); Platelet Count 149 K/uL (130-400); RDW Coefficient of Variation 15.6 % (11.5-14.5); RDW Standard Deviation 47.8 fL (36.4-46.3); Red Blood Count 4.66 M/uL (4.2-5.4); White Blood Count 57.04 K/uL (4.8-10.8)
[2019-04-10 07:51] LABS: Potassium 3.9 mmol/L (3.5-5.1)
[2019-04-10 07:53] LABS: ALC (manual) 48.08 K/uL (1.2-3.4); Echinocytes 1+; Lymphocytes # (manual) 48.08 K/uL (1.2-3.4); Lymphocytes % (manual) 84.3 %; Monocytes # (manual) 2.34 K/uL (0.11-0.59); Monocytes % (manual) 4.1 %; Neutrophils % (manual) 11.6 %; Smudge Cells Present
[2019-04-10] MEDS: AMIODARONE 200 MG TAB PO SCH (08:58)
[2019-04-10] MEDS: METOPROLOL TARTRATE 100 MG TAB PO SCH ×2 (08:58→21:45)
[2019-04-10] MEDS: APIXABAN 5 MG TABLET PO SCH ×2 (08:58→21:45)
[2019-04-10] MEDS: cefTRIAXone SODIUM 1,000 MG in DEXTROSE 5% 50 ML IV SCH (08:59)
[2019-04-10] MEDS: SERTRALINE HCL 100 MG TABLET PO SCH (08:59)
[2019-04-10] MEDS: MULTIVITAMIN TAB PO SCH (12:54)
--- NOTE | 2019-04-10 13:36 | Family Medicine Progress Note ---
Date of Service April 10, 2019 Assessment & Plan (1) Altered mental state: 88 yo F PMH CLL, Aflutter, HTN, Depression presents with acute confusional state found to have UTI. Altered Mental State/UTI -Mentation clear today. -Likely AMS related to UTI. Unlikely to be related to med mismanagement. Labs unremarkable -Rocephin for UTI, cultures pending -IVF NSS dc'd, tolerating PO intake -Repeat CK trending down Atrial flutter -Continue with amiodarone 200 daily, apixaban. Pt follows with Dr. Darby CLL -Numbers appear at baseline WBC (40-70). Follows with heme onc. HTN -Cont with metoprolol 100 BID OA -Cont home tramadol 50 BID prn Depression -Cont Sertraline 100 daily CKDIII -Appears at baseline/normal -IVF dc as above FEN/GI: Heart Healthy Diet Code: DNR/DNI DVT Prophylaxis: Apixaban 5 BID Dispo: Cont on med surg. Pt lives alone at home, single floor. PT/OT: pt does not appear safe to return home, would benefit from inpt rehab. Will work with CM to arrange. Supervising Physician Co-Signing Physician Notes Resident Physician Supervision Note: I independently interviewed and examined the patient and verified the valadez history and physical, reviewed labs and image studies, discussed the case with the resident Dr. Lozano and agree with the findings and care plan. Subjective 88 y/o F found in bed this AM in NAD. No reported overnight events. Pt states feels better, less confused. Pt is A&Ox3. Denies SOB, CP, JUÁREZ. Only complaint of feeling weak/fatigued. Tolerating PO intake. No issues voiding. No other acute concerns or complaints. Review of Systems Review of Systems: All systems reviewed & are unremarkable except as noted in HPI & below Physical Exam Constitutional: + thin Eyes: PERRL, conjunctivae normal, anicteric sclerae ENMT: external ear and nose normal, oropharynx normal Respiratory: normal respiratory effort, lungs clear to auscultation Cardiovascular: RRR, no murmur, no edema Gastrointestinal (Abdomen): normal bowel sounds, soft, nontender, no hepatosplenomegaly no suprapubic tenderness Skin: scattered bruising arms/legs Psychiatric: A+Ox3, euthymic affect Results & Data Vital Signs (Past 12 Hours) Vital Signs Temp Pulse Resp BP Pulse Ox 04/10/19 12:34 94 04/10/19 07:29 36.9 C 93 H 17 94 04/10/19 02:45 36.9 C 101 H 16 136/71 96 04/10/19 02:28 100 H 22 136/70 95 Laboratory Results Laboratory Results - last 24 hr 04/09/19 04/09/19 04/09/19 19:00 19:00 19:00 WBC 52.55 H* RBC 5.42 H Hgb 15.7 Hct 46.6 MCV 86.0 MCH 29.0 MCHC 33.7 RDW Std Deviation 47.7 H RDW Coeff of Tiffany 15.3 H Plt Count 164 MPV 9.2 Neutrophils % (Manual) 17.8 Lymphocytes % (Manual) 79.4 Monocytes % (Manual) 2.0 Eosinophils % (Manual) 0.4 Blast Cells % (Manual) 0.4 Neutrophils # (Manual) 9.35 H Total Absolute Neuts 9.35 H Lymphocytes # (Manual) 41.72 H Total Abs Lymphocytes 41.72 H Monocytes # (Manual) 1.05 H Eosinophils # (Manual) 0.21 Blast Cells # (Man) 0.21 H Smudge Cells Present Blood Smear Review Ovalocytes 1+ Echinocytes PT 11.2 INR 1.1 APTT 32.9 H PTT Ratio 1.2 Sodium 137 Potassium 4.0 Chloride 101 Carbon Dioxide 25 Anion Gap 11.0 BUN 16 Creatinine 0.95 Est Cr Clr Drug Dosing 43.2 Est GFR ( Amer) 62.9 Est GFR (Non-Af Amer) 54.2 BUN/Creatinine Ratio 17.4 Glucose 100 H Calcium 9.5 Phosphorus Magnesium Total Bilirubin 1.4 H AST 45 H ALT 35 Alkaline Phosphatase 116 Total Creatine Kinase Troponin I Total Protein 7.4 Albumin 4.3 Globulin 3.1 Albumin/Globulin Ratio 1.4 TSH Urine Color Urine Appearance Urine pH Ur Specific [place] Urine Protein Urine Glucose (UA) Urine Ketones Urine Blood Urine Nitrite Urine Bilirubin Urine Urobilinogen Ur Leukocyte Esterase Urine WBC (Auto) Urine RBC (Auto) U Hyaline Cast (Auto) U Epithel Cells (Auto) Urine Bacteria (Auto) Urine Yeast 04/09/19 04/09/19 04/09/19 19:00 19:00 23:10 WBC RBC Hgb Hct MCV MCH MCHC RDW Std Deviation RDW Coeff of Tiffany Plt Count MPV Neutrophils % (Manual) Lymphocytes % (Manual) Monocytes % (Manual) Eosinophils % (Manual) Blast Cells % (Manual) Neutrophils # (Manual) Total Absolute Neuts Lymphocytes # (Manual) Total Abs Lymphocytes Monocytes # (Manual) Eosinophils # (Manual) Blast Cells # (Man) Smudge Cells Blood Smear Review Ovalocytes Echinocytes PT INR APTT PTT Ratio Sodium Potassium Chloride Carbon Dioxide Anion Gap BUN Creatinine Est Cr Clr Drug Dosing Est GFR ( Amer) Est GFR (Non-Af Amer) BUN/Creatinine Ratio Glucose Calcium Phosphorus 3.2 Magnesium 2.0 Total Bilirubin AST ALT Alkaline Phosphatase Total Creatine Kinase 483 H Troponin I 0.030 Total Protein Albumin Globulin Albumin/Globulin Ratio TSH 2.410 Urine Color Yellow Urine Appearance Cloudy A Urine pH 5.0 Ur Specific [place] 1.017 Urine Protein 1+ H Urine Glucose (UA) Negative Urine Ketones 2+ H Urine Blood 3+ H Urine Nitrite Positive A Urine Bilirubin Negative Urine Urobilinogen Negative Ur Leukocyte Esterase 3+ H Urine WBC (Auto) >30 H Urine RBC (Auto) 10-30 H U Hyaline Cast (Auto) 1-5 U Epithel Cells (Auto) 10-20 H Urine Bacteria (Auto) 2+ H Urine Yeast Not Reportable 04/10/19 04/10/19 04/10/19 06:12 06:12 07:22 WBC 57.04 H* RBC 4.66 Hgb 13.2 Hct 39.8 MCV 85.4 MCH 28.3 MCHC 33.2 RDW Std Deviation 47.8 H RDW Coeff of Tiffany 15.6 H Plt Count 149 MPV 9.1 Neutrophils % (Manual) 11.6 Lymphocytes % (Manual) 84.3 Monocytes % (Manual) 4.1 Eosinophils % (Manual) Blast Cells % (Manual) Neutrophils # (Manual) 6.62 H Total Absolute Neuts 6.62 H Lymphocytes # (Manual) 48.08 H Total Abs Lymphocytes 48.08 H Monocytes # (Manual) 2.34 H Eosinophils # (Manual) Blast Cells # (Man) Smudge Cells Present Blood Smear Review Ovalocytes Echinocytes 1+ PT INR APTT PTT Ratio Sodium 139 Potassium 3.9 Chloride 107 Carbon Dioxide 24 Anion Gap 8.0 BUN 18 Creatinine 1.00 Est Cr Clr Drug Dosing 38.4 Est GFR ( Amer) 59.1 Est GFR (Non-Af Amer) 51.0 BUN/Creatinine Ratio 17.6 Glucose 100 H Calcium 8.2 L Phosphorus Magnesium Total Bilirubin AST ALT Alkaline Phosphatase Total Creatine Kinase 237 H Troponin I Total Protein Albumin Globulin Albumin/Globulin Ratio TSH Urine Color Urine Appearance Urine pH Ur Specific [place] Urine Protein Urine Glucose (UA) Urine Ketones Urine Blood Urine Nitrite Urine Bilirubin Urine Urobilinogen Ur Leukocyte Esterase Urine WBC (Auto) Urine RBC (Auto) U Hyaline Cast (Auto) U Epithel Cells (Auto) Urine Bacteria (Auto) Urine Yeast Medications Administered Current Inpatient Medications Al Hydrox/Mg Hydrox/Simethicone (Maalox) 30 ml PO Q6H PRN PRN Reason: Dyspepsia Stop: 05/10/19 02:59 Amiodarone HCl (Cordarone) 200 mg PO DAILY [facility] Stop: 05/10/19 08:59 Last Admin: 04/10/19 08:58 Dose: 200 mg Documented by: Apixaban (Eliquis) 5 mg PO BID [facility] Stop: 05/10/19 08:59 Last Admin: 04/10/19 08:58 Dose: 5 mg Documented by: Sodium Chloride (Nss 1000ml) 1,000 mls @ 80 mls/hr IV .[id number] [facility] Stop: 05/10/19 02:59 Last Admin: 04/10/19 03:46 Dose: 80 mls/hr Documented by: Ceftriaxone Sodium 1,000 mg/ (Dextrose) 60 mls @ 100 mls/hr IV DAILY [facility]; Protocol Stop: 04/15/19 08:59 Last Infusion: 04/10/19 09:35 Dose: Infused Documented by: Magnesium Hydroxide (Milk Of Magnesia) 30 ml PO Q6H PRN PRN Reason: Constipation Stop: 05/10/19 02:59 Metoprolol Tartrate (Lopressor) 100 mg PO BID [facility] Stop: 05/10/19 08:59 Last Admin: 04/10/19 08:58 Dose: 100 mg Documented by: Multivitamins (Multivitamin Tab) 1 tab PO QDL [facility] Stop: 05/10/19 11:29 Last Admin: 04/10/19 12:54 Dose: 1 tab Documented by: Ondansetron HCl (Zofran) 4 mg IV Q6H PRN PRN Reason: Nausea Stop: 05/10/19 02:59 Polyethylene Glycol (Miralax Powder Packet) 17 gm PO DAILY PRN PRN Reason: Constipation Stop: 05/10/19 02:59 Sertraline HCl (Zoloft) 100 mg PO QAM [facility] Stop: 05/10/19 08:59 Last Admin: 04/10/19 08:59 Dose: 100 mg Documented by: Tramadol HCl (Ultram) 50 mg PO BID PRN PRN Reason: Pain Stop: 05/10/19 01:55 Resident Activity Tracking Resident Involvement: Resident Care Provided Care Provided: Adult [facility] Medicine
[2019-04-10] MEDS: TRAMADOL HCL 50 MG TABLET PO PRN (21:44)
[2019-04-11 08:46] LABS: Albumin Level 3.3 gm/dl (3.4-5.0); BUN Creatinine Ratio 24.4 (10-20); Calcium 8.9 mg/dl (8.5-10.1); Creatinine Clr Calc Pharmacy 36.9 ml/min; Est GFR (African American) 56.3; Est GFR (Non-African American) 48.6; Potassium 4.3 mmol/L (3.5-5.1)
[2019-04-11] MEDS: METOPROLOL TARTRATE 100 MG TAB PO SCH ×2 (08:50→21:29)
[2019-04-11] MEDS: APIXABAN 5 MG TABLET PO SCH ×2 (08:50→21:30)
[2019-04-11] MEDS: SERTRALINE HCL 100 MG TABLET PO SCH (08:50)
[2019-04-11] MEDS: AMIODARONE 200 MG TAB PO SCH (08:51)
[2019-04-11] MEDS: cefTRIAXone SODIUM 1,000 MG in DEXTROSE 5% 50 ML IV SCH (08:51)
[2019-04-11 08:53] LABS: Bilirubin,Total 0.6 mg/dl (0.2-1); Globulin 3.2 gm/dl (2.5-4.0); Total Protein 6.5 gm/dl (6.4-8.2)
[2019-04-11 09:47] LABS: Hemoglobin 13.7 g/dL (12.0-16.0); Mean Corpuscular Hgb Conc 31.9 g/dL (32-36); Mean Platelet Volume 9.3 fL (7.4-10.4); Platelet Count 151 K/uL (130-400); RDW Coefficient of Variation 15.8 % (11.5-14.5); RDW Standard Deviation 50.4 fL (36.4-46.3); Red Blood Count 4.94 M/uL (4.2-5.4); White Blood Count 64.86 K/uL (4.8-10.8)
[2019-04-11 09:50] LABS: ALC (manual) 60.13 K/uL (1.2-3.4); Lymphocytes # (manual) 60.13 K/uL (1.2-3.4); Lymphocytes % (manual) 92.7 %; Monocytes # (manual) 0.52 K/uL (0.11-0.59); Monocytes % (manual) 0.8 %; Neutrophils % (manual) 6.5 %; Smudge Cells Present
[2019-04-11] MEDS: DICLOFENAC SOD 1% GEL 100 GM TUBE EXT SCH ×2 (11:48→21:30)
[2019-04-11] MEDS: MULTIVITAMIN TAB PO SCH (11:48)
--- NOTE | 2019-04-11 18:56 | Family Medicine Progress Note ---
Date of Service April 11, 2019 Assessment & Plan (1) UTI (urinary tract infection): 88 yo F PMH CLL, Aflutter, HTN, Depression presents with acute confusional state found to have UTI. Altered Mental State/UTI/Fatigue -Mentation clear today. -Likely AMS related to UTI. Unlikely to be related to med mismanagement. Labs unremarkable -Rocephin for UTI. Urine cx: E. Coli. Sensitivities to follow. Will transition to PO on d/c -IVF NSS dc'd, tolerating PO intake -cont PT/OT Atrial flutter -Continue with amiodarone 200 daily, apixaban. Pt follows with Dr. Darby CLL -Numbers appear at baseline WBC (40-70). Follows with heme onc. HTN -Cont with metoprolol 100 BID OA -Cont home tramadol 50 BID prn Depression -Cont Sertraline 100 daily CKDIII -Appears at baseline/normal -IVF dc as above B/L Posterior Knee Pain -likely from fall [employer] -Improved with heat pad, but machine broke and no spares in hospital -Voltaren gel today -no concern for DVT's FEN/GI: Heart Healthy Diet Code: DNR/DNI DVT Prophylaxis: Apixaban 5 BID Dispo: Cont on med surg. Pt lives alone at home, single floor. PT/OT: pt does not appear safe to return home, would benefit from inpt rehab. CM working on [employer] insurance auth. Likely d/c tomorrow (2) Syncope: (3) Hypertension: (4) Dyslipidemia: (5) Atrial flutter: (6) Weakness: Supervising Physician Co-Signing Physician Notes Resident Physician Supervision Note: I independently interviewed and examined the patient and verified the valadez history and physical, reviewed labs and image studies, discussed the case with the resident Dr. Lozano and agree with the findings and care plan. Subjective 88 y/o F found in bed this AM in NAD. No reported overnight events. Pt states feels better, less confused. Pt is A&Ox3. Denies SOB, CP, JUÁREZ. Only complaint of feeling weak/fatigued. Still issue of behind knee pain that was helped with heating pad before it broke. Tolerating PO intake. No issues voiding. No other acute concerns or complaints. Review of Systems Review of Systems: All systems reviewed & are unremarkable except as noted in HPI & below Physical Exam Constitutional: + thin Eyes: PERRL, conjunctivae normal, anicteric sclerae ENMT: external ear and nose normal, oropharynx normal Respiratory: normal respiratory effort, lungs clear to auscultation Cardiovascular: RRR, no murmur, no edema Gastrointestinal (Abdomen): normal bowel sounds, soft, nontender, no hepatosplenomegaly Musculoskeletal: tenderness behind b/l knees Skin: no rashes, warm and dry Psychiatric: A+Ox3, euthymic affect Results & Data Vital Signs (Past 12 Hours) Vital Signs Temp Pulse Pulse Resp BP Pulse Ox 04/11/19 15:15 36.8 C 59 L 19 145/68 H 92 04/11/19 07:30 37.0 C 60 15 127/64 94 Laboratory Results Laboratory Results - last 24 hr 04/11/19 04/11/19 07:49 07:49 WBC 64.86 H* RBC 4.94 Hgb 13.7 Hct 43.0 MCV 87.0 MCH 27.7 MCHC 31.9 L RDW Std Deviation 50.4 H RDW Coeff of Tiffany 15.8 H Plt Count 151 MPV 9.3 Neutrophils % (Manual) 6.5 Lymphocytes % (Manual) 92.7 Monocytes % (Manual) 0.8 Neutrophils # (Manual) 4.22 Total Absolute Neuts 4.22 Lymphocytes # (Manual) 60.13 H Total Abs Lymphocytes 60.13 H Monocytes # (Manual) 0.52 Smudge Cells Present Sodium 143 Potassium 4.3 Chloride 112 H Carbon Dioxide 23 Anion Gap 8.0 BUN 25 H Creatinine 1.04 Est Cr Clr Drug Dosing 36.9 Est GFR ( Amer) 56.3 Est GFR (Non-Af Amer) 48.6 BUN/Creatinine Ratio 24.4 H Glucose 102 H Calcium 8.9 Total Bilirubin 0.6 D AST 25 ALT 25 Alkaline Phosphatase 84 Total Protein 6.5 Albumin 3.3 L Globulin 3.2 Albumin/Globulin Ratio 1.0 Medications Administered Current Inpatient Medications Al Hydrox/Mg Hydrox/Simethicone (Maalox) 30 ml PO Q6H PRN PRN Reason: Dyspepsia Stop: 05/10/19 02:59 Amiodarone HCl (Cordarone) 200 mg PO DAILY [facility] Stop: 05/10/19 08:59 Last Admin: 04/11/19 08:51 Dose: 200 mg Documented by: Apixaban (Eliquis) 5 mg PO BID [facility] Stop: 05/10/19 08:59 Last Admin: 04/11/19 08:50 Dose: 5 mg Documented by: Diclofenac Sodium (Voltaren 1% Top) 1 appln EXT BID [facility] Stop: 05/11/19 08:59 Last Admin: 04/11/19 11:48 Dose: 1 appln Documented by: Ceftriaxone Sodium 1,000 mg/ (Dextrose) 60 mls @ 100 mls/hr IV DAILY [facility]; Protocol Stop: 04/15/19 08:59 Last Infusion: 04/11/19 10:30 Dose: Infused Documented by: Magnesium Hydroxide (Milk Of Magnesia) 30 ml PO Q6H PRN PRN Reason: Constipation Stop: 05/10/19 02:59 Metoprolol Tartrate (Lopressor) 100 mg PO BID [facility] Stop: 05/10/19 08:59 Last Admin: 04/11/19 08:50 Dose: 100 mg Documented by: Multivitamins (Multivitamin Tab) 1 tab PO QDL [facility] Stop: 05/10/19 11:29 Last Admin: 04/11/19 11:48 Dose: 1 tab Documented by: Ondansetron HCl (Zofran) 4 mg IV Q6H PRN PRN Reason: Nausea Stop: 05/10/19 02:59 Polyethylene Glycol (Miralax Powder Packet) 17 gm PO DAILY PRN PRN Reason: Constipation Stop: 05/10/19 02:59 Sertraline HCl (Zoloft) 100 mg PO QAM [facility] Stop: 05/10/19 08:59 Last Admin: 04/11/19 08:50 Dose: 100 mg Documented by: Tramadol HCl (Ultram) 50 mg PO BID PRN PRN Reason: Pain Stop: 05/10/19 01:55 Last Admin: 04/10/19 21:44 Dose: 50 mg Documented by: Resident Activity Tracking Resident Involvement: Resident Care Provided Care Provided: Adult Hospital Medicine (1) UTI (urinary tract infection) Hematuria presence: without hematuria Urinary tract infection type: site unspecified Qualified Code(s): N39.0 - Urinary tract infection, site not specified (2) Syncope Syncope type: unspecified Qualified Code(s): R55 - Syncope and collapse
[2019-04-12 07:04] LABS: Hematocrit (blood only) 43.3 % (37-47); Hemoglobin 13.9 g/dL (12.0-16.0); Mean Corpuscular Hgb Conc 32.1 g/dL (32-36); Mean Corpuscular Volume 86.6 fL (80-100); Mean Platelet Volume 9.1 fL (7.4-10.4); Platelet Count 146 K/uL (130-400); RDW Coefficient of Variation 15.7 % (11.5-14.5); RDW Standard Deviation 49.4 fL (36.4-46.3); White Blood Count 60.69 K/uL (4.8-10.8)
[2019-04-12 07:17] LABS: Albumin Level 3.4 gm/dl (3.4-5.0); BUN Creatinine Ratio 21.2 (10-20); Calcium 8.5 mg/dl (8.5-10.1); Creatinine Clr Calc Pharmacy 33.4 ml/min; Est GFR (African American) 49.9
[2019-04-12 07:23] LABS: Bilirubin,Total 0.4 mg/dl (0.2-1); Globulin 3.3 gm/dl (2.5-4.0); Total Protein 6.7 gm/dl (6.4-8.2)
[2019-04-12 07:53] LABS: ALC (manual) 55.47 K/uL (1.2-3.4); Eosinophils # (manual) 0.55 K/uL (0-0.5); Eosinophils % (manual) 0.9 %; Lymphocytes # (manual) 55.47 K/uL (1.2-3.4); Lymphocytes % (manual) 91.4 %; Monocytes # (manual) 2.06 K/uL (0.11-0.59); Monocytes % (manual) 3.4 %; Neutrophils % (manual) 4.3 %; Smudge Cells Present
[2019-04-12] MEDS: DICLOFENAC SOD 1% GEL 100 GM TUBE EXT SCH ×2 (09:07→21:00)
[2019-04-12] MEDS: METOPROLOL TARTRATE 100 MG TAB PO SCH ×2 (09:08→21:00)
[2019-04-12] MEDS: SERTRALINE HCL 100 MG TABLET PO SCH (09:08)
[2019-04-12] MEDS: APIXABAN 5 MG TABLET PO SCH ×2 (09:08→21:00)
[2019-04-12] MEDS: AMIODARONE 200 MG TAB PO SCH (09:08)
[2019-04-12] MEDS: cefTRIAXone SODIUM 1,000 MG in DEXTROSE 5% 50 ML IV SCH (09:09)
[2019-04-12] MEDS: MULTIVITAMIN TAB PO SCH (12:44)
[2019-04-12] MEDS: LACTOBACILLUS ACIDOPHILUS (FLORANEX) TAB PO SCH ×3 (12:45→20:59)
--- NOTE | 2019-04-12 15:03 | Family Medicine Progress Note ---
Date of Service April 12, 2019 Assessment & Plan (1) UTI (urinary tract infection): 88 yo F PMH CLL, Aflutter, HTN, Depression presents with acute confusional state found to have UTI. Metabolic Encephalopathy secondary to UTI -Mentation clear today -Likely AMS related to UTI. Unlikely to be related to med mismanagement. Labs unremarkable -Rocephin for UTI. Urine cx: E. Coli- pansensitive. Will transition to PO on d/c -IVF NSS dc'd, tolerating PO intake -cont PT/OT Diarrhea -likely 2/2 antibiotic. Probiotic ordered Atrial flutter -Continue with amiodarone 200 daily, apixaban. Pt follows with Dr. Darby CLL -Numbers appear at baseline WBC (40-70). Follows with heme onc. HTN -Cont with metoprolol 100 BID OA -Cont home tramadol 50 BID prn Depression -Cont Sertraline 100 daily CKDIII -Appears at baseline/normal -IVF dc as above B/L Posterior Knee Pain -Improved. Likely from fall [employer] -Improved with heat pad, but machine broke and no spares in hospital -Voltaren gel -no concern for DVT's FEN/GI: Heart Healthy Diet Code: DNR/DNI DVT Prophylaxis: Apixaban 5 BID Dispo: Cont on med surg. Pt lives alone at home, single floor. PT/OT: pt does not appear safe to return home, would benefit from inpt rehab. CM working on [employer] insurance auth. Other options presented to pt but she does not want to go to snf, would rather go home with home health. Likely d/c tomorrow (2) Syncope: (3) Hypertension: (4) Dyslipidemia: (5) Atrial flutter: (6) Weakness: Supervising Physician Co-Signing Physician Notes Resident Physician Supervision Note: I independently interviewed and examined the patient and verified the valadez history and physical, reviewed labs and image studies, discussed the case with the resident Dr. Lozano and agree with the findings and care plan. Subjective 88 y/o F found in bed this AM in NAD. No reported overnight events. Mentation normal. Pt is A&Ox3. Denies SOB, CP, JUÁREZ. Improved issue of behind knee pain. Tolerating PO intake. No issues voiding. No other acute concerns or complaints. Review of Systems Review of Systems: All systems reviewed & are unremarkable except as noted in HPI & below Physical Exam Constitutional: + thin Eyes: PERRL, conjunctivae normal, anicteric sclerae ENMT: external ear and nose normal, oropharynx normal Respiratory: normal respiratory effort, lungs clear to auscultation Cardiovascular: RRR, no murmur, no edema Gastrointestinal (Abdomen): normal bowel sounds, soft, nontender, no hepatospl enomegaly Skin: no rashes, warm and dry Psychiatric: A+Ox3, euthymic affect Results & Data Vital Signs (Past 12 Hours) Vital Signs Temp Pulse Resp BP Pulse Ox 04/12/19 06:58 37 C 64 17 158/66 H 95 Laboratory Results Laboratory Results - last 24 hr 04/12/19 04/12/19 06:25 06:25 WBC 60.69 H* RBC 5.00 Hgb 13.9 Hct 43.3 MCV 86.6 MCH 27.8 MCHC 32.1 RDW Std Deviation 49.4 H RDW Coeff of Tiffany 15.7 H Plt Count 146 MPV 9.1 Neutrophils % (Manual) 4.3 Lymphocytes % (Manual) 91.4 Monocytes % (Manual) 3.4 Eosinophils % (Manual) 0.9 Neutrophils # (Manual) 2.61 Total Absolute Neuts 2.61 Lymphocytes # (Manual) 55.47 H Total Abs Lymphocytes 55.47 H Monocytes # (Manual) 2.06 H Eosinophils # (Manual) 0.55 H Smudge Cells Present Sodium 142 Potassium 4.0 Chloride 111 H Carbon Dioxide 26 Anion Gap 5.0 BUN 24 H Creatinine 1.15 Est Cr Clr Drug Dosing 33.4 Est GFR ( Amer) 49.9 Est GFR (Non-Af Amer) 43.0 BUN/Creatinine Ratio 21.2 H Glucose 97 Calcium 8.5 Total Bilirubin 0.4 AST 22 ALT 25 Alkaline Phosphatase 81 Total Protein 6.7 Albumin 3.4 Globulin 3.3 Albumin/Globulin Ratio 1.0 Medications Administered Current Inpatient Medications Al Hydrox/Mg Hydrox/Simethicone (Maalox) 30 ml PO Q6H PRN PRN Reason: Dyspepsia Stop: 05/10/19 02:59 Amiodarone HCl (Cordarone) 200 mg PO DAILY [facility] Stop: 05/10/19 08:59 Last Admin: 04/12/19 09:08 Dose: 200 mg Documented by: Apixaban (Eliquis) 5 mg PO BID [facility] Stop: 05/10/19 08:59 Last Admin: 04/12/19 09:08 Dose: 5 mg Documented by: Diclofenac Sodium (Voltaren 1% Top) 1 appln EXT BID [facility] Stop: 05/11/19 08:59 Last Admin: 04/12/19 09:07 Dose: 1 appln Documented by: Ceftriaxone Sodium 1,000 mg/ (Dextrose) 60 mls @ 100 mls/hr IV DAILY [facility]; Protocol Stop: 04/15/19 08:59 Last Infusion: 04/12/19 09:45 Dose: Infused Documented by: Lactobacillus Acidophilus (Floranex) 4 tab PO QIDM [facility] Stop: 05/12/19 11:59 Last Admin: 04/12/19 12:45 Dose: 4 tab Documented by: Magnesium Hydroxide (Milk Of Magnesia) 30 ml PO Q6H PRN PRN Reason: Constipation Stop: 05/10/19 02:59 Metoprolol Tartrate (Lopressor) 100 mg PO BID [facility] Stop: 05/10/19 08:59 Last Admin: 04/12/19 09:08 Dose: 100 mg Documented by: Multivitamins (Multivitamin Tab) 1 tab PO QDL [facility] Stop: 05/10/19 11:29 Last Admin: 04/12/19 12:44 Dose: 1 tab Documented by: Ondansetron HCl (Zofran) 4 mg IV Q6H PRN PRN Reason: Nausea Stop: 05/10/19 02:59 Polyethylene Glycol (Miralax Powder Packet) 17 gm PO DAILY PRN PRN Reason: Constipation Stop: 05/10/19 02:59 Sertraline HCl (Zoloft) 100 mg PO QAM [facility] Stop: 05/10/19 08:59 Last Admin: 04/12/19 09:08 Dose: 100 mg Documented by: Tramadol HCl (Ultram) 50 mg PO BID PRN PRN Reason: Pain Stop: 05/10/19 01:55 Last Admin: 04/10/19 21:44 Dose: 50 mg Documented by: Resident Activity Tracking Resident Involvement: Resident Care Provided Care Provided: Adult Hospital Medicine (1) UTI (urinary tract infection) Hematuria presence: without hematuria Urinary tract infection type: site unspecified Qualified Code(s): N39.0 - Urinary tract infection, site not specified (2) Syncope Syncope type: unspecified Qualified Code(s): R55 - Syncope and collapse
--- NOTE | 2019-04-13 07:08 | Family Medicine Progress Note ---
Date of Service April 13, 2019 Assessment & Plan (1) Altered mental state: 88 yo F PMH CLL, Aflutter, HTN, Depression presents with acute confusional state found to have UTI. Metabolic Encephalopathy secondary to UTI -Pt conversant and AAOx2 this morning, unsure of the year and date. Improved from admission. -Likely AMS related to UTI. Unlikely to be related to med mismanagement. Labs unremarkable -CT Head with no acute changes. However, persistent "Expansile right maxillary polyp/mass" noted. Will advise f/u on discharge. -Currently on Rocephin for UTI. For discharge will transition to PO with least diarrheal side effect potential. -Pt with pansensitivity after E. coli culture. Based on c. diff results (see below) might need to transition to less diarrhea causing abx for treatment. -cont PT/OT Diarrhea -New onset in hospital after abx treatment. -will rule out c.diff -currently on probiotics which seem to be helping -will continue to monitor. Atrial flutter -Continue with amiodarone 200 daily, apixaban. -Pt follows with Dr. Darby- will need to make new appt on discharge as pt states she missed one with him while hospitalized. CLL -Numbers appear at baseline WBC (40-70). Follows with heme onc. HTN -Pt with consistently elevated BPs while hospitalized -On Lopressor 100mg BID -Elevation likely to acute hospital stressor -Will continue to monitor before working up further or starting another med. -Cont with metoprolol 100 BID presently. OA -Cont home tramadol 50 BID prn Depression -Cont Sertraline 100 daily CKDIII -Appears at baseline/normal B/L Posterior Knee Pain -Improved. Likely from fall [employer] -Improved with heat pad, but machine broke and no spares in hospital -Voltaren gel -no concern for DVT's FEN/GI: Heart Healthy Diet Code: DNR/DNI DVT Prophylaxis: Apixaban 5 BID Dispo: Home with home health services. Supervising Physician Co-Signing Physician Notes Resident Physician Supervision Note: I independently interviewed and examined the patient and verified the valadez history and physical, reviewed labs and image studies, discussed the case with t resident Dr. Reilly and agree with the findings and care plan. Subjective Ms. Schulz stated that she felt a bit tired this morning. Also complains of diarrhea with one episode yesterday and 2 overnight. States the probiotic has been helping. Denies headache, blurry vision, SOB, chest pain, N/V, abdominal pain. Admits to some calf tenderness bilaterally. Review of Systems Review of Systems: All systems reviewed & are unremarkable except as noted in HPI & below Physical Exam Physical Exam: General: Alert, orientedx2 (person and place) HEENT: NC/AT, PERRLA, EOMI, oropharynx moist. Chest: Nontender to palpation. CV: RRR, No murmurs appreciated Resp: Breath sounds clear bilaterally, no increased effort of breathing. Abdomen: Soft, nontender, nondistended. Extremities: No edema in lower extremities bilaterally. Calf tenderness bilaterally. Results & Data Vital Signs (Past 12 Hours) Vital Signs Temp Pulse Pulse Resp BP BP Pulse Ox 04/12/19 23:53 36.3 C L 58 L 19 159/75 H 94 04/12/19 20:57 62 174/84 H Laboratory Results Laboratory Results - last 24 hr 04/13/19 04/13/19 04/13/19 06:47 06:47 13:47 WBC 58.52 H* RBC 4.79 Hgb 13.5 Hct 41.4 MCV 86.4 MCH 28.2 MCHC 32.6 RDW Std Deviation 49.3 H RDW Coeff of Tiffany 15.5 H Plt Count 142 MPV 9.1 Immature Gran % (Auto) 0.1 Neut % (Auto) 8.3 Lymph % (Auto) 88.8 [place] % (Auto) 2.2 Eos % (Auto) 0.4 Baso % (Auto) 0.2 Immature Gran # (Auto) 0.08 H Neut # (Auto) 4.78 Lymph # (Auto) 51.98 H [place] # (Auto) 1.29 H Eos # (Auto) 0.25 Baso # (Auto) 0.14 Smudge Cells Present Sodium 143 Potassium 3.9 Chloride 111 H Carbon Dioxide 26 Anion Gap 6.0 BUN 24 H Creatinine 1.15 Est Cr Clr Drug Dosing 33.4 Est GFR ( Amer) 49.9 Est GFR (Non-Af Amer) 43.0 BUN/Creatinine Ratio 20.8 H Glucose 98 Calcium 8.8 Total Bilirubin 0.4 AST 15 ALT 23 Alkaline Phosphatase 78 Total Protein 6.4 Albumin 3.3 L Globulin 3.1 Albumin/Globulin Ratio 1.1 Stl C. diff Tox B Gene TNP Medications Administered Home Medications Eliquis 5 mg PO BID 10/12/18 [History Confirmed 04/10/19] Magnesium-Chelated Zinc 1 tab PO QDL 10/12/18 [History Confirmed 04/10/19] biotin 300 mcg PO QAM 10/12/18 [History Confirmed 04/10/19] calcium carbonate-vitamin D3 [Calcium 500 + D (D3)] 1 tab PO QAM 10/12/18 [History Confirmed 04/10/19] coenzyme Q10 [CoQ-10] 100 mg PO QDL 10/12/18 [History Confirmed 04/10/19] metoprolol tartrate 100 mg PO BID 10/12/18 [History Confirmed 04/10/19] multivitamin 1 tab PO QDL 10/12/18 [History Confirmed 04/10/19] omeprazole 40 mg PO QAM PRN 10/12/18 [History Confirmed 04/10/19] polyethylene glycol 3350 [Miralax] 17 g PO DAILY PRN 10/12/18 [History Confirmed 04/10/19] sertraline [Zoloft] 100 mg PO QAM 10/12/18 [History Confirmed 04/10/19] tramadol 50 mg PO BID PRN 10/12/18 [History Confirmed 04/10/19] amiodarone 200 mg PO DAILY 04/10/19 [History Confirmed 04/10/19] cefdinir 300 mg PO BID 12 Days #24 cap 04/11/19 [Rx] Active Medications Al Hydrox/Mg Hydrox/Simethicone (Maalox) 30 ml PO Q6H PRN PRN Reason: Dyspepsia Stop: 05/10/19 02:59 Amiodarone HCl (Cordarone) 200 mg PO DAILY [facility] Stop: 05/10/19 08:59 Last Admin: 04/13/19 08:57 Dose: 200 mg Documented by: Apixaban (Eliquis) 5 mg PO BID [facility] Stop: 05/10/19 08:59 Last Admin: 04/13/19 08:58 Dose: 5 mg Documented by: Diclofenac Sodium (Voltaren 1% Top) 1 appln EXT BID [facility] Stop: 05/11/19 08:59 Last Admin: 04/13/19 08:58 Dose: 1 appln Documented by: Ceftriaxone Sodium 1,000 mg/ (Dextrose) 60 mls @ 100 mls/hr IV DAILY [facility]; Protocol Stop: 04/15/19 08:59 Last Infusion: 04/13/19 09:48 Dose: Infused Documented by: Lactobacillus Acidophilus (Floranex) 4 tab PO QIDM [facility] Stop: 05/12/19 11:59 Last Admin: 04/13/19 13:46 Dose: 4 tab Documented by: Magnesium Hydroxide (Milk Of Magnesia) 30 ml PO Q6H PRN PRN Reason: Constipation Stop: 05/10/19 02:59 Metoprolol Tartrate (Lopressor) 100 mg PO BID [facility] Stop: 05/10/19 08:59 Last Admin: 04/13/19 08:57 Dose: 100 mg Documented by: Multivitamins (Multivitamin Tab) 1 tab PO QDL [facility] Stop: 05/10/19 11:29 Last Admin: 04/13/19 13:46 Dose: 1 tab Documented by: Ondansetron HCl (Zofran) 4 mg IV Q6H PRN PRN Reason: Nausea Stop: 05/10/19 02:59 Polyethylene Glycol (Miralax Powder Packet) 17 gm PO DAILY PRN PRN Reason: Constipation Stop: 05/10/19 02:59 Sertraline HCl (Zoloft) 100 mg PO QAM [facility] Stop: 05/10/19 08:59 Last Admin: 04/13/19 08:58 Dose: 100 mg Documented by: Tramadol HCl (Ultram) 50 mg PO BID PRN PRN Reason: Pain Stop: 05/10/19 01:55 Last Admin: 04/10/19 21:44 Dose: 50 mg Documented by: Resident Activity Tracking Resident Involvement: Resident Care Provided Care Provided: Adult Hospital Medicine
[2019-04-13 07:33] LABS: Hematocrit (blood only) 41.4 % (37-47); Hemoglobin 13.5 g/dL (12.0-16.0); Mean Corpuscular Hgb Conc 32.6 g/dL (32-36); Mean Corpuscular Volume 86.4 fL (80-100); Mean Platelet Volume 9.1 fL (7.4-10.4); Platelet Count 142 K/uL (130-400); RDW Coefficient of Variation 15.5 % (11.5-14.5); RDW Standard Deviation 49.3 fL (36.4-46.3); Red Blood Count 4.79 M/uL (4.2-5.4); White Blood Count 58.52 K/uL (4.8-10.8)
[2019-04-13 07:50] LABS: Albumin Level 3.3 gm/dl (3.4-5.0); BUN Creatinine Ratio 20.8 (10-20); Calcium 8.8 mg/dl (8.5-10.1); Creatinine Clr Calc Pharmacy 33.4 ml/min; Est GFR (African American) 49.9; Potassium 3.9 mmol/L (3.5-5.1)
[2019-04-13 07:52] LABS: Albumin Globulin Ratio 1.1 (0.9-2); Basophils # (auto) 0.14 K/uL (0-0.2); Basophils % (auto) 0.2 %; Bilirubin,Total 0.4 mg/dl (0.2-1); Eosinophils # (auto) 0.25 K/uL (0-0.5); Eosinophils % (auto) 0.4 %; Globulin 3.1 gm/dl (2.5-4.0); Immature Granulocytes # (auto) 0.08 K/uL (0.00-0.02); Immature Granulocytes % (auto) 0.1 %; Lymphocytes # (auto) 51.98 K/uL (1.2-3.4); Lymphocytes % (auto) 88.8 %; Monocytes # (auto) 1.29 K/uL (0.11-0.59); Monocytes % (auto) 2.2 %; Neutrophils # (auto) 4.78 K/uL (1.4-6.5); Neutrophils % (auto) 8.3 %; Smudge Cells Present; Total Protein 6.4 gm/dl (6.4-8.2)
[2019-04-13] MEDS: METOPROLOL TARTRATE 100 MG TAB PO SCH ×2 (08:57→20:40)
[2019-04-13] MEDS: AMIODARONE 200 MG TAB PO SCH (08:57)
[2019-04-13] MEDS: SERTRALINE HCL 100 MG TABLET PO SCH (08:58)
[2019-04-13] MEDS: APIXABAN 5 MG TABLET PO SCH ×2 (08:58→20:40)
[2019-04-13] MEDS: LACTOBACILLUS ACIDOPHILUS (FLORANEX) TAB PO SCH ×4 (08:58→20:40)
[2019-04-13] MEDS: DICLOFENAC SOD 1% GEL 100 GM TUBE EXT SCH ×2 (08:58→19:05)
[2019-04-13] MEDS: cefTRIAXone SODIUM 1,000 MG in DEXTROSE 5% 50 ML IV SCH (08:59)
[2019-04-13] MEDS: MULTIVITAMIN TAB PO SCH (13:46)
[2019-04-13] MEDS: TRAMADOL HCL 50 MG TABLET PO PRN (22:32)
[2019-04-14 07:23] LABS: BUN Creatinine Ratio 20.6 (10-20); Calcium 8.5 mg/dl (8.5-10.1); Creatinine Clr Calc Pharmacy 36.2 ml/min; Est GFR (African American) 55.1; Est GFR (Non-African American) 47.5; Potassium 3.7 mmol/L (3.5-5.1)
[2019-04-14 07:52] LABS: Hemoglobin 13.1 g/dL (12.0-16.0); Mean Corpuscular Volume 86.7 fL (80-100); Platelet Count 142 K/uL (130-400); RDW Coefficient of Variation 15.5 % (11.5-14.5); RDW Standard Deviation 49.1 fL (36.4-46.3); Red Blood Count 4.73 M/uL (4.2-5.4); White Blood Count 63.34 K/uL (4.8-10.8)
[2019-04-14 07:53] LABS: ALC (manual) 56.25 K/uL (1.2-3.4); Lymphocytes # (manual) 56.25 K/uL (1.2-3.4); Lymphocytes % (manual) 88.8 %; Monocytes # (manual) 0.57 K/uL (0.11-0.59); Monocytes % (manual) 0.9 %; Neutrophils % (manual) 10.3 %; Smudge Cells Present
[2019-04-14] MEDS: APIXABAN 5 MG TABLET PO SCH (09:05)
[2019-04-14] MEDS: SERTRALINE HCL 100 MG TABLET PO SCH (09:05)
[2019-04-14] MEDS: DICLOFENAC SOD 1% GEL 100 GM TUBE EXT SCH (09:05)
[2019-04-14] MEDS: AMIODARONE 200 MG TAB PO SCH (09:05)
[2019-04-14] MEDS: METOPROLOL TARTRATE 100 MG TAB PO SCH (09:05)
[2019-04-14] MEDS: cefTRIAXone SODIUM 1,000 MG in DEXTROSE 5% 50 ML IV SCH (09:05)
[2019-04-14] MEDS: LACTOBACILLUS ACIDOPHILUS (FLORANEX) TAB PO SCH ×2 (09:05→11:27)
[2019-04-14] MEDS: MULTIVITAMIN TAB PO SCH (11:27)
--- NOTE | 2019-04-14 12:45 | Discharge Summary ---
Date of Service April 14, 2019 Admission HPI Per Admitting Provider Patient is a pleasant 88yo F PMH Aflutter, CKDIII, CLL, depression, HTN, HLD, OA who presents via EMS after being found by son on the floor at her home, confused. Pt lives alone, and son is not present to corroborate story at this time. Patient states she had been "feeling really out of it" for a few days [employer], citing confusion, not knowing where she was or what day it was. She states she usually uses a walker but tried going to the bathroom without it as it wasn't that far and she needed to build up strength, and states she just "sandra went limp" and woke up to her son finding her. She denies lightheadedness, chest pain, vertigo, tripping, hitting head, etc surrounding the fall. She denies UTI symptoms. She is unsure of how long she was there before being found by family, stating she thinks it was 24 hours. Her daughter calls her daily, and when she did not pick up truck driver on several tries, got in touch with son in [place] who came to check on her. Patient notes that a few days ago she had been organizing her pills in her weekly organizer but they all spilled. She states she did not take any and was going to have her pharmacist help organize them. Per report, son was worried she was either taking things that were incorrect or possibly not taking some meds due to this mishap. She also notes she hasn't been eating or drinking well lately. In the ER, labs were significant for WBC of 52 (baseline 40-70 in setting of CLL), normal BMP, CK of 483, and UA showing ketones, blood, nitrites, and leuk esterase. Head CT and CXR negative. She was started on rocephin and given IVF. Patient was resting on assessment, but was disoriented to time, thinking she had already been in the hospital for 2 days. She was otherwise oriented but her thoughts were very tangential. Admission Exam Per Admitting Provider Constitutional: WD/WN, vitals as above + frail appearing, cooperative and comfortable; no acute distress Eyes: PERRL, conjunctivae normal, anicteric sclerae ENMT: external ear and nose normal, oropharynx normal Nose: + dry nasal mucous membranes Neck: normal visual inspection Respiratory: normal respiratory effort, lungs clear to auscultation Cardiovascular: RRR, no murmur, no edema Gastrointestinal (Abdomen): normal bowel sounds, soft, nontender, no hepatosplenomegaly Percussion/Palpation: + abdomen tender (suprapubic tenderness) Musculoskeletal: no cyanosis or clubbing, extremities motor strength 5/5 Skin: Bruising on arms and legs, varying degrees of healing Neurologic: PERRL, EOMI, accommodation nl, no face palsy, no dysarthria Psychiatric: Orientation: alert, oriented to person, oriented to place, oriented to time and cooperative Thought Process: + tangential thought process and + looseness of associations; + thought process not goal directed Principal Diagnosis Altered mental status, UTI Discharge Exam General: Alert, orientedx2 (person and place) HEENT: NC/AT, PERRLA, EOMI, oropharynx moist. Chest: Nontender to palpation. CV: RRR, No murmurs appreciated Resp: Breath sounds clear bilaterally, no increased effort of breathing. Abdomen: Soft, mildly tender, nondistended. Extremities: No edema in lower extremities bilaterally. Calf tenderness bilaterally. Discharge Data Allergies Allergy/AdvReac Type Severity Reaction Status Date / Time naloxone Allergy Severe TREMORS, Verified 04/09/19 23:58 DYSKINESIA acetaminophen Allergy Unknown ` Verified 04/09/19 23:58 amoxicillin Allergy Unknown ` Verified 04/09/19 23:58 clarithromycin Allergy Unknown ` Verified 04/09/19 23:58 alprazolam [From Xanax] Allergy Unknown Verified 04/10/19 02:23 doxycycline Allergy Unknown Verified 04/10/19 02:22 NSAIDS (Non-Steroidal Allergy Unknown Verified 04/10/19 02:23 Anti-Inflamma aspirin AdvReac Intermediate hISTORY OF Verified 04/09/19 23:58 ULCERS codeine AdvReac Intermediate VOMITING Verified 04/09/19 23:58 Consultations 04/09/19 23:49 ED Decision to Admit Stat 04/10/19 03:00 Consult Case Management - Discharge Planning Routine Ordered Studies 04/09/19 20:03 CT head/brain wo con Stat Hospital Course (1) Altered mental state: 88 yo F with a PMH of CLL, Aflutter, HTN, Depression who presented in an acute confusional state on 04/10/19 and was found to have a UTI. She was discharged on 04/14/19. Metabolic Encephalopathy secondary to UTI -Pt with progrssively improving mental state. Was conversant and AAOx2 on discharge. -Likely AMS related to UTI. Unlikely to be related to med mismanagement. Labs were unremarkable. -CT Head with no acute changes. -Was treated with Rocephin for UTI for 4 days and discharged on cefdinir 300mg BID for an additional 3 days. -She worked with PT/OT while hospitalized and was discharged home with home health services. Diarrhea -New onset in hospital after abx treatment. -c.diff testing could not be performed cause though she had more frequent BMs, her stool was formed. -currently on probiotics which seem to be helping. Can continue upon discharge. Expansile right maxillary polyp/mass noted on CT -Outpatient follow up Atrial flutter -Continued with amiodarone 200 daily, apixaban. -Pt follows with Dr. Darby and missed an appt while hospitalized. -Consult placed with case management for rescheduling upon discharge. -PCP followup to ensure there is no loss in continuity of care with her pipeline operator is strongly recommended as well. CLL -Numbers appear at baseline WBC (40-70). -Follows with heme onc. HTN -Pt with consistently elevated BPs while hospitalized -On Lopressor 100mg BID while hospitalized. -Elevation likely to acutely being in the hospital. -However, close PCP followup strongly recommended for further workup/or medication change. OA -Cont home tramadol 50 BID prn Depression -Cont Sertraline 100 daily CKDIII -Appeared at baseline B/L Posterior Knee Pain -Improved. Likely from fall [employer] -Improved with heat pad. -Voltaren gel -no concern for DVT -PCP followup advised. Total Time Total Time Spent Total Time Spent (In Minutes): 60 Discharge Plan Discharge Items Patient Disposition: Home - Home Health Services Reason For Visit: UTI, SYNCOPE Discharge Diagnosis: UTI, Altered mental status Discharge Goals: Improve disease control and Therapeutic intervention Activity: Per 'Additional Instructions' section Non-emergency contact: Primary Care Provider Call non-emergency contact if: you have any medication questions, your symptoms worsen and your temperature is above 101.5 Follow-up/Referrals: Henrry Hinojosa MD [Primary Care Provider] - Diet: Regular Addtl Provider Instructions: You were admitted for concerns of altered mental status and then were found to have a UTI, which we treated with antibiotics. Please follow the below instructions on discharge: -You will continue the Cefdinir antibiotic on discharge for your UTI for an additional THREE (3) more days -You are being discharged home with home health services. -Please see your PCP within one week after being discharged. Prescriptions: New cefdinir 300 mg capsule 300 mg PO BID 3 Days Qty: 6 RF: 0 Continued multivitamin Tablet 1 tab PO QDL RF: 0 metoprolol tartrate 100 mg tablet 100 mg PO BID RF: 0 sertraline [Zoloft] 100 mg tablet 100 mg PO QAM RF: 0 omeprazole 40 mg capsule,delayed release(DR/EC) 40 mg PO QAM PRN (Reason: Heartburn) RF: 0 tramadol 50 mg Tablet 50 mg PO BID PRN (Reason: Pain) RF: 0 biotin 300 mcg Tablet 300 mcg PO QAM RF: 0 polyethylene glycol 3350 [Miralax] 17 gram/dose Powder 17 g PO DAILY PRN (Reason: Constipation) RF: 0 coenzyme Q10 [CoQ-10] 100 mg Capsule 100 mg PO QDL RF: 0 calcium carbonate-vitamin D3 [Calcium 500 + D (D3)] 500 mg(1,250mg) -125 unit Tablet 1 tab PO QAM RF: 0 Eliquis 5 mg tablet 5 mg PO BID RF: 0 Magnesium-Chelated Zinc 1 tab PO QDL RF: 0 amiodarone 200 mg tablet 200 mg PO DAILY RF: 0 Stand-Alone Forms: [facility] Discharge Orders: Discharge Order (Routine); Ordered 04/14/19 Ordered By: Karolyn Reilly Admission Data Admit Date/Time: 04/10/19 02:03 Attending Provider: Stephenie Charlton Admit Provider: Enedelia Hernández Primary Care Provider: Henrry Hinojosa Other Providers: Anika Pedraza Service: Medical Other Interventions: Discharge Summary Assessment (RN) Last Done: 04/14/19 13:02 DC Date/Time DO NOT enter until pt leaves facility: 04/14/19 14:55 Supervising Physician Co-Signing Physician Notes Resident Physician Supervision Note: I independently interviewed and examined the patient and verified the valadez history and physical, reviewed labs and image studies, discussed the case with the resident Dr. Reilly and agree with the findings and care plan. Time spent in discharge 35 min Resident Activity Tracking Resident Involvement: Resident Care Provided Care Provided: Adult Hospital Medicine
== END 2019-04-14 14:55 | disposition home health service (06) | DRG 689 ==
LOC: ED 19:12 → SUATTDRO 04-10 02:03 → 3W 04-10 02:03

== ENCOUNTER 2019-05-05 01:47 | Inpatient (IN) ==
[2019-05-05] MEDS ORDERED: SODIUM CHLORIDE 0.9% 500 ML IV ONE (01:56)
[2019-05-05] MEDS ORDERED: fentaNYL citrate 100 MCG/2 ML VIAL IV STA ×2 (01:56→02:57)
[2019-05-05 02:25] LABS: Hematocrit (blood only) 45.6 % (37-47); Hemoglobin 15.2 g/dL (12.0-16.0); INR 1.1 (0.9-1.1); Mean Corpuscular Hgb Conc 33.3 g/dL (32-36); Mean Corpuscular Volume 86.7 fL (80-100); Mean Platelet Volume 9.5 fL (7.4-10.4); Partial Thromboplastin Ratio 1.2; Partial Thromboplastin Time 32.5 Seconds (21.0-31.0); Platelet Count 131 K/uL (130-400); Prothrombin Time 11.4 Seconds (9.0-12.0); RDW Coefficient of Variation 15.6 % (11.5-14.5); RDW Standard Deviation 49.6 fL (36.4-46.3); Red Blood Count 5.26 M/uL (4.2-5.4); White Blood Count 52.44 K/uL (4.8-10.8)
[2019-05-05 02:27] LABS: Appearance Urine Clear (Clear); Bacteria Urine Automated Negative (Negative); Bilirubin Urine Negative (Negative); Blood Urine Trace (Negative); Color Urine Yellow; Glucose Urine UA Negative (Negative); Ketones Urine Negative (Negative); Leukocyte Esterase Urine Negative (Negative); Nitrite Urine Negative (Negative); Specific Gravity Urine 1.015 (1.000-1.030); Urobilinogen Urine Negative (Negative)
[2019-05-05 02:31] LABS: Protein Urine Negative (Negative)
[2019-05-05 02:32] LABS: BUN Creatinine Ratio 15.1 (10-20); Creatinine Clr Calc Pharmacy 31.7 ml/min; Est GFR (Non-African American) 39.7
[2019-05-05 02:58] LABS: Lymphocytes % (manual) 75.7 %; Monocytes # (manual) 0.89 K/uL (0.11-0.59); Monocytes % (manual) 1.7 %; Neutrophils % (manual) 22.6 %; Smudge Cells Present
[2019-05-05] MEDS ORDERED: HYDROmorphone INJ 0.5 MG/0.5 ML SYR IV STA ×2 (03:33→06:37)
--- NOTE | 2019-05-05 03:56 | History & Physical Report ---
Date of Service May 05, 2019 Assessment & Plan (1) Fracture of right hip: Fracture right hip- Admit to [facility] with telemetry. Acetaminophen 1 g IV every 8 hours as needed mild pain or temperature. Dilaudid 0.5 mg IV every 3 hours as needed severe pain. Zofran 4 mg IV every 6 hours as needed nausea vomiting. Famotidine 20 mg IV every 12 hours. We will need to hold Eliquis 5 mg p.o. twice daily. NSS + KCl 20 mEq at 100 mils per hour. Consult orthopedic surgery Dr. Corey Pedraza. Present on Admission?: Yes (2) Atrial fibrillation/flutter: Atrial fibrillation/flutter/hypertension- Continue amiodarone 200 mg p.o. daily and metoprolol tartrate 100 mg p.o. twice daily with hold parameters. Hold amlodipine. Admit to [facility] with telemetry in the event that negative inotropic medications IV are needed. Present on Admission?: Yes (3) Chronic lymphocytic leukemia (CLL), B-cell: WBC 52.44 upon admission, is within her range. Follow serially. Present on Admission?: Yes (4) Hypertension: See above. Present on Admission?: Yes (5) Depression: On sertraline 100 mg p.o. every morning. Hold this morning of going to surgery, otherwise may administer. Present on Admission?: Yes (6) Acute kidney injury (nontraumatic): Creatinine 1.23. Baseline is 0.95-1.19. IV fluids and follow. Present on Admission?: Yes History of Present Illness Chief Complaint: The patient reports that she was bending down to turn a fan on, and when she attempted to stand up, she fell backward, with her right hip hitting and putting a dent in the wall behind her. She denies loss of consciousness, and has no other complaints other than severe immediate right hip and groin pain. Primary Care Provider: Henrry Hinojosa MD The patient is an 88-year-old female with a past medical history including atrial fibrillation/flutter on apixaban for anticoagulation, CHF, hypertension, CLL, depression and recent admission for altered mental status due to UTI from 04/10-04/14/2019. She reports that she was leaning forward to turn a fan on that was on the floor, and when she went to stand up she kept going backwards, and her right hip hit the wall behind her hard enough to put a dent in the wall. She had an immediate pain in her right hip and groin area. She has no other complaints. Allergies Allergy/AdvReac Type Severity Reaction Status Date / Time naloxone Allergy Severe TREMORS, Verified 05/05/19 03:14 DYSKINESIA acetaminophen Allergy Unknown ` Verified 05/05/19 03:14 amoxicillin Allergy Unknown ` Verified 05/05/19 03:14 clarithromycin Allergy Unknown ` Verified 05/05/19 03:14 alprazolam [From Xanax] Allergy Unknown Verified 05/05/19 03:14 doxycycline Allergy Unknown Verified 05/05/19 03:14 NSAIDS (Non-Steroidal Allergy Unknown Verified 05/05/19 03:14 Anti-Inflamma aspirin AdvReac Intermediate hISTORY OF Verified 05/05/19 03:14 ULCERS codeine AdvReac Intermediate VOMITING Verified 05/05/19 03:14 Home Medications Home Medications Medication Instructions Recorded Confirmed Type Eliquis 5 mg PO BID 10/12/18 05/05/19 History metoprolol tartrate 100 mg PO BID 10/12/18 05/05/19 History sertraline [Zoloft] 100 mg PO QAM 10/12/18 05/05/19 History amiodarone 200 mg PO DAILY 04/10/19 05/05/19 History Calcium 750+D+K 1 tab PO DAILY 05/05/19 05/05/19 History amlodipine 2.5 mg PO DAILY 05/05/19 05/05/19 History [id number]-[id number]-XD-lycopen-lutein 1 tab PO DAILY 05/05/19 05/05/19 History [Centrum Silver] Past Med/Surg History Medical History Chronic lymphocytic leukemia (CLL), 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 Managed with observation. Absolute leukocyte count has fluctuated from 40-70K. Followed by Heme/Onc A-fib Atrial flutter CKD (chronic kidney disease) HTN (hypertension) History of hysterectomy Surgical History History of hip replacement History of shoulder surgery History of tonsillectomy Family History Sister Cancer Mother Hypertension Father Hypertension Social History Preferred Language: Luxembourgish Communication Ability: Effective Beliefs That Will Affect Care: None marital status: / Current Living Situation: Alone Feels Safe at Home: Yes Smoking Status: Never smoker Second Hand Exposure: No Hx Alcohol Use: No Hx Substance Use: No Review of Systems Review of Systems: The patient denies chest pain, palpitations, shortness of breath, dyspnea on exertion, cough, lower extremity swelling, sore throat, fevers, chills, sweats, weight change, fatigue, nausea, vomiting, diarrhea , constipation, abdominal pain, pelvic pain, blood in urine or stool, dysuria, urinary frequency or urgency, lightheadedness, dizziness, headache, memory loss, loss of consciousness, rash, abnormal bruising or bleeding, focal or generalized weakness, numbness or tingling in arms, generalized arthralgias or myalgias, back or neck pain, or night sweats. The review of systems is otherwise negative other than for that already noted above, and at least 10 systems have been reviewed. Physical Exam Physical Exam: The patient is awake, alert and oriented 3, well developed and well nourished, normocephalic and atraumatic, lying in bed and in intermittent moderate distress secondary to hip pain. HEENT--PERRL, EOMI, mucous membranes and oropharynx normal. Neck--supple. No JVD. No bruits. Thyroid normal, trachea midline, no adenopathy. Heart--normal S1 and S2. No murmurs, rubs or gallops. Lungs--clear bilaterally, no respiratory distress, no accessory muscle use. Abdomen--normal bowel sounds and soft. Nontender. Nondistended. Extremities--no cyanosis or clubbing. No edema. There are good distal pulses b/l. Dermatologic--normal skin turgor, normal color, no abnormal lymph nodes, no rash. Neurologic--cranial nerves II through XII grossly intact. Rheumatologic--limited due to pain in right hip and groin Psychiatric--normal affect. Results & Data Vital Signs (Past 12 Hours) Vital Signs Temp Pulse Pulse Resp BP BP Pulse Ox 05/05/19 03:05 74 16 172/82 H 97 05/05/19 01:50 98.1 F 73 16 197/93 H 96 Laboratory Results Laboratory Results WBC 52.44 K/uL (4.8-10.8) H* 05/05/19 02:03 RBC 5.26 M/uL (4.2-5.4) 05/05/19 02:03 Hgb 15.2 g/dL (12.0-16.0) 05/05/19 02:03 Hct 45.6 % (37-47) 05/05/19 02:03 MCV 86.7 fL (80-100) 05/05/19 02:03 MCH 28.9 pg (25-34) 05/05/19 02:03 MCHC 33.3 g/dL (32-36) 05/05/19 02:03 RDW Std Deviation 49.6 fL (36.4-46.3) H 05/05/19 02:03 RDW Coeff of Tiffany 15.6 % (11.5-14.5) H 05/05/19 02:03 Plt Count 131 K/uL (130-400) 05/05/19 02:03 MPV 9.5 fL (7.4-10.4) 05/05/19 02:03 Neutrophils % (Manual) 22.6 % 05/05/19 02:03 Lymphocytes % (Manual) 75.7 % 05/05/19 02:03 Monocytes % (Manual) 1.7 % 05/05/19 02:03 Neutrophils # (Manual) 11.85 K/uL (1.4-6.5) H 05/05/19 02:03 Total Absolute Neuts 11.85 K/uL (1.4-6.5) H 05/05/19 02:03 Lymphocytes # (Manual) 39.70 K/uL (1.2-3.4) H 05/05/19 02:03 Total Abs Lymphocytes 39.70 K/uL (1.2-3.4) H 05/05/19 02:03 Monocytes # (Manual) 0.89 K/uL (0.11-0.59) H 05/05/19 02:03 Smudge Cells Present 05/05/19 02:03 PT 11.4 Seconds (9.0-12.0) 05/05/19 02:03 INR 1.1 (0.9-1.1) 05/05/19 02:03 APTT 32.5 Seconds (21.0-31.0) H 05/05/19 02:03 PTT Ratio 1.2 05/05/19 02:03 Sodium 138 mmol/L (136-145) 05/05/19 02:03 Potassium 4.0 mmol/L (3.5-5.1) 05/05/19 02:03 Chloride 105 mmol/L (98-107) 05/05/19 02:03 Carbon Dioxide 28 mmol/L (21-32) 05/05/19 02:03 Anion Gap 5.0 (3-11) 05/05/19 02:03 BUN 19 mg/dl (7-18) H 05/05/19 02:03 Creatinine 1.23 mg/dl (0.6-1.2) H 05/05/19 02:03 Est Cr Clr Drug Dosing 31.7 ml/min 05/05/19 02:03 Est GFR ( Amer) 46.0 05/05/19 02:03 Est GFR (Non-Af Amer) 39.7 05/05/19 02:03 BUN/Creatinine Ratio 15.1 (10-20) 05/05/19 02:03 Glucose 137 mg/dl (70-99) H 05/05/19 02:03 Calcium 9.0 mg/dl (8.5-10.1) 05/05/19 02:03 Urine Color Yellow 05/05/19 02:08 Urine Appearance Clear (Clear) 05/05/19 02:08 Urine pH 8.0 (4.5-7.5) H 05/05/19 02:08 Ur Specific [place] 1.015 (1.000-1.030) 05/05/19 02:08 Urine Protein Negative (Negative) 05/05/19 02:08 Urine Glucose (UA) Negative (Negative) 05/05/19 02:08 Urine Ketones Negative (Negative) 05/05/19 02:08 Urine Blood Trace (Negative) H 05/05/19 02:08 Urine Nitrite Negative (Negative) 05/05/19 02:08 Urine Bilirubin Negative (Negative) 05/05/19 02:08 Urine Urobilinogen Negative (Negative) 05/05/19 02:08 Ur Leukocyte Esterase Negative (Negative) 05/05/19 02:08 Urine WBC (Auto) 1-5 /hpf (0-5) 05/05/19 02:08 Urine RBC (Auto) 5-10 /hpf (0-4) H 05/05/19 02:08 U Hyaline Cast (Auto) 1-5 /lpf (0-5) 05/05/19 02:08 U Epithel Cells (Auto) 10-20 /lpf (0-5) H 05/05/19 02:08 Urine Bacteria (Auto) Negative (Negative) 05/05/19 02:08 Blood Type Cancelled 05/05/19 02:37 Antibody Screen Cancelled 05/05/19 02:37 Code Status & VTE Plan Code Status Full code VTE Prophylaxis Plan VTE Prophylaxis will be ordered: Yes PG Care Time/CCT Total # of Minutes Spent Total Time Spent with Patient: Total time spent is greater than 50% in c oordination of care (as documented) at patient's floor/unit and/or counseling patient: (1) Fracture of right hip Encounter type: initial encounter Fracture type: closed Qualified Code(s): S72.001A - Fracture of unspecified part of neck of right femur, initial encounter for closed fracture
[2019-05-05] MEDS ORDERED: ONDANSETRON INJ 2 MG/ML 2 ML VIAL IV PRN (04:48)
[2019-05-05] MEDS: HYDROmorphone INJ 1 MG/ML SYRINGE IV PRN ×4 (05:22→21:57)
[2019-05-05] MEDS: NSS + 20MEQ KCL 20 MEQ/1,000 ML BAG IV SCH ×2 (05:42→14:12)
--- NOTE | 2019-05-05 06:30 | Emergency Department Note ---
Entered by Lexis Lynn acting as a scribe for Sandra Meyers DO History of Present Illness General Chief complaint: Fall Stated complaint: FALL/HIP PAIN Time Seen by Provider: 05/05/19 01:49 Source: patient History of Present Illness Onset (ago): hour(s) (5.5) Location: hip (right) Pain Consistency: + other (episode) Quality: + other (fall ) Associated symptoms: + other (positive right hip pain) The patient is a 88 year old female who presents to the Emergency Room with complaints of an episode of a fall that occurred at about 2030, about 5.5 hours prior to arrival. The patient states that she was bending over to plug something in when she fell over. The patient states that she has right hip pain. The patient states that she was then able to crawl to get her phone and call 911 eventually. The patient denies hitting her head. She states that she is on Eliquis. 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 Home Medications Home Medications Medication Instructions Recorded Confirmed Type Eliquis 5 mg PO BID 10/12/18 05/05/19 History metoprolol tartrate 100 mg PO BID 10/12/18 05/05/19 History sertraline [Zoloft] 100 mg PO QAM 10/12/18 05/05/19 History amiodarone 200 mg PO DAILY 04/10/19 05/05/19 History Calcium 750+D+K 1 tab PO DAILY 05/05/19 05/05/19 History amlodipine 2.5 mg PO DAILY 05/05/19 05/05/19 History akxykjij-din-TG-lycopen-lutein 1 tab PO DAILY 05/05/19 05/05/19 History [Centrum Silver] Allergies Allergy/AdvReac Type Severity Reaction Status Date / Time naloxone Allergy Severe TREMORS, Verified 05/05/19 03:14 DYSKINESIA acetaminophen Allergy Unknown ` Verified 05/05/19 03:14 amoxicillin Allergy Unknown ` Verified 05/05/19 03:14 clarithromycin Allergy Unknown ` Verified 05/05/19 03:14 alprazolam [From Xanax] Allergy Unknown Verified 05/05/19 03:14 doxycycline Allergy Unknown Verified 05/05/19 03:14 NSAIDS (Non-Steroidal Allergy Unknown Verified 05/05/19 03:14 Anti-Inflamma aspirin AdvReac Intermediate hISTORY OF Verified 05/05/19 03:14 ULCERS codeine AdvReac Intermediate VOMITING Verified 05/05/19 03:14 Past Med/Surg History Medical History Chronic lymphocytic leukemia (CLL), 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 Managed with observation. Absolute leukocyte count has fluctuated from 40-70K. Followed by Heme/Onc A-fib Atrial flutter CKD (chronic kidney disease) HTN (hypertension) History of hysterectomy Surgical History History of hip replacement History of shoulder surgery History of tonsillectomy Family History Sister Cancer Mother Hypertension Father Hypertension Social History Preferred Language: Bruneian Communication Ability: Effective Beliefs That Will Affect Care: None marital status: / Current Living Situation: Alone Feels Safe at Home: Yes Smoking Status: Never smoker Second Hand Exposure: No Hx Alcohol Use: No Hx Substance Use: No Review of Systems See HPI for pertinent positives & negatives. and A total of 10 systems reviewed and were otherwise negative Physical Exam Vital Signs Vital Signs - 24 hr 05/05/19 01:50 05/05/19 03:05 Temperature 36.7 C Temperature Source Oral Sepsis Recent Fever Within 48 Hours No Sepsis Action Taken by Nursing No Action Required Pulse Rate 73 Pulse Rate [Apical] 74 Respiratory Rate 16 16 Respiratory Depth Normal Blood Pressure 197/93 H Blood Pressure [Right Arm] 172/82 H Blood Pressure Mean 127 Blood Pressure Mean [Right Arm] 112 Pulse Oximetry 96 97 Oxygen Delivery Method Room Air Nasal Cannula Oxygen Flow Rate 2 HEENT: Head - normocephalic and atraumatic Pupils are equal, round, and reactive to light. Extraocular eye muscles are intact, and sclera are anicteric. Nose - moist nasal mucosa without discharge. Mouth - dry buccal mucosa. Oropharynx is nonerythematous and there is no tonsillar exudate or edema noted. Neck: Supple; no JVD, nuchal rigidity, cervical lymphadenopathy. Heart: Regular rate and rhythm. There is a normal S1 and S2 with no murmurs, clicks, or gallops appreciated. Lungs: Clear to auscultation bilaterally with no wheezes, rales, or rhonchi. Abdomen: Soft, completely nontender, nondistended, with good bowel sounds. There are no palpable pulsatile masses or hepatosplenomegaly. There is no guarding, rigidity, or rebound noted. Extremities: No evidence of cyanosis, clubbing, or edema. There are easily palpable peripheral pulses. Abrasion on the left great toe. Some shortening of the right lower extremity. Pain with palpation over the right inguinal canal and right lateral hip. Skin: warm and dry with good turgor and no rashes. Course 0153: Past medical records reviewed. The patient was evaluated in room B11B. A complete history and physical exam was performed. Laboratory studies were drawn as above. 0157: Fentanyl Citrate 50 mcg IV administered. The patient went for an x-ray of her right hip and a preoperative chest x-ray. 0226: The patient had laid on the floor for some time this evening and appeared to be dehydrated on physical exam. Sodium Chloride 500 mls @ 999 mls/hr IV administered. 0257: Upon reevaluation, the patient states that she is having more pain. I updated her on all results. 0258: Fentanyl Citrate 50 mcg IV administered. 0315: [facility] for further evaluation. The orthopedic surgery on-call service was contacted [phone]: Dilaudid 0.5 mg IV administered. Consultations Consultation #1: I [facility] the [facility] the patient for further evaluation. Time: 03:15 Administered Medications Hydromorphone HCl (Dilaudid) 0.5 mg IV Q3H PRN PRN Reason: Severe Pain Stop: 05/19/19 04:47 Last Admin: 05/05/19 05:22 Dose: 0.5 mg Documented by: [id number] Potassium Chloride/Sodium Chloride (Normal Saline W/20 Meq Kcl) 20 meq in 1,000 mls @ 100 mls/hr IV .Q10H DIANA Stop: 06/04/19 04:47 Last Admin: 05/05/19 05:42 Dose: 100 mls/hr Documented by: [id number] Discontinued Medications Fentanyl Citrate (Fentanyl Citrate) 50 mcg IV NOW STA Stop: 05/05/19 01:57 Last Admin: 05/05/19 02:06 Dose: 50 mcg Documented by: [id number] Fentanyl Citrate (Fentanyl Citrate) 50 mcg IV NOW STA Stop: 05/05/19 02:58 Last Admin: 05/05/19 03:02 Dose: 50 mcg Documented by: [id number] Hydromorphone HCl (Dilaudid) 0.5 mg IV NOW STA Stop: 05/05/19 03:34 Last Admin: 05/05/19 03:36 Dose: 0.5 mg Documented by: [id number] Sodium Chloride (Nss) 500 mls @ 999 mls/hr IV .Q31M ONE Stop: 05/05/19 02:26 Last Infusion: 05/05/19 02:44 Dose: 0 mls/hr Documented by: [id number] Admin: 05/05/19 02:07 Dose: 999 mls/hr Documented by: [id number] Medical Decision Making Differential Diagnosis Differential diagnoses include pelvis fracture, hip fracture, contusion, and others were considered. Medical Records Attestation: I reviewed the patient's medical records. Home Medications Current Medication List: was personally reviewed by me Laboratory Data Attestation: I reviewed the patient's lab results. Result diagrams: 05/05/19 02:03 05/05/19 02:03 Lab Results 05/05/19 05/05/19 05/05/19 Range/Units 02:03 02:03 02:03 WBC 52.44 H* (4.8-10.8) K/uL RBC 5.26 (4.2-5.4) M/uL Hgb 15.2 (12.0-16.0) g/dL Hct 45.6 (37-47) % MCV 86.7 (80-100) fL MCH 28.9 (25-34) pg MCHC 33.3 (32-36) g/dL RDW Std Deviation 49.6 H (36.4-46.3) fL RDW Coeff of Tiffany 15.6 H (11.5-14.5) % Plt Count 131 (130-400) K/uL MPV 9.5 (7.4-10.4) fL Neutrophils % (Manual) 22.6 % Lymphocytes % (Manual) 75.7 % Monocytes % (Manual) 1.7 % Neutrophils # (Manual) 11.85 H (1.4-6.5) K/uL Total Absolute Neuts 11.85 H (1.4-6.5) K/uL Lymphocytes # (Manual) 39.70 H (1.2-3.4) K/uL Total Abs Lymphocytes 39.70 H (1.2-3.4) K/uL Monocytes # (Manual) 0.89 H (0.11-0.59) K/uL Smudge Cells Present PT 11.4 (9.0-12.0) Seconds INR 1.1 (0.9-1.1) APTT 32.5 H (21.0-31.0) Seconds PTT Ratio 1.2 Sodium 138 (136-145) mmol/L Potassium 4.0 (3.5-5.1) mmol/L Chloride 105 (98-107) mmol/L Carbon Dioxide 28 (21-32) mmol/L Anion Gap 5.0 (3-11) BUN 19 H (7-18) mg/dl Creatinine 1.23 H (0.6-1.2) mg/dl Est Cr Clr Drug Dosing 31.7 ml/min Est GFR ( Amer) 46.0 Est GFR (Non-Af Amer) 39.7 BUN/Creatinine Ratio 15.1 (10-20) Glucose 137 H (70-99) mg/dl Calcium 9.0 (8.5-10.1) mg/dl Urine Color Urine Appearance (Clear) Urine pH (4.5-7.5) Ur Specific [place] (1.000-1.030) Urine Protein (Negative) Urine Glucose (UA) (Negative) Urine Ketones (Negative) Urine Blood (Negative) Urine Nitrite (Negative) Urine Bilirubin (Negative) Urine Urobilinogen (Negative) Ur Leukocyte Esterase (Negative) Urine WBC (Auto) (0-5) /hpf Urine RBC (Auto) (0-4) /hpf U Hyaline Cast (Auto) (0-5) /lpf U Epithel Cells (Auto) (0-5) /lpf Urine Bacteria (Auto) (Negative) Blood Type Antibody Screen 05/05/19 05/05/19 05/05/19 Range/Units 02:08 02:37 03:25 WBC (4.8-10.8) K/uL RBC (4.2-5.4) M/uL Hgb (12.0-16.0) g/dL Hct (37-47) % MCV (80-100) fL MCH (25-34) pg MCHC (32-36) g/dL RDW Std Deviation (36.4-46.3) fL RDW Coeff of Tiffany (11.5-14.5) % Plt Count (130-400) K/uL MPV (7.4-10.4) fL Neutrophils % (Manual) % Lymphocytes % (Manual) % Monocytes % (Manual) % Neutrophils # (Manual) (1.4-6.5) K/uL Total Absolute Neuts (1.4-6.5) K/uL Lymphocytes # (Manual) (1.2-3.4) K/uL Total Abs Lymphocytes (1.2-3.4) K/uL Monocytes # (Manual) (0.11-0.59) K/uL Smudge Cells PT (9.0-12.0) Seconds INR (0.9-1.1) APTT (21.0-31.0) Seconds PTT Ratio Sodium (136-145) mmol/L Potassium (3.5-5.1) mmol/L Chloride (98-107) mmol/L Carbon Dioxide (21-32) mmol/L Anion Gap (3-11) BUN (7-18) mg/dl Creatinine (0.6-1.2) mg/dl Est Cr Clr Drug Dosing ml/min Est GFR ( Amer) Est GFR (Non-Af Amer) BUN/Creatinine Ratio (10-20) Glucose (70-99) mg/dl Calcium (8.5-10.1) mg/dl Urine Color Yellow Urine Appearance Clear (Clear) Urine pH 8.0 H (4.5-7.5) Ur Specific [place] 1.015 (1.000-1.030) Urine Protein Negative (Negative) Urine Glucose (UA) Negative (Negative) Urine Ketones Negative (Negative) Urine Blood Trace H (Negative) Urine Nitrite Negative (Negative) Urine Bilirubin Negative (Negative) Urine Urobilinogen Negative (Negative) Ur Leukocyte Esterase Negative (Negative) Urine WBC (Auto) 1-5 (0-5) /hpf Urine RBC (Auto) 5-10 H (0-4) /hpf U Hyaline Cast (Auto) 1-5 (0-5) /lpf U Epithel Cells (Auto) 10-20 H (0-5) /lpf Urine Bacteria (Auto) Negative (Negative) Blood Type Cancelled O Positive Antibody Screen Cancelled NEGATIVE Imaging Data Attestation: I personally reviewed and interpreted this imaging study as follows: My Impression: CHEST X-RAY: Chronic interstitial changes. No acute findings. RIGHT HIP X-RAY: Right femoral neck fracture. No obvious acetabular fracture. ECG Data Attestation: I personally reviewed and interpreted this ECG as follows: Indication: weakness Rate (beats per minute): 72 Rhythm: normal sinus Findings: + other (negative ischemia); no ectopy Blood Pressure Blood Pressure Findings: Elevated blood pressure Blood Pressure Disposition: further management by hospitalist JOSE Narrative The patient is a 88 year old female who presents to the Emergency Room with complaints of an episode of a fall that occurred at about 2030, about 5.5 hours prior to arrival. The patient has persistent right hip and groin pain. X-ray shows evidence of a right hip fracture. She did get relief from the fentanyl and Dilaudid. I discussed the case with the [facility] Hospitalist and they will evaluate for further management. The patient has a significant elevated white blood cell count but does suffer from CLL. Impression & Plan Fracture of right hip Discharge Plan Visit Data *Final* Discharge Date/Time: 05/05/19 04:14 Chief Complaint: Fall Stated Complaint: FALL/HIP PAIN Other Complaint: Hip Pain ED Provider: Sandra Meyers Discharge Problem: Fracture of right hip Patient Disposition: Admitted As Inpatient Discharge Instructions Interventions: ED Discharge Assessment Last Done: 05/05/19 04:14 Discharge Problem: Fracture of right hip Qualifiers: Encounter type: initial encounter Fracture type: closed Qualified Code(s): S72.001A - Fracture of unspecified part of neck of right femur, initial encounter for closed fracture The scribe's documentation has been prepared under my direction and personally reviewed by me in its entirety. I confirm that the note above accurately reflects all work, treatment, procedures, and medical decision making performed by me.
[2019-05-05] MEDS ORDERED: CEFAZOLIN 2000MG 2,000 MG/15 ML SYR IV ONE (08:49)
[2019-05-05] MEDS ORDERED: AMIODARONE 200 MG TAB PO SCH (09:00)
--- NOTE | 2019-05-05 09:02 | Consultation Report ---
DATE OF CONSULTATION: 05/05/2019 ORTHOPEDIC CONSULTATION CHIEF COMPLAINT: Right hip pain. HISTORY OF PRESENT ILLNESS: The patient is an 88-year-old female who previously used a cane to ambulate, who sustained a fall yesterday. She was bending down to turn on a fan and when she attempted to stand up, kind of lost her balance, kind of fell backwards and landed on her right hip and bumped in the wall and put a hole in the wall behind her. She had acute onset of pain. She was brought to the Emergency Room where x-rays revealed a displaced femoral neck fracture. She is admitted by the hospitalist service and we are consulted for treatment. No other injuries. She had no preexisting hip pain. She does have a history of left hip replacement done by Dr. Jones, she says, 10 years ago. She used a cane to get around for the most part. This is more for balance issues. She does have a history of atrial fibrillation/flutter and on anticoagulation, followed by Dr. Darby. Also a history of CLL. PAST MEDICAL HISTORY: Include: 1. Atrial fibrillation/atrial flutter, on anticoagulation, apixaban. 2. Congestive heart failure. 3. Hypertension. 4. CLL. 5. Depression. 6. History of UTIs. PREVIOUS SURGERIES: Include: 1. Left hip replacement done 10 years ago. 2. Shoulder surgery. 3. Tonsillectomy. 4. Hysterectomy. ALLERGIES: MULTIPLE. She describes stomach problems with ASPIRIN AND NSAIDS. She DESCRIBES A RASH TO Tylenol. Remainder of the past medical history is per the admission H and P. OBJECTIVE: VITAL SIGNS: Temperature is 36.8. Vital signs stable. PHYSICAL EXAMINATION: Shows a pleasant elderly female. She is lying in bed. She is awake, alert and oriented. She has painless range of motion of her cervical, thoracic and lumbar spine. She has full painless range of motion of both upper extremities and the left lower extremity. Examination of the right lower extremity reveals it to be slightly shortened and externally rotated. She has no knee effusion. She can dorsiflex and plantarflex her foot appropriately. She has marked pain with any type of hip motion. She describes groin pain. X-RAYS: X-rays of the right hip are reviewed. It shows a displaced femoral neck fracture. No signs of significant underlying arthritis or pathology. LABORATORIES: Her white cell count is elevated at 52.44. Hemoglobin 15.2. Hematocrit 45.6. Electrolytes are stable. Creatinine is slightly elevated at 1.23. ASSESSMENT: An 88-year-old white female with history of atrial fibrillation as well as chronic lymphocytic leukemia, with a displaced femoral neck fracture after a fall. No signs of preexisting arthritis or hip problems. No other injuries. She is on anticoagulation for atrial fibrillation. PLAN: We discussed treatment options. This is certainly something that is best treated surgically. We will plan taking her to the operating room tomorrow morning and do a right cemented bipolar hip arthroplasty. I explained this to both her and her son. The risks and benefits of this procedure were explained to the patient including but not limited to DVT, PE, , infection, neurological injury, vascular injury, bleeding problem, pain, limited range of motion, stiffness, failure to relieve her symptoms, incomplete relief of symptoms, need for further surgery in the future, fracture, leg length inequality, nerve palsy, etc. The patient understands and desires to proceed. Informed consent was obtained. We will let her eat today. We will keep her n.p.o. after 9:00 midnight. We will hold her anticoagulation for now. She will need a general anesthetic as a result. We will use TEDs and SCDs for DVT prophylaxis and put her on anticoagulation 24 hours postop. She will likely need a rehab stay postoperatively.
[2019-05-05] MEDS: METOPROLOL TARTRATE 100 MG TAB PO SCH ×2 (09:14→22:00)
[2019-05-05] MEDS: FAMOTIDINE 20 MG in SYRINGE 3 ML IV SCH ×2 (09:15→22:05)
--- NOTE | 2019-05-05 09:59 | Anesthesiology Consultation ---
Date of Service May 05, 2019 Assessment & Plan (1) Encounter for pre-operative examination: Chart Review Chart Review: Acceptable Risk for Surgery Consults Requested none ASA ASA3 Proposed Anesthesia Anesthesia Type: General Risk / Benefits Reviewed With: PT / POA / Parent / Guardian, Accepts Plan and Informed Consent Obtained History Surgery Operation Date: 05/06/19 07:30 Proposed Procedures p Bipolar Hip Prosthesis(Right) - Corey Pedraza MD Height/Weight Height: 5 ft 4 in Weight: 70.9 kg Allergies Allergy/AdvReac Type Severity Reaction Status Date / Time naloxone Allergy Severe TREMORS, Verified 05/05/19 03:14 DYSKINESIA acetaminophen Allergy Unknown ` Verified 05/05/19 03:14 amoxicillin Allergy Unknown ` Verified 05/05/19 03:14 clarithromycin Allergy Unknown ` Verified 05/05/19 03:14 alprazolam [From Xanax] Allergy Unknown Verified 05/05/19 03:14 doxycycline Allergy Unknown Verified 05/05/19 03:14 NSAIDS (Non-Steroidal Allergy Unknown Verified 05/05/19 03:14 Anti-Inflamma aspirin AdvReac Intermediate hISTORY OF Verified 05/05/19 03:14 ULCERS codeine AdvReac Intermediate VOMITING Verified 05/05/19 03:14 Medications Home Medications Medication Instructions Recorded Confirmed Last Taken Eliquis 5 mg PO BID 10/12/18 05/05/19 10/12/18 11:00 metoprolol tartrate 100 mg PO BID 10/12/18 05/05/19 Unknown sertraline [Zoloft] 100 mg PO QAM 10/12/18 05/05/19 Unknown amiodarone 200 mg PO DAILY 04/10/19 05/05/19 Unknown Calcium 750+D+K 1 tab PO DAILY 05/05/19 05/05/19 Unknown amlodipine 2.5 mg PO DAILY 05/05/19 05/05/19 Unknown ijwmtnxd-ysc-NS-lycopen-lutein 1 tab PO DAILY 05/05/19 05/05/19 Unknown [Centrum Silver] Active Medications Generic Name Dose Route Start Last Admin Trade Name Freq PRN Reason Stop Dose Admin Amiodarone HCl 200 mg 05/05/19 09:00 05/05/19 09:14 Cordarone PO 06/04/19 08:59 200 mg DAILY DIANA Administration Amlodipine Besylate 2.5 mg 05/05/19 12:00 05/05/19 12:49 Norvasc PO 06/04/19 11:59 2.5 mg QAM DIANA Administration Hydromorphone HCl 0.5 mg 05/05/19 04:48 05/05/19 21:57 Dilaudid IV 05/19/19 04:47 0.5 mg Q3H PRN Administration Severe Pain Potassium Chloride/Sodium Chloride 20 meq in 1,000 mls @ 100 mls/hr 05/05/19 04:48 05/06/19 00:06 Normal Saline W/20 Meq Kcl IV 06/04/19 04:47 100 mls/hr .Q10H DIANA Administration Famotidine 20 mg/ Syringe 5 mls @ 2.5 mls/min 05/05/19 09:00 05/05/19 22:05 IV 06/04/19 08:59 2.5 mls/min Q12H DIANA Administration Metoprolol Tartrate 100 mg 05/05/19 09:00 05/05/19 22:00 Lopressor PO 06/04/19 08:59 100 mg BID DIANA Administration NPO Date Last Intake of Fluids: 05/06/19 Time Last Intake of Fluids: 00:00 Date Last Intake of Solids: 05/06/19 Time Last Intake of Solids: 00:00 Past Medical History Medical History Chronic lymphocytic leukemia (CLL), 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 Managed with observation. Absolute leukocyte count has fluctuated from 40-70K. Followed by Heme/Onc A-fib Atrial flutter CKD (chronic kidney disease) HTN (hypertension) History of hysterectomy Exercise / Class Metabolic Activity III < 4 Walking/Shop/Light housework Past Family History Family History Sister Cancer Mother Hypertension Father Hypertension Past Surgical History Surgical History History of hip replacement History of shoulder surgery History of tonsillectomy Past Anesthesia History No Hx of Anesthesia Complications and No Family Hx of Anesthesia Complications History of PONV No Hx of PONV and No Hx of Motion Sickness Social History Smoking Status: Never smoker Hx Alcohol Use: No Hx Substance Use: No substance use type: does not use Physical Exam Vital Signs Last Vital Signs Temp 97.9 F 05/06/19 03:56 Pulse 73 05/06/19 03:56 Resp 18 05/06/19 03:56 BP 162/84 H 05/06/19 03:56 Pulse Ox 90 05/06/19 03:56 ENMT Mouth: no dentition abnormality Thyromental Distance: > or= 3.5 Finger Breadths Mallampati Class: III Neck normal visual inspection Respiratory normal respiratory effort Auscultation: lungs clear to auscultation bilaterally Cardiovascular Rate/Rhythm: regular rate and regular rhythm Testing Laboratory Results 05/06/19 06:05 PT 11.4 Seconds (9.0-12.0) 05/05/19 02:03 INR 1.1 (0.9-1.1) 05/05/19 02:03 APTT 32.5 Seconds (21.0-31.0) H 05/05/19 02:03 Urine Color Yellow 05/05/19 02:08 Urine Appearance Clear (Clear) 05/05/19 02:08 Urine pH 8.0 (4.5-7.5) H 05/05/19 02:08 Ur Specific [place] 1.015 (1.000-1.030) 05/05/19 02:08 Urine Protein Negative (Negative) 05/05/19 02:08 Urine Glucose (UA) Negative (Negative) 05/05/19 02:08 Urine Ketones Negative (Negative) 05/05/19 02:08 Urine Nitrite Negative (Negative) 05/05/19 02:08 Ur Leukocyte Esterase Negative (Negative) 05/05/19 02:08 Urine WBC (Auto) 1-5 /hpf (0-5) 05/05/19 02:08 Urine RBC (Auto) 5-10 /hpf (0-4) H 05/05/19 02:08 U Hyaline Cast (Auto) 1-5 /lpf (0-5) 05/05/19 02:08 U Epithel Cells (Auto) 10-20 /lpf (0-5) H 05/05/19 02:08 Urine Bacteria (Auto) Negative (Negative) 05/05/19 02:08 Blood Type O Positive 05/05/19 03:25 Antibody Screen NEGATIVE 05/05/19 03:25 Electrocardiogram Date: 05/05/19 Sinus rhythm, rate 72 bpm Abnormal ECG When compared with ECG of 10-APR-2019 03:47, Nonspecific T wave abnormality no longer evident in Anterior leads Confirmed by Kwasi Escalante ([id number]) on 05/05/2019 9:50:54 AM Echocardiogram Date: 09/12/17 Preserved LV systolic function. Moderate left atrial dilation. Mild to moderate right atrial dilation. Mild to moderate aortic regurgitation. Moderate mitral regurgitation. Mild pulmonary hypertension.
--- NOTE | 2019-05-05 10:27 | XRay Report ---
SINGLE VIEW CHEST CLINICAL HISTORY: Preoperative examination. FINDINGS: An AP, portable, supine chest radiograph is compared to study dated 04/09/2019 and correlated with chest CT dated 06/21/2013. The examination is degraded by portable technique and patient rotatio n. The heart is enlarged and there is atherosclerotic calcification of the thoracic aorta. The pulmo nary vasculature is noncongested. Chronic interstitial thickening is similar to previous. No airspace consolidation or large pleural effusion is identified. No pneumothorax is seen. The skeletal structu res are osteopenic. There is chronic posttraumatic deformity of the right proximal humerus. IMPRESSION: Cardiomegaly with no acute cardiopulmonary abnormality. Electronically signed by: Destin Lloyd M.D. 05/05/2019 10:26 AM
--- NOTE | 2019-05-05 10:29 | XRay Report ---
RIGHT HIP 2 VIEWS CLINICAL HISTORY: Fall with right hip injury. FINDINGS: AP and crosstable lateral portable views of the right hip are correlated with pelvic x-ray dated 09/22/2010. The skeletal structures are osteopenic. There is an impacted and distracted subcapi luis fracture of the right femur. Overlying soft tissue edema is noted. The visualized right hemipelvi s appears intact. A left hip arthroplasty is partially visualized on the crosstable lateral view. IMPRESSION: There is an impacted and mildly distracted subcapital fracture of the right femur. Electronically signed by: Destin Lloyd M.D. 05/05/2019 10:28 AM
[2019-05-05] MEDS ORDERED: AMLODIPINE BESYLATE 5 MG TAB PO SCH (12:00)
--- NOTE | 2019-05-05 14:15 | Family Medicine Progress Note ---
Date of Service May 05, 2019 Assessment & Plan (1) Fracture of right hip: Pt AAOx2. States her right hip pain currently 6/10 when she doesn't move. Worse with movement. Denies JUÁREZ, chest pain, palps, SOB though she is on 2L of oxygen. Has no abdominal pain, nv or diarrhea or constipation currently. States her left hip has been replaced previously. On exam laying in bed with NC in nares, no acute distress, RRR, breath sounds clear on the front, abdomen nontender, right hip with no obvious swelling or redness but tender to palpation in groin area. With right hip fracture after a simple mechanical fall will proceed as follows: -Ortho on board appreciate recs--surgery tomorrow given pt was on Eliquis before admission -will resume amlodipine in addition to home HTN meds given minimal concern for excessive hip bleeding leading to hypotension and thus affecting BP. -Vit D ordered, low level resulted, will replace. Recommend outpt DEXA -cont pain management with Dilaudid and tylenol prn -cont to hold Eliquis, restart postop -cont IV fluids for mild AV -postop--pt/ot-likely snf placement required. -continue with chronic prob treatment (a fib, HTN, depression) -will continue to monitor. Supervising Physician Co-Signing Physician Notes I personally examined the patient and verified all valadez points of history and exam, discussed case, and agree with decision making with Dr Reilly. Feeling okay except for hip pain. Has oxygen on her cheek at the time that I entered the room, pulse ox 91% on essentially would amount to room air. No complaints of shortness of breath. Vitals noted, in general she is awake and alert pleasant no distress. HEENT normocephalic atraumatic mucous members moist. Breathing unlabored no accessory muscle use good effort. Skin shows no rashes no pallor or icterus. Hip fractureconcern of osteoporosisvitamin D mildly low. Would recommend etc. as outpatient if not done recently. Replace vitamin D. For surgery tomorrow, likely to need rehab afterwards Hypoxiano symptoms, mild requirement, most likely atelectasis related to pain and immobility. Incentive spirometry and help. DVT prophylaxishe came in on Eliquis related to postop. Atrial fibrillationrate is controlled anticoagulation on hold for surgery. Otherwise as above. Results & Data Vital Signs (Past 12 Hours) Vital Signs Temp Pulse Pulse Resp BP Pulse Ox 05/05/19 12:50 36.8 C 86 19 124/65 97 05/05/19 07:14 67 05/05/19 06:58 36.8 C 68 18 145/74 H 97 05/05/19 04:59 36.8 C 72 18 180/84 H 95 05/05/19 04:05 73 18 164/90 H 95 05/05/19 03:05 74 16 172/82 H 97 Laboratory Results Laboratory Results - last 24 hr 05/05/19 05/05/19 05/05/19 02:03 02:03 02:03 WBC 52.44 H* RBC 5.26 Hgb 15.2 Hct 45.6 MCV 86.7 MCH 28.9 MCHC 33.3 RDW Std Deviation 49.6 H RDW Coeff of Tiffany 15.6 H Plt Count 131 MPV 9.5 Neutrophils % (Manual) 22.6 Lymphocytes % (Manual) 75.7 Monocytes % (Manual) 1.7 Neutrophils # (Manual) 11.85 H Total Absolute Neuts 11.85 H Lymphocytes # (Manual) 39.70 H Total Abs Lymphocytes 39.70 H Monocytes # (Manual) 0.89 H Smudge Cells Present PT 11.4 INR 1.1 APTT 32.5 H PTT Ratio 1.2 Sodium 138 Potassium 4.0 Chloride 105 Carbon Dioxide 28 Anion Gap 5.0 BUN 19 H Creatinine 1.23 H Est Cr Clr Drug Dosing 31.7 Est GFR ( Amer) 46.0 Est GFR (Non-Af Amer) 39.7 BUN/Creatinine Ratio 15.1 Glucose 137 H Calcium 9.0 25-OH Vitamin D Total Urine Color Urine Appearance Urine pH Ur Specific Aydlett Urine Protein Urine Glucose (UA) Urine Ketones Urine Blood Urine Nitrite Urine Bilirubin Urine Urobilinogen Ur Leukocyte Esterase Urine WBC (Auto) Urine RBC (Auto) U Hyaline Cast (Auto) U Epithel Cells (Auto) Urine Bacteria (Auto) Blood Type Antibody Screen 05/05/19 05/05/19 05/05/19 02:08 02:37 03:25 WBC RBC Hgb Hct MCV MCH MCHC RDW Std Deviation RDW Coeff of Tiffany Plt Count MPV Neutrophils % (Manual) Lymphocytes % (Manual) Monocytes % (Manual) Neutrophils # (Manual) Total Absolute Neuts Lymphocytes # (Manual) Total Abs Lymphocytes Monocytes # (Manual) Smudge Cells PT INR APTT PTT Ratio Sodium Potassium Chloride Carbon Dioxide Anion Gap BUN Creatinine Est Cr Clr Drug Dosing Est GFR ( Amer) Est GFR (Non-Af Amer) BUN/Creatinine Ratio Glucose Calcium 25-OH Vitamin D Total Urine Color Yellow Urine Appearance Clear Urine pH 8.0 H Ur Specific Aydlett 1.015 Urine Protein Negative Urine Glucose (UA) Negative Urine Ketones Negative Urine Blood Trace H Urine Nitrite Negative Urine Bilirubin Negative Urine Urobilinogen Negative Ur Leukocyte Esterase Negative Urine WBC (Auto) 1-5 Urine RBC (Auto) 5-10 H U Hyaline Cast (Auto) 1-5 U Epithel Cells (Auto) 10-20 H Urine Bacteria (Auto) Negative Blood Type Cancelled O Positive Antibody Screen Cancelled NEGATIVE 05/05/19 08:26 WBC RBC Hgb Hct MCV MCH MCHC RDW Std Deviation RDW Coeff of Tiffany Plt Count MPV Neutrophils % (Manual) Lymphocytes % (Manual) Monocytes % (Manual) Neutrophils # (Manual) Total Absolute Neuts Lymphocytes # (Manual) Total Abs Lymphocytes Monocytes # (Manual) Smudge Cells PT INR APTT PTT Ratio Sodium Potassium Chloride Carbon Dioxide Anion Gap BUN Creatinine Est Cr Clr Drug Dosing Est GFR ( Amer) Est GFR (Non-Af Amer) BUN/Creatinine Ratio Glucose Calcium 25-OH Vitamin D Total 26.2 L Urine Color Urine Appearance Urine pH Ur Specific Aydlett Urine Protein Urine Glucose (UA) Urine Ketones Urine Blood Urine Nitrite Urine Bilirubin Urine Urobilinogen Ur Leukocyte Esterase Urine WBC (Auto) Urine RBC (Auto) U Hyaline Cast (Auto) U Epithel Cells (Auto) Urine Bacteria (Auto) Blood Type Antibody Screen Medications Administered Home Medications Eliquis 5 mg PO BID 10/12/18 [History Confirmed 05/05/19] metoprolol tartrate 100 mg PO BID 10/12/18 [History Confirmed 05/05/19] sertraline [Zoloft] 100 mg PO QAM 10/12/18 [History Confirmed 05/05/19] amiodarone 200 mg PO DAILY 04/10/19 [History Confirmed 05/05/19] Calcium 750+D+K 1 tab PO DAILY 05/05/19 [History Confirmed 05/05/19] amlodipine 2.5 mg PO DAILY 05/05/19 [History Confirmed 05/05/19] [id number]-lycopen-lutein [Centrum Silver] 1 tab PO DAILY 05/05/19 [History Confirmed 05/05/19] Active Medications Amiodarone HCl (Cordarone) 200 mg PO DAILY [facility] Stop: 06/04/19 08:59 Last Admin: 05/05/19 09:14 Dose: 200 mg Documented by: Amlodipine Besylate (Norvasc) 2.5 mg PO QAM [facility] Stop: 06/04/19 11:59 Last Admin: 05/05/19 12:49 Dose: 2.5 mg Documented by: Hydromorphone HCl (Dilaudid) 0.5 mg IV Q3H PRN PRN Reason: Severe Pain Stop: 05/19/19 04:47 Last Admin: 05/05/19 11:30 Dose: 0.5 mg Documented by: Potassium Chloride/Sodium Chloride (Normal Saline W/20 Meq Kcl) 20 meq in 1,000 mls @ 100 mls/hr IV .Q10H [facility] Stop: 06/04/19 04:47 Last Admin: 05/05/19 14:12 Dose: 100 mls/hr Documented by: Famotidine 20 mg/ Syringe 5 mls @ 2.5 mls/min IV Q12H [facility] Stop: 06/04/19 08:59 Last Admin: 05/05/19 09:15 Dose: 2.5 mls/min Documented by: Metoprolol Tartrate (Lopressor) 100 mg PO BID [facility] Stop: 06/04/19 08:59 Last Admin: 05/05/19 09:14 Dose: 100 mg Documented by: Ondansetron HCl (Zofran) 4 mg IV Q6H PRN PRN Reason: NAUSEA/VOMITING Stop: 06/04/19 04:47 PG Care Time/CCT Total # of Minutes Spent Total Time Spent with Patient: Total time spent is greater than 50% in coordination of care (as documented) at patient's floor/unit and/or counseling patient: Resident Activity Tracking Resident Involvement: Resident Care Provided Care Provided: Adult Hospital Medicine (1) Fracture of right hip Encounter type: initial encounter Fracture type: closed Qualified Code(s): S72.001A - Fracture of unspecified part of neck of right femur, initial encounter for closed fracture
[2019-05-06] MEDS: NSS + 20MEQ KCL 20 MEQ/1,000 ML BAG IV SCH (00:06)
[2019-05-06 06:53] LABS: Hematocrit (blood only) 41.2 % (37-47); Hemoglobin 13.1 g/dL (12.0-16.0); Mean Corpuscular Hgb Conc 31.8 g/dL (32-36); Mean Corpuscular Volume 87.7 fL (80-100); Mean Platelet Volume 9.9 fL (7.4-10.4); Platelet Count 114 K/uL (130-400); RDW Coefficient of Variation 15.6 % (11.5-14.5); RDW Standard Deviation 50.4 fL (36.4-46.3); White Blood Count 46.47 K/uL (4.8-10.8)
--- NOTE | 2019-05-06 06:54 | Family Medicine Progress Note ---
Date of Service May 06, 2019 Assessment & Plan (1) Fracture of right hip: Pt is an 88yo with PMhx significant for a fib, HTN, CLL who presented with a right hip fracture after a mechanical fall at home. Pt was admitted on May 05, 2019 and in the ICU on May 06, 2019. RIGHT HIP FRACTURE - after becoming hypotensive and bradycardic postop on may 06. -per family's wishes, pt wanted to be DNR/DNI so heroic measures were stopped. HISTORICALLY: - appreciate ortho recs for fracture -pain management with Dilaudid and tylenol prn -held Eliquis pre-op for about 24hours with plan to restart post op. -Vit D level decreased, replaced. DEXA was recommended as outpt workup AV -Cr 1.23 on admission, up from normal baseline -treated with IV fluids -Resolved 05/06 preop. Atrial fibrillation -was rate controlled -held anticoagulation (Eliquis 5mg PO BID) for approximately 24hrs pre-op. -cont metoprolol and amiodarone HTN -cont home amlodipine, metoprolol CLL -stable Depression -planned to continue home sertraline postop Subjective Pt seen before surgery. A bit anxious, asking for family. Overnight was a bit restless per night team. Physical Exam Physical Exam: General: Alert. No acute distress HEENT: NC/AT, PERRLA, EOMI, oropharynx moist. Chest: Nontender to palpation. CV: RRR, no murmurs appreciated Resp: Breath sounds clear bilaterally on front Extremities: right hip with no redness, swelling but tender to palpation in groin area Results & Data Vital Signs (Past 12 Hours) Vital Signs Temp Pulse Pulse Resp BP Pulse Ox 05/06/19 03:56 36.6 C 73 18 162/84 H 90 05/06/19 00:59 72 05/05/19 22:58 37.1 C 70 18 127/64 91 Laboratory Results Laboratory Results - last 24 hr 05/05/19 05/06/19 05/06/19 08:26 06:05 06:05 WBC 46.47 H* RBC 4.70 Hgb 13.1 Hct 41.2 MCV 87.7 MCH 27.9 MCHC 31.8 L RDW Std Deviation 50.4 H RDW Coeff of Tiffany 15.6 H Plt Count 114 L MPV 9.9 Neutrophils % (Manual) 28.3 Lymphocytes % (Manual) 69.0 Monocytes % (Manual) 0.9 Eosinophils % (Manual) 1.8 Neutrophils # (Manual) 13.15 H Total Absolute Neuts 13.15 H Lymphocytes # (Manual) 32.06 H Total Abs Lymphocytes 32.06 H Monocytes # (Manual) 0.42 Eosinophils # (Manual) 0.84 H Smudge Cells Present Sodium 137 Potassium 4.9 D Chloride 109 H Carbon Dioxide 21 Anion Gap 8.0 BUN 13 Creatinine 0.84 D Est Cr Clr Drug Dosing 47.6 Est GFR ( Amer) 72.9 Est GFR (Non-Af Amer) 62.9 BUN/Creatinine Ratio 16.0 Glucose 159 H Calcium 8.0 L 25-OH Vitamin D Total 26.2 L Medications Administered Home Medications Eliquis 5 mg PO BID 10/12/18 [History Confirmed 05/05/19] metoprolol tartrate 100 mg PO BID 10/12/18 [History Confirmed 05/05/19] sertraline [Zoloft] 100 mg PO QAM 10/12/18 [History Confirmed 05/05/19] amiodarone 200 mg PO DAILY 04/10/19 [History Confirmed 05/05/19] Calcium 750+D+K 1 tab PO DAILY 05/05/19 [History Confirmed 05/05/19] amlodipine 2.5 mg PO DAILY 05/05/19 [History Confirmed 05/05/19] [id number]-KH-lycopen-lutein [Centrum Silver] 1 tab PO DAILY 05/05/19 [History Confirmed 05/05/19] Active Medications Amiodarone HCl (Cordarone) 200 mg PO DAILY [facility] Stop: 06/04/19 08:59 Last Admin: 05/05/19 09:14 Dose: 200 mg Documented by: Amlodipine Besylate (Norvasc) 2.5 mg PO QAM [facility] Stop: 06/04/19 11:59 Last Admin: 05/05/19 12:49 Dose: 2.5 mg Documented by: Atropine Sulfate (Atropine Sulfate) 0.5 mg IV Q1M PRN PRN Reason: PACU Use-HR<40 &/or Bradycardi Stop: 05/06/19 12:16 Ephedrine Sulfate (Ephedrine Sulfate) 5 mg IV Q5M PRN PRN Reason: PACU Use Only-SBP<90 mmHg Stop: 05/06/19 12:16 Fentanyl Citrate (Fentanyl Citrate) 25 mcg IV Q5M PRN PRN Reason: PACU Use Only-Pain Stop: 05/06/19 12:17 Hydromorphone HCl (Dilaudid) 0.5 mg IV Q3H PRN PRN Reason: Severe Pain Stop: 05/19/19 04:47 Last Admin: 05/05/19 21:57 Dose: 0.5 mg Documented by: Potassium Chloride/Sodium Chloride (Normal Saline W/20 Meq Kcl) 20 meq in 1,000 mls @ 100 mls/hr IV .Q10H [facility] Stop: 06/04/19 04:47 Last Admin: 05/06/19 00:06 Dose: 100 mls/hr Documented by: Famotidine 20 mg/ Syringe 5 mls @ 2.5 mls/min IV Q12H [facility] Stop: 06/04/19 08:59 Last Admin: 05/05/19 22:05 Dose: 2.5 mls/min Documented by: Metoprolol Tartrate (Lopressor) 100 mg PO BID [facility] Stop: 06/04/19 08:59 Last Admin: 05/05/19 22:00 Dose: 100 mg Documented by: Ondansetron HCl (Zofran) 4 mg IV Q6H PRN PRN Reason: NAUSEA/VOMITING Stop: 06/04/19 04:47 Ondansetron HCl (Zofran) 4 mg IV ONCE PRN PRN Reason: PACU Use Only-Nausea/Vomiting Stop: 05/06/19 12:17 Vitamin D (Vitamin D3) 2,000 units PO QAM [facility] Stop: 06/05/19 08:59 PG Care Time/CCT Total # of Minutes Spent Total Time Spent with Patient: Total time spent is greater than 50% in coordination of care (as documented) at patient's floor/unit and/or counseling patient: (1) Fracture of right hip Encounter type: initial encounter Fracture type: closed Qualified Code(s): S72.001A - Fracture of unspecified part of neck of right femur, initial encounter for closed fracture
[2019-05-06] MEDS ORDERED: MIDAZOLAM HCL 1 MG/ML 2ML VIAL ONE (07:00)
[2019-05-06] MEDS ORDERED: NEOSTIGMINE METHYLSULFATE 5 MG/5 ML SYR ONE (07:00)
[2019-05-06] MEDS ORDERED: ONDANSETRON INJ 2 MG/ML 2 ML VIAL ONE (07:00)
[2019-05-06] MEDS ORDERED: DEXAMETHASONE SOD INJ 4 MG/ML VIAL ONE (07:00)
[2019-05-06] MEDS ORDERED: GLYCOPYRROLATE 0.2 MG/ML VIAL ONE (07:00)
[2019-05-06] MEDS ORDERED: LIDOCAINE HCL 2% 2 ML VIAL/AMP(20MG/ML) INFIL ONE (07:00)
[2019-05-06] MEDS ORDERED: PROPOFOL IV EMULSION 10 MG/ML 20 ML VIAL IV ONE (07:00)
[2019-05-06] MEDS ORDERED: fentaNYL citrate 100 MCG/2 ML VIAL ONE (07:01)
[2019-05-06] MEDS ORDERED: BACITRACIN INJ 50,000 UNIT VIAL ONE (07:02)
[2019-05-06] MEDS ORDERED: BUPIVACAINE/EPINEPHRINE 0.5% MPF 1:200,000 30 ML VIAL ONE (07:02)
[2019-05-06 07:10] LABS: Creatinine Clr Calc Pharmacy 47.6 ml/min; Est GFR (African American) 72.9; Est GFR (Non-African American) 62.9; Potassium 4.9 mmol/L (3.5-5.1)
--- NOTE | 2019-05-06 07:13 | History & Physical Bridge Note ---
Date of Service May 06, 2019 History & Physical Bridge Note I have examined the patient, reviewed the History & Physical and in the interval since the performance of the History & Physical I have noted the following changes of clinical significance: no changes noted
[2019-05-06] MEDS ORDERED: ePHEDrine sulfate 50 MG/ML AMP IV PRN (07:16)
[2019-05-06] MEDS ORDERED: ATROPINE SULFATE 0.1 MG/ML 10ML SYR IV PRN (07:16)
[2019-05-06] MEDS ORDERED: ONDANSETRON INJ 2 MG/ML 2 ML VIAL IV PRN (07:16)
[2019-05-06] MEDS ORDERED: fentaNYL citrate 100 MCG/2 ML VIAL IV PRN (07:16)
[2019-05-06 07:37] LABS: ALC (manual) 32.06 K/uL (1.2-3.4); Eosinophils # (manual) 0.84 K/uL (0-0.5); Eosinophils % (manual) 1.8 %; Lymphocytes # (manual) 32.06 K/uL (1.2-3.4); Monocytes # (manual) 0.42 K/uL (0.11-0.59); Monocytes % (manual) 0.9 %; Neutrophils % (manual) 28.3 %; Smudge Cells Present
--- NOTE | 2019-05-06 08:38 | Progress Note ---
DATE: 05/06/2019 SUBJECTIVE: An 88-year-old white female admitted with a right displaced femoral neck fracture. She is doing okay. She is just fearful for the operation this morning. No new complaints. Hips do not really bother her as long as she does not move. OBJECTIVE: VITAL SIGNS: Temperature 36.6. Vital signs stable. PHYSICAL EXAMINATION: GENERAL: Reveals a pleasant elderly female. She is lying in bed. She is weeping a little bit just as she is scared. EXTREMITIES: Examination of the right hip and leg reveals the leg to be shortened and externally rotated. She can dorsiflex and plantarflex her foot appropriately. She is neurologically intact. LABORATORIES: Hemoglobin 13.1. Hematocrit 41.2. White count is stable. Electrolytes are improved with creatinine improved to 0.84. ASSESSMENT: An 88-year-old white female admitted with a displaced femoral neck fracture. She has multiple comorbidities, but is medically optimized. PLAN: 1. We will proceed with a right cemented bipolar hip arthroplasty this morning. 2. We will continue DVT prophylaxis with thigh-high TEDs, SCDs, and anticoagulation postoperatively. We will likely put her on prophylactic dose for 24 hours postop. 3. Medical management as per the medicine service. 4. Disposition: She will need a rehab stay once medically stable.
[2019-05-06] MEDS ORDERED: CHOLECALCIFEROL 1,000 UNITS TAB PO SCH (09:00)
[2019-05-06] MEDS ORDERED: DOPamine 400MG / 250ML D5W IV ONE (09:46)
[2019-05-06] MEDS ORDERED: DOPAMINE / D5W 400 MG/250 ML BAG IV SCH (09:57)
[2019-05-06] MEDS ORDERED: EPINEPHrine 2 MG in DEXTROSE 5% 250 ML IV SCH (09:57)
--- NOTE | 2019-05-06 10:00 | Post Operative Brief Note ---
Immediate Post Op Note v1 Date of Surgery May 06, 2019 Pre & Post Diagnosis Operation Date: 05/06/19 07:30 Pre-Op Diagnosis: RIGHT HIP FRACTURE Post-Op Diagnosis: RIGHT HIP FRACTURE Procedure Operation Date: 05/06/19 07:30 Actual Procedures p Right Hip Cemented Bipolar Prosthesis(Right) - Corey Pedraza MD Surgeon Corey Pedraza MD Enrichment Teacher Avery, PAC Estimated Blood Loss 200 Findings Consistent with Post-Op Diagnosis Fluids 2000 cc Specimens Right Femoral Head Drains Holder Catheter Anesthesia Type Spinal Complications Developed Hypotension and Bradycardia at end of case requiring intubation and resussitation. Disposition Accompanied Patient To Recovery: Yes Disposition: Surgical ICU
[2019-05-06] MEDS ORDERED: SODIUM BICARB 8.4% INJ 50 MEQ/50 ML SYR ONE (10:06)
[2019-05-06] MEDS ORDERED: SODIUM BICARBONATE 8.4% 150 MEQ in DEXTROSE 5% 1,000 ML IV SCH (10:15)
[2019-05-06 10:22] LABS: iSTAT Arterial Blood Gas HCO3 8 meg/L (19-24); iSTAT Arterial Blood Gas pCO2 41 mmHg (35-46); iSTAT Arterial Blood Gas pH 6.92 (7.35-7.45); iSTAT Carbon Dioxide 10 mEq/l (24-31); iSTAT Hematocrit 29 % (37-47); iSTAT Hemoglobin 9.9 g/dl (12.0-16.0); iSTAT Potassium 5.5 mEq/L (3.3-5.0); iSTAT Site Art Line; iSTAT Sodium 136 mEq/L (135-144)
[2019-05-06 10:22] LABS: iSTAT Arterial Blood Gas HCO3 9 meg/L (19-24); iSTAT Arterial Blood Gas pCO2 43 mmHg (35-46); iSTAT Arterial Blood Gas pH 6.92 (7.35-7.45); iSTAT Carbon Dioxide 10 mEq/l (24-31); iSTAT FiO2 100 %; iSTAT Site Art Line
--- NOTE | 2019-05-06 10:22 | Anesthesiology Progress Note ---
Date of Service May 06, 2019 Subjective The patient is an 88F with h/o CLL, paroxysmal afib, HTN, and CKD. She was undergoing a R bipolar hip under general anesthesia. During the process of cementing her hip. The patient became hypotensive and EtCO2 dropped. I alerted Dr. Pedraza of the patient's vital signs. The blood pressure was treated with doses of vasopressin and phenylephrine. The patient started to become bradycardic with minimal response from the vasopressors. A left radial arterial line was placed. Incremental doses of epinephrine were then administered. The patient's blood pressure went from 60s systolic to 200s systolic. The EKG showed a wide complex ventricular tachycardia with heart rate in the 90s. As the procedure concluded, the patient started to become bradycardic and hypotensive. I spoke with Dr. Ramos, and he came to evaluate the patient. Additional doses of vasopressin and epinephrine were administered, and a dopamine drip was initiated. Dr. Ramos and I agreed the patient should be transported to the SICU to perform a bedside echocardiogram to evalute the patient's cardiac function and assess for an embolus. The patient was transported to the ICU with monitors and remained intubated. The echocardiogram showed a hypodynamic right sided heart, with probable cause being an embolus. Dr. Escalante was also at bedside. Further care of the patient was taken over by the ICU staff. Physical Exam Vital Signs: Last Vital Signs Temp 97.5 F L 05/06/19 06:40 Pulse 75 05/06/19 07:38 Resp 22 05/06/19 06:40 BP 171/98 H 05/06/19 06:40 Pulse Ox 93 05/06/19 06:40 Results & Data Medications Administered Amiodarone HCl (Cordarone) 200 mg PO DAILY [facility] Stop: 06/04/19 08:59 Last Admin: 05/05/19 09:14 Dose: 200 mg Documented by: [id number] Amlodipine Besylate (Norvasc) 2.5 mg PO QAM [facility] Stop: 06/04/19 11:59 Last Admin: 05/05/19 12:49 Dose: 2.5 mg Documented by: [id number] Hydromorphone HCl (Dilaudid) 0.5 mg IV Q3H PRN PRN Reason: Severe Pain Stop: 05/19/19 04:47 Last Admin: 05/05/19 21:57 Dose: 0.5 mg Documented by: [id number] Admin: 05/05/19 15:05 Dose: 0.5 mg Documented by: [id number] Admin: 05/05/19 11:30 Dose: 0.5 mg Documented by: [id number] Admin: 05/05/19 05:22 Dose: 0.5 mg Documented by: [id number] Potassium Chloride/Sodium Chloride (Normal Saline W/20 Meq Kcl) 20 meq in 1,000 mls @ 100 mls/hr IV .Q10H [facility] Stop: 06/04/19 04:47 Last Admin: 05/06/19 00:06 Dose: 100 mls/hr Documented by: [id number] Infusion: 05/06/19 00:06 Dose: 100 mls/hr Documented by: [id number] Admin: 05/05/19 14:12 Dose: 100 mls/hr Documented by: [id number] Infusion: 05/05/19 14:12 Dose: 100 mls/hr Documented by: [id number] Admin: 05/05/19 05:42 Dose: 100 mls/hr Documented by: [id number] Famotidine 20 mg/ Syringe 5 mls @ 2.5 mls/min IV Q12H [facility] Stop: 06/04/19 08:59 Last Admin: 05/05/19 22:05 Dose: 2.5 mls/min Documented by: [id number] Admin: 05/05/19 09:15 Dose: 2.5 mls/min Documented by: [id number] Metoprolol Tartrate (Lopressor) 100 mg PO BID [facility] Stop: 06/04/19 08:59 Last Admin: 05/05/19 22:00 Dose: 100 mg Documented by: [id number] Admin: 05/05/19 09:14 Dose: 100 mg Documented by: [id number]
[2019-05-06] MEDS ORDERED: EPINEPHrine INJ 1 MG/ML AMP ONE (10:33)
[2019-05-06] MEDS ORDERED: VASOPRESSIN 20 UNIT/ML VIAL ONE (10:33)
[2019-05-06] MEDS ORDERED: SODIUM CHLORIDE 0.9% 250 ML IV PRN (10:33)
[2019-05-06] MEDS ORDERED: ePHEDrine sulfate 50 MG/ML SYR ONE (10:33)
--- NOTE | 2019-05-06 10:39 | Anesthesiology Progress Note ---
Date of Service May 06, 2019 Anesthesia Post Procedure Vital Signs Vital Signs: Temp Pulse Pulse Pulse Resp BP Pulse Ox 05/06/19 07:38 75 05/06/19 06:40 97.5 F L 76 22 171/98 H 93 05/06/19 03:56 97.9 F 73 18 162/84 H 90 05/06/19 00:59 72 05/05/19 22:58 98.8 F 70 18 127/64 91 05/05/19 15:43 98.2 F 63 18 123/62 94 05/05/19 15:30 62 05/05/19 12:50 98.2 F 86 19 124/65 97 Pain Intensity Right Hip: Pain Intensity: 3 Transfer of Care Handoff Completed per policy Notes Mental Status: see notes below Patient Amnestic to Procedure: Yes Nausea / Vomiting: see Notes below Pain: see Notes below Airway Patency, RR, SpO2: see Notes below BP & HR: see Notes below Hydration State: see Notes below Anesthetic Complications: see Notes below Notes: Please see separate anesthesia progress note.
[2019-05-06] MEDS ORDERED: VASOPRESSIN 20 UNITS in 0.9 % SODIUM CHLORIDE 100 ML IV SCH (10:40)
[2019-05-06] MEDS ORDERED: EPINEPHRINE IV PRN (10:40)
[2019-05-06] MEDS ORDERED: DEXTROSE 5% IV PRN (10:40)
[2019-05-06] MEDS ORDERED: EPINEPHrine 2 MG in DEXTROSE 5% 250 ML IV STA (10:40)
[2019-05-06] MEDS ORDERED: NOREPINEPHRINE BITARTRATE 1 MG/ML 4 ML VIAL IV ONE (10:41)
[2019-05-06 10:47] LABS: iSTAT Arterial Blood Gas HCO3 14 meg/L (19-24); iSTAT Arterial Blood Gas pCO2 59 mmHg (35-46); iSTAT Arterial Blood Gas pH 6.98 (7.35-7.45); iSTAT Carbon Dioxide 16 mEq/l (24-31); iSTAT FiO2 100 %; iSTAT Site Art Line
[2019-05-06 11:02] LABS: Hematocrit (blood only) 33.7 % (37-47); Hemoglobin 9.5 g/dL (12.0-16.0); INR 1.7 (0.9-1.1); Mean Corpuscular Hgb Conc 28.2 g/dL (32-36); Mean Corpuscular Volume 97.4 fL (80-100); Mean Platelet Volume 10.2 fL (7.4-10.4); Platelet Count 90 K/uL (130-400); Prothrombin Time 16.4 Seconds (9.0-12.0); RDW Coefficient of Variation 16.1 % (11.5-14.5); RDW Standard Deviation 56.2 fL (36.4-46.3); Red Blood Count 3.46 M/uL (4.2-5.4); White Blood Count 112.04 K/uL (4.8-10.8)
[2019-05-06 11:08] LABS: iSTAT Arterial Blood Gas HCO3 13 meg/L (19-24); iSTAT Arterial Blood Gas pCO2 48 mmHg (35-46); iSTAT Arterial Blood Gas pH 7.03 (7.35-7.45); iSTAT Carbon Dioxide 14 mEq/l (24-31); iSTAT Hematocrit 27 % (37-47); iSTAT Hemoglobin 9.2 g/dl (12.0-16.0); iSTAT Potassium 5.2 mEq/L (3.3-5.0); iSTAT Site Art Line; iSTAT Sodium 123 mEq/L (135-144)
--- NOTE | 2019-05-06 11:25 | Death Summary ---
Date of Service May 06, 2019 Pronouncement Note Date and Time of Date of : 05/06/19 Time of : 10:52 PCOD Preliminary cause of : Pulmonary embolism Contributing Factors (1) Fracture of right hip: Summary Additional details: Pt was hypotensive and bradycardic after surgery this AM. Coded and was intubated and resuscitated in the ICU before family expressed her wishes of being DNR/DNI. Likely embolus (can't say definitively whether fat vs. cement vs. pulmonary). Additional Data Confirmation of : no pulse and no respirations Family: at bedside Attending/PCP notified?: Yes Attending physician: Chris Knox DO Resident Activity Tracking Resident Involvement: Resident Care Provided Care Provided: Adult Hospital Medicine
--- NOTE | 2019-05-06 11:42 | Critical Care Consultation ---
Date of Consultation May 06, 2019 Assessment & Plan (1) Cardiac arrest due to respiratory disorder: Impression: 1. Acute fatal pulmonary embolism. 2. Acute right ventricular failure. 3. Right hip fracture. 4. CLL, stable. 5. A. fib, 6. History of recent fall resulted in right hip fracture. 7. Chronic kidney disease. 8. Ulcerative colitis. Plan: 1. Despite a code over 20 minutes and then another code over 10 minutes, the patient within the hour of diagnosis of massive PE. 2. Family were at the bedside, updated and notified, based on the patient's wishes, they do not want to pursue any further heroic measures, the code was aborted and the patient pronounced at 10:52 AM. 3. Family, other principles were notified. 4. Cause of is natural secondary to PE. 5. Discussed with the staff and cardiology, anesthesia and orthopedic throughout the entire code, appreciate all inputs. Appreciate assistance of anesthesia, OR, ICU staff. Critical care time spent with the patient was 60 minutes excluding procedure time. History of Present Illness Reason for Consultation: Profound hypotension and bradycardia perioperatively Requesting Physician: Dr. Thomas Attending Physician: Chris Knox DO History of Present Illness Dear Dr. Thomas: Thank you for the kind referral of Mrs. cShulz to critical care service. This is 88-year-old female with a history of CLL, atrial fibrillation, GERD, osteoarthritis, osteoporosis, sustained right hip fracture after fall, presented to the hospital where she was taken to the OR today on May 06, 2019 for right hip fixation. The patient underwent the procedure and after the completion, the patient become bradycardic and hypotensive, requiring multiple pressors. I was called to the bedside to evaluate the patient. When I interviewed the patient, she was already intubated and sedated, her color is dusky, her blood pressure was 60/30 with a heart rate 40 - 60 in sinus bradycardia. The patient received doses of epinephrine as well. The patient was given atropine to raise her blood pressure. Concerns about thromboembolic event was very high on the list considering that her end-tidal CO2 dropped down by half. Her cardiac output also dropped significantly. The patient was critical and moved immediately to the ICU for further management. Shortly after starting the ICU course, the patient started on dopamine drip and requiring also epinephrine drip. She become pulseless and CPR started 50 minutes later. The CPR run by ACLS protocol accordingly, and she received multiple allocates of epinephrine as well as 2 doses of atropine. Her ABG showed a pH of 6.9 with mixed respiratory and metabolic acidosis, given bicarb and started on bicarb drip. Bedside echo was done and appreciate Dr. Escalante from cardiology input, the echo was significant for dilated RV with floating fragments consistent with fragmented pulmonary embolus. The patient started on chest compression and had also gross hemoptysis from her ET tube which preclude her from receiving TPA at this point. However she was in a code and salvage TPA would not have altered her course either. The patient gained her pulse for short periods of time but remained bradycardic and blood pressure the best that she got with norepinephrine, epinephrine and dopamine wide-open drips and her systolic blood pressure was at 75 at best. The patient underwent also a bronchoscopy due to persistent hypoxia thought of presence of blood clots in the airways as well after gross and massive hemoptysis. The bronchoscopy showed bloody secretion in every subsegment. Shortly also after the bronchoscopy, the patient continued to become hemodynamically unstable again requiring another round of CPR with ACLS protocol. At that point it was deemed that the patient is not salvageable. While the CPR is running, the son who is a healthcare proxy brought to the room, and based on the patient's wishes, he did not want her to be any further resuscitated. The patient was deemed comfort measures at that time. CPR was aborted and the patient immediately at 10:52 AM. The cause of is natural secondary to massive acute pulmonary embolus with acute right ventricular failure. certificate was completed and the patient pronounced at that time. Appreciate the assistance of anesthesia, cardiology, orthopedic, nursing staff, respiratory therapy, ICU technicians and all involved in the code. Family history, past medical history, social history, or reviewed, not obtainable. Review of system obviously was not obtainable. Allergies Allergy/AdvReac Type Severity Reaction Status Date / Time naloxone Allergy Severe TREMORS, Verified 05/05/19 03:14 DYSKINESIA acetaminophen Allergy Unknown ` Verified 05/05/19 03:14 amoxicillin Allergy Unknown ` Verified 05/05/19 03:14 clarithromycin Allergy Unknown ` Verified 05/05/19 03:14 alprazolam [From Xanax] Allergy Unknown Verified 05/05/19 03:14 doxycycline Allergy Unknown Verified 05/05/19 03:14 NSAIDS (Non-Steroidal Allergy Unknown Verified 05/05/19 03:14 Anti-Inflamma aspirin AdvReac Intermediate hISTORY OF Verified 05/05/19 03:14 ULCERS codeine AdvReac Intermediate VOMITING Verified 05/05/19 03:14 Home Medications Home Medications Medication Instructions Recorded Confirmed Type Eliquis 5 mg PO BID 10/12/18 05/05/19 History metoprolol tartrate 100 mg PO BID 10/12/18 05/05/19 History sertraline [Zoloft] 100 mg PO QAM 10/12/18 05/05/19 History amiodarone 200 mg PO DAILY 04/10/19 05/05/19 History Calcium 750+D+K 1 tab PO DAILY 05/05/19 05/05/19 History amlodipine 2.5 mg PO DAILY 05/05/19 05/05/19 History lkmszkwc-cad-WN-lycopen-lutein 1 tab PO DAILY 05/05/19 05/05/19 History [Centrum Silver] Patient History Medical History Chronic lymphocytic leukemia (CLL), 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 Managed with observation. Absolute leukocyte count has fluctuated from 40-70K. Followed by Heme/Onc A-fib Atrial flutter CKD (chronic kidney disease) HTN (hypertension) History of hysterectomy Surgical History History of hip replacement History of shoulder surgery History of tonsillectomy Family History Sister Cancer Mother Hypertension Father Hypertension Social History Preferred Language: Tanzanian Communication Ability: Effective Beliefs That Will Affect Care: None marital status: / Current Living Situation: Alone Feels Safe at Home: Yes Smoking Status: Never smoker Second Hand Exposure: No Hx Alcohol Use: No Hx Substance Use: No Review of Systems Review of Systems: Not obtainable. Physical Exam Physical Exam: Dusky and as she color, blood pressure is 50-70, heart rate is 40, sinus bradycardia, patient is unresponsive, pupils are fixed and dilated, however she received atropine earlier, not moving, vital signs otherwise were unstable. S1-S2 on audible, distant breath sounds, abdomen is soft and benign, right hip postop, clammy and dusky in the periphery. Pulses barely palpable in the femoral. Neurologically the patient is comatose. Results & Data Vital Signs (Past 12 Hours) Vital Signs Temp Pulse Pulse Resp BP Pulse Ox 05/06/19 10:35 71 30 H 88 L 05/06/19 07:38 75 05/06/19 06:40 36.4 C L 76 22 171/98 H 93 05/06/19 03:56 36.6 C 73 18 162/84 H 90 05/06/19 00:59 72 Laboratory Results Labs were reviewed, the patient was in profound metabolic and respiratory acid osis, consistent with diagnosis of PE. Hematocrit been stable, and BUN/creatinine also are stable. Electrolytes also were checked. Diagnostic Findings No imaging, patient was in a code and no time for imaging, however the echocardiogram was done at the bedside showing dilated RV, consistent with fragments of thromboembolic event consistent with diagnosis of PE. Repeat echo showed reduction in the RV size. PG Care Time/CCT Critical Care Time: Yes Total Critical Care Time: 60
--- NOTE | 2019-05-06 11:44 | Procedure Note ---
Procedure Note Date of Service May 06, 2019 Note Bronchoscopy was done at the bedside emergently, no consent was obtained, patient was in a code, after the cruise developed gross massive hemoptysis, she was desaturating and concerned about blood clots forming in the airways. The procedure was done in ICU, patient was already intubated and monitored in the ICU briefly with ICU style of monitoring. Patient is postop fracture. Underwent a code for massive PE. The bronchoscope passed through the #7 ET tube. No sedation is required as the patient was comatose. Timeout performed by the nursing staff. Appreciated. The findings as follows: 1. Significant amount of blood was noted from every single subsegment of the right and left bronchial tree. 2. All the blood was suctioned from every single subsegment. 3. No specimen was obtained. 4. The bronchoscope removed from the ET tube entirely. No intervention was needed via the bronchoscope. Thank you Coding CPT Codes Pulmonary/Thoracic - Pulmonary and Thoracic: Bronchoscopy, clear airways ([id number])
--- NOTE | 2019-05-06 11:46 | Critical Care Progress Note ---
Date of Service May 06, 2019 Assessment & Plan (1) Cardiac arrest due to respiratory disorder: Patient underwent a code due to massive acute PE, the patient continued to have pulseless electrical activity, CPR was performed earlier and the family were at the bedside, the son stated that his mother does not wish to have heroic measures. The code was aborted, patient continued to be pulseless, her pupils were fixed and dilated, patient was breathless, unresponsive, comatose, and without any pulse. Shortly after aborting the code, the patient had isoelectric line with asystole. Patient pronounced at 10:52 AM. Family are aware, and principal physician notified. Thank you Results & Data Vital Signs (Past 12 Hours) Vital Signs Temp Pulse Pulse Resp BP Pulse Ox 05/06/19 11:00 30 H 05/06/19 10:35 71 30 H 88 L 05/06/19 07:38 75 05/06/19 06:40 36.4 C L 76 22 171/98 H 93 05/06/19 03:56 36.6 C 73 18 162/84 H 90 05/06/19 00:59 72
[2019-05-06] MEDS ORDERED: BISACODYL 10 MG SUPP PR PRN (11:58)
[2019-05-06] MEDS ORDERED: CEFAZOLIN 1000MG 1,000 MG/7.5 ML SYR IV SCH (11:58)
[2019-05-06] MEDS ORDERED: MAGNESIUM HYDROXIDE SUSP 30 ML UDC PO PRN (11:58)
[2019-05-06] MEDS ORDERED: HYDROmorphone INJ 0.5 MG/0.5 ML SYR IV PRN (11:58)
[2019-05-06] MEDS ORDERED: NALOXONE HCL 0.4 MG/1 ML VIAL/CARP IV PRN (11:58)
[2019-05-06] MEDS ORDERED: SODIUM BICARB 8.4% INJ 50 MEQ/50 ML SYR IV ONE (12:21)
[2019-05-06] MEDS ORDERED: ATROPINE SULFATE 0.1 MG/ML 10ML SYR IV ONE (12:21)
[2019-05-06] MEDS ORDERED: VASOPRESSIN 20 UNIT/ML VIAL IV ONE (12:21)
[2019-05-06] MEDS ORDERED: SODIUM CHLORIDE 0.9% 10ML FLUSH IV ONE (12:21)
--- NOTE | 2019-05-06 14:38 | Discharge Summary ---
Date of Service May 06, 2019 Admission HPI Per Admitting Provider The patient is an 88-year-old female with a past medical history including atrial fibrillation/flutter on apixaban for anticoagulation, CHF, hypertension, CLL, depression and recent admission for altered mental status due to UTI from 04/10-04/14/2019. She reports that she was leaning forward to turn a fan on that was on the floor, and when she went to stand up she kept going backwards, and her right hip hit the wall behind her hard enough to put a dent in the wall. She had an immediate pain in her right hip and groin area. She has no other complaints. Admission Exam Per Admitting Provider he patient is awake, alert and oriented 3, well developed and well nourished, normocephalic and atraumatic, lying in bed and in intermittent moderate distress secondary to hip pain. HEENT--PERRL, EOMI, mucous membranes and oropharynx normal. Neck--supple. No JVD. No bruits. Thyroid normal, trachea midline, no adenopathy. Heart--normal S1 and S2. No murmurs, rubs or gallops. Lungs--clear bilaterally, no respiratory distress, no accessory muscle use. Abdomen--normal bowel sounds and soft. Nontender. Nondistended. Extremities--no cyanosis or clubbing. No edema. There are good distal pulses b/l. Dermatologic--normal skin turgor, normal color, no abnormal lymph nodes, no rash. Neurologic--cranial nerves II through XII grossly intact. Rheumatologic--limited due to pain in right hip and groin Psychiatric--normal affect. Principal Diagnosis Right hip fracture Fatal pulmonary Embolus Discharge Exam PREOP EXAM General: Alert. No acute distress HEENT: NC/AT, PERRLA, EOMI, oropharynx moist. Chest: Nontender to palpation. CV: RRR, no murmurs appreciated Resp: Breath sounds clear bilaterally on front Extremities: right hip with no redness, swelling but tender to palpation in groin area. POSTOP/ICU Exam -Pt nonresponsive, laying in bed being rescuscitated. See ICU note from same date. Discharge Data Allergies Allergy/AdvReac Type Severity Reaction Status Date / Time naloxone Allergy Severe TREMORS, Verified 05/05/19 03:14 DYSKINESIA acetaminophen Allergy Unknown ` Verified 05/05/19 03:14 amoxicillin Allergy Unknown ` Verified 05/05/19 03:14 clarithromycin Allergy Unknown ` Verified 05/05/19 03:14 alprazolam [From Xanax] Allergy Unknown Verified 05/05/19 03:14 doxycycline Allergy Unknown Verified 05/05/19 03:14 NSAIDS (Non-Steroidal Allergy Unknown Verified 05/05/19 03:14 Anti-Inflamma aspirin AdvReac Intermediate hISTORY OF Verified 05/05/19 03:14 ULCERS codeine AdvReac Intermediate VOMITING Verified 05/05/19 03:14 Consultations 05/05/19 04:48 Consult Case Management - Discharge Planning Routine Consult Orthopedic Surgery Routine 05/06/19 11:58 Consult Case Management - Discharge Planning Routine Procedures Performed Operation Date: 05/06/19 07:30 Actual Procedures p Right Hip Cemented Bipolar Prosthesis(Right) - Corey Pedraza MD Hospital Course (1) Fracture of right hip: Pt is an 88yo with PMhx significant for a fib, HTN, CLL who presented with a right hip fracture after a mechanical fall at home. Pt was admitted on May 05, 2019 and in the ICU on May 06, 2019 after presenting after hip surgery, bradycardic and hypotensive. RIGHT HIP FRACTURE - after becoming hypotensive and bradycardic postop on may 06. -pt was resuscitated and intubated with ROSC but coded once more. -per family's wishes, pt wanted to be DNR/DNI so heroic measures were stopped. HISTORICALLY: - appreciate ortho recs for fracture, surgical repair -pain management with Dilaudid and tylenol prn -held Eliquis pre-op for about 24hours with plan to restart post op. -Vit D level decreased, replaced. DEXA was recommended as outpt workup AV -Cr 1.23 on admission, up from normal baseline -treated with IV fluids -Resolved 05/06 preop. Atrial fibrillation -was rate controlled -held anticoagulation (Eliquis 5mg PO BID) for approximately 24hrs pre-op. -continued metoprolol and amiodarone HTN -continued home amlodipine, metoprolol CLL -stable Depression -planned to continue home sertraline postop. Total Time Total Time Spent Total Time Spent (In Minutes): Greater than 30 Discharge Plan Discharge Items Patient Disposition: Admission Data Admit Date/Time: 05/05/19 03:37 Attending Provider: Chris Knox Admit Provider: Nacho Jolly Primary Care Provider: Henrry Hinojosa Other Providers: Nacho Jolly ; Corey Pedraza Service: Telemetry Medical Other DC Date/Time DO NOT enter until pt leaves facility: 05/06/19 12:22 Supervising Physician Co-Signing Physician Notes I personally examined the patient and verified all valadez points of history and exam, discussed case, and agree with decision making with Dr Reilly. Responded to CODE BLUE, on arrival ICU staff well with assistance of cardiology. Discussed with anesthesiology, patient abruptly deteriorated intraoperatively. Anesthesia carries high suspicion of embolism. Initial resuscitative efforts did attain ROSC, but then patient deteriorated and coded again. At this point the son noted that she would not want heroic measures, and at his request efforts were ceased. Support and empathy provided to son. PEA arrestgiven the intraoperative situation, and the appearance of acute right heart failure, it seems most likely that she suffered from some form of massive saddle embolus. Otherwise as above. Resident Activity Tracking Resident Involvement: Resident Care Provided Care Provided: Adult Hospital Medicine
--- NOTE | 2019-05-06 20:48 | Operative Report ---
DATE OF OPERATION: 05/06/2019 DATE OF PROCEDURE: 05/06/2019 SURGEON: Corey Pedraza MD HOUSING PROPERTY MANAGER: Mango Varela PA-C PREOPERATIVE DIAGNOSIS: Displaced right femoral neck fracture. POSTOPERATIVE DIAGNOSIS: Displaced right femoral neck fracture. PROCEDURE PERFORMED: Right cemented bipolar hip arthroplasty. COMPLICATIONS: Acute episode of hypotension and bradycardia towards the end of the case, requiring transfer to the ICU. ESTIMATED BLOOD LOSS: 200 mL. FLUID REPLACEMENT: 2000 mL crystalloid fluid replacement. ANESTHESIA: General anesthesia as the patient has been on Eliquis preoperatively and it was a contraindication to do a spinal anesthetic. OPERATIVE INDICATIONS: The patient is an 88-year-old fairly active female who sustained a fall on the late Tuesday evening or early Tuesday morning. She had acute onset of hip pain and could not walk afterwards. She was brought to Emergency Room where x-ray displaced femoral neck fracture. She is admitted by the hospitalist service, medically optimized, and indicated for surgical treatment. OPERATIVE IMPLANTS: Operative implants consisted of: 1. A Korina size 14 LD-FX femoral stem. 2. A 0/28 mm articular ball. 3. A 46 mm bipolar shell and liner. 4. A 14 mm distal centralizer. 5. A small cement restrictor. OPERATIVE PROCEDURE: The patient taken to the operating room, identified and placed on the operating table in supine position. All contact areas were appropriately padded. IV antibiotics were provided by anesthesia team. A general anesthetic was implemented. The patient had been on Eliquis preoperatively, so general anesthetic was implemented. The patient was then placed in the left lateral decubitus position. An axillary roll was placed. Stlberg hip positioner was used for positioning. The right hip was then scrubbed with Hibiclens and then prepped with ChloraPrep and draped in the usual sterile fashion. A posterolateral approach of the right hip was then performed through a curvilinear incision centered over the greater trochanter. Sharp dissection was carried through subcutaneous tissue down to the level of the IT band and gluteal fascia. The IT band and gluteal fascia were then incised longitudinally in line with the skin incision. The underlying greater trochanteric bursa was excised. There was some hemorrhage posteriorly and we had to clean this out in order to identify the posterior hip muscles. The piriformis and external rotators were then tagged and taken off the posterior aspect of the hip joint capsule. Great care was taken throughout the procedure to protect the sciatic nerve at all times. Posterior capsulotomy was then performed leaving a flap for later repair. Hip was internally rotated. Femoral neck osteotomy cut was then made just below the fracture site and the remaining femoral neck was removed. The femoral head was removed. The acetabulum was sized to a size 46. Attention was then drawn to the femur. The proximal femur was entered with cookie cutter followed by canal finder. I then used a lateralizing reamer and then broached beginning with a size 10 and progressing up to 14. We got good fit at 14. We trialed the hip and the 0 head provided full stability in full extension, external rotation, flexion to 90 degrees, internal rotation to over [address] We elected to place these implants. Soft tissue tension seemed appropriate. All trial implants were removed. A small cement restrictor was placed. A double batch of Palacos G cement was mixed and injected into the canal. A size 15 Korina LD-FX femoral stem was placed with a 14 centralizer. All extraneous cement was removed. Once the cement hardened, a 0/28 mm articular ball was placed with a 46 mm bipolar shell and the hip was located. Almost right after relocating the hip, the patient's blood pressure did drop and her heart rate dropped. The anesthesia team had managed this. The wound was then irrigated extensively. The posterior capsule was then repaired with #2 Ti-Cron suture in a [id number] fashion. The external rotators repaired the posterior aspect of the hip abductors with #2 Ti-Cron suture. The IT band and gluteal fascia were then closed with #1 PDS suture in running fashion. The subcutaneous tissue was then closed in 2 layers, the deep layer with 0 Vicryl suture and subcutaneous tissues with 2-0 Dexon suture in a buried interrupted fashion. The skin was closed with skin collins. Leg was then cleaned and dried and a sterile dressing of Xeroform, 4 x 4's, sterile ABD pad and foam tape was applied. The patient was then placed back in the supine position. The patient was further resuscitated by the anesthesia team. The ICU team was called and she was transferred to the ICU for more definitive care. I attest to the content of the Intraoperative Record and any orders documented therein. Any exceptions are noted below. SHERRI
[2019-05-06] MEDS ORDERED: SENNA 8.6 MG TAB PO SCH (21:00)
[2019-05-08] MEDS ORDERED: POLYETHYLENE (MIRALAX) 17 GM PACK PO SCH (10:01)
--- NOTE | 2019-05-09 09:37 | Coding Query ---
CODING QUERY To promote full compliance with coding requirements relating to patient care, provider participation is requested in all cases of direct care professional uncertainty. Please assist us with the question(s) below: Coding Question(s): It was noted throughout the record that the patient is suspected to have osteoporosis. According to coding guidelines "a code for osteoporotic fracture, and not a traumatic fracture, should be used for any patient with known osteoporosis who suffers a fracture, even if the patient had a minor fall or trauma, if that fall or trauma would not usually break a normal, healthy bone." Please indicate below the type of fracture: Physician's Response(s): ( x ) Osteoporotic fracture of neck of right femur - see my notes. not clear that it was an osteoporotic fracture, but definitely had concern that it was. thanks ( ) Traumatic fracture of neck of right femur ( ) Other, please specify ( ) Unable to be determined Thank you Lorena Dickson Principal Diagnosis: "that condition established after study, to be chiefly responsible for occasioning the admission of the patient to the hospital for care." Co-Existing Principal Diagnosis: "when two or more diagnoses equally meet the criteria for principal diagnosis as determined by the circumstances of admission, diagnostic work up, and/or therapy provided, and the Alphabetic Index, Tabular List, or another coding guideline does not provide sequencing direction, any one of the diagnoses may be sequenced first." "When the physician has documented what appears to be a current diagnosis in the body of the record, but has not included the diagnosis in the final diagnostic statement, the physician should be asked whether the diagnosis should be added." (Source Coding [facility] 2 QTR90. p3-4) SHERRI
== END 2019-05-06 12:22 | disposition expired | DRG 470 ==
LOC: ED 01:47 → SUATTDRO 03:37 → 2N 03:37 → 1E 05-06 09:56